=== PATIENT | female | born 1950 | race Caucasian/White ===

== ENCOUNTER 2018-01-14 00:29 | Inpatient (IN) | payer MEDICARE ==
[2018-01-14] MEDS ORDERED: ONDANSETRON 4 MG/2 ML VIAL IVP STA ×2 (01:00→04:27)
[2018-01-14] MEDS ORDERED: NITROGLYCERIN OINT 1 INCH/GM PACKET TOPICAL STA (01:00)
[2018-01-14] MEDS ORDERED: MORPHINE SULFATE 2 MG/ML SYRINGE IV STA (01:00)
[2018-01-14] MEDS ORDERED: SODIUM CHLORIDE 0.9% 1,000 ML IV STA (01:00)
[2018-01-14 01:42] LABS: Albumin 3.5 g/dL (3.5-5.0); Calcium 9.4 mg/dL (8.4-10.2); Magnesium 2.2 mg/dL (1.6-2.3); Potassium 5.1 mmol/L (3.5-5.1); Total Bilirubin 0.4 mg/dL (0.2-1.3); Total Protein 6.2 g/dL (6.3-8.2)
[2018-01-14 01:47] LABS: Partial Thromboplastin Time 22.9 sec (22.0-30.0); Prothrombin Time 9.5 sec (9.0-12.0)
[2018-01-14 01:55] LABS: Creatine Kinase 109 U/L (30-135)
[2018-01-14 02:01] LABS: D-Dimer 2.17 mg/L FEU (<0.60)
[2018-01-14 02:08] LABS: Creatine Kinase MB 2.1 ng/mL (0.0-2.4); Troponin I <0.012 ng/mL (0.000-0.034)
--- NOTE | 2018-01-14 02:08 | XR ---
EXAMINATION TYPE: XR chest 2V DATE OF EXAM: 01/14/2018 COMPARISON: NONE HISTORY: Chest pain TECHNIQUE: 2 views FINDINGS: Heart appears enlarged. There is small pleural effusions. There is mild pulmonary congestio n. There are chest leads. Bony thorax is intact. IMPRESSION: There is probably mild heart failure. No pulmonary consolidation.
[2018-01-14 02:12] LABS: Basophils % (A) 0 %; Eosinophils # (A) 0.1 k/uL (0-0.7); Eosinophils % (A) 1 %; HCT 42.3 % (34.0-46.0); HGB 13.9 gm/dL (11.4-16.0); Lymphocytes # (A) 0.6 k/uL (1.0-4.8); Lymphocytes % (A) 8 %; MCH 31.2 pg (25.0-35.0); MCHC 32.9 g/dL (31.0-37.0); MCV 94.7 fL (80.0-100.0); Monocytes # (A) 0.3 k/uL (0-1.0); Monocytes % (A) 4 %; Neutrophils % (A) 86 %; Platelet Count 149 k/uL (150-450); RBC 4.46 m/uL (3.80-5.40); RDW 12.7 % (11.5-15.5); WBC 8.1 k/uL (3.8-10.6)
--- NOTE | 2018-01-14 03:56 | CT ---
EXAMINATION TYPE: CT abdomen pelvis wo con DATE OF EXAM: 01/14/2018 COMPARISON: 02/11/2011 HISTORY: abd pain CT DLP: 1299 mGycm Automated exposure control for dose reduction was used. TECHNIQUE: Helical acquisition of images was performed from the lung bases through the pelvis. FINDINGS: There is patchy atelectasis at the lung bases. Heart appears enlarged. There is no pleural effusion. Liver shows no focal defect. Spleen is normal in size. There is fat stranding anterior and posterior to the pancreas. Gallbladder appears normal. Bile ducts are not dilated. Stomach has normal size. The re are some mildly distended loops of small bowel in the left upper quadrant that measure up to 3.5 c m. Abdominal aorta is atheromatous. There is no adrenal mass. Kidneys have normal size. There is no h ydronephrosis. There is no retroperitoneal adenopathy. Abdominal aorta is atheromatous. There is mode rate vascular calcification. The appendix appears normal. Bladder distends smoothly. There is no pelv ic mass. There are spondylotic changes in the lumbar spine. There is no sign of free air. There is no ascites. There is fluid in the anterior pararenal space on the left side. IMPRESSION: INFLAMMATORY CHANGES AROUND THE PANCREAS AND IN THE ANTERIOR PARARENAL SPACE AND LESSER SAC CONSISTEN T WITH PANCREATITIS. NO DILATED DUCTS. MODERATE ATHEROSCLEROTIC VASCULAR DISEASE. MILDLY DILATED LEFT UPPER QUADRANT SMALL BOWEL CONSISTENT WITH LOCALIZED ILEUS. I DO NOT SUSPECT A MECHANICAL BOWEL OBSTRUCTION. INFLAMMATORY CHANGES ARE NEW COMPARED TO OLD EXAM. THERE IS NEW ATELECTASIS AND INFILTRATE AT THE LUNG BASES COMP ARED TO OLD EXAM.
[2018-01-14] MEDS ORDERED: MORPHINE SULFATE 2 MG/ML SYRINGE IVP STA (04:27)
--- NOTE | 2018-01-14 05:46 | ED ---
General Adult HPI - General Chief complaint: Chest Pain Stated complaint: back and chest pain Time Seen by Provider: 01/14/18 00:57 Source: patient Mode of arrival: wheelchair Limitations: no limitations - History of Present Illness Initial comments: Extensive 7 years old lady comes in with the abdominal pain and the chest pain about the epigastric area and the right upper quadrant area pain which started 9 PM today she denies any alcohol use he smoked quite regularly and denies any history of heart disease. She is denies any diarrhea or constipation denies any vomiting pain is quite intense she said pain is 9/10 and is mostly in the epigastric area - Related Data Allergies Allergy/AdvReac Type Severity Reaction Status Date / Time cephalexin [From Keflex] Allergy Unknown Verified 01/14/18 00:35 pregabalin [From Lyrica] Allergy Unknown Verified 01/14/18 00:35 terbinafine [From Lamisil] Allergy Unknown Verified 01/14/18 00:35 Review of Systems ROS Statement: Those systems with pertinent positive or pertinent negative responses have been documented in the HPI. ROS Other: All systems not noted in ROS Statement are negative. Past Medical History Past Medical History: Cancer, Diabetes Mellitus History of Any Multi-Drug Resistant Organisms: None Reported Past Surgical History: Orthopedic Surgery Past Psychological History: No Psychological Hx Reported Smoking Status: Current every day smoker Past Alcohol Use History: Occasional Past Drug Use History: None Reported General Exam - General Exam Comments Initial Comments: General: The patient is awake and alert, in distress Skin: Skin is warm and dry and no rashes or lesions are noted. Eye: Pupils are equal, round and reactive to light, extra-ocular movements are intact; there is normal conjunctiva bilaterally. Ears, nose, mouth and throat: There are moist mucous membranes and no oral lesions. Neck: The neck is supple, there is no tenderness or JVD. Cardiovascular: There is a regular rate and rhythm. No murmur, rub or gallop is appreciated. Respiratory: To auscultation bilateral, no wheezing no rhonchi no distress respiratory garza noticed Gastrointestinal: Very tender in epigastric area and right upper quadrant area Back: There is no tenderness to palpation in the midline. There is no obvious deformity. Musculoskeletal: Normal ROM, no tenderness, There is no pedal edema. There is no calf tenderness or swelling. No cords were appreciated. Neurological: CN II-XII intact, Cranial nerves III through XII are intact. There are no obvious motor or sensory deficits. Coordination appears grossly intact. Speech is normal. Psychiatric: Cooperative, appropriate mood & affect, normal judgment. Limitations: no limitations Course Vital Signs 01/14/18 01/14/18 01/14/18 00:31 01:00 01:48 Temperature 98.1 F Pulse Rate 83 79 81 Respiratory 18 22 12 Rate Blood Pressure 181/82 190/80 180/79 O2 Sat by Pulse 92 L 96 85 L Oximetry 01/14/18 01/14/18 02:45 04:11 Temperature 98 F Pulse Rate 77 81 Respiratory 14 18 Rate Blood Pressure 188/81 O2 Sat by Pulse 92 L 95 Oximetry Review of this labs revealed amylase and lipase are both quite elevated lipase 8799 amylase is 76 troponin is negative EKG is unremarkable also noticed renal insufficiency d-dimer is elevated with elevated creatinine, unable to do CT chest angiogram VQ scan be done later and also noticed some mild congestive heart failure patient be admitted to Dr. Mata service cardiology be consulted and a GI be consulted EKG Findings - EKG Comments: EKG Findings:: EKG is normal sinus ventricular rate is 83 MD interval is 172 QRS duration is 86 QT/QTC 392/460 review of this EKG does not reveal any ST elevation or ST depression Medical Decision Making - Lab Data Result diagrams: 01/14/18 00:49 01/14/18 00:49 Lab Results 01/14/18 01/14/18 01/14/18 Range/Units 00:49 00:49 00:49 WBC 8.1 (3.8-10.6) k/uL RBC 4.46 (3.80-5.40) m/uL Hgb 13.9 (11.4-16.0) gm/dL Hct 42.3 (34.0-46.0) % MCV 94.7 (80.0-100.0) fL MCH 31.2 (25.0-35.0) pg MCHC 32.9 (31.0-37.0) g/dL RDW 12.7 (11.5-15.5) % Plt Count 149 L (150-450) k/uL Neutrophils % 86 % Lymphocytes % 8 % Monocytes % 4 % Eosinophils % 1 % Basophils % 0 % Neutrophils # 7.0 (1.3-7.7) k/uL Lymphocytes # 0.6 L (1.0-4.8) k/uL Monocytes # 0.3 (0-1.0) k/uL Eosinophils # 0.1 (0-0.7) k/uL Basophils # 0.0 (0-0.2) k/uL PT (9.0-12.0) sec INR (<1.2) APTT (22.0-30.0) sec D-Dimer (<0.60) mg/L FEU Sodium 133 L (137-145) mmol/L Potassium 5.1 (3.5-5.1) mmol/L Chloride 96 L (98-107) mmol/L Carbon Dioxide 29 (22-30) mmol/L Anion Gap 8 mmol/L BUN 47 H (7-17) mg/dL Creatinine 1.50 H (0.52-1.04) mg/dL Est GFR (CKD-EPI)AfAm 42 (>60 ml/min/1.73 sqM) Est GFR (CKD-EPI)NonAf 36 (>60 ml/min/1.73 sqM) Glucose 295 H (74-99) mg/dL Plasma Lactic Acid Alfredo (0.7-2.0) mmol/L Calcium 9.4 (8.4-10.2) mg/dL Magnesium 2.2 (1.6-2.3) mg/dL Total Bilirubin 0.4 (0.2-1.3) mg/dL AST 27 (14-36) U/L ALT 40 (9-52) U/L Alkaline Phosphatase 86 (38-126) U/L Total Creatine Kinase 109 (30-135) U/L CK-MB (CK-2) 2.1 (0.0-2.4) ng/mL CK-MB (CK-2) Rel Index 1.9 Troponin I <0.012 (0.000-0.034) ng/mL Total Protein 6.2 L (6.3-8.2) g/dL Albumin 3.5 (3.5-5.0) g/dL Amylase 736 H* (30-110) U/L Lipase 8799 H (23-300) U/L 01/14/18 01/14/18 Range/Units 00:49 03:11 WBC (3.8-10.6) k/uL RBC (3.80-5.40) m/uL Hgb (11.4-16.0) gm/dL Hct (34.0-46.0) % MCV (80.0-100.0) fL MCH (25.0-35.0) pg MCHC (31.0-37.0) g/dL RDW (11.5-15.5) % Plt Count (150-450) k/uL Neutrophils % % Lymphocytes % % Monocytes % % Eosinophils % % Basophils % % Neutrophils # (1.3-7.7) k/uL Lymphocytes # (1.0-4.8) k/uL Monocytes # (0-1.0) k/uL Eosinophils # (0-0.7) k/uL Basophils # (0-0.2) k/uL PT 9.5 (9.0-12.0) sec INR 1.0 (<1.2) APTT 22.9 (22.0-30.0) sec D-Dimer 2.17 H (<0.60) mg/L FEU Sodium (137-145) mmol/L Potassium (3.5-5.1) mmol/L Chloride (98-107) mmol/L Carbon Dioxide (22-30) mmol/L Anion Gap mmol/L BUN (7-17) mg/dL Creatinine (0.52-1.04) mg/dL Est GFR (CKD-EPI)AfAm (>60 ml/min/1.73 sqM) Est GFR (CKD-EPI)NonAf (>60 ml/min/1.73 sqM) Glucose (74-99) mg/dL Plasma Lactic Acid Alfredo 0.7 (0.7-2.0) mmol/L Calcium (8.4-10.2) mg/dL Magnesium (1.6-2.3) mg/dL Total Bilirubin (0.2-1.3) mg/dL AST (14-36) U/L ALT (9-52) U/L Alkaline Phosphatase (38-126) U/L Total Creatine Kinase (30-135) U/L CK-MB (CK-2) (0.0-2.4) ng/mL CK-MB (CK-2) Rel Index Troponin I (0.000-0.034) ng/mL Total Protein (6.3-8.2) g/dL Albumin (3.5-5.0) g/dL Amylase (30-110) U/L Lipase (23-300) U/L Disposition Clinical Impression: Pneumonia, Chest pain, Elevated d-dimer, Congestive heart failure, Pancreatitis Disposition: ADMITTED IP TO THIS [facility] Condition: Good Referrals: Jeny Vega DO [Primary Care Provider] - 1-2 days
[2018-01-14] MEDS ORDERED: LEVOFLOXACIN 500MG-D5W PMX 500 MG in DEXTROSE/WATER 1 100ML.BAG IVPB STA (05:50)
[2018-01-14] MEDS ORDERED: NALOXONE 0.4 MG/ML 1 ML VIAL IV PRN (05:52)
[2018-01-14 07:08] LABS: Appearance,Urine Clear (Clear); Bilirubin,Urine Negative (Negative); Blood,Urine Negative (Negative); Color,Urine Light Yellow; Glucose,Urine (UA) 4+ (Negative); Ketones,Urine Negative (Negative); Leukocyte Esterase,Urine Large (Negative); Mucus,Urine Rare /hpf; Nitrite,Urine Negative (Negative); PH, Urine 5.5 (5.0-8.0); Protein,Urine Trace (Negative); RBC,Urine 1 /hpf (0-5); Squamous Epithelial Cell,Urine 1 /hpf (0-4); Urobilinogen,Urine <2.0 mg/dL (<2.0); WBC,Urine 21 /hpf (0-5)
--- NOTE | 2018-01-14 08:20 | NM ---
EXAMINATION TYPE: NM pul vent and perfuse DATE OF EXAM: 01/14/2018 COMPARISON: Chest x-ray same date HISTORY: Chest pain TECHNIQUE: Utilizing inhalation of 28.9 mCi Tc 99m DTPA aerosol and intravenous injection of 5.21 mC i of Tc 99m MAA, ventilation and perfusion images are acquired post injection in multiple projections . FINDINGS: Normal radiotracer distribution is noted in the lungs on perfusion scanning. Ventilation scanning misael ws a somewhat more patchy uptake, central clumping of the radiopharmaceutical be due to underlying CO PD. There is no evidence of mismatched defects. IMPRESSION: Low probability for pulmonary embolism.
[2018-01-14] MEDS: SODIUM CHLORIDE 0.9% 1,000 ML IV SCH ×3 (09:27→22:25)
[2018-01-14] MEDS: MORPHINE SULFATE 2 MG/ML SYRINGE IV PRN ×3 (09:32→21:12)
[2018-01-14] MEDS: ONDANSETRON 4 MG/2 ML VIAL IVP PRN ×2 (09:33→21:21)
[2018-01-14 10:04] VITALS: BMI 38.4
[2018-01-14 11:09] LABS: Glucose,Whole Blood 457 mg/dL (75-99)
[2018-01-14 11:30] LABS: Glucose,Whole Blood 429 mg/dL (75-99)
--- NOTE | 2018-01-14 12:56 | P.CRDCN ---
History of Present Illness Consult date: 01/14/18 Chief complaint: Chest pain History of present illness: This is a pleasant 67-year-old female patient with a past medical history significant for diabetes, hypertension, and significant history of smoking, presented to the hospital complaining of abdominal and chest discomfort. She was in her usual state of health until yesterday when she started experiencing dizziness and lightheadedness and subsequently she developed chest and abdominal discomfort. The pain is more prominent in the abdomen. It doesn't radiate to her back. No shortness of breath. No syncope. The EKG showed sinus rhythm without any ischemic ST or T-wave abnormalities. She underwent one set of cardiac enzymes came in to be unremarkable. The chest x-ray did not show any acute abnormalities. She was found to have elevated lipase and amylase and a computed tomography scan of the abdomen and pelvis revealed an acute pancreatitis. The patient is not aware of any prior history of gallstone. The patient does drink alcohol about 1 beer a day. Off on physical examination she does have significant epigastric tenderness. Overall she is feeling better since she was admitted to the hospital. The blood pressure is severe lately. And currently she is on metoprolol succinate at 100 mg by mouth daily. She was taking Cardura at home but she is not on it in the hospital and I will resume it to get better blood pressure control. Also will obtain an echocardiogram was Doppler to assess for pericardial effusion which could be associated with acute pancreatitis. Past Medical History Past Medical History: Cancer, Diabetes Mellitus, Hypertension History of Any Multi-Drug Resistant Organisms: None Reported Past Surgical History: Breast Surgery, Orthopedic Surgery, Tubal Ligation Additional Past Surgical History / Comment(s): RIGHT C.A. Past Anesthesia/Blood Transfusion Reactions: No Reported Reaction Past Psychological History: No Psychological Hx Reported Smoking Status: Current every day smoker Past Alcohol Use History: Occasional Past Drug Use History: None Reported - Past Family History Mother Family Medical History: Cancer Father Family Medical History: Cancer Medications and Allergies Home Medications Medication Instructions Recorded Confirmed Type Amitriptyline HCl 50 mg PO HS 01/14/18 01/14/18 History Anastrozole [Arimidex] 1 mg PO DAILY 01/14/18 01/14/18 History Ascorbic Acid [Vitamin C] 500 mg PO DAILY 01/14/18 01/14/18 History Aspirin 81 mg PO DAILY 01/14/18 01/14/18 History Benazepril HCl [Lotensin] 20 mg PO DAILY 01/14/18 01/14/18 History Bumetanide 2 mg PO DAILY 01/14/18 01/14/18 History Calcium Carbonate/Vitamin D3 1 each PO DAILY 01/14/18 01/14/18 History [Caltrate 600 Plus D3 Tablet] Doxazosin Mesylate [Cardura Xl] 8 mg PO DAILY 01/14/18 01/14/18 History Insulin Aspart [NovoLOG] 0 units SQ ACHS 01/14/18 01/14/18 History Insulin Glargine [Lantus] 0 unit SQ HS 01/14/18 01/14/18 History Levothyroxine Sodium [Synthroid] 175 mcg PO DAILY 01/14/18 01/14/18 History Metoprolol Succinate (ER) [Toprol 100 mg PO DAILY 01/14/18 01/14/18 History Xl] Potassium Chloride [Klor-Con 10] 10 meq PO DAILY 01/14/18 01/14/18 History Psyllium Husk [Metamucil] 0.4 gm PO DAILY 01/14/18 01/14/18 History Allergies Allergy/AdvReac Type Severity Reaction Status Date / Time cephalexin [From Keflex] Allergy Unknown Verified 01/14/18 00:35 pregabalin [From Lyrica] Allergy Unknown Verified 01/14/18 00:35 terbinafine [From Lamisil] Allergy Unknown Verified 01/14/18 00:35 Physical Exam Vitals: Vital Signs Temp Pulse Resp BP Pulse Ox 01/14/18 06:46 98.4 F 85 16 158/70 95 01/14/18 04:11 98 F 81 18 188/81 95 01/14/18 02:45 77 14 92 L 01/14/18 01:48 81 12 180/79 85 L 01/14/18 01:00 79 22 190/80 96 01/14/18 00:31 98.1 F 83 18 181/82 92 L Intake and Output 01/13/18 01/14/18 01/14/18 22:59 06:59 14:59 Other: Weight 117.934 kg 117.934 kg - Constitutional General appearance: no acute distress - Respiratory Respiratory: bilateral: CTA - Cardiovascular Rhythm: regular Heart sounds: normal: S1, S2 Results 01/14/18 00:49 01/14/18 00:49 Cardiac Enzymes 01/14/18 01/14/18 Range/Units 00:49 00:49 AST 27 (14-36) U/L CK-MB (CK-2) 2.1 (0.0-2.4) ng/mL Troponin I <0.012 (0.000-0.034) ng/mL Coagulation 01/14/18 Range/Units 00:49 PT 9.5 (9.0-12.0) sec APTT 22.9 (22.0-30.0) sec CBC 01/14/18 Range/Units 00:49 WBC 8.1 (3.8-10.6) k/uL RBC 4.46 (3.80-5.40) m/uL Hgb 13.9 (11.4-16.0) gm/dL Hct 42.3 (34.0-46.0) % Plt Count 149 L (150-450) k/uL Comprehensive Metabolic Panel 01/14/18 Range/Units 00:49 Sodium 133 L (137-145) mmol/L Potassium 5.1 (3.5-5.1) mmol/L Chloride 96 L (98-107) mmol/L Carbon Dioxide 29 (22-30) mmol/L BUN 47 H (7-17) mg/dL Creatinine 1.50 H (0.52-1.04) mg/dL Glucose 295 H (74-99) mg/dL Calcium 9.4 (8.4-10.2) mg/dL AST 27 (14-36) U/L ALT 40 (9-52) U/L Alkaline Phosphatase 86 (38-126) U/L Total Protein 6.2 L (6.3-8.2) g/dL Albumin 3.5 (3.5-5.0) g/dL Current Medications Generic Name Dose Route Start Last Admin Trade Name Freq PRN Reason Stop Dose Admin Amitriptyline HCl 50 mg 01/14/18 21:00 Elavil PO HS NATALIIA Anastrozole 1 mg 01/15/18 09:00 Arimidex PO DAILY NATALIIA Sodium Chloride 1,000 mls @ 150 mls/hr 01/14/18 06:00 01/14/18 09:27 Saline 0.9% IV Not Given .[id number] NATALIIA Insulin Aspart 0 unit 01/14/18 17:30 Novolog SQ ACHS [facility] Protocol Levothyroxine Sodium 100 mcg 01/15/18 06:30 Synthroid PO DAILY@0630 [facility] Levothyroxine Sodium 75 mcg 01/15/18 06:30 Synthroid PO DAILY@0630 [facility] Metoprolol Succinate 100 mg 01/15/18 09:00 Toprol Xl PO DAILY [facility] Morphine Sulfate 4 mg 01/14/18 05:52 01/14/18 09:32 Morphine Sulfate (Inj) IV 4 mg Q4HR PRN Administration Severe Pain Naloxone HCl 0.2 mg 01/14/18 05:52 Narcan IV Q2M PRN Opioid Reversal Ondansetron HCl 4 mg 01/14/18 05:52 01/14/18 09:33 Zofran IVP 4 mg Q8HR PRN Administration Nausea And Vomiting Intake and Output 01/13/18 01/14/18 01/14/18 22:59 06:59 14:59 Other: Weight 117.934 kg 117.934 kg Patient Weight 01/15/18 06:59 Weight 117.934 kg 01/14/18 00:49 01/14/18 00:49 Assessment and Plan Assessment: Assessment #1 acute pancreatitis #2 chest discomfort secondary to the above #3 history of alcohol use #4 uncontrolled hypertension #5 significant history of smoking Plan #1 continue the current medical regimen #2 add Cardura to the current medical regimen #3 continue adjusting the blood pressure medication #4 obtain an echocardiogram was Doppler to rule out any pericardial effusion #5 follow-up with the patient. Thank you for allowing us participate in the patient's care
--- NOTE | 2018-01-14 13:39 | P.GSCN ---
History of Present Illness Consult date: 01/14/18 History of present illness: This is 67 show female began expensing abdominal pain yesterday. She states that this is a now for pain she has never experienced this before. She states that it's in her upper abdomen and chest. She admits to drinking 1-2 beers a day. Including yesterday. She denies any blood in her stool. She did have some vomiting yesterday and this morning she denies any blood in her vomit. She denies any fevers or chills. She has no other complaints Past Medical History Past Medical History: Cancer, Diabetes Mellitus, Hypertension History of Any Multi-Drug Resistant Organisms: None Reported Past Surgical History: Breast Surgery, Orthopedic Surgery, Tubal Ligation Additional Past Surgical History / Comment(s): RIGHT C.A. Past Anesthesia/Blood Transfusion Reactions: No Reported Reaction Past Psychological History: No Psychological Hx Reported Smoking Status: Current every day smoker Past Alcohol Use History: Occasional Past Drug Use History: None Reported - Past Family History Mother Family Medical History: Cancer Father Family Medical History: Cancer Medications and Allergies Home Medications Medication Instructions Recorded Confirmed Type Amitriptyline HCl 50 mg PO HS 01/14/18 01/14/18 History Anastrozole [Arimidex] 1 mg PO HS 01/14/18 01/14/18 History Ascorbic Acid [Vitamin C] 500 mg PO DAILY 01/14/18 01/14/18 History Aspirin 81 mg PO DAILY 01/14/18 01/14/18 History Benazepril HCl [Lotensin] 20 mg PO DAILY 01/14/18 01/14/18 History Bumetanide 2 mg PO BID@0800,1200 01/14/18 01/14/18 History Calcium Carbonate/Vitamin D3 1 tab PO BID 01/14/18 01/14/18 History [Caltrate 600 Plus D3 Tablet] Doxazosin Mesylate [Cardura Xl] 8 mg PO HS 01/14/18 01/14/18 History Insulin Aspart [NovoLOG] See Protocol SQ AC-TID 01/14/18 01/14/18 History Insulin Glargine [Lantus] 25 unit SQ HS 01/14/18 01/14/18 History Levothyroxine Sodium [Synthroid] 175 mcg PO DAILY 01/14/18 01/14/18 History Metoprolol Succinate (ER) [Toprol 100 mg PO BID 01/14/18 01/14/18 History Xl] Potassium Chloride [Klor-Con 10] 10 meq PO DAILY 01/14/18 01/14/18 History Psyllium Husk [Metamucil] 0.4 gm PO HS 01/14/18 01/14/18 History Allergies Allergy/AdvReac Type Severity Reaction Status Date / Time cephalexin [From Keflex] Allergy Unknown Verified 01/14/18 13:25 pregabalin [From Lyrica] Allergy Unknown Verified 01/14/18 13:25 terbinafine [From Lamisil] Allergy Unknown Verified 01/14/18 13:25 Surgical - Exam Osteopathic Statement: *. No significant issues noted on an osteopathic structural exam other than those noted in the History and Physical/Consult. Vital Signs Temp Pulse Resp BP Pulse Ox 98.1 F 83 18 181/82 92 L 01/14/18 00:31 01/14/18 00:31 01/14/18 00:31 01/14/18 00:31 01/14/18 00:31 - General well developed, well nourished, no distress - Eyes PERRL - Neck trachea midline - Respiratory normal expansion, normal respiratory effort - Cardiovascular Rhythm: regular - Abdomen Soft nondistended mild tenderness palpation in the midepigastric - Neurologic normal coordination, normal sensation - Psychiatric oriented to time, oriented to person, oriented to place Results - Labs 01/14/18 00:49 01/14/18 00:49 Abnormal Lab Results - Last 24 Hours (Table) 01/14/18 01/14/18 01/14/18 Range/Units 00:49 00:49 00:49 Plt Count 149 L (150-450) k/uL Lymphocytes # 0.6 L (1.0-4.8) k/uL D-Dimer 2.17 H (<0.60) mg/L FEU Sodium 133 L (137-145) mmol/L Chloride 96 L (98-107) mmol/L BUN 47 H (7-17) mg/dL Creatinine 1.50 H (0.52-1.04) mg/dL Glucose 295 H (74-99) mg/dL POC Glucose (mg/dL) (75-99) mg/dL Total Protein 6.2 L (6.3-8.2) g/dL Amylase 736 H* (30-110) U/L Lipase 8799 H (23-300) U/L Urine Protein (Negative) Urine Glucose (UA) (Negative) Ur Leukocyte Esterase (Negative) Urine WBC (0-5) /hpf Urine Mucus (None) /hpf 01/14/18 01/14/18 01/14/18 Range/Units 06:50 11:04 11:24 Plt Count (150-450) k/uL Lymphocytes # (1.0-4.8) k/uL D-Dimer (<0.60) mg/L FEU Sodium (137-145) mmol/L Chloride (98-107) mmol/L BUN (7-17) mg/dL Creatinine (0.52-1.04) mg/dL Glucose (74-99) mg/dL POC Glucose (mg/dL) 457 H 429 H (75-99) mg/dL Total Protein (6.3-8.2) g/dL Amylase (30-110) U/L Lipase (23-300) U/L Urine Protein Trace H (Negative) Urine Glucose (UA) 4+ H (Negative) Ur Leukocyte Esterase Large H (Negative) Urine WBC 21 H (0-5) /hpf Urine Mucus Rare H (None) /hpf Diabetes panel 01/14/18 Range/Units 00:49 Sodium 133 L (137-145) mmol/L Potassium 5.1 (3.5-5.1) mmol/L Chloride 96 L (98-107) mmol/L Carbon Dioxide 29 (22-30) mmol/L BUN 47 H (7-17) mg/dL Creatinine 1.50 H (0.52-1.04) mg/dL Glucose 295 H (74-99) mg/dL Calcium 9.4 (8.4-10.2) mg/dL AST 27 (14-36) U/L ALT 40 (9-52) U/L Alkaline Phosphatase 86 (38-126) U/L Total Protein 6.2 L (6.3-8.2) g/dL Albumin 3.5 (3.5-5.0) g/dL Calcium panel 01/14/18 Range/Units 00:49 Calcium 9.4 (8.4-10.2) mg/dL Albumin 3.5 (3.5-5.0) g/dL Pituitary panel 01/14/18 Range/Units 00:49 Sodium 133 L (137-145) mmol/L Potassium 5.1 (3.5-5.1) mmol/L Chloride 96 L (98-107) mmol/L Carbon Dioxide 29 (22-30) mmol/L BUN 47 H (7-17) mg/dL Creatinine 1.50 H (0.52-1.04) mg/dL Glucose 295 H (74-99) mg/dL Calcium 9.4 (8.4-10.2) mg/dL Adrenal panel 01/14/18 Range/Units 00:49 Sodium 133 L (137-145) mmol/L Potassium 5.1 (3.5-5.1) mmol/L Chloride 96 L (98-107) mmol/L Carbon Dioxide 29 (22-30) mmol/L BUN 47 H (7-17) mg/dL Creatinine 1.50 H (0.52-1.04) mg/dL Glucose 295 H (74-99) mg/dL Calcium 9.4 (8.4-10.2) mg/dL Total Bilirubin 0.4 (0.2-1.3) mg/dL AST 27 (14-36) U/L ALT 40 (9-52) U/L Alkaline Phosphatase 86 (38-126) U/L Total Protein 6.2 L (6.3-8.2) g/dL Albumin 3.5 (3.5-5.0) g/dL Assessment and Plan Assessment: Acute pancreatitis likely secondary to EtOH Plan: Nothing by mouth, IV fluids, there were no gallstones seen on CAT scan. Patient does drink alcohol daily this is likely secondary to alcohol. No plans for acute surgical intervention at this time
--- NOTE | 2018-01-14 13:44 | P.HPIM ---
History of Present Illness 67-year-old pleasant female came in with a severe epigastric abdominal pain 9/ 10 in severity radiating to the back found to have pancreatitis patient says she drinks 1 beer a day. Patient does have a highly elevated lipase E CAT scan of the chest is consistent with edematous pancreatitis. There is no evidence of the toes in the CAT scan. Patient is hyponatremic expected to improve with IV fluids. Surgery valid the patient I believe to rule out any gallbladder pathology although there is no evidence of gallbladder pathology in the surgeries not recommending any further intervention. Patient is nothing by mouth at this time. But will be given a dose of metoprolol to avoid reflex tachycardia. Patient had a d-dimer elevation secondary to inflammation although patient underwent pulmonary perfusion scanning I believe for elevated d -dimer which showed low probability for pulmonary embolism. Patient was evaluated by cardiology as well because of the epigastric abdominal pain or believe and no further intervention from that perspective. Patient has atelectasis on the CAT scan no pneumonic process. Will not require any antibiotics. Patient is on IV fluids and by mouth bowel rest. Patient did drop couple times but presently nauseous. Review of Systems REVIEW OF SYSTEMS: CONSTITUTIONAL: No fever, no malaise, no fatigue. HEENT: No recent visual problems or hearing problems. Denied any sore throat. CARDIOVASCULAR: No chest pain, orthopnea, PND, no palpitations, no syncope. PULMONARY: No shortness of breath, no cough, no hemoptysis. GASTROINTESTINAL: As mentioned in HPI NEUROLOGICAL: No headaches, no weakness, no numbness. HEMATOLOGICAL: Denies any bleeding or petechiae. GENITOURINARY: Denies any burning micturition, frequency, or urgency. MUSCULOSKELETAL/RHEUMATOLOGICAL: Denies any joint pain, swelling, or any muscle pain. ENDOCRINE: Denies any polyuria or polydipsia. The rest of the 14-point review of systems is negative. Past Medical History Past Medical History: Cancer, Diabetes Mellitus, Hypertension History of Any Multi-Drug Resistant Organisms: None Reported Past Surgical History: Breast Surgery, Orthopedic Surgery, Tubal Ligation Additional Past Surgical History / Comment(s): RIGHT C.A. Past Anesthesia/Blood Transfusion Reactions: No Reported Reaction Past Psychological History: No Psychological Hx Reported Smoking Status: Current every day smoker Past Alcohol Use History: Occasional Past Drug Use History: None Reported - Past Family History Mother Family Medical History: Cancer Father Family Medical History: Cancer Medications and Allergies Home Medications Medication Instructions Recorded Confirmed Type Amitriptyline HCl 50 mg PO HS 01/14/18 01/14/18 History Anastrozole [Arimidex] 1 mg PO HS 01/14/18 01/14/18 History Ascorbic Acid [Vitamin C] 500 mg PO DAILY 01/14/18 01/14/18 History Aspirin 81 mg PO DAILY 01/14/18 01/14/18 History Benazepril HCl [Lotensin] 20 mg PO DAILY 01/14/18 01/14/18 History Bumetanide 2 mg PO BID@0800,1200 01/14/18 01/14/18 History Calcium Carbonate/Vitamin D3 1 tab PO BID 01/14/18 01/14/18 History [Caltrate 600 Plus D3 Tablet] Doxazosin Mesylate [Cardura Xl] 8 mg PO HS 01/14/18 01/14/18 History Insulin Aspart [NovoLOG] See Protocol SQ AC-TID 01/14/18 01/14/18 History Insulin Glargine [Lantus] 25 unit SQ HS 01/14/18 01/14/18 History Levothyroxine Sodium [Synthroid] 175 mcg PO DAILY 01/14/18 01/14/18 History Metoprolol Succinate (ER) [Toprol 100 mg PO BID 01/14/18 01/14/18 History Xl] Potassium Chloride [Klor-Con 10] 10 meq PO DAILY 01/14/18 01/14/18 History Psyllium Husk [Metamucil] 0.4 gm PO HS 01/14/18 01/14/18 History Allergies Allergy/AdvReac Type Severity Reaction Status Date / Time cephalexin [From Keflex] Allergy Unknown Verified 01/14/18 13:25 pregabalin [From Lyrica] Allergy Unknown Verified 01/14/18 13:25 terbinafine [From Lamisil] Allergy Unknown Verified 01/14/18 13:25 Physical Exam Vitals: Vital Signs Temp Pulse Resp BP Pulse Ox 01/14/18 06:46 98.4 F 85 16 158/70 95 01/14/18 04:11 98 F 81 18 188/81 95 01/14/18 02:45 77 14 92 L 01/14/18 01:48 81 12 180/79 85 L 01/14/18 01:00 79 22 190/80 96 01/14/18 00:31 98.1 F 83 18 181/82 92 L Intake and Output 01/13/18 01/14/18 01/14/18 22:59 06:59 14:59 Other: Weight 117.934 kg 117.934 kg PHYSICAL EXAMINATION: GENERAL: The patient is alert and oriented x3, not in any acute distress. Well developed, well nourished. HEENT: Pupils are round and equally reacting to light. EOMI. No scleral icterus. No conjunctival pallor. Normocephalic, atraumatic. No pharyngeal erythema. No thyromegaly. CARDIOVASCULAR: S1 and S2 present. No murmurs, rubs, or gallops. PULMONARY: Chest is clear to auscultation, no wheezing or crackles. ABDOMEN: Minimal tenderness in the epigastric abdominal area no rebound or rigidity MUSCULOSKELETAL: No joint swelling or deformity. EXTREMITIES: No cyanosis, clubbing, or pedal edema. NEUROLOGICAL: Gross neurological examination did not reveal any focal deficits. SKIN: No rashes. Results CBC & Chem 7: 01/14/18 00:49 01/14/18 00:49 Labs: Abnormal Lab Results - Last 24 Hours (Table) 01/14/18 01/14/18 01/14/18 Range/Units 00:49 00:49 00:49 Plt Count 149 L (150-450) k/uL Lymphocytes # 0.6 L (1.0-4.8) k/uL D-Dimer 2.17 H (<0.60) mg/L FEU Sodium 133 L (137-145) mmol/L Chloride 96 L (98-107) mmol/L BUN 47 H (7-17) mg/dL Creatinine 1.50 H (0.52-1.04) mg/dL Glucose 295 H (74-99) mg/dL POC Glucose (mg/dL) (75-99) mg/dL Total Protein 6.2 L (6.3-8.2) g/dL Amylase 736 H* (30-110) U/L Lipase 8799 H (23-300) U/L Urine Protein (Negative) Urine Glucose (UA) (Negative) Ur Leukocyte Esterase (Negative) Urine WBC (0-5) /hpf Urine Mucus (None) /hpf 01/14/18 01/14/18 01/14/18 Range/Units 06:50 11:04 11:24 Plt Count (150-450) k/uL Lymphocytes # (1.0-4.8) k/uL D-Dimer (<0.60) mg/L FEU Sodium (137-145) mmol/L Chloride (98-107) mmol/L BUN (7-17) mg/dL Creatinine (0.52-1.04) mg/dL Glucose (74-99) mg/dL POC Glucose (mg/dL) 457 H 429 H (75-99) mg/dL Total Protein (6.3-8.2) g/dL Amylase (30-110) U/L Lipase (23-300) U/L Urine Protein Trace H (Negative) Urine Glucose (UA) 4+ H (Negative) Ur Leukocyte Esterase Large H (Negative) Urine WBC 21 H (0-5) /hpf Urine Mucus Rare H (None) /hpf Thrombosis Risk Factor Assmnt - Choose All That Apply Any of the Below Risk Factors Present?: Yes Each Factor Represents 1 point: Obesity (BMI >25) Other Risk Factors: Yes Each Risk Factor Represents 2 Points: Age 61-74 years Other congenital or acquired thrombophilia - If yes, enter type in comment: No Thrombosis Risk Factor Assessment Total Risk Factor Score: 3 Thrombosis Risk Factor Assessment Level: Moderate Risk Assessment and Plan Plan: -Acute pancreatitis: He develops pancreatitis patient will be continued on bowel rest IV fluids. -Acute renal failure: Secondary to diuretic therapy at home which will be held and patient is on IV fluids which is expected to improve her creatinine -Hyponatremia secondary to diuretic therapy. -Hypothyroidism -Breast cancer patient is anastrozole which will be continued -Rule out pulmonary embolism -Type 2 diabetes mellitus: Continue with sliding scale insulin. Rest of her home regimen will be held as patient is nothing by mouth
[2018-01-14] MEDS: INSULIN ASPART 100 UNIT/ML 1 ML 10 ML VIAL SQ SCH ×3 (14:49→21:12)
[2018-01-14 15:05] LABS: Glucose,Whole Blood 427 mg/dL (75-99)
[2018-01-14 16:59] LABS: Glucose,Whole Blood 437 mg/dL (75-99)
[2018-01-14] MEDS ORDERED: INSULIN ASPART 100 UNIT/ML 1 ML 10 ML VIAL SQ SCH (17:30)
[2018-01-14] MEDS: METOPROLOL SUCCINATE (ER) 100 MG TAB.ER.24H PO SCH (17:46)
[2018-01-14 19:56] LABS: Glucose,Whole Blood 285 mg/dL (75-99)
[2018-01-14 20:54] LABS: Glucose,Whole Blood 251 mg/dL (75-99)
[2018-01-14] MEDS: AMITRIPTYLINE HCL 50 MG TAB PO SCH (21:49)
[2018-01-14] MEDS: ANASTROZOLE 1 MG TAB PO SCH (21:50)
[2018-01-15] MEDS: SODIUM CHLORIDE 0.9% 1,000 ML IV SCH ×2 (04:12→13:01)
[2018-01-15] MEDS: LEVOTHYROXINE 75 MCG TAB PO SCH (06:25)
[2018-01-15] MEDS: LEVOTHYROXINE 100 MCG TAB PO SCH (06:25)
[2018-01-15] MEDS: ONDANSETRON 4 MG/2 ML VIAL IVP PRN (06:30)
[2018-01-15] MEDS: MORPHINE SULFATE 2 MG/ML SYRINGE IV PRN (06:35)
[2018-01-15 08:09] LABS: Albumin 2.8 g/dL (3.5-5.0); Calcium 8.6 mg/dL (8.4-10.2); Potassium 5.1 mmol/L (3.5-5.1); Total Bilirubin 0.9 mg/dL (0.2-1.3); Total Protein 5.2 g/dL (6.3-8.2)
[2018-01-15] MEDS: DOXAZOSIN 4 MG TAB PO SCH (08:18)
[2018-01-15] MEDS: METOPROLOL SUCCINATE (ER) 100 MG TAB.ER.24H PO SCH (08:18)
[2018-01-15 08:23] LABS: Glucose,Whole Blood 308 mg/dL (75-99)
[2018-01-15] MEDS: INSULIN ASPART 100 UNIT/ML 1 ML 10 ML VIAL SQ SCH ×4 (08:24→21:32)
[2018-01-15] MEDS ORDERED: METOPROLOL SUCCINATE (ER) 100 MG TAB.ER.24H PO SCH (09:00)
[2018-01-15] MEDS ORDERED: ANASTROZOLE 1 MG TAB PO SCH (09:00)
[2018-01-15] MEDS ORDERED: LEVOTHYROXINE 75 MCG TAB PO SCH (09:00)
--- NOTE | 2018-01-15 12:38 | P.PN ---
Subjective Progress Note Date: 01/15/18 patient doing well, feeling better today. No NV. No F/C Objective - Vital Signs Vital signs: Vital Signs Temp 99.4 F 01/15/18 07:00 Pulse 88 01/15/18 08:00 Resp 19 01/15/18 08:00 BP 143/65 01/15/18 07:00 Pulse Ox 92 L 01/15/18 07:00 Intake & Output 01/14/18 01/15/18 01/15/18 18:59 06:59 18:59 Output Total 1100 Balance -1100 Weight 117.934 kg Output: Urine 1100 Other: Voiding Method Toilet Toilet # Voids 1 - Respiratory Details: nonlabored - Cardiovascular Rhythm: regular - Gastrointestinal Gastrointestinal Comment(s): s/nd/nt - Psychiatric Psychiatric: Present: A&O x's 3 - Labs CBC & Chem 7: 01/14/18 00:49 01/15/18 07:11 Labs: Abnormal Lab Results - Last 24 Hours (Table) 01/14/18 01/14/18 01/14/18 Range/Units 14:44 16:51 19:54 BUN (7-17) mg/dL Creatinine (0.52-1.04) mg/dL Glucose (74-99) mg/dL POC Glucose (mg/dL) 427 H 437 H 285 H (75-99) mg/dL Total Protein (6.3-8.2) g/dL Albumin (3.5-5.0) g/dL Lipase (23-300) U/L 01/14/18 01/15/18 01/15/18 Range/Units 20:53 07:11 08:08 BUN 47 H (7-17) mg/dL Creatinine 1.61 H (0.52-1.04) mg/dL Glucose 282 H (74-99) mg/dL POC Glucose (mg/dL) 251 H 308 H (75-99) mg/dL Total Protein 5.2 L (6.3-8.2) g/dL Albumin 2.8 L (3.5-5.0) g/dL Lipase 1600 H (23-300) U/L Assessment and Plan Assessment: Acute pancreatitis likely secondary to EtOH Plan: patient may have clear liquid diet and advance as tolerated from surgical standpoint. No plans for acute surgical intervention. Please contact me with any further concerns
[2018-01-15 12:59] LABS: Glucose,Whole Blood 264 mg/dL (75-99)
--- NOTE | 2018-01-15 14:53 | P.PN ---
Subjective 67-year-old female admitted with alcoholic pancreatitis. Patient is feeling better patient will be started on clear liquid diet advance as tolerated. Patient's lipase is around 1600 compared to 6000. Abdominal pain improved Constitutional: Denied any fatigue denied any fever. Cardio vascular: denied any chest pain, palpitations Gastrointestinal denied any nausea vomiting Pulmonary: Denied any shortness of breath cough Neurologic denied any new focal deficits Objective - Vital Signs Vital signs: Vital Signs Temp 99.4 F 01/15/18 07:00 Pulse 88 01/15/18 08:00 Resp 19 01/15/18 08:00 BP 143/65 01/15/18 07:00 Pulse Ox 92 L 01/15/18 07:00 Intake & Output 01/14/18 01/15/18 01/15/18 18:59 06:59 18:59 Output Total 1100 Balance -1100 Weight 117.934 kg Output: Urine 1100 Other: Voiding Method Toilet Toilet # Voids 1 - Exam PHYSICAL EXAMINATION: GENERAL: The patient is alert and oriented x3, not in any acute distress. Obese HEENT: Pupils are round and equally reacting to light. EOMI. No scleral icterus. No conjunctival pallor. Normocephalic, atraumatic. No pharyngeal erythema. No thyromegaly. CARDIOVASCULAR: S1 and S2 present. No murmurs, rubs, or gallops. PULMONARY: Chest is clear to auscultation, no wheezing or crackles. ABDOMEN: Soft, nontender, nondistended, normoactive bowel sounds. No palpable organomegaly. MUSCULOSKELETAL: No joint swelling or deformity. EXTREMITIES: No cyanosis, clubbing, or pedal edema. NEUROLOGICAL: Gross neurological examination did not reveal any focal deficits. SKIN: No rashes. - Labs CBC & Chem 7: 01/14/18 00:49 01/15/18 07:11 Labs: Abnormal Lab Results - Last 24 Hours (Table) 01/14/18 01/14/18 01/14/18 Range/Units 14:44 16:51 19:54 BUN (7-17) mg/dL Creatinine (0.52-1.04) mg/dL Glucose (74-99) mg/dL POC Glucose (mg/dL) 427 H 437 H 285 H (75-99) mg/dL Total Protein (6.3-8.2) g/dL Albumin (3.5-5.0) g/dL Lipase (23-300) U/L 01/14/18 01/15/18 01/15/18 Range/Units 20:53 07:11 08:08 BUN 47 H (7-17) mg/dL Creatinine 1.61 H (0.52-1.04) mg/dL Glucose 282 H (74-99) mg/dL POC Glucose (mg/dL) 251 H 308 H (75-99) mg/dL Total Protein 5.2 L (6.3-8.2) g/dL Albumin 2.8 L (3.5-5.0) g/dL Lipase 1600 H (23-300) U/L 01/15/18 Range/Units 12:39 BUN (7-17) mg/dL Creatinine (0.52-1.04) mg/dL Glucose (74-99) mg/dL POC Glucose (mg/dL) 264 H (75-99) mg/dL Total Protein (6.3-8.2) g/dL Albumin (3.5-5.0) g/dL Lipase (23-300) U/L Assessment and Plan Plan: -Acute pancreatitis:alcoholic pancreatitis patient will continued on IV fluids at 100 mL/h patient will be started on clear liquid diet -Acute renal failure: The abdomen remains stable now did not improve with IV fluids will continue with IV fluids and the repeat electrolytes tomorrow Secondary to diuretic therapy -Hyponatremia secondary to diuretic therapy. -Hypothyroidism -Breast cancer patient is anastrozole which will be continued -Ruled out pulmonary embolism -Type 2 diabetes mellitus: Continue with sliding scale insulin.
[2018-01-15 15:22] LABS: Hemoglobin A1C 6.3 % (4.0-6.0)
[2018-01-15 17:27] LABS: Glucose,Whole Blood 244 mg/dL (75-99)
--- NOTE | 2018-01-15 18:42 | ECHOF ---
Referral Reason: MEASUREMENTS -------- HEIGHT: 177.8 cm WEIGHT: 117.9 kg BP: 144/70 RVIDd: 2.6 cm (< 3.3) IVSd: 1.0 cm (0.6 - 1.1) LVIDd: 4.2 cm (3.9 - 5.3) LVPWd: 1.2 cm (0.6 - 1.1) IVSs: 1.9 cm LVIDs: 2.4 cm LVPWs: 1.7 cm LAESV Index (A-L): 22.90 ml/m Ao Diam: 3.2 cm (2.0 - 3.7) AV Cusp: 1.8 cm (1.5 - 2.6) LA Diam: 3.6 cm (2.7 - 3.8) MV EXCURSION: 20.477 mm (> 18.000) MV EF SLOPE: 87 mm/s (70 - 150) EPSS: 0.5 cm MV E Wade: 1.30 m/s MV DecT: 145 ms MV A Wade: 1.54 m/s MV E/A Ratio: 0.84 RAP: 5.00 mmHg RVSP: 15.74 mmHg FINDINGS -------- Sinus rhythm. This was a technically good study. The left ventricular size is normal. There is borderline concentric left ventricular hypertrophy. Overall left ventricular systolic function is normal with, an EF between 55 - 60 %. The right ventricle is normal in size and function. The left atrium is normal in size. The right atrium is normal in size. The aortic valve is trileaflet, and appears structurally normal. No aortic stenosis or regurgitation. The mitral valve leaflets are mildly thickened. Mild mitral annular calcification present. There is trace mitral regurgitation. Trace tricuspid regurgitation present. The right ventricular systolic pressure, as measured by Dopp ler, is 15.74mmHg. Pulmonic valve appears structurally normal. The aortic root size is normal. There is a trivial pericardial effusion present. CONCLUSIONS -------- 1. Sinus rhythm. 2. This was a technically good study. 3. The left ventricular size is normal. 4. There is borderline concentric left ventricular hypertrophy. 5. Overall left ventricular systolic function is normal with, an EF between 55 - 60 %. 6. The right ventricle is normal in size and function. 7. The left atrium is normal in size. 8. The right atrium is normal in size. 9. The aortic valve is trileaflet, and appears structurally normal. No aortic stenosis or regurgitati on. 10. The mitral valve leaflets are mildly thickened. 11. Mild mitral annular calcification present. 12. There is trace mitral regurgitation. 13. Trace tricuspid regurgitation present. 14. The right ventricular systolic pressure, as measured by Doppler, is 15.74mmHg. 15. Pulmonic valve appears structurally normal. 16. The aortic root size is normal. 17. There is a trivial pericardial effusion present. S[employer]IOR MANAGER [employer]: Nathalie Culver RDCS
--- NOTE | 2018-01-15 19:08 | P.PN ---
Subjective Progress Note Date: 01/15/18 This 67-year-old female is admitted with abdominal and chest pain. Patient is diagnosed to have pancreatitis. Her lipase has come down to 1600. Patient's diet is advanced. Echo Cardigan showed normal LV function. No Cardec arrhythmias noted Objective - Vital Signs Vital signs: Vital Signs Temp 99.2 F 01/15/18 15:00 Pulse 91 01/15/18 15:00 Resp 19 01/15/18 15:32 BP 149/68 01/15/18 15:00 Pulse Ox 91 L 01/15/18 15:00 Intake & Output 01/15/18 01/15/18 01/16/18 06:59 18:59 06:59 Other: Voiding Method Toilet Toilet # Voids 1 2 - Exam GENERAL EXAM: Patient is alert and oriented and doesn't appear to be in any acute distress HEENT: Normocephalic. Normal reaction of pupils, equal size, normal range of extraocular motion. No erythema or exudates in the throat. NECK: No masses, no nuchal rigidity. CHEST: No chest wall deformity. LUNGS: Equal air entry with no crackles or wheeze. HEART: S1 and S2 normal with no audible mumurs or gallops. Regular rhythm, femorals equal on both sides.. ABDOMEN: Distended with tenderness. SKIN: No rashes CENTRAL NERVOUS SYSTEM: No focal deficits. EXTREMITIES: No cyanosis, clubbing or edema. - Labs CBC & Chem 7: 01/14/18 00:49 01/15/18 07:11 Labs: Abnormal Lab Results - Last 24 Hours (Table) 01/14/18 01/14/18 01/14/18 Range/Units 00:49 19:54 20:53 BUN (7-17) mg/dL Creatinine (0.52-1.04) mg/dL Glucose (74-99) mg/dL POC Glucose (mg/dL) 285 H 251 H (75-99) mg/dL Hemoglobin A1c 6.3 H (4.0-6.0) % Total Protein (6.3-8.2) g/dL Albumin (3.5-5.0) g/dL Lipase (23-300) U/L 01/15/18 01/15/18 01/15/18 Range/Units 07:11 08:08 12:39 BUN 47 H (7-17) mg/dL Creatinine 1.61 H (0.52-1.04) mg/dL Glucose 282 H (74-99) mg/dL POC Glucose (mg/dL) 308 H 264 H (75-99) mg/dL Hemoglobin A1c (4.0-6.0) % Total Protein 5.2 L (6.3-8.2) g/dL Albumin 2.8 L (3.5-5.0) g/dL Lipase 1600 H (23-300) U/L 01/15/18 Range/Units 17:24 BUN (7-17) mg/dL Creatinine (0.52-1.04) mg/dL Glucose (74-99) mg/dL POC Glucose (mg/dL) 244 H (75-99) mg/dL Hemoglobin A1c (4.0-6.0) % Total Protein (6.3-8.2) g/dL Albumin (3.5-5.0) g/dL Lipase (23-300) U/L Assessment and Plan (1) Chest pain Current Visit: Yes Status: Acute Code(s): R07.9 - CHEST PAIN, UNSPECIFIED SNOMED Code(s): 84231601 (2) Pancreatitis Current Visit: Yes Status: Acute Code(s): K85.90 - ACUTE PANCREATITIS WITHOUT NECROSIS OR INFECTION, UNSP SNOMED Code(s): 42487736 Plan: Patient's to be clinically improving. Continue current medical therapy. We'll follow as needed
[2018-01-15 20:33] LABS: Glucose,Whole Blood 360 mg/dL (75-99)
[2018-01-15] MEDS: AMITRIPTYLINE HCL 50 MG TAB PO SCH (21:32)
[2018-01-15] MEDS: ANASTROZOLE 1 MG TAB PO SCH (21:32)
[2018-01-15 22:48] VITALS: RESP 18
[2018-01-16] MEDS: SODIUM CHLORIDE 0.9% 1,000 ML IV SCH ×3 (00:21→12:34)
[2018-01-16 05:59] VITALS: BP 150/69; PULSE 90; TEMP 99.3
[2018-01-16] MEDS: LEVOTHYROXINE 75 MCG TAB PO SCH (06:19)
[2018-01-16] MEDS: LEVOTHYROXINE 100 MCG TAB PO SCH (06:19)
[2018-01-16 07:22] LABS: Glucose,Whole Blood 363 mg/dL (75-99)
[2018-01-16] MEDS: INSULIN ASPART 100 UNIT/ML 1 ML 10 ML VIAL SQ SCH ×2 (08:04→12:34)
[2018-01-16] MEDS: DOXAZOSIN 4 MG TAB PO SCH (08:05)
[2018-01-16] MEDS: METOPROLOL SUCCINATE (ER) 100 MG TAB.ER.24H PO SCH (08:05)
[2018-01-16 08:58] LABS: Calcium 8.4 mg/dL (8.4-10.2); Potassium 4.9 mmol/L (3.5-5.1)
--- NOTE | 2018-01-16 10:19 | P.PN ---
Subjective Progress Note Date: 01/16/18 patient doing well, feeling better today. No NV. No F/C tolerating clears Objective - Vital Signs Vital signs: Vital Signs Temp 99.3 F 01/16/18 05:58 Pulse 90 01/16/18 05:58 Resp 18 01/16/18 05:58 BP 150/69 01/16/18 05:58 Pulse Ox 92 L 01/16/18 05:58 Intake & Output 01/15/18 01/16/18 01/16/18 18:59 06:59 18:59 Other: Voiding Method Toilet Toilet Toilet # Voids 2 2 - Constitutional General appearance: Present: cooperative - Respiratory Details: Nonlabored - Cardiovascular Rhythm: regular - Gastrointestinal Gastrointestinal Comment(s): Soft nontender nondistended - Psychiatric Psychiatric: Present: A&O x's 3 - Labs CBC & Chem 7: 01/14/18 00:49 01/16/18 07:38 Labs: Abnormal Lab Results - Last 24 Hours (Table) 01/14/18 01/15/18 01/15/18 Range/Units 00:49 12:39 17:24 Sodium (137-145) mmol/L Carbon Dioxide (22-30) mmol/L BUN (7-17) mg/dL Creatinine (0.52-1.04) mg/dL Glucose (74-99) mg/dL POC Glucose (mg/dL) 264 H 244 H (75-99) mg/dL Hemoglobin A1c 6.3 H (4.0-6.0) % 01/15/18 01/16/18 01/16/18 Range/Units 20:32 07:15 07:38 Sodium 134 L (137-145) mmol/L Carbon Dioxide 20 L (22-30) mmol/L BUN 41 H (7-17) mg/dL Creatinine 1.40 H (0.52-1.04) mg/dL Glucose 375 H (74-99) mg/dL POC Glucose (mg/dL) 360 H 363 H (75-99) mg/dL Hemoglobin A1c (4.0-6.0) % Assessment and Plan Assessment: Acute pancreatitis likely secondary to EtOH Plan: Patient starting clear liquid diet and advance as tolerated no plans for surgical intervention. Please contact with any further questions or concerns
[2018-01-16 12:01] LABS: Glucose,Whole Blood 448 mg/dL (75-99)
--- NOTE | 2018-01-16 16:57 | P.DS ---
Providers Date of admission: 01/14/18 05:52 Attending physician: Yasmeen Mata Consults: 01/14/18 05:52 Consult Physician Stat Consulting Provider: Aquiles Vera Consult Reason/Comments: Pancreatitis Do you want consulting provider notified?: Yes Consult Physician Stat Consulting Provider: Dick Rivera Consult Reason/Comments: Chest pain Do you want consulting provider notified?: Yes Primary care physician: [facility] Hospital Course: 67-year-old presents we will admitted for alcoholic pancreatitis symptoms improved patient is able to tolerate diet patient will be discharged today. Also regarding alcohol was provided. Patient has mild renal dysfunction I believe it secondary to diuretic therapy which is being held and the cutting down the dose of lisinopril as well. Once her kidney function improves if she needs SANDRA inhibitor dose of which can be increased. PHYSICAL EXAMINATION: GENERAL: The patient is alert and oriented x3, not in any acute distress. Obese HEENT: Pupils are round and equally reacting to light. EOMI. No scleral icterus. No conjunctival pallor. Normocephalic, atraumatic. No pharyngeal erythema. No thyromegaly. CARDIOVASCULAR: S1 and S2 present. No murmurs, rubs, or gallops. PULMONARY: Chest is clear to auscultation, no wheezing or crackles. ABDOMEN: Soft, nontender, nondistended, normoactive bowel sounds. No palpable organomegaly. MUSCULOSKELETAL: No joint swelling or deformity. EXTREMITIES: No cyanosis, clubbing, or pedal edema. NEUROLOGICAL: Gross neurological examination did not reveal any focal deficits. SKIN: No rashes. Assessment and Plan Plan: -Acute pancreatitis:alcoholic pancreatitis -Acute renal failure: Prerenal azotemia most probably secondary to diuretic therapy -Hyponatremia secondary to diuretic therapy. Improved with IV fluids -Hypothyroidism -Breast cancer patient is anastrozole which will be continued -Ruled out pulmonary embolism -Type 2 diabetes mellitus: Patient Condition at Discharge: Good Plan - Discharge Summary Discharge Rx Participant: No New Discharge Prescriptions: Continue Amitriptyline HCl 50 mg PO HS Levothyroxine Sodium [Synthroid] 175 mcg PO DAILY Anastrozole [Arimidex] 1 mg PO HS Insulin Glargine [Lantus] 25 unit SQ HS Metoprolol Succinate (ER) [Toprol XL] 100 mg PO BID Insulin Aspart [NovoLOG] See Protocol SQ AC-TID Aspirin 81 mg PO DAILY Ascorbic Acid [Vitamin C] 500 mg PO DAILY Psyllium Husk [Metamucil] 0.4 gm PO HS Doxazosin Mesylate [Cardura Xl] 8 mg PO HS Calcium Carbonate/Vitamin D3 [Caltrate 600 Plus D3 Tablet] 1 tab PO BID Changed Benazepril HCl [Lotensin] 10 mg PO DAILY #0 Discontinued Potassium Chloride [Klor-Con 10] 10 meq PO DAILY Bumetanide 2 mg PO BID@0800,1200 Discharge Medication List Amitriptyline HCl 50 mg PO HS 01/14/18 [History] Anastrozole [Arimidex] 1 mg PO HS 01/14/18 [History] Ascorbic Acid [Vitamin C] 500 mg PO DAILY 01/14/18 [History] Aspirin 81 mg PO DAILY 01/14/18 [History] Calcium Carbonate/Vitamin D3 [Caltrate 600 Plus D3 Tablet] 1 tab PO BID [History] Doxazosin Mesylate [Cardura Xl] 8 mg PO HS 01/14/18 [History] Insulin Aspart [NovoLOG] See Protocol SQ AC-TID 01/14/18 [History] Insulin Glargine [Lantus] 25 unit SQ HS 01/14/18 [History] Levothyroxine Sodium [Synthroid] 175 mcg PO DAILY 01/14/18 [History] Metoprolol Succinate (ER) [Toprol XL] 100 mg PO BID 01/14/18 [History] Psyllium Husk [Metamucil] 0.4 gm PO HS 01/14/18 [History] Benazepril HCl [Lotensin] 10 mg PO DAILY #0 01/16/18 [Rx] Follow up Appointment(s)/Referral(s): Jeny Vega DO [Primary Care Provider] - 01/23/18 11:20 am Patient Instructions/Handouts: Heart Failure (DC), Pancreatitis (DC) Activity/Diet/Wound Care/Special Instructions: No alcohol, references provided. Activity as tolerated. No smoking, cessation information provided. Low fat, bland diet as tolerated. Discharge Disposition: HOME SELF-CARE
== END 2018-01-16 16:10 | disposition home or self-care (01) | DRG 439 ==
LOC: EC 00:29 → 6SEL 05:52 → 4MS4W 22:39
PROVIDERS: ADMIT Hospitalist; ATTEND Hospitalist
DX: K85.20 Alcohol induced acute pancreatitis without necrosis or infection (principal); N17.9 Acute kidney failure, unspecified; E87.1 Hypo-osmolality and hyponatremia; J98.11 Atelectasis; E03.9 Hypothyroidism, unspecified; E11.9 Type 2 diabetes mellitus without complications; C50.919 Malignant neoplasm of unspecified site of unspecified female breast; R79.1 Abnormal coagulation profile; I11.0 Hypertensive heart disease with heart failure; I50.9 Heart failure, unspecified; F17.200 Nicotine dependence, unspecified, uncomplicated; Z72.89 Other problems related to lifestyle; T50.2X5A Adverse effect of carbonic-anhydrase inhibitors, benzothiadiazides and other diuretics, initial encounter; Z79.4 Long term (current) use of insulin; Z79.811 Long term (current) use of aromatase inhibitors; Z79.82 Long term (current) use of aspirin; Z71.6 Tobacco abuse counseling
CPT/HCPCS: 36415; 71046; 74176; 78582; 80048; 80053; 81001; 82150; 82550; 82553; 83036; 83605; 83690; 83735; 84484; 85025; 85379; 85610; 85730; 93005; 93306; 96361; 96365; 96366; 96375; 96376; 99285

== ENCOUNTER 2019-09-25 07:11 | Day surgery (SDC) | payer MEDICARE ==
[2019-09-19 16:24] VITALS: BMI 37.6
[~2019-09-25 07:11] MED LIST: LACTATED RINGERS 1,000 ML IV SCH; LIDOCAINE 1% (10MG/ML) FOR IV START INTRADERMA PRN
[2019-09-25 07:42] VITALS: TEMP 98.7
[2019-09-25 07:43] LABS: Glucose,Whole Blood 224 mg/dL (75-99)
[2019-09-25] MEDS ORDERED: LIDOCAINE 1% INJ 10MG/ML (20 ML MDV) ONE (08:05)
[2019-09-25] MEDS ORDERED: PROPOFOL 10 MG/ML 20 ML VIAL IV ONE (08:05)
--- NOTE | 2019-09-25 08:27 | P.PCN ---
Date of Procedure: 09/25/19 Procedure(s) Performed: BRIEF HISTORY: Patient is a 69-year-old pleasant female scheduled for an elective colonoscopy as a part of evaluation of persistent history of colon polyps and family history of colon cancer diagnosed in her mother in her 60s. PROCEDURE PERFORMED: Colonoscopy. PREOPERATIVE DIAGNOSIS: History of colon polyps/family history of colon cancer. IV sedation per Anesthesia. PROCEDURE: After informed consent was obtained, the patient, was brought into the endoscopy unit. IV sedation was administered by Anesthesia under continuous monitoring. Digital rectal examination was normal. Initially the Olympus CF-160 flexible video colonoscope was then inserted in the rectum, gradually advanced into the cecum without any difficulty. Careful examination was performed as the scope was gradually being withdrawn. Ileocecal valve and the appendiceal orifice were visualized and appeared normal. Prep was excellent. Mucosa of the cecum, ascending colon, transverse colon, descending colon, sigmoid colon, and rectum appeared normal. Scattered left sided diverticulosis seen. Retroflexion was performed in the rectum and no lesions were seen. The patient tolerated the procedure well. IMPRESSION: Normal-appearing colon from rectum to cecum with no evidence of colorectal neoplasia. Scattered sigmoid diverticulosis. RECOMMENDATIONS: Findings of this examination were discussed with the patient as well as a family. She was advised to have a repeat screening colonoscopy every 5 years because of the family history of colon cancer.
[2019-09-25 08:30] VITALS: RESP 16
[2019-09-25 08:43] VITALS: BP 126/67; PULSE 75
[2019-09-25 08:49] LABS: Glucose,Whole Blood 215 mg/dL (75-99)
== END 2019-09-25 09:00 | disposition home or self-care (01) ==
LOC: ORWHC2ENDO 07:11
PROVIDERS: ATTEND Internal Medicine Gastroenterology
DX: Z12.11 Encounter for screening for malignant neoplasm of colon (principal); K57.30 Diverticulosis of large intestine without perforation or abscess without bleeding; Z86.010 Personal history of colon polyps; Z80.0 Family history of malignant neoplasm of digestive organs; K08.89 Other specified disorders of teeth and supporting structures; I10 Essential (primary) hypertension; F17.200 Nicotine dependence, unspecified, uncomplicated; E11.9 Type 2 diabetes mellitus without complications; Z79.82 Long term (current) use of aspirin; Z79.899 Other long term (current) drug therapy; Z79.4 Long term (current) use of insulin; Z88.1 Allergy status to other antibiotic agents; Z88.8 Allergy status to other drugs, medicaments and biological substances; Z97.2 Presence of dental prosthetic device (complete) (partial); Z85.3 Personal history of malignant neoplasm of breast; Z79.890 Hormone replacement therapy; Z98.890 Other specified postprocedural states; Z91.89 Other specified personal risk factors, not elsewhere classified
CPT/HCPCS: J2001; J2704; G0105

== ENCOUNTER → 2019-09-26 | Outpatient (CLI) | payer MEDICARE ==
--- NOTE | 2019-09-26 14:20 | US ---
EXAMINATION TYPE: US kidneys/renal and bladder DATE OF EXAM: 09/26/2019 COMPARISON: CT 01/14/2018 CLINICAL HISTORY: N18.9 CHRONIC KIDNEY DISEASE. Difficult exam due to patient body habitus EXAM MEASUREMENTS: Right Kidney: 12.5 x 6.0 x 6.0 cm Left Kidney: 12.1 x 5.2 x 4.4 cm Right Kidney: No hydronephrosis or masses seen Left Kidney: No hydronephrosis or masses seen Bladder: wnl Bilateral Jets seen: Yes There is no evidence for hydronephrosis at this point in time. No nephrolithiasis is seen. No woodrow s are identified. The urinary bladder is anechoic. Bilateral ureteral jets are seen. IMPRESSION: No sonographic evidence of hydronephrosis or nephrolithiasis. Exam is slightly limited se condary to patient body habitus.
== END | disposition home or self-care (01) ==
LOC: RADUSWWP 13:31
PROVIDERS: ATTEND Family Medicine
DX: N18.9 Chronic kidney disease, unspecified (principal)
CPT/HCPCS: 76770

== ENCOUNTER → 2021-03-25 | Outpatient (CLI) | payer MEDICARE ==
--- NOTE | 2021-03-25 19:27 | BD ---
EXAMINATION TYPE: Axial Bone Density DATE OF EXAM: 03/25/2021 COMPARISON: Outside prior not available CLINICAL HISTORY: Postmenopausal screening Height: 5 FT 7 IN Weight: 233 FRAX RISK QUESTIONS: Alcohol (3 or more units per day): NO Family History (Parent hip fracture): NO Glucocorticoids (More than 3mos): NO (Ex: prednisone, prednisolone, methylprednisolone, dexamethasone, and hydrocortisone). History of Fracture in Adulthood: YES Secondary Osteoporosis: 1. Type 1 Diabetes: YES 2. Hyperthyroidism: NO 3. Menopause before 45: NO 4. Malnutrition: NO 5. Chronic liver disease: NO Rheumatoid Arthritis: NO Current Tobacco Use: YES RISK FACTORS HISTORY OF: Surgery to Spine/Hip(right/left)/Wrist (right/left): NO Family History of Osteoporosis: NO Active: NO Diet low in dairy products/other sources of calcium: NO Postmenopausal woman: AGE 56 Take estrogen and/or progesterone medications: TOOK HRT FOR ONE WEEK Lost more than 2 inches in height since high school: YES Poor Health: FAIR MEDICATIONS: Thyroid Medications: YES Which medication: LEVOTHYROXINE How Long: MANY YEARS Additional Medications: LEVOTHYROXINE, NOVA LOG,LANTIS, METOPROLOL,BENAZEPRIL, BUMETANIDE, DOXAZOSIN, ARIMA DEX, AMITRIPTYLINE, SPIRONOLACTONE, OMEPRAZOLE, HYDROCODONE, Additional History: EXAM MEASUREMENTS: Bone mineral densitometry was performed using the [employer]. Bone mineral density as measured about the Lumbar spine is: ----- L1-L4(G/cm2): 1.663 T Score Values are as follows: ----- L2: 2.8 ----- L3: 3.5 ----- L4: 7.4 ----- L1-L4: 4.0 PREV DONE [facility] Bone mineral density about the R hip (g/cm2): 1.095 Bone mineral density about the L hip (g/cm2): 1.148 T Score values are as follows: -----R Neck: 0.4 -----L Neck: 0.8 -----R Total: 0.5 -----L Total: 1.2 PREV BONE DENSITY DONE AT [facility] IMPRESSION: Normal (Values between +1 and -1 indicate normal bone mass). Consider repeating this study in 5 year s or sooner if there is some new clinical indication. NOTE: T-SCORE=SD OF THE YOUNG ADULT MEAN.
== END | disposition home or self-care (01) ==
LOC: RADBDWWP 08:21
PROVIDERS: ATTEND Internal Medicine Hematology & Oncology
DX: Z13.820 Encounter for screening for osteoporosis (principal); Z78.0 Asymptomatic menopausal state
CPT/HCPCS: 77080

== ENCOUNTER 2021-10-22 07:31 | Day surgery (SDC) | payer MEDICARE ==
[2021-10-21 08:27] VITALS: BMI 34.0
[~2021-10-22 07:31] MED LIST changes: +DEXAMETHASONE SOD PHOSPHATE 4 MG/ML 1 ML VIAL IV ONE; +HEPARIN SODIUM,PORCINE/PF 5,000 UNIT/0.5 ML SYRINGE SQ PRN; +HYDROmorphone 0.5 MG/0.5 ML SYRINGE IVP PRN; +MIDAZOLAM 2 MG/2 ML VIAL IV PRN; +ONDANSETRON 4 MG/2 ML VIAL IVP ONE; +Pre Op ABX Message 1 EACH MISC MISCELLANE ONE
[2021-10-22 08:15] LABS: Glucose,Whole Blood 270 mg/dL (75-99)
[2021-10-22] MEDS ORDERED: ALPRAZolam 0.25 MG TAB ONE (08:21)
[2021-10-22] MEDS ORDERED: ALPRAZolam 0.25 MG TAB PO ONE (08:24)
[2021-10-22] MEDS ORDERED: INSULIN ASPART (NovoLOG) 100 UNIT/ML VIAL SQ ONE (08:24)
[2021-10-22 08:27] LABS: Basophils % (A) 0 %; Eosinophils # (A) 0.3 k/uL (0-0.7); Eosinophils % (A) 4 %; HCT 39.6 % (34.0-46.0); HGB 12.8 gm/dL (11.4-16.0); Lymphocytes % (A) 17 %; MCH 31.6 pg (25.0-35.0); MCHC 32.4 g/dL (31.0-37.0); MCV 97.7 fL (80.0-100.0); Mean Platelet Volume 8.1; Monocytes # (A) 0.4 k/uL (0-1.0); Monocytes % (A) 6 %; Neutrophils # (A) 4.4 k/uL (1.3-7.7); Neutrophils % (A) 71 %; Platelet Count 148 k/uL (150-450); RBC 4.05 m/uL (3.80-5.40); RDW 12.2 % (11.5-15.5); WBC 6.2 k/uL (3.8-10.6)
[2021-10-22] MEDS ORDERED: LIDOCAINE 1% INJ 10MG/ML (20 ML MDV) SQ ONE ×4 (09:28→10:50)
[2021-10-22] MEDS ORDERED: CLINDAMYCIN 600 MG/50 ML-D5W 600 MG in DEXTROSE/WATER 1 50ML.BAG IVPB STA (10:04)
--- NOTE | 2021-10-22 10:12 | NM ---
EXAMINATION TYPE: NM sentinel node injection DATE OF EXAM: 10/22/2021 COMPARISON: NONE HISTORY: Left-sided breast cancer TECHNIQUE AND FINDINGS: The procedure of sentinel lymph node injection was explained to the patient. The benefits, alternatives, and risks were discussed. An informed consent was then obtained. Overlying skin is cleaned with sterile alcohol. Following this, 471 uCi [id number] Tilmanocept was inject ed in the upper outer aspect of the left nipple intradermally. The patient tolerated the procedure well without any immediate complication. The patient was kept in the radiology department for short stay after the procedure and then taken to surgery for surgical p rocedure what is presumed intraoperative gamma probe will be used for sentinel lymph node detection. IMPRESSION: Left breast radiotracer injection for sentinel node localization as above.
[2021-10-22 10:16] LABS: Glucose,Whole Blood 250 mg/dL (75-99)
[2021-10-22] MEDS ORDERED: PROPOFOL 10 MG/ML 20 ML VIAL IV ONE (10:22)
[2021-10-22] MEDS ORDERED: MIDAZOLAM 2 MG/2 ML VIAL ONE (10:22)
[2021-10-22] MEDS ORDERED: fentaNYL (PF) 50 MCG/ML 2 ML AMP ONE (10:22)
[2021-10-22] MEDS ORDERED: ePHEDrine 50 MG/ML 1 ML VIAL ONE (10:22)
[2021-10-22] MEDS ORDERED: LIDOCAINE 1% INJ 10MG/ML (20 ML MDV) ONE (10:22)
[2021-10-22] MEDS ORDERED: METHYLENE BLUE 10 MG/ML (10 ML VIAL) INJ ONE (11:38)
[2021-10-22 11:51] VITALS: TEMP 98.5
--- NOTE | 2021-10-22 11:51 | P.OP ---
Date of Procedure: 10/22/21 Preoperative Diagnosis: Left breast invasive ductal carcinoma Postoperative Diagnosis: Left breast invasive ductal carcinoma Procedure(s) Performed: Left breast needle localization with lumpectomy and sentinel node biopsy Anesthesia: FERNANDO Surgeon: Elena Marin Pathology: other (Left breast lumpectomy, left axillary sentinel node) Condition: stable Disposition: same day Indications for Procedure: 71-year-old female with suspicious finding on recent mammogram. 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 Patient does have a history of right-sided breast cancer in 2013 that was treated with lumpectomy and sentinel biopsy with radiation. Based on discussion with the patient and tumor board, this appears to be a new primary lesion. After discussing options with the patient, she has opted for lumpectomy with sentinel node biopsy and radiation as she is not currently interested in mastectomy or chemotherapy. Operative Findings: 1 hot sentinel lymph node Clip and guidewire within specimen Description of Procedure: The patient was brought into the operating suite and placed in supine position on the operating table. Sedation was provided by anesthesia and the patient underwent LMA placement. The patient was then prepped and draped in regular sterile fashion. Prior to the procedure, patient had radionucleotide injection along with methylene blue injection around the areola for sentinel node guidance. Probe was placed in the axilla and signal was found. Local anesthetic was administered and an incision was made. Dissection was carried towards the strength of the signal and the lymph node was encountered. The lymph node did not appear blue. This was dissected from surrounding tissue and handed off for specimen. Further dissection of the area revealed no additional signal from the probe and no blue coloring of any lymph node. At this point the wound was packed and attention was turned towards the left breast. Guidewire site was noted and local anesthetic was administered. Incision was made and the guidewire was followed towards the clip site based on mammogram findings. This was circumferentially dissected from surrounding tissue and specimen was completely removed using cautery. The specimen was tagged with a long lateral and short superior stitch. X-ray findings revealed guidewire and clip were within the specimen. Additional lateral margin was also taken and short superior and lateral long stitch were applied. Irrigation was placed in both wounds. Both wounds were closed in layers with 30 and 4-0 Vicryl subcuticular suture. Sterile dressing was applied. The patient was awakened in the operating suite and taken to postanesthesia care unit in stable condition.
--- NOTE | 2021-10-22 11:54 | USB ---
EXAM: Needle localization with wire placement. CLINICAL HISTORY: Biopsy proven cancer in left breast TECHNIQUE: Needle localization with wire placement and surgical excision of area of concern in the le ft breast. COMPARISON: Outside Ultrasound-guided biopsy and post procedure mammogram September 23, 2021 FINDINGS: The procedure of needle localization with wire placement and than surgical excision was exp lained to the patient. Benefits, alternatives, and risks were discussed. An informed consent was th en obtained. Ultrasound guided needle localization was chosen as lesion was biopsied under ultrasound. Preprocedur e ultrasound redemonstrates vague hypoechoic subcentimeter lesion 9:00 position left breast. The over lying skin was prepped and draped in usual sterile fashion. Lidocaine is used as anesthetic into the skin and subcutaneous tissue up to the level of area of concern. A 5 cm needle was used. It was rogelio indigo via ultrasound guidance. At this point, wire was placed and the needle was withdrawn. The wire was fixed to patient's skin. Post procedure mammogram performed per surgeon request showing wire th rough the lesion with central portion of thicker wire at site of biopsy clip. Images were marked for surgeon. The patient tolerated the procedure well without any immediate complication. The patient was kept in the radiology department for short stay after the procedure and then taken to surgery for surgical e xcision. Targeted biopsy clip and wire are identified in specimen mammogram. The patient was kept in hospital for short stay after the procedure and then discharged home in stable condition. IMPRESSION: Successful, uncomplicated needle localization with wire placement and surgical excision o f targeted biopsy clip in the left breast, full pathology results to follow.
[2021-10-22] MEDS ORDERED: LACTATED RINGERS 1,000 ML IV ONE (12:53)
[2021-10-22 13:05] VITALS: RESP 18
[2021-10-22 13:54] VITALS: BP 161/79; PULSE 79
== END 2021-10-22 13:56 | disposition home or self-care (01) ==
LOC: OR 07:31
PROVIDERS: ATTEND Surgery
DX: C50.919 Malignant neoplasm of unspecified site of unspecified female breast (principal); E03.9 Hypothyroidism, unspecified; E05.90 Thyrotoxicosis, unspecified without thyrotoxic crisis or storm; Z98.51 Tubal ligation status; Z98.890 Other specified postprocedural states; Z80.0 Family history of malignant neoplasm of digestive organs; Z80.3 Family history of malignant neoplasm of breast; Z80.49 Family history of malignant neoplasm of other genital organs; Z82.49 Family history of ischemic heart disease and other diseases of the circulatory system; F17.210 Nicotine dependence, cigarettes, uncomplicated; I12.9 Hypertensive chronic kidney disease with stage 1 through stage 4 chronic kidney disease, or unspecified chronic kidney disease; N18.9 Chronic kidney disease, unspecified; N17.9 Acute kidney failure, unspecified; Z79.890 Hormone replacement therapy; Z79.4 Long term (current) use of insulin; Z79.891 Long term (current) use of opiate analgesic; Z79.899 Other long term (current) drug therapy; Z88.1 Allergy status to other antibiotic agents; Z88.0 Allergy status to penicillin; Z88.8 Allergy status to other drugs, medicaments and biological substances; Z97.2 Presence of dental prosthetic device (complete) (partial)
CPT/HCPCS: 85025; 77065; 76098; 19285; 38792; 19301; 38525; A9520; J2250; J1100; J2405; J2001; Q9968; J3010; J2704; J1644

== ENCOUNTER 2022-01-25 15:09 | Emergency (ER) | payer MEDICARE ==
[2022-01-25 17:21] VITALS: PULSE 83
--- NOTE | 2022-01-25 20:10 | XR ---
EXAMINATION TYPE: XR KUB DATE OF EXAM: 01/25/2022 7:49 PM INDICATION: Patient age:Female; 71 years old; Reason for study: constipation; COMPARISON: None. TECHNIQUE: One radiographic view of the abdomen was obtained. FINDINGS: The bowel gas pattern is nonspecific without dilated loops of small or large bowel. There i s no evidence for organomegaly or pneumoperitoneum. The osseous structures are intact . Pelvic phleb oliths are present. Fecal material and gas are demonstrated throughout the colon and rectum. Mild sc oliosis changes seen throughout the spine with multilevel disc degeneration changes. IMPRESSION: Nonspecific bowel gas pattern without radiographic evidence for acute process.
[2022-01-25] MEDS ORDERED: MAGNESIUM CITRATE 296 ML BOTTLE PO ONE (20:38)
--- NOTE | 2022-01-25 20:58 | ED ---
General Adult HPI - General Chief complaint: Recheck/Abnormal Lab/Rx Stated complaint: Fever Time Seen by Provider: 01/25/22 19:12 Source: patient Mode of arrival: ambulatory Limitations: no limitations - History of Present Illness Initial comments: Patient is a 71-year-old female with a past medical history significant for CKD and active breast cancer presenting for evaluation of fever and constipation. Patient relapsed this past September, currently receiving chemotherapy infusions twice a week. Patient states she went to [facility] due to her constipation today however had a fever of 100.7F so she was sent to the emergency room. Patient denies chills. Denies use of Tylenol, Motrin or other antipyretics today. States other than the constipation she has been feeling well. Last bowel movement was on 01/21. Patient does take [place] for pain. States she has been taking Colace and tried Metamucil which did not relieve symptoms. Patient does denies abdominal pain, nausea, and vomiting. She denies upper respiratory symptoms shortness of breath, chest pain, and burning with urination. - Related Data Home Medications Medication Instructions Recorded Confirmed Amitriptyline HCl 50 mg PO HS 01/14/18 01/25/22 Ascorbic Acid [Vitamin C] 500 mg PO DAILY 01/14/18 01/25/22 Doxazosin Mesylate [Cardura Xl] 8 mg PO HS 01/14/18 01/25/22 Insulin Aspart [NovoLOG] See Protocol SQ TID-W/MEALS 01/14/18 01/25/22 Insulin Glargine [Lantus Vial] 40 unit SQ HS 01/14/18 01/25/22 Metoprolol Succinate (ER) [Toprol 100 mg PO BID 01/14/18 01/25/22 XL] Psyllium Husk [Metamucil] 0.4 gm PO HS 01/14/18 01/25/22 Benazepril HCl [Lotensin] 5 mg PO HS 09/19/19 01/25/22 Bumetanide [BUMEX] 2 mg PO DAILY 09/19/19 01/25/22 Omeprazole 20 mg PO QA 09/19/19 01/25/22 Spironolactone 12.5 mg PO BID 09/19/19 01/25/22 polyethylene glycoL 3350 [Clearlax] 17 gm PO 09/19/19 01/25/22 Cholecalciferol [Vitamin D3 (25 25 mcg PO DAILY 10/21/21 01/25/22 Mcg = 1000 Iu)] Rosuvastatin [Crestor] 10 mg PO HS 10/21/21 01/25/22 Glucagon Emergency Kit 1 mg SQ ONCE PRN 01/25/22 01/25/22 Levothyroxine Sodium [Synthroid] 100 mcg PO DAILY 01/25/22 01/25/22 Levothyroxine Sodium [Tirosint] 88 mcg PO DAILY 01/25/22 01/25/22 Ondansetron [Zofran] 4 mg PO QID PRN 01/25/22 01/25/22 Allergies Allergy/AdvReac Type Severity Reaction Status Date / Time pregabalin [From Lyrica] Allergy Swelling Verified 01/25/22 21:27 terbinafine [From Lamisil] Allergy Itching Verified 01/25/22 21:27 amoxicillin AdvReac yeast Verified 01/25/22 21:27 infection cephalexin [From Keflex] AdvReac yeast Verified 01/25/22 21:27 infection Review of Systems ROS Statement: Those systems with pertinent positive or pertinent negative responses have been documented in the HPI. ROS Other: All systems not noted in ROS Statement are negative. Past Medical History Past Medical History: Cancer, Diabetes Mellitus, Hypertension, Renal Disease Additional Past Medical History / Comment(s): left breast CA dx September 2021,neuropathy,hx rt breast CA-dx 2013-radiation no chemo,Stg 3 Kidney Disease,sepsis 40 yrs ago History of Any Multi-Drug Resistant Organisms: None Reported Past Surgical History: Breast Surgery, Orthopedic Surgery, Tubal Ligation Additional Past Surgical History / Comment(s): rt breast lumpectomy,ORIF rt lower leg Past Anesthesia/Blood Transfusion Reactions: Previous Problems w/ Anesthesia Additional Past Anesthesia/Blood Transfusion Reaction / Comment(s): hyperventilated coming out of anesthesia years ago-no problems with surgeries after that Past Psychological History: No Psychological Hx Reported Smoking Status: Current every day smoker Past Alcohol Use History: Daily Past Drug Use History: None Reported - Past Family History Mother Family Medical History: Cancer Father Family Medical History: Cancer General Exam Limitations: no limitations General appearance: alert, in no apparent distress Head exam: Present: atraumatic, normocephalic, normal inspection Respiratory exam: Present: normal lung sounds bilaterally. Absent: respiratory distress, wheezes, rales, rhonchi, stridor Cardiovascular Exam: Present: regular rate, normal rhythm, normal heart sounds. Absent: systolic murmur, diastolic murmur, rubs, gallop, clicks GI/Abdominal exam: Present: soft, normal bowel sounds. Absent: distended, tenderness, guarding, rebound, rigid Neurological exam: Present: alert, oriented X3, CN II-XII intact Psychiatric exam: Present: normal affect, normal mood Skin exam: Present: warm, dry, intact, normal color. Absent: rash Course Vital Signs 01/25/22 01/25/22 17:15 21:00 Temperature 98.3 F 98.5 F Pulse Rate 83 83 Respiratory 16 20 Rate Blood Pressure 138/57 171/73 O2 Sat by Pulse 97 96 Oximetry Medical Decision Making - Medical Decision Making This is a 71-year-old patient with breast cancer currently undergoing chemotherapy who presents for evaluation of fever and constipation. Thorough history and examination were performed. Patient is well-appearing. She is afebrile. Denies use of antipyretics today. Laboratory studies obtained. Creatinine is elevated at 1.41, consistent with patient's chronic kidney disease. Hemoglobin is low at 10.8. There is no leukocytosis. KUB xray obtained which shows nonspecific bowel gas pattern without radiographic evidence for acute process. Results discussed with patient. At this time there are no diagnostic studies to explain patient's transient fever. With patient feeling well now, normal vital signs, and lack of white count, she will be discharged with magnesium citrate for constipation. She is instructed to follow-up with [place] in 1-2 days. Return parameters discussed. She to return if she experiences fever or other new or concerning symptoms. Patient verbalizes understanding and is agreeable to this plan. Dr. Snell is my attending. - Lab Data Result diagrams: 01/25/22 21:20 01/25/22 20:39 Lab Results 01/25/22 01/25/22 01/25/22 Range/Units 20:39 20:39 20:39 WBC 3.3 L (3.8-10.6) k/uL RBC 3.27 L (3.80-5.40) m/uL Hgb 10.8 L (11.4-16.0) gm/dL Hct 31.7 L (34.0-46.0) % MCV 96.8 (80.0-100.0) fL MCH 32.9 (25.0-35.0) pg MCHC 33.9 (31.0-37.0) g/dL RDW 13.9 (11.5-15.5) % Plt Count (150-450) k/uL MPV 9.9 Neutrophils % 77 % Neutrophils % (Manual) % Band Neuts % (Manual) % Lymphocytes % 9 % Lymphocytes % (Manual) % Monocytes % 4 % Monocytes % (Manual) % Eosinophils % 9 % Eosinophils % (Manual) % Basophils % 1 % Neutrophils # 2.6 (1.3-7.7) k/uL Neutrophils # (Manual) (1.3-7.7) k/uL Lymphocytes # 0.3 L (1.0-4.8) k/uL Lymphocytes # (Manual) (1.0-4.8) k/uL Monocytes # 0.1 (0-1.0) k/uL Monocytes # (Manual) (0-1.0) k/uL Eosinophils # 0.3 (0-0.7) k/uL Eosinophils # (Manual) (0-0.7) k/uL Basophils # 0.0 (0-0.2) k/uL Nucleated RBCs (0-0) /100 WBC Manual Slide Review Sodium 128 L (137-145) mmol/L Potassium 4.3 (3.5-5.1) mmol/L Chloride 96 L (98-107) mmol/L Carbon Dioxide 27 (22-30) mmol/L Anion Gap 5 mmol/L BUN 55 H (7-17) mg/dL Creatinine 1.41 H (0.52-1.04) mg/dL Est GFR (CKD-EPI)AfAm 44 (>60 ml/min/1.73 sqM) Est GFR (CKD-EPI)NonAf 38 (>60 ml/min/1.73 sqM) Glucose 121 H (74-99) mg/dL Calcium 8.1 L (8.4-10.2) mg/dL Total Bilirubin 0.9 (0.2-1.3) mg/dL AST 23 (14-36) U/L ALT 18 (4-34) U/L Alkaline Phosphatase 112 (38-126) U/L Total Protein 5.4 L (6.3-8.2) g/dL Albumin 3.2 L (3.5-5.0) g/dL Lipase 26 (23-300) U/L Urine Color Yellow Urine Appearance Turbid H (Clear) Urine pH 6.5 (5.0-8.0) Ur Specific Davey 1.016 (1.001-1.035) Urine Protein 1+ H (Negative) Urine Glucose (UA) Negative (Negative) Urine Ketones Negative (Negative) Urine Blood Large H (Negative) Urine Nitrite Negative (Negative) Urine Bilirubin Negative (Negative) Urine Urobilinogen <2.0 (<2.0) mg/dL Ur Leukocyte Esterase Large H (Negative) Urine RBC >182 H (0-5) /hpf Urine WBC >182 H (0-5) /hpf Urine WBC Clumps Many H (None) /hpf Ur Squamous Epith Cells 9 H (0-4) /hpf Urine Bacteria Many H (None) /hpf Coronavirus (PCR) (Not Detectd) 01/25/22 01/25/22 Range/Units 20:39 21:20 WBC 3.4 L (3.8-10.6) k/uL RBC 3.15 L (3.80-5.40) m/uL Hgb 9.9 L (11.4-16.0) gm/dL Hct 30.2 L (34.0-46.0) % MCV 95.6 (80.0-100.0) fL MCH 31.3 (25.0-35.0) pg MCHC 32.7 (31.0-37.0) g/dL RDW 13.4 (11.5-15.5) % Plt Count 75 L (150-450) k/uL MPV 9.4 Neutrophils % % Neutrophils % (Manual) 81 % Band Neuts % (Manual) 1 % Lymphocytes % % Lymphocytes % (Manual) 6 % Monocytes % % Monocytes % (Manual) 1 % Eosinophils % % Eosinophils % (Manual) 11 % Basophils % % Neutrophils # (1.3-7.7) k/uL Neutrophils # (Manual) 2.70 (1.3-7.7) k/uL Lymphocytes # (1.0-4.8) k/uL Lymphocytes # (Manual) 0.20 L (1.0-4.8) k/uL Monocytes # (0-1.0) k/uL Monocytes # (Manual) 0.03 (0-1.0) k/uL Eosinophils # (0-0.7) k/uL Eosinophils # (Manual) 0.37 (0-0.7) k/uL Basophils # (0-0.2) k/uL Nucleated RBCs 0 (0-0) /100 WBC Manual Slide Review Performed Sodium (137-145) mmol/L Potassium (3.5-5.1) mmol/L Chloride (98-107) mmol/L Carbon Dioxide (22-30) mmol/L Anion Gap mmol/L BUN (7-17) mg/dL Creatinine (0.52-1.04) mg/dL Est GFR (CKD-EPI)AfAm (>60 ml/min/1.73 sqM) Est GFR (CKD-EPI)NonAf (>60 ml/min/1.73 sqM) Glucose (74-99) mg/dL Calcium (8.4-10.2) mg/dL Total Bilirubin (0.2-1.3) mg/dL AST (14-36) U/L ALT (4-34) U/L Alkaline Phosphatase (38-126) U/L Total Protein (6.3-8.2) g/dL Albumin (3.5-5.0) g/dL Lipase (23-300) U/L Urine Color Urine Appearance (Clear) Urine pH (5.0-8.0) Ur Specific Davey (1.001-1.035) Urine Protein (Negative) Urine Glucose (UA) (Negative) Urine Ketones (Negative) Urine Blood (Negative) Urine Nitrite (Negative) Urine Bilirubin (Negative) Urine Urobilinogen (<2.0) mg/dL Ur Leukocyte Esterase (Negative) Urine RBC (0-5) /hpf Urine WBC (0-5) /hpf Urine WBC Clumps (None) /hpf Ur Squamous Epith Cells (0-4) /hpf Urine Bacteria (None) /hpf Coronavirus (PCR) Not Detected (Not Detectd) Disposition Clinical Impression: Fever, Constipation Disposition: HOME SELF-CARE Condition: Good Instructions (If sedation given, give patient instructions): Constipation (ED) Additional Instructions: Drink half the bottle of magnesium citrate. If you do not have a bowel movement 4 hours drink the other half. Increase water and fiber intake as much as possible. Follow-up with [place] in 1-2 days. Return to the emergency department if you develop a fever or if you experience new, concerning, or worsening symptoms. Is patient prescribed a controlled substance at d/c from ED?: No Referrals: Jeny Veag DO [Primary Care Provider] - 1-2 days Time of Disposition: 21:25
[2022-01-25 21:05] LABS: Basophils % (A) 1 %; Eosinophils # (A) 0.3 k/uL (0-0.7); Eosinophils % (A) 9 %; HCT 31.7 % (34.0-46.0); HGB 10.8 gm/dL (11.4-16.0); Lymphocytes # (A) 0.3 k/uL (1.0-4.8); Lymphocytes % (A) 9 %; MCH 32.9 pg (25.0-35.0); MCHC 33.9 g/dL (31.0-37.0); MCV 96.8 fL (80.0-100.0); Mean Platelet Volume 9.9; Monocytes # (A) 0.1 k/uL (0-1.0); Monocytes % (A) 4 %; Neutrophils # (A) 2.6 k/uL (1.3-7.7); Neutrophils % (A) 77 %; RBC 3.27 m/uL (3.80-5.40); RDW 13.9 % (11.5-15.5); WBC 3.3 k/uL (3.8-10.6)
[2022-01-25 21:13] LABS: Albumin 3.2 g/dL (3.5-5.0); Calcium 8.1 mg/dL (8.4-10.2); Potassium 4.3 mmol/L (3.5-5.1); Total Bilirubin 0.9 mg/dL (0.2-1.3); Total Protein 5.4 g/dL (6.3-8.2)
[2022-01-25 21:19] VITALS: BP 171/73; RESP 20; TEMP 98.5
[2022-01-25 21:50] LABS: HCT 30.2 % (34.0-46.0); HGB 9.9 gm/dL (11.4-16.0); MCH 31.3 pg (25.0-35.0); MCHC 32.7 g/dL (31.0-37.0); MCV 95.6 fL (80.0-100.0); Mean Platelet Volume 9.4; RBC 3.15 m/uL (3.80-5.40); RDW 13.4 % (11.5-15.5); WBC 3.4 k/uL (3.8-10.6)
[2022-01-25 22:00] LABS: Appearance,Urine Turbid (Clear); Bacteria,Urine Many /hpf; Bilirubin,Urine Negative (Negative); Blood,Urine Large (Negative); Color,Urine Yellow; Glucose,Urine (UA) Negative (Negative); Ketones,Urine Negative (Negative); Leukocyte Esterase,Urine Large (Negative); Nitrite,Urine Negative (Negative); PH, Urine 6.5 (5.0-8.0); Protein,Urine 1+ (Negative); RBC,Urine >182 /hpf (0-5); Specific Gravity,Urine 1.016 (1.001-1.035); Squamous Epithelial Cell,Urine 9 /hpf (0-4); Urobilinogen,Urine <2.0 mg/dL (<2.0); WBC,Urine >182 /hpf (0-5)
[2022-01-25 22:56] LABS: Platelet Count 75 k/uL (150-450)
[2022-01-25 23:01] LABS: Band Neutrophils % 1 %; Eosinophils # (M) 0.37 k/uL (0-0.7); Monocytes # (M) 0.03 k/uL (0-1.0); Neutrophils % (M) 81 %; Nucleated Red Blood Cells 0 /100 WBC (0-0); Total Cells Counted 100
== END 2022-01-25 21:36 | disposition home or self-care (01) ==
LOC: EC 15:09
DX: R50.9 Fever, unspecified (principal); K59.00 Constipation, unspecified; Z20.822 Contact with and (suspected) exposure to COVID-19; E11.22 Type 2 diabetes mellitus with diabetic chronic kidney disease; I12.9 Hypertensive chronic kidney disease with stage 1 through stage 4 chronic kidney disease, or unspecified chronic kidney disease; N18.30 Chronic kidney disease, stage 3 unspecified; E11.40 Type 2 diabetes mellitus with diabetic neuropathy, unspecified; F17.200 Nicotine dependence, unspecified, uncomplicated; Z79.4 Long term (current) use of insulin; Z79.890 Hormone replacement therapy; Z79.899 Other long term (current) drug therapy
CPT/HCPCS: 36415; 74018; 80053; 81001; 83690; 85025; 87086; 87635; 99283

== ENCOUNTER 2022-03-21 19:10 | Emergency (ER) | payer MEDICARE ==
[2022-03-21 20:26] VITALS: BP 118/32; PULSE 76; RESP 18; TEMP 98.7
[2022-03-21] MEDS ORDERED: HYDROcodone/APAP 5-325MG 1 EACH TAB PO STA ×2 (23:04→23:44)
[2022-03-21] MEDS ORDERED: predniSONE 20 MG TAB PO STA (23:45)
--- NOTE | 2022-03-21 23:49 | ED ---
General Adult HPI - General Chief complaint: Skin/Abscess/Foreign Body Stated complaint: Rash Time Seen by Provider: 03/21/22 22:38 Source: family Mode of arrival: wheelchair Limitations: no limitations - History of Present Illness Initial comments: This 72-year-old female presents with a complaint of a rash to her bilateral lower extremities and upper extremities. She states that this is a painful rash. It is been present over the last several days. She denies any pruritus. She denies any previous similar incidents. She does have a history of breast cancer and has been going through chemotherapy with her last chemotherapy approximately 10 days ago. She did talk to her oncologist and they recommended that she take Benadryl. She has tried this. He was going to call her in some steroids but her pharmacy apparently was closed. She denies any fevers or chills. She states that she just had blood work done at her doctor's office on Monday and they did not note any abnormalities. She denies any other complaints or modifying factors. - Related Data Home Medications Medication Instructions Recorded Confirmed Amitriptyline HCl 50 mg PO HS 01/14/18 01/25/22 Ascorbic Acid [Vitamin C] 500 mg PO DAILY 01/14/18 01/25/22 Doxazosin Mesylate [Cardura Xl] 8 mg PO HS 01/14/18 01/25/22 Insulin Aspart [NovoLOG] See Protocol SQ TID-W/MEALS 01/14/18 01/25/22 Insulin Glargine [Lantus Vial] 40 unit SQ HS 01/14/18 01/25/22 Metoprolol Succinate (ER) [Toprol 100 mg PO BID 01/14/18 01/25/22 XL] Psyllium Husk [Metamucil] 0.4 gm PO HS 01/14/18 01/25/22 Benazepril HCl [Lotensin] 5 mg PO HS 09/19/19 01/25/22 Bumetanide [BUMEX] 2 mg PO DAILY 09/19/19 01/25/22 Omeprazole 20 mg PO QA 09/19/19 01/25/22 Spironolactone 12.5 mg PO BID 09/19/19 01/25/22 polyethylene glycoL 3350 [Clearlax] 17 gm PO HS 09/19/19 01/25/22 Cholecalciferol [Vitamin D3 (25 25 mcg PO DAILY 10/21/21 01/25/22 Mcg = 1000 Iu)] Rosuvastatin [Crestor] 10 mg PO HS 10/21/21 01/25/22 Glucagon Emergency Kit 1 mg SQ ONCE PRN 01/25/22 01/25/22 Levothyroxine Sodium [Synthroid] 100 mcg PO DAILY 01/25/22 01/25/22 Levothyroxine Sodium [Tirosint] 88 mcg PO DAILY 01/25/22 01/25/22 Ondansetron [Zofran] 4 mg PO QID PRN 01/25/22 01/25/22 Previous Rx's Medication Instructions Recorded HYDROcodone/APAP 7.5-325MG [[place] 1 tab PO Q6HR PRN 3 Days #12 tab 03/21/22 7.5-325] predniSONE [Deltasone] 20 mg PO BID #14 tab 03/21/22 Allergies Allergy/AdvReac Type Severity Reaction Status Date / Time pregabalin [From Lyrica] Allergy Swelling Verified 03/21/22 20:26 terbinafine [From Lamisil] Allergy Itching Verified 03/21/22 20:26 amoxicillin AdvReac yeast Verified 03/21/22 20:26 infection cephalexin [From Keflex] AdvReac yeast Verified 03/21/22 20:26 infection Review of Systems ROS Statement: Those systems with pertinent positive or pertinent negative responses have been documented in the HPI. ROS Other: All systems not noted in ROS Statement are negative. Past Medical History Past Medical History: Cancer, Diabetes Mellitus, Hypertension, Renal Disease Additional Past Medical History / Comment(s): left breast CA dx September 2021,neuropathy,hx rt breast CA-dx 2013-radiation no chemo,Stg 3 Kidney Disease,sepsis 40 yrs ago History of Any Multi-Drug Resistant Organisms: None Reported Past Surgical History: Breast Surgery, Orthopedic Surgery, Tubal Ligation Additional Past Surgical History / Comment(s): rt breast lumpectomy,ORIF rt lower leg Past Anesthesia/Blood Transfusion Reactions: Previous Problems w/ Anesthesia Additional Past Anesthesia/Blood Transfusion Reaction / Comment(s): hyperventilated coming out of anesthesia years ago-no problems with surgeries after that Past Psychological History: No Psychological Hx Reported Smoking Status: Current every day smoker Past Alcohol Use History: Daily Past Drug Use History: None Reported - Past Family History Mother Family Medical History: Cancer Father Family Medical History: Cancer General Exam - General Exam Comments Initial Comments: GENERAL: The patient is well nourished and well hydrated. VITAL SIGNS: Heart rate, blood pressure, respiratory rate reviewed as recorded in nurse's notes. EYES: Pupils are round and reactive. Extraocular movements are intact. No conjunctival / lid redness or swelling. ENT: No external evidence of injury, swelling, or ecchymosis. Airway is patent. Throat is clear. NECK: Nontender. No swelling or evidence of injury. No subcutaneous emphysema. Trachea is midline. No thyroid mass. HEART: Regular rate and rhythm. Good peripheral pulses. LUNGS/CHEST: Breath sounds clear and equal bilaterally. No rales, rhonchi, or wheezes. No ecchymosis, subcutaneous emphysema, or tenderness. ABDOMEN: Abdomen soft without tenderness. No palpable masses or organomegaly. No peritoneal signs. No abdominal wall swelling or ecchymosis. EXTREMITIES: No extremity tenderness. Normal muscle tone and function. No t horacolumbar tenderness. NEUROLOGIC: Sensation is grossly intact. Cranial nerve exam reveals face is symmetrical, tongue is midline, speech is clear. SKIN: No abrasions or ecchymosis is noted. No induration or masses noted. There is a purpuric type rash noted to bilateral lower extremities and to a lesser extent to the upper extremities. No hives identified. PSYCHIATRIC: Alert and oriented. Appropriate behavior and judgment. Limitations: no limitations Course Vital Signs 03/21/22 20:24 Temperature 98.7 F Pulse Rate 76 Respiratory 18 Rate Blood Pressure 118/32 O2 Sat by Pulse 95 Oximetry Medical Decision Making - Medical Decision Making The patient was seen and examined. It is felt as though this purpuric rash potentially could be related to a vasculitis. Other etiologies are possible. Initially, laboratory was going to be drawn but due to under staffing and overcrowding patient was seen in the waiting room tonight. She would have to wait many hours to have the labs completed. She elects to be discharged home and outpatient prescription for is given. She is instructed to return to outpatient lab tomorrow and will have the results sent to her oncologist and primary care. She is agreeable with this plan. She is given 60 mg of prednisone orally and also to [place]. She states that she does take [place] 5/325 at home but this did not seem to help. She will be prescribed [place] 7.5/325. Return parameters are discussed in detail and close follow-up is recommended. Disposition Clinical Impression: Vasculitis, Rash Disposition: HOME SELF-CARE Condition: Good Instructions (If sedation given, give patient instructions): Acute Rash (ED) Additional Instructions: Please have your labs drawn tomorrow and follow up with results with Dr. Chi and Dr. Vega. Please stop your [place] 5/325 and take the [place] 7.5/325 instead. Prescriptions: predniSONE [Deltasone] 20 mg PO BID #14 tab HYDROcodone/APAP 7.5-325MG [[place] 7.5-325] 1 tab PO Q6HR PRN 3 Days #12 tab PRN Reason: Pain Is patient prescribed a controlled substance at d/c from ED?: Yes If prescribed controlled substance>3 days was MAPS reviewed?: Prescribed <3 Days Referrals: Jeny Vega DO [Primary Care Provider] - 1-2 days Rocky Chi MD [STAFF PHYSICIAN] - 1-2 days Time of Disposition: 23:48
== END 2022-03-22 00:14 | disposition home or self-care (01) ==
LOC: EC 19:10
DX: I77.6 Arteritis, unspecified (principal); F17.200 Nicotine dependence, unspecified, uncomplicated; Z88.8 Allergy status to other drugs, medicaments and biological substances; Z88.6 Allergy status to analgesic agent; Z88.3 Allergy status to other anti-infective agents
CPT/HCPCS: 99282

== ENCOUNTER → 2022-03-22 | Outpatient (CLI) | payer MEDICARE ==
[2022-03-22 10:46] LABS: Partial Thromboplastin Time 26.6 sec (22.0-30.0); Prothrombin Time 10.7 sec (9.0-12.0)
[2022-03-22 14:44] LABS: HCT 25.7 % (37.2-46.3); HGB 8.5 g/dL (12.0-15.0); MCH 32.4 pg (27.0-32.0); MCHC 33.1 g/dL (32.0-37.0); MCV 98.1 fL (80.0-97.0); Mean Platelet Volume 11.9 fL (9.5-12.2); NRBC Per 100 WBC 0 /100 WBCS (0.0-0.0); Platelet Count 149 X 10*3/uL (140-440); RBC 2.62 X 10*6/uL (4.10-5.20); WBC 6.43 X 10*3/uL (4.50-10.00)
[2022-03-22 15:33] LABS: C Reactive Protein 6.5 mg/dL (0.00-0.80)
[2022-03-22 15:53] LABS: Erythrocyte Sedimentation Rate 28 mm/Hr (0-30)
[2022-03-22 16:41] LABS: African American GFR (CKD) 19.3 (60.0-200.0); Albumin 3.3 g/dL (3.8-4.9); Albumin/Globulin Ratio 1.7 (1.60-3.17); Anion Gap 10.5 mmol/L (10.00-18.00); BUN/Creat Ratio 21.53 Ratio (12.00-20.00); Blood Urea Nitrogen 59.2 mg/dL (9.0-27.0); Calcium 8.9 mg/dL (8.7-10.3); Carbon Dioxide 25.3 mmol/L (20.0-27.5); Non-African American GFR(CKD) 16.7 (60.0-200.0); Potassium 6.3 mmol/L (3.5-5.5); Total Bilirubin 0.5 mg/dL (0.30-1.20); Total Protein 5.3 g/dL (6.2-8.2)
== END | disposition home or self-care (01) ==
LOC: LABWHC1 09:37
PROVIDERS: ATTEND Emergency Medicine
DX: L95.9 Vasculitis limited to the skin, unspecified (principal)
CPT/HCPCS: 36415; 80053; 85027; 85610; 85652; 85730; 86140

== ENCOUNTER 2022-03-23 15:40 | Inpatient (IN) | payer MEDICARE ==
--- NOTE | 2022-03-23 16:38 | ED ---
General Adult HPI - General Chief complaint: Recheck/Abnormal Lab/Rx Stated complaint: abnormal labs Time Seen by Provider: 03/23/22 16:15 Source: patient, RN notes reviewed, old records reviewed Mode of arrival: ambulatory Limitations: no limitations - History of Present Illness Initial comments: This is a 72-year-old female presents emergency Department stating that she has had a history of breast cancer and diabetes. Patient states she last had chemo on March 04. Patient states she came in sedated because she started getting a rash all over her legs and it looks like small areas of blood. So she came to the emergency department she was diagnosed with vasculitis and had some follow- up lab work. When the laboratory came back she had a call from her doctor and they told her to go to the emergency department because there was some abnormal ities with the lab work. Patient states the rash is now occurring a little bit on her belly and starting a little bit on both arms. Patient denies any itching or pain with the rash. Patient denies any increased swelling to the leg so they're very edematous she states that her baseline. Patient states on Monday she had a low-grade 100.3 fever but none since. Patient denies any headache patient denies numbness weakness per patient denies chest pain difficulty breathing first breath per patient denies any cough. Patient denies any abdominal pain patient has nausea or vomiting patient states she had one episode of diarrhea last . - Related Data Home Medications Medication Instructions Recorded Confirmed Amitriptyline HCl 50 mg PO HS 01/14/18 01/25/22 Ascorbic Acid [Vitamin C] 500 mg PO DAILY 01/14/18 01/25/22 Doxazosin Mesylate [Cardura Xl] 8 mg PO HS 01/14/18 01/25/22 Insulin Aspart [NovoLOG] See Protocol SQ TID-W/MEALS 01/14/18 01/25/22 Insulin Glargine [Lantus Vial] 40 unit SQ HS 01/14/18 01/25/22 Metoprolol Succinate (ER) [Toprol 100 mg PO BID 01/14/18 01/25/22 XL] Psyllium Husk [Metamucil] 0.4 gm PO HS 01/14/18 01/25/22 Benazepril HCl [Lotensin] 5 mg PO HS 09/19/19 01/25/22 Bumetanide [BUMEX] 2 mg PO DAILY 09/19/19 01/25/22 Omeprazole 20 mg PO QAM 09/19/19 01/25/22 Spironolactone 12.5 mg PO BID 09/19/19 01/25/22 polyethylene glycoL 3350 [Clearlax] 17 gm PO HS 09/19/19 01/25/22 Cholecalciferol [Vitamin D3 (25 25 mcg PO DAILY 10/21/21 01/25/22 Mcg = 1000 Iu)] Rosuvastatin [Crestor] 10 mg PO HS 10/21/21 01/25/22 Glucagon Emergency Kit 1 mg SQ ONCE PRN 01/25/22 01/25/22 Levothyroxine Sodium [Synthroid] 100 mcg PO DAILY 01/25/22 01/25/22 Levothyroxine Sodium [Tirosint] 88 mcg PO DAILY 01/25/22 01/25/22 Ondansetron [Zofran] 4 mg PO QID PRN 01/25/22 01/25/22 Previous Rx's Medication Instructions Recorded HYDROcodone/APAP 7.5-325MG [[place] 1 tab PO Q6HR PRN 3 Days #12 tab 03/21/22 7.5-325] predniSONE [Deltasone] 20 mg PO BID #14 tab 03/21/22 Allergies Allergy/AdvReac Type Severity Reaction Status Date / Time pregabalin [From Lyrica] Allergy Swelling Verified 03/23/22 15:55 terbinafine [From Lamisil] Allergy Itching Verified 03/23/22 15:55 amoxicillin AdvReac yeast Verified 03/23/22 15:55 infection cephalexin [From Keflex] AdvReac yeast Verified 03/23/22 15:55 infection Review of Systems ROS Statement: Those systems with pertinent positive or pertinent negative responses have been documented in the HPI. ROS Other: All systems not noted in ROS Statement are negative. Past Medical History Past Medical History: Cancer, Diabetes Mellitus, Hypertension, Renal Disease Additional Past Medical History / Comment(s): left breast CA dx September 2021 ,neuropathy,hx rt breast CA-dx 2013-radiation no chemo,Stg 3 Kidney Disease,sepsis 40 yrs ago History of Any Multi-Drug Resistant Organisms: None Reported Past Surgical History: Breast Surgery, Orthopedic Surgery, Tubal Ligation Additional Past Surgical History / Comment(s): rt breast lumpectomy,ORIF rt lower leg Past Anesthesia/Blood Transfusion Reactions: Previous Problems w/ Anesthesia Additional Past Anesthesia/Blood Transfusion Reaction / Comment(s): hyperventilated coming out of anesthesia years ago-no problems with surgeries after that Past Psychological History: No Psychological Hx Reported Smoking Status: Current every day smoker Past Alcohol Use History: Daily Past Drug Use History: None Reported - Past Family History Mother Family Medical History: Cancer Father Family Medical History: Cancer General Exam - General Exam Comments Initial Comments: GENERAL: Patient is well-developed and well-nourished. Patient is nontoxic and well- hydrated and is in no acute distress. ENT: Neck is soft and supple. No significant lymphadenopathy is noted. Oropharynx is clear. Moist mucous membranes. Neck has full range of motion without eliciting any pain. EYES: The sclera were anicteric and conjunctiva were pink and moist. Extraocular movements were intact and pupils were equal round and reactive to light. Eyelids were unremarkable. PULMONARY: Unlabored respirations. Good breath sounds bilaterally. No audible rales rhonchi or wheezing was noted. CARDIOVASCULAR: There is a regular rate and rhythm without any murmurs gallops or rubs. ABDOMEN: Soft and nontender with normal bowel sounds. SKIN: Patient has small areas of ecchymosis all over her legs and slightly on her inner forearms and slightly on her upper belly. NEUROLOGIC: Patient is alert and oriented x3. Cranial nerves II through XII are grossly intact. Motor and sensory are also intact. Normal speech, volume and content. Symmetrical smile. MUSCULOSKELETAL: Normal extremities with adequate strength and full range of motion. Patient has 2+ edema bilaterally LYMPHATICS: No significant lymphadenopathy is noted PSYCHIATRIC: Normal psychiatric evaluation. Limitations: no limitations Course Vital Signs 03/23/22 03/23/22 15:51 18:44 Temperature 98.5 F Pulse Rate 76 77 Respiratory 20 16 Rate Blood Pressure 132/50 126/57 O2 Sat by Pulse 93 L 94 L Oximetry Medical Decision Making - Medical Decision Making EKG shows sinus rhythm at 74 bpm LA interval 246 QRS is 83 QT interval 36 QTC is 396. Patient's EKG shows no ST segment elevation or depression.. [place] with oncology and he wanted the patient admitted to medicine and they will consult on the patient. I wrote admitting orders I consult oncology. - Lab Data Result diagrams: 03/23/22 17:45 03/23/22 17:45 Lab Results 03/23/22 03/23/22 03/23/22 Range/Units 17:30 17:45 17:45 WBC 9.8 (3.8-10.6) k/uL RBC 3.38 L (3.80-5.40) m/uL Hgb 10.8 L (11.4-16.0) gm/dL Hct 34.1 (34.0-46.0) % MCV 100.9 H D (80.0-100.0) fL MCH 32.0 (25.0-35.0) pg MCHC 31.7 (31.0-37.0) g/dL RDW 16.1 H (11.5-15.5) % Plt Count 184 D (150-450) k/uL MPV 8.9 Neutrophils % 88 % Lymphocytes % 7 % Monocytes % 4 % Eosinophils % 0 % Basophils % 0 % Neutrophils # 8.6 H (1.3-7.7) k/uL Lymphocytes # 0.7 L (1.0-4.8) k/uL Monocytes # 0.4 (0-1.0) k/uL Eosinophils # 0.0 (0-0.7) k/uL Basophils # 0.0 (0-0.2) k/uL Anisocytosis Slight Macrocytosis Slight PT 10.4 (9.0-12.0) sec INR 1.0 (<1.2) APTT 23.5 (22.0-30.0) sec Sodium (137-145) mmol/L Potassium (3.5-5.1) mmol/L Chloride (98-107) mmol/L Carbon Dioxide (22-30) mmol/L Anion Gap mmol/L BUN (7-17) mg/dL Creatinine (0.52-1.04) mg/dL Est GFR (CKD-EPI)AfAm (>60 ml/min/1.73 sqM) Est GFR (CKD-EPI)NonAf (>60 ml/min/1.73 sqM) Glucose (74-99) mg/dL Plasma Lactic Acid Alfredo (0.7-2.0) mmol/L Calcium (8.4-10.2) mg/dL Total Bilirubin (0.2-1.3) mg/dL AST (14-36) U/L ALT (4-34) U/L Alkaline Phosphatase (38-126) U/L Total Protein (6.3-8.2) g/dL Albumin (3.5-5.0) g/dL Urine Color Urine Appearance (Clear) Urine pH (5.0-8.0) Ur Specific [place] (1.001-1.035) Urine Protein (Negative) Urine Glucose (UA) (Negative) Urine Ketones (Negative) Urine Blood (Negative) Urine Nitrite (Negative) Urine Bilirubin (Negative) Urine Urobilinogen (<2.0) mg/dL Ur Leukocyte Esterase (Negative) Urine RBC (0-5) /hpf Urine WBC (0-5) /hpf Urine WBC Clumps (None) /hpf Urine Bacteria (None) /hpf Urine Mucus (None) /hpf Coronavirus (PCR) Not Detected (Not Detectd) 03/23/22 03/23/22 03/23/22 Range/Units 17:45 17:45 17:45 WBC (3.8-10.6) k/uL RBC (3.80-5.40) m/uL Hgb (11.4-16.0) gm/dL Hct (34.0-46.0) % MCV (80.0-100.0) fL MCH (25.0-35.0) pg MCHC (31.0-37.0) g/dL RDW (11.5-15.5) % Plt Count (150-450) k/uL MPV Neutrophils % % Lymphocytes % % Monocytes % % Eosinophils % % Basophils % % Neutrophils # (1.3-7.7) k/uL Lymphocytes # (1.0-4.8) k/uL Monocytes # (0-1.0) k/uL Eosinophils # (0-0.7) k/uL Basophils # (0-0.2) k/uL Anisocytosis Macrocytosis PT (9.0-12.0) sec INR (<1.2) APTT (22.0-30.0) sec Sodium 128 L (137-145) mmol/L Potassium 5.4 H (3.5-5.1) mmol/L Chloride 91 L (98-107) mmol/L Carbon Dioxide 28 (22-30) mmol/L Anion Gap 9 mmol/L BUN 70 H (7-17) mg/dL Creatinine 1.99 H (0.52-1.04) mg/dL Est GFR (CKD-EPI)AfAm 29 (>60 ml/min/1.73 sqM) Est GFR (CKD-EPI)NonAf 25 (>60 ml/min/1.73 sqM) Glucose 86 (74-99) mg/dL Plasma Lactic Acid Alfredo 1.2 (0.7-2.0) mmol/L Calcium 8.7 (8.4-10.2) mg/dL Total Bilirubin 0.4 (0.2-1.3) mg/dL AST 51 H (14-36) U/L ALT 22 (4-34) U/L Alkaline Phosphatase 75 (38-126) U/L Total Protein 5.6 L (6.3-8.2) g/dL Albumin 3.1 L (3.5-5.0) g/dL Urine Color Light Yellow Urine Appearance Cloudy H (Clear) Urine pH 6.5 (5.0-8.0) Ur Specific [place] 1.008 (1.001-1.035) Urine Protein Negative (Negative) Urine Glucose (UA) Negative (Negative) Urine Ketones Negative (Negative) Urine Blood Trace H (Negative) Urine Nitrite Negative (Negative) Urine Bilirubin Negative (Negative) Urine Urobilinogen <2.0 (<2.0) mg/dL Ur Leukocyte Esterase Large H (Negative) Urine RBC 3 (0-5) /hpf Urine WBC >182 H (0-5) /hpf Urine WBC Clumps Occasional H (None) /hpf Urine Bacteria Rare H (None) /hpf Urine Mucus Rare H (None) /hpf Coronavirus (PCR) (Not Detectd) Disposition Clinical Impression: Vasculitis, Acute renal failure, Urinary tract infection, History of breast cancer Disposition: ADMITTED IP TO THIS HOSP Referrals: Jeny Vega DO [Primary Care Provider] - 1-2 days Time of Disposition: 19:07
[2022-03-23 18:00] LABS: Anisocytosis Slight; Basophils % (A) 0 %; Eosinophils % (A) 0 %; HCT 34.1 % (34.0-46.0); HGB 10.8 gm/dL (11.4-16.0); Lymphocytes # (A) 0.7 k/uL (1.0-4.8); Lymphocytes % (A) 7 %; MCHC 31.7 g/dL (31.0-37.0); Macrocytosis Slight; Mean Platelet Volume 8.9; Monocytes # (A) 0.4 k/uL (0-1.0); Monocytes % (A) 4 %; Neutrophils # (A) 8.6 k/uL (1.3-7.7); Neutrophils % (A) 88 %; RBC 3.38 m/uL (3.80-5.40); RDW 16.1 % (11.5-15.5); WBC 9.8 k/uL (3.8-10.6)
[2022-03-23 18:09] LABS: Albumin 3.1 g/dL (3.5-5.0); Calcium 8.7 mg/dL (8.4-10.2); Potassium 5.4 mmol/L (3.5-5.1); Total Bilirubin 0.4 mg/dL (0.2-1.3); Total Protein 5.6 g/dL (6.3-8.2)
[2022-03-23 18:16] LABS: MCV 100.9 fL (80.0-100.0)
[2022-03-23 18:17] LABS: Platelet Count 184 k/uL (150-450)
[2022-03-23 18:22] LABS: Partial Thromboplastin Time 23.5 sec (22.0-30.0); Prothrombin Time 10.4 sec (9.0-12.0)
[2022-03-23 18:37] LABS: Appearance,Urine Cloudy (Clear); Bacteria,Urine Rare /hpf; Bilirubin,Urine Negative (Negative); Blood,Urine Trace (Negative); Color,Urine Light Yellow; Glucose,Urine (UA) Negative (Negative); Ketones,Urine Negative (Negative); Leukocyte Esterase,Urine Large (Negative); Mucus,Urine Rare /hpf; Nitrite,Urine Negative (Negative); PH, Urine 6.5 (5.0-8.0); Protein,Urine Negative (Negative); RBC,Urine 3 /hpf (0-5); Specific Gravity,Urine 1.008 (1.001-1.035); Urobilinogen,Urine <2.0 mg/dL (<2.0); WBC,Urine >182 /hpf (0-5)
[2022-03-23] MEDS ORDERED: cefTRIAXone IN SWFI 1,000 MG/10 ML SYRINGE IVP STA (18:40)
[2022-03-23] MEDS ORDERED: SODIUM CHLORIDE 0.9% 1,000 ML IV ONE (19:08)
--- NOTE | 2022-03-23 20:05 | XR ---
EXAM: XR Chest, 2 Views CLINICAL HISTORY: ITS.REASON XR Reason: Fever TECHNIQUE: Frontal and lateral views of the chest. COMPARISON: No relevant prior studies available. FINDINGS: Lungs: Bibasilar opacities. Mild pulmonary vascular congestion. Pleural space: Small bilateral pleural effusions. No pneumothorax. Heart: Borderline cardiomediastinal silhouette. Mediastinum: As above. Bones/joints: No acute abnormality. IMPRESSION: 1. Small bilateral pleural effusions with adjacent atelectasis or consolidation. 2. Mild pulmonary vascular congestion.
[2022-03-23 21:47] LABS: Glucose,Whole Blood 143 mg/dL (70-110)
[2022-03-23] MEDS: HYDROcodone/APAP 7.5-325MG 1 EACH TAB PO PRN (22:26)
[2022-03-23] MEDS: AMITRIPTYLINE HCL 50 MG TAB PO SCH (22:27)
[2022-03-23] MEDS: METOPROLOL SUCCINATE (ER) 25 MG TAB.ER.24H PO SCH (22:27)
[2022-03-24 07:04] LABS: Glucose,Whole Blood 252 mg/dL (70-110)
[2022-03-24] MEDS ORDERED: DEXTROSE 50% SYRINGE 50 ML IVP PRN ×4 (07:09→11:56)
[2022-03-24] MEDS ORDERED: IPRATROPIUM-ALBUTEROL 3 ML NEB INHALATION PRN (07:14)
[2022-03-24] MEDS ORDERED: INSULIN ASPART (NovoLOG) 100 UNIT/ML VIAL SQ SCH ×2 (07:30)
[2022-03-24] MEDS: HEPARIN SODIUM,PORCINE/PF 5,000 UNIT/0.5 ML SYRINGE SQ SCH ×2 (08:34→21:02)
[2022-03-24] MEDS: LEVOTHYROXINE 88 MCG TAB PO SCH (08:34)
[2022-03-24] MEDS: LEVOTHYROXINE 100 MCG TAB PO SCH (08:34)
[2022-03-24] MEDS: FAMOTIDINE 20 MG/2 ML VIAL IV SCH (08:34)
[2022-03-24] MEDS: METOPROLOL SUCCINATE (ER) 25 MG TAB.ER.24H PO SCH ×2 (08:35→21:00)
[2022-03-24] MEDS: predniSONE 20 MG TAB PO SCH ×2 (08:35→21:00)
[2022-03-24] MEDS: HYDROcodone/APAP 7.5-325MG 1 EACH TAB PO PRN (08:35)
[2022-03-24 10:39] LABS: Basophils # (A) 0.02 X 10*3/uL (0.00-0.10); Basophils % (A) 0.3 %; Eosinophils # (A) 0.05 X 10*3/uL (0.04-0.35); Eosinophils % (A) 0.8 %; HCT 28.9 % (37.2-46.3); HGB 9.5 g/dL (12.0-15.0); Immature Grans, Automated 0.5 %; Lymphocytes # (A) 0.79 X 10*3/uL (0.90-5.00); Lymphocytes % (A) 13.1 %; MCH 32.5 pg (27.0-32.0); MCHC 32.9 g/dL (32.0-37.0); Mean Platelet Volume 11.7 fL (9.5-12.2); Monocytes # (A) 0.61 X 10*3/uL (0.20-1.00); Monocytes % (A) 10.1 %; NRBC Per 100 WBC 0 /100 WBCS (0.0-0.0); Neutrophils # (A) 4.54 X 10*3/uL (1.80-7.70); Neutrophils % (A) 75.2 %; Platelet Count 180 X 10*3/uL (140-440); RBC 2.92 X 10*6/uL (4.10-5.20); RDW 17.2 % (11.5-14.5); WBC 6.04 X 10*3/uL (4.50-10.00)
[2022-03-24 10:48] LABS: African American GFR (CKD) 22.8 (60.0-200.0); Anion Gap 10.3 mmol/L (10.00-18.00); BUN/Creat Ratio 28.96 Ratio (12.00-20.00); Blood Urea Nitrogen 69.5 mg/dL (9.0-27.0); Calcium 8.1 mg/dL (8.7-10.3); Carbon Dioxide 25.7 mmol/L (20.0-27.5); Non-African American GFR(CKD) 19.7 (60.0-200.0); Potassium 5.9 mmol/L (3.5-5.5)
[2022-03-24] MEDS ORDERED: SODIUM ZIRCONIUM CYCLOSILICATE 10 GM PACKET PO ONE (11:15)
[2022-03-24] MEDS ORDERED: FUROSEMIDE 10 MG/ML 4 ML VIAL IV STA (11:16)
--- NOTE | 2022-03-24 11:17 | P.NPCON ---
History of Present Illness - Reason for Consult acute renal failure - History of Present Illness Patient is a 72-year-old female with history of left breast cancer diagnosed in September 2021 currently maintained on chemotherapy. Patient also has a history of chronic kidney disease NKF stage III with baseline creatinine around 1.4-1.5 mg/dL. Patient was admitted to the hospital with complaints of rash that she had noticed on her lower extremities and torso about 2 days ago. No significant itching No fever No new medications were patient No significant change in urine output No history of use of NSAIDs Serum creatinine was 1.9 mg/dL yesterday and it is up to 2.4 today. It was 2.8 on 03/22/2022 Blood pressure has been on the lower side. Patient was on angiotensin receptor blockers and diuretics prior to admission. She has chronic lower extremity edema. Review of Systems As per HPI, the systems negative Past Medical History Past Medical History: Cancer, Diabetes Mellitus, Hypertension, Renal Disease Additional Past Medical History / Comment(s): left breast CA dx September 2021,neuropathy,hx rt breast CA-dx 2013-radiation no chemo,Stg 3 Kidney Disease,sepsis 40 yrs ago, type 1 diabetic History of Any Multi-Drug Resistant Organisms: None Reported Past Surgical History: Breast Surgery, Orthopedic Surgery, Tubal Ligation Additional Past Surgical History / Comment(s): rt breast lumpectomy,ORIF rt lower leg Past Anesthesia/Blood Transfusion Reactions: Previous Problems w/ Anesthesia Additional Past Anesthesia/Blood Transfusion Reaction / Comment(s): hyperventilated coming out of anesthesia years ago-no problems with surgeries after that Past Psychological History: No Psychological Hx Reported Smoking Status: Current every day smoker Past Alcohol Use History: Daily Additional Past Alcohol Use History / Comment(s): started smoking at age 17,>1 1/2ppd Past Drug Use History: None Reported - Past Family History Mother Family Medical History: Cancer Father Family Medical History: Cancer Medications and Allergies Home Medications Medication Instructions Recorded Confirmed Type Amitriptyline HCl 50 mg PO HS 01/14/18 03/23/22 History Ascorbic Acid [Vitamin C] 500 mg PO DAILY 01/14/18 03/23/22 History Doxazosin Mesylate [Cardura Xl] 8 mg PO HS 01/14/18 03/23/22 History Metoprolol Succinate (ER) [Toprol 100 mg PO BID 01/14/18 03/23/22 History XL] Bumetanide [BUMEX] 2 mg PO DAILY 09/19/19 03/23/22 History Omeprazole 20 mg PO DAILY 09/19/19 03/23/22 History Spironolactone 12.5 mg PO BID 09/19/19 03/23/22 History polyethylene glycoL 3350 [Clearlax] 17 gm PO HS 09/19/19 03/23/22 History Cholecalciferol [Vitamin D3 (25 25 mcg PO DAILY 10/21/21 03/23/22 History Mcg = 1000 Iu)] Glucagon Emergency Kit 1 mg SQ ONCE PRN 01/25/22 03/23/22 History Levothyroxine Sodium [Synthroid] 100 mcg PO DAILY 01/25/22 03/23/22 History HYDROcodone/APAP 7.5-325MG [[place] 1 tab PO Q6HR PRN 3 Days #12 tab 03/21/22 03/23/22 Rx 7.5-325] predniSONE [Deltasone] 20 mg PO BID #14 tab 03/21/22 03/23/22 Rx Benazepril [Lotensin] 5 mg PO HS 03/23/22 03/23/22 History Insulin Aspart [NovoLOG Flexpen] See Protocol SQ AC-TID 03/23/22 03/23/22 History Insulin Glargine,Hum.rec.anlog See Protocol SQ 03/23/22 03/23/22 History [Lantus Solostar Pen] Levothyroxine Sodium [Synthroid] 88 mcg PO DAILY 03/23/22 03/23/22 History Psyllium Husk [Metamucil] 0.4 gm PO HS 03/23/22 03/23/22 History Allergies Allergy/AdvReac Type Severity Reaction Status Date / Time pregabalin [From Lyrica] Allergy Swelling Verified 03/23/22 19:44 terbinafine [From Lamisil] Allergy Itching Verified 03/23/22 19:44 amoxicillin AdvReac yeast Verified 03/23/22 19:44 infection cephalexin [From Keflex] AdvReac yeast Verified 03/23/22 19:44 infection Physical Exam Vitals: Vital Signs Temp Pulse Pulse Resp BP BP Pulse Ox 03/24/22 05:00 98.5 F 81 16 106/57 93 L 03/23/22 21:56 98.6 F 79 16 122/67 94 L 03/23/22 19:54 98.4 F 80 17 100/47 96 03/23/22 18:44 77 16 126/57 94 L 03/23/22 15:51 98.5 F 76 20 132/50 93 L Intake and Output 03/23/22 03/24/22 03/24/22 22:59 06:59 14:59 Intake Total 590 Balance 590 Intake: Oral 590 Other: Voiding Method Toilet Weight 107 kg Awake, comfortable, not in any acute distress Examination of the heart S1 and S2 Examination of the lungs bilateral breath sounds are heard Abdomen is soft obese nontender Examination of lower extremity shows edema 2+ bilaterally with edema noted as well as rash noted on the lower legs and thighs CHILD PSYCHIATRIST exam grossly intact Results - Lab Results Most recent lab results Calcium 8.1 mg/dL (8.7-10.3) L 03/24/22 07:31 03/24/22 07:31 03/24/22 07:31 Assessment and Plan Assessment: 1. Acute kidney injury most likely prerenal associated with low blood pressure in the setting of use of angiotensin receptor blockers. UA shows significant WBCs with WBC clumps. Rule out acute interstitial nephritis 2. Chronic kidney disease NKF stage III with baseline creatinine around 1.4-1.5 mg/dL secondary to nephrosclerosis 3. Breast cancer diagnosed in September 2021 currently maintained on chemotherapy 4. Generalized rash, possible ALLERGIC reaction versus vasculitic in nature 5. Pyuria rule out UTI 6. Hyperkalemia associated with acute kidney injury and use of angiotensin receptor blockers 7. Hypervolemia with significant lower extremity edema 8. Hypervolemic hyponatremia Plan: IV Lasix 1 Lokelma by mouth 1 Continue to hold off on angiotensin receptor blockers Check ultrasound of the kidneys Check bladder scan and rule out urine retention Repeat labs in a.m. Continue steroids Check serologies Check urine for eosinophils Check urine culture next Thank you for the consultation. We'll continue to follow the patient with you during her hospitalization
--- NOTE | 2022-03-24 11:42 | P.HPIM ---
History of Present Illness This is a pleasant 72 years old female with past medical history of depression, hypertension, diabetes mellitus, history of vasculitis, history of left breast cancer on 09/2021, chronic kidney disease stage III, nicotine dependence. Patient has recently diagnosed with breast cancer on 09/2021, she was given her chemotherapy with Dr. Chi, this is the first chemo therapy finished on 03/04 with few weeks apart between 1 second one another. Monday night about 6 days ago she started having some leg rash, and by Monday she developed some pain in her legs so she decided to come to emergency room on 03/21, she is seen by Dr. Arreguin and neck cancer with vasculitic rash and she was prescribed prednisone with recommendation to follow up with PCP Dr. Gastelum whom she saw Monday and he ordered some tests before he calls her yesterday and asked her to come to emergency room because of worsening kidney function, hyponatremia and hyperkalemia. Currently patient is still complaining from right leg pain, swelling and confluent macular rash in the lower extremity especially posteriorly and to some extent in the back of her upper extremities as well. No much in the extremities. No most or genital ulcers reported. Also she denies chest pain or dyspnea. Urgency change in frequency. Her bowel movements is fine, she is well and denies any abdominal pain. No headache or dizziness or weakness or numbness. She smokes about 1-1.5 pack per day and she was counseled to quit and she declines nicotine patch. She drinks 1 beer a day with no recurrence. No illicit drugs Usually she takes insulin Levemir/Lantus at bedtime this on a sliding scale also she has on insulin sliding scale and she was almost taking totally 40 units in a day for scale as per patient. However after starting taking the prednisone 3 days ago her sugar was even higher. She is afebrile and hemodynamically stable area is oxygen saturating 93-94% on room air. Labs: Hemoglobin 10.8, elevated neutrophil count at 8.6. INR is normal. Sodium is 128, potassium 5.4 which is elevated. Creatinine is high at 1.9, compared to baseline of 1.4-1.6 urinalysis is suspicious for infection coronavirus not detected Chest x-ray: Small bilateral pleural effusion with adjacent atelectasis or consolidation. Mild pulmonary vascular congestion EKG shows normal sinus rhythm at [address]-T change emergency room she received normal saline and ceftriaxone With oncology team been consulted Review of Systems Review of systems CONSTITUTIONAL: No fever, no malaise, no fatigue. HEENT: No recent visual problems or hearing problems. Denied any sore throat. CARDIOVASCULAR: No orthopnea, PND, no palpitations, no syncope. PULMONARY: No shortness of breath, no cough, no hemoptysis. GASTROINTESTINAL: No diarrhea, no nausea, no vomiting, no abdominal pain. Normoactive bowel sounds. NEUROLOGICAL: No headaches, no weakness, no numbness. HEMATOLOGICAL: Denies any bleeding or petechiae. GENITOURINARY: Denies any burning micturition, frequency, or urgency. MUSCULOSKELETAL/RHEUMATOLOGICAL: Denies any joint pain, swelling, or any muscle pain. ENDOCRINE: Denies any polyuria or polydipsia. Past Medical History Past Medical History: Cancer, Diabetes Mellitus, Hypertension, Renal Disease Additional Past Medical History / Comment(s): left breast CA dx September 2021,neuropathy,hx rt breast CA-dx 2013-radiation no chemo,Stg 3 Kidney Disease,sepsis 40 yrs ago, type 1 diabetic History of Any Multi-Drug Resistant Organisms: None Reported Past Surgical History: Breast Surgery, Orthopedic Surgery, Tubal Ligation Additional Past Surgical History / Comment(s): rt breast lumpectomy,ORIF rt lower leg Past Anesthesia/Blood Transfusion Reactions: Previous Problems w/ Anesthesia Additional Past Anesthesia/Blood Transfusion Reaction / Comment(s): hyperventilated coming out of anesthesia years ago-no problems with surgeries after that Past Psychological History: No Psychological Hx Reported Smoking Status: Current every day smoker Past Alcohol Use History: Daily Additional Past Alcohol Use History / Comment(s): started smoking at age 17,>1 1/2ppd Past Drug Use History: None Reported - Past Family History Mother Family Medical History: Cancer Father Family Medical History: Cancer Medications and Allergies Home Medications Medication Instructions Recorded Confirmed Type Amitriptyline HCl 50 mg PO HS 01/14/18 03/23/22 History Ascorbic Acid [Vitamin C] 500 mg PO DAILY 01/14/18 03/23/22 History Doxazosin Mesylate [Cardura Xl] 8 mg PO HS 01/14/18 03/23/22 History Metoprolol Succinate (ER) [Toprol 100 mg PO BID 01/14/18 03/23/22 History XL] Bumetanide [BUMEX] 2 mg PO DAILY 09/19/19 03/23/22 History Omeprazole 20 mg PO DAILY 09/19/19 03/23/22 History Spironolactone 12.5 mg PO BID 09/19/19 03/23/22 History polyethylene glycoL 3350 [Clearlax] 17 gm PO HS 09/19/19 03/23/22 History Cholecalciferol [Vitamin D3 (25 25 mcg PO DAILY 10/21/21 03/23/22 History Mcg = 1000 Iu)] Glucagon Emergency Kit 1 mg SQ ONCE PRN 01/25/22 03/23/22 History Levothyroxine Sodium [Synthroid] 100 mcg PO DAILY 01/25/22 03/23/22 History HYDROcodone/APAP 7.5-325MG [[place] 1 tab PO Q6HR PRN 3 Days #12 tab 03/21/22 03/23/22 Rx 7.5-325] predniSONE [Deltasone] 20 mg PO BID #14 tab 03/21/22 03/23/22 Rx Benazepril [Lotensin] 5 mg PO HS 03/23/22 03/23/22 History Insulin Aspart [NovoLOG Flexpen] See Protocol SQ AC-TID 03/23/22 03/23/22 History Insulin Glargine,Hum.rec.anlog See Protocol SQ 03/23/22 03/23/22 History [Lantus Solostar Pen] Levothyroxine Sodium [Synthroid] 88 mcg PO DAILY 03/23/22 03/23/22 History Psyllium Husk [Metamucil] 0.4 gm PO HS 03/23/22 03/23/22 History Allergies Allergy/AdvReac Type Severity Reaction Status Date / Time pregabalin [From Lyrica] Allergy Swelling Verified 03/23/22 19:44 terbinafine [From Lamisil] Allergy Itching Verified 03/23/22 19:44 amoxicillin AdvReac yeast Verified 03/23/22 19:44 infection cephalexin [From Keflex] AdvReac yeast Verified 03/23/22 19:44 infection Physical Exam Vitals: Vital Signs Temp Pulse Pulse Resp BP BP Pulse Ox 03/24/22 05:00 98.5 F 81 16 106/57 93 L 03/23/22 21:56 98.6 F 79 16 122/67 94 L 03/23/22 19:54 98.4 F 80 17 100/47 96 03/23/22 18:44 77 16 126/57 94 L 03/23/22 15:51 98.5 F 76 20 132/50 93 L Intake and Output 03/23/22 03/23/22 03/24/22 14:59 22:59 06:59 Intake Total 590 Balance 590 Intake: Oral 590 Other: Voiding Method Toilet Weight 107 kg GENERAL: The patient is alert and oriented x3, not in any acute distress. Well developed, well nourished. HEENT: Pupils are round and equally reacting to light. EOMI. No scleral icterus. No conjunctival pallor. Normocephalic, atraumatic. No pharyngeal erythema. No thyromegaly. CARDIOVASCULAR: S1 and S2 present. No murmurs, rubs, or gallops. PULMONARY: Chest is clear to auscultation, no wheezing or crackles. ABDOMEN: Soft, nontender, nondistended, normoactive bowel sounds. No palpable organomegaly. MUSCULOSKELETAL: No joint swelling or deformity. EXTREMITIES: No cyanosis, clubbing, or pedal edema. NEUROLOGICAL: Gross neurological examination did not reveal any focal deficits. SKIN: Purpuric like rashes involving LE posteriorly more than UE were serially. no petechiae. Results CBC & Chem 7: 03/24/22 07:31 03/24/22 07:31 Labs: Abnormal Lab Results - Last 24 Hours (Table) 03/23/22 03/23/22 03/23/22 Range/Units 17:45 17:45 17:45 RBC 3.38 L (3.80-5.40) m/uL Hgb 10.8 L (11.4-16.0) gm/dL MCV 100.9 H D (80.0-100.0) fL RDW 16.1 H (11.5-15.5) % Neutrophils # 8.6 H (1.3-7.7) k/uL Lymphocytes # 0.7 L (1.0-4.8) k/uL Sodium 128 L (137-145) mmol/L Potassium 5.4 H (3.5-5.1) mmol/L Chloride 91 L (98-107) mmol/L BUN 70 H (7-17) mg/dL Creatinine 1.99 H (0.52-1.04) mg/dL POC Glucose (mg/dL) (70-110) mg/dL AST 51 H (14-36) U/L Total Protein 5.6 L (6.3-8.2) g/dL Albumin 3.1 L (3.5-5.0) g/dL Urine Appearance Cloudy H (Clear) Urine Blood Trace H (Negative) Ur Leukocyte Esterase Large H (Negative) Urine WBC >182 H (0-5) /hpf Urine WBC Clumps Occasional H (None) /hpf Urine Bacteria Rare H (None) /hpf Urine Mucus Rare H (None) /hpf 03/23/22 Range/Units 21:45 RBC (3.80-5.40) m/uL Hgb (11.4-16.0) gm/dL MCV (80.0-100.0) fL RDW (11.5-15.5) % Neutrophils # (1.3-7.7) k/uL Lymphocytes # (1.0-4.8) k/uL Sodium (137-145) mmol/L Potassium (3.5-5.1) mmol/L Chloride (98-107) mmol/L BUN (7-17) mg/dL Creatinine (0.52-1.04) mg/dL POC Glucose (mg/dL) 143 H (70-110) mg/dL AST (14-36) U/L Total Protein (6.3-8.2) g/dL Albumin (3.5-5.0) g/dL Urine Appearance (Clear) Urine Blood (Negative) Ur Leukocyte Esterase (Negative) Urine WBC (0-5) /hpf Urine WBC Clumps (None) /hpf Urine Bacteria (None) /hpf Urine Mucus (None) /hpf Microbiology - Last 24 Hours (Table) 03/23/22 17:45 Urine Culture - Preliminary Urine,Voided Thrombosis Risk Factor Assmnt - Choose All That Apply Any of the Below Risk Factors Present?: Yes Each Factor Represents 1 point: Obesity (BMI >25), Swollen legs (current) Other Risk Factors: Yes Each Risk Factor Represents 2 Points: Age 61-74 years, Malignancy Other congenital or acquired thrombophilia - If yes, enter type in comment: No Thrombosis Risk Factor Assessment Total Risk Factor Score: 6 Thrombosis Risk Factor Assessment Level: High Risk Assessment and Plan Assessment: Both purpura like rash of the lower extremities and to a lesser extent of the upper extremities Acute kidney injury on chronic kidney disease Acute urinary tract infection Chronic kidney disease stage III b hypervolemic hyponatremia Hypertension, type I Diabetes mellitus History of depression History of vasculitis History of left breast cancer and history of right breast lumpectomy Nicotine dependence Obesity with BMI of 34.8 Plan: This is a pleasant 72 old female who presents with UTI and acute kidney in(IV fluidstinue with antibiotic ceftriaxone follow-up urine culture. Check hemoglobin A1c and proBNP atcalcitonin Nephrology consult hold SANDRA inhibitor and diuretics Hold Doxazocin and Aldactone. Patient continued on metoprolol 100 mg twice a day follow-up hematology/oncology consult Consult support dba rheumatology team consultI Labs and medication were reviewed.. Continue same treatment. Continue with symptomatic treatment. Resume home medication. Monitor lytes and vitals. DVT and GI prophylaxis. Further recommendations as per clinical course of the patient DVT prophylaxis: Subcutaneous heparin GI Prophylaxis: Pepcid PT/OT: Pending Prognosis is guarded Per staff patient wants to be DNR/DN
[2022-03-24 11:50] LABS: Glucose,Whole Blood 260 mg/dL (70-110)
[2022-03-24] MEDS ORDERED: PSYLLIUM HUSK 100% 6 GM PACKET PO PRN (12:07)
[2022-03-24] MEDS ORDERED: FUROSEMIDE 10 MG/ML 4 ML VIAL ONE (12:44)
[2022-03-24] MEDS: INSULIN ASPART (NovoLOG) 100 UNIT/ML VIAL SQ SCH ×4 (13:00→21:02)
--- NOTE | 2022-03-24 13:18 | P.CONS ---
History of Present Illness - Reason for Consult Consult date: 03/24/22 - History of Present Illness This is a hospital consult on a 72-year-old female admitted for rash. We were consulted for possible vasculitis. Patient is known to Dr. Chi and is treated for breast cancer with completion of chemotherapy in the month of February with last infusion on 03/04. Patient was examined at bedside by both Dr. Root, Dr. Chi, and I. patient explained that on 03/17 she experienced profuse diarrhea with approximately 6 episodes of watery diarrhea which then spontaneously resolved. She said the next night 03/18 she started experiencing significant bilateral leg pain with redness. She contacted Dr. Chi on the morning of 03/20 at which time he planned on calling a steroid pack in but the pharmacies were all closed. Patient then contacted primary care on the morning of 03/21 and was told to go to the emergency room where they suspected vasculitis. Patient examined at bedside and complains today of [id number] pain in bilateral legs. She said that pain has improved with use of [place] and pre dnisone. She is concerned about high blood sugars while taking steroids and request that the admitting physician monitor her blood sugars and continue her home doses of insulin plus a sliding scale. She has a chronic cough but admits to being a smoker. She has completed all 4 of her Covid vaccines. Exam: Rash with areas of blisters and ulcerations but mostly in a macular fashion on bilateral legs extensor and flexor surfaces and extensor surface of right upper arm, low back, and buttock. No gland swelling, no synovitis, bilateral lower extremity nonpitting edema 3+ with redness, diffuse arm and hand edema, crackles bilateral lung bases I spoke with Dr. Root who stated differential diagnosis to include Henoch- Schonlein purpura (based on recent diarrhea) versus ANCA vasculitis. We do have multisystem involvement including decreased kidney function, crackles in bilateral lung bases with abnormal chest x-ray, and rash. We do recommend patient continues prednisone 20 mg twice daily.Dr. Chi spoke to attending physician about sliding scale insulin and resuming home dose of Lantus. We will order connective tissue disease workup with further recommendations to follow. Past Medical History Past Medical History: Cancer, Diabetes Mellitus, Hypertension, Renal Disease Additional Past Medical History / Comment(s): left breast CA dx September 2021,neuropathy,hx rt breast CA-dx 2013-radiation no chemo,Stg 3 Kidney Disea se,sepsis 40 yrs ago, type 1 diabetic History of Any Multi-Drug Resistant Organisms: None Reported Past Surgical History: Breast Surgery, Orthopedic Surgery, Tubal Ligation Additional Past Surgical History / Comment(s): rt breast lumpectomy,ORIF rt lower leg Past Anesthesia/Blood Transfusion Reactions: Previous Problems w/ Anesthesia Additional Past Anesthesia/Blood Transfusion Reaction / Comm: hyperventilated coming out of anesthesia years ago-no problems with surgeries after that Past Psychological History: No Psychological Hx Reported Smoking Status: Current every day smoker Past Alcohol Use History: Daily Additional Past Alcohol Use History / Comment(s): started smoking at age 17,>1 1/2ppd Past Drug Use History: None Reported - Past Family History Mother Family Medical History: Cancer Father Family Medical History: Cancer Medications and Allergies Home Medications Medication Instructions Recorded Confirmed Type Amitriptyline HCl 50 mg PO HS 01/14/18 03/23/22 History Ascorbic Acid [Vitamin C] 500 mg PO DAILY 01/14/18 03/23/22 History Doxazosin Mesylate [Cardura Xl] 8 mg PO HS 01/14/18 03/23/22 History Metoprolol Succinate (ER) [Toprol 100 mg PO BID 01/14/18 03/23/22 History XL] Bumetanide [BUMEX] 2 mg PO DAILY 09/19/19 03/23/22 History Omeprazole 20 mg PO DAILY 09/19/19 03/23/22 History Spironolactone 12.5 mg PO BID 09/19/19 03/23/22 History polyethylene glycoL 3350 [Clearlax] 17 gm PO HS 09/19/19 03/23/22 History Cholecalciferol [Vitamin D3 (25 25 mcg PO DAILY 10/21/21 03/23/22 History Mcg = 1000 Iu)] Glucagon Emergency Kit 1 mg SQ ONCE PRN 01/25/22 03/23/22 History Levothyroxine Sodium [Synthroid] 100 mcg PO DAILY 01/25/22 03/23/22 History HYDROcodone/APAP 7.5-325MG [[place] 1 tab PO Q6HR PRN 3 Days #12 tab 03/21/22 03/23/22 Rx 7.5-325] predniSONE [Deltasone] 20 mg PO BID #14 tab 03/21/22 03/23/22 Rx Benazepril [Lotensin] 5 mg PO 03/23/22 03/23/22 History Insulin Aspart [NovoLOG Flexpen] See Protocol SQ AC-TID 03/23/22 03/23/22 H istory Insulin Glargine,Hum.rec.anlog See Protocol SQ 03/23/22 03/23/22 History [Lantus Solostar Pen] Levothyroxine Sodium [Synthroid] 88 mcg PO DAILY 03/23/22 03/23/22 History Psyllium Husk [Metamucil] 0.4 gm PO HS 03/23/22 03/23/22 History Allergies Allergy/AdvReac Type Severity Reaction Status Date / Time pregabalin [From Lyrica] Allergy Swelling Verified 03/23/22 19:44 terbinafine [From Lamisil] Allergy Itching Verified 03/23/22 19:44 amoxicillin AdvReac yeast Verified 03/23/22 19:44 infection cephalexin [From Keflex] AdvReac yeast Verified 03/23/22 19:44 infection Physical Exam Vitals: Vital Signs Temp Pulse Pulse Resp BP BP Pulse Ox 03/24/22 12:38 98.1 F 83 16 129/63 96 03/24/22 05:00 98.5 F 81 16 106/57 93 L 03/23/22 21:56 98.6 F 79 16 122/67 94 L 03/23/22 19:54 98.4 F 80 17 100/47 96 03/23/22 18:44 77 16 126/57 94 L 03/23/22 15:51 98.5 F 76 20 132/50 93 L Intake and Output 03/23/22 03/24/22 03/24/22 22:59 06:59 14:59 Intake Total 590 Balance 590 Intake: Oral 590 Other: Voiding Method Toilet Toilet Weight 107 kg Results CBC & Chem 7: 03/24/22 07:31 03/24/22 07:31 Labs: Abnormal Lab Results - Last 24 Hours (Table) 03/23/22 03/23/22 03/23/22 Range/Units 17:45 17:45 17:45 RBC 3.38 L (3.80-5.40) m/uL Hgb 10.8 L (11.4-16.0) gm/dL Hct (37.2-46.3) % MCV 100.9 H D (80.0-100.0) fL MCH (27.0-32.0) pg RDW 16.1 H (11.5-15.5) % Neutrophils # 8.6 H (1.3-7.7) k/uL Lymphocytes # 0.7 L (1.0-4.8) k/uL Sodium 128 L (137-145) mmol/L Potassium 5.4 H (3.5-5.1) mmol/L Chloride 91 L (98-107) mmol/L BUN 70 H (7-17) mg/dL Creatinine 1.99 H (0.52-1.04) mg/dL Est GFR (CKD-EPI)AfAm (60.0-200.0) Est GFR (CKD-EPI)NonAf (60.0-200.0) BUN/Creatinine Ratio (12.00-20.00) Ratio Glucose (70-110) mg/dL POC Glucose (mg/dL) (70-110) mg/dL Calcium (8.7-10.3) mg/dL AST 51 H (14-36) U/L Total Protein 5.6 L (6.3-8.2) g/dL Albumin 3.1 L (3.5-5.0) g/dL Urine Appearance Cloudy H (Clear) Urine Blood Trace H (Negative) Ur Leukocyte Esterase Large H (Negative) Urine WBC >182 H (0-5) /hpf Urine WBC Clumps Occasional H (None) /hpf Urine Bacteria Rare H (None) /hpf Urine Mucus Rare H (None) /hpf 03/23/22 03/24/22 03/24/22 Range/Units 21:45 07:03 07:31 RBC 2.92 L (3.80-5.40) m/uL Hgb 9.5 L (11.4-16.0) gm/dL Hct 28.9 L (37.2-46.3) % MCV 99.0 H (80.0-100.0) fL MCH 32.5 H (27.0-32.0) pg RDW 17.2 H (11.5-15.5) % Neutrophils # (1.3-7.7) k/uL Lymphocytes # 0.79 L (1.0-4.8) k/uL Sodium (137-145) mmol/L Potassium (3.5-5.1) mmol/L Chloride (98-107) mmol/L BUN (7-17) mg/dL Creatinine (0.52-1.04) mg/dL Est GFR (CKD-EPI)AfAm (60.0-200.0) Est GFR (CKD-EPI)NonAf (60.0-200.0) BUN/Creatinine Ratio (12.00-20.00) Ratio Glucose (70-110) mg/dL POC Glucose (mg/dL) 143 H 252 H (70-110) mg/dL Calcium (8.7-10.3) mg/dL AST (14-36) U/L Total Protein (6.3-8.2) g/dL Albumin (3.5-5.0) g/dL Urine Appearance (Clear) Urine Blood (Negative) Ur Leukocyte Esterase (Negative) Urine WBC (0-5) /hpf Urine WBC Clumps (None) /hpf Urine Bacteria (None) /hpf Urine Mucus (None) /hpf 03/24/22 03/24/22 Range/Units 07:31 11:49 RBC (3.80-5.40) m/uL Hgb (11.4-16.0) gm/dL Hct (37.2-46.3) % MCV (80.0-100.0) fL MCH (27.0-32.0) pg RDW (11.5-15.5) % Neutrophils # (1.3-7.7) k/uL Lymphocytes # (1.0-4.8) k/uL Sodium 128 L (137-145) mmol/L Potassium 5.9 H (3.5-5.1) mmol/L Chloride 92 L (98-107) mmol/L BUN 69.5 H (7-17) mg/dL Creatinine 2.4 H (0.52-1.04) mg/dL Est GFR (CKD-EPI)AfAm 22.8 L (60.0-200.0) Est GFR (CKD-EPI)NonAf 19.7 L (60.0-200.0) BUN/Creatinine Ratio 28.96 H (12.00-20.00) Ratio Glucose 239 H (70-110) mg/dL POC Glucose (mg/dL) 260 H (70-110) mg/dL Calcium 8.1 L (8.7-10.3) mg/dL AST (14-36) U/L Total Protein (6.3-8.2) g/dL Albumin (3.5-5.0) g/dL Urine Appearance (Clear) Urine Blood (Negative) Ur Leukocyte Esterase (Negative) Urine WBC (0-5) /hpf Urine WBC Clumps (None) /hpf Urine Bacteria (None) /hpf Urine Mucus (None) /hpf Microbiology - Last 24 Hours (Table) 03/23/22 17:45 Urine Culture - Preliminary Urine,Voided
--- NOTE | 2022-03-24 16:02 | US ---
EXAMINATION TYPE: US kidneys/renal and bladder DATE OF EXAM: 03/24/2022 COMPARISON: NONE CLINICAL HISTORY: josh. JOSH EXAM MEASUREMENTS: Right Kidney: 13.0 x 5.6 x 4.6 cm Left Kidney: 12.3 x 5.0 x 5.1 cm Right Kidney: no evidence of hydronephrosis Left Kidney: no evidence of hydronephrosis Bladder: wnl Bilateral Jets seen: no *incidental finding: cholelithiasis There is no evidence for hydronephrosis at this point in time. No nephrolithiasis is seen. Vertical medullary differentiation is maintained. No masses are identified. The urinary bladder is anechoic. Bilateral ureteral jets are not seen. IMPRESSION: No evident hydronephrosis. Incidental cholelithiasis.
[2022-03-24 16:35] LABS: Reticulocyte % 2.7 % (0.5-2.0)
[2022-03-24 17:00] LABS: Glucose,Whole Blood 355 mg/dL (70-110)
[2022-03-24 20:35] LABS: % Iron Saturation 10.95 (12.00-45.00)
[2022-03-24 20:41] LABS: Glucose,Whole Blood 328 mg/dL (70-110)
[2022-03-24 20:49] LABS: Hepatitis B Surface AB- Quant 3.5 mIU/mL; Hepatitis B Surface Antibody Nonreactive (Nonreactive)
[2022-03-24] MEDS ORDERED: INSULIN DETEMIR (LEVEMIR) 100 UNIT/ML SYR SQ SCH (21:00)
[2022-03-24] MEDS: AMITRIPTYLINE HCL 50 MG TAB PO SCH (21:52)
[2022-03-24 22:27] LABS: Anti-DNA, DS unit <1.0 IU/mL; DNA Double-Stranded NEGATIVE (NEGATIVE)
--- NOTE | 2022-03-24 22:38 | P.CONS ---
History of Present Illness - Reason for Consult Consult date: 03/24/22 Rash, JOSH, dyselectrolytemia, history of breast cancer - History of Present Illness The patient is a 80-year-old white female well known to myself, with a history of localized breast cancer status post limited surgery, and adjuvant chemotherapy. The patient had called on 03/21/22 complaining of new onset of skin rash on her lower extremities. She described the rash as reddish, and totally asymptomatic at that time. I attempted to call in a [facility] order pharmacy was close. The patient was advised to take Benadryl, but to go to the ER if her symptoms progress. The patient noted that the rash spreading over the lower extremities and also involving the lower abdomen. She also experienced associated pain. She therefore came into the emergency room and was felt to have possible vasculitis. She was started on oral steroids and discharge. However labs that were drawn showed a increase in creatinine from baseline 1.99, high potassium and low sodium. She was therefore asked to come back to the emergency room by her PCP, and was admitted. the patient had not had any hypersensitivity reactions to her chemotherapy. She denied any fevers or other than a temperature of 100.3-100.4 on admission. She stated that she had 1-2 days of diarrhea, up to 5-6 episodes about 2-3 days prior to the onset of the rash. Since starting steroids in the ER, her pain had markedly improved. baseline creatinine is in the 1.3-1.5 range. Chest x-ray on admission showed bilateral small pleural effusions with supplementation atelectasis/consolidation. Patient's urine showed large leukocyte esterase, WBC clumps, and rare bacteria Oncology history is as follows: She was found to have a suspicious mass in the right breast at 9 o'clock, on routine mammography done on 09/06/13. A diagnostic mammogram on 09/10/13 confirmed the finding. She had a core biopsy on 09/16/13, confirming invasive ductal carcinoma grade 2, ER/OR positive, Her 2 Vasile 2 + by IHC, but negative by FISH. She had a needle localization lumpoectomy on 09/30/13. This revealed residual invasive carcinoma, 1.4 x 1.0 cm, with 1/2 sentinel nodes positive. However none of additional 9 axillary nodes were positive. She had no major post op issues, and was referred here for evaluation for adjuvant therapy. An oncotype Dx test was ordered. This placed in the low intermediate risk category. She was randomized to the AI arm per the S1007 tri al. She completed RT on 01/03/14, with mild skin toxicity. She then started Anastrozole. A left axillary node was noted in 04/29. This was biopsied by Dr Marin and found to be benign. Her hot flashes and dizziness resolved, by taking anastrozole later in the day. She denies any significant bone pains, or vaginal dryness or discharge. She continues on Ca+D. She had cataract surgery in 01/30. Her mammogram in 09/03 was negative per the pt. She had and admission from 01/13/18 - 01/16/18 for pancreatitis. She was seen in 08/04 due to increase in her chronic lower back pain, since about 04/03. This was slowly progressive, and exacerbated by weight bearing, and relieved with sitting or lying down, and was starting to interfere with her ADLs. MRI of the T and L spine/ labs in 08/04 and PET scan in 10/02, showed no evidence of recurrence at your visit in 04/04, it was decided to continue the anastrozole beyond 5 years that she was tolerating it well. she was referred back by her PCP on 11/06/20, as labs at [facility] in 10/04 that showed a low platelet count of 49. Previous labs done in the same system were reviewed going back to 2018 also showing low platelet counts in the 30-40,000 range. However at least one count had shown evidence of in vitro agglutination. CBC in the office showed normal plt count of 159. Therefore the low counts are felt to be artifactual due to in vitro agglutination. The patient was found to have an abnormality in the left breast on routine mammogram, in 10/05. This was confirmed with ultrasound on 09/15/21 showing a 0.6 x 0.4 x 0.5 cm irregular solid lesion at 9:00. She underwent ultrasound-guided biopsy on 09/23/21. This showed a grade 3 invasive ductal carcinoma, ER/OR positive. HER-2/vasile was 2+. Initial patient was not definitive. Repeat testing ultimately indicated HER-2 negativity. She had a localization lumpectomy with sentinel node biopsy in 10/22/21. This showed a 9 mm grade 3 tumor with margins negative. [place] node was negative. The patient had Oncotype testing done, which gave her a score of 27, with greater than 15% anticipated benefit from chemotherapy. she was therefore started on adjuvant Taxotere and Cytoxan on 12/27/21. She is status post 4 cycles, completing those on 03/04/22. The patient's bone pain and muscle pains were better with cycle 2 with regular use of Claritin. However she again developed significant mucositis which lasted for about a week. Fatigue and taste alteration as well as drop in appetite again lasted for about a week followed by subsequent improvement. she had dose reduction by 15% of both chemotherapies after cycle 2. however she again complained of similar symptoms after cycle 3. After discussion she decided to proceed with C 4. She had additional dose reduction by 15% for C 4 after completion of chemotherapy, her symptoms essentially resolved within 7-10 days. Review of Systems Constitutional: Reports fever Eyes: denies blurred vision, denies pain Ears: deny: decreased hearing, ear discharge, earache, tinnitus Ears, nose, mouth and throat: Denies headache, Denies sore throat Breasts: Reports as per HPI Cardiovascular: Denies chest pain, Denies shortness of breath Respiratory: Reports cough (chronic, stable, smoking-related) Gastrointestinal: Reports as per HPI, Reports diarrhea Genitourinary: Denies dysuria, Denies hematuria Menstruation: Reports postmenopausal Musculoskeletal: Reports as per HPI, Reports shooting leg pain Integumentary: Reports rash Neurological: Denies numbness, Denies weakness Psychiatric: Reports anxiety Endocrine: Reports fatigue, Reports high blood sugars Hematologic/Lymphatic: Reports as per HPI Past Medical History Past Medical History: Cancer, Diabetes Mellitus, Hypertension, Renal Disease Additional Past Medical History / Comment(s): left breast CA dx September 2021,neuropathy,hx rt breast CA-dx 2013-radiation no chemo,Stg 3 Kidney Diseas e,sepsis 40 yrs ago, type 1 diabetic History of Any Multi-Drug Resistant Organisms: None Reported Past Surgical History: Breast Surgery, Orthopedic Surgery, Tubal Ligation Additional Past Surgical History / Comment(s): rt breast lumpectomy,ORIF rt lower leg Past Anesthesia/Blood Transfusion Reactions: Previous Problems w/ Anesthesia Additional Past Anesthesia/Blood Transfusion Reaction / Comm: hyperventilated coming out of anesthesia years ago-no problems with surgeries after that Past Psychological History: No Psychological Hx Reported Smoking Status: Current every day smoker Past Alcohol Use History: Daily Additional Past Alcohol Use History / Comment(s): started smoking at age 17,>1 1/2ppd Past Drug Use History: None Reported - Past Family History Mother Family Medical History: Cancer Father Family Medical History: Cancer Medications and Allergies Home Medications Medication Instructions Recorded Confirmed Type Amitriptyline HCl 50 mg PO HS 01/14/18 03/23/22 History Ascorbic Acid [Vitamin C] 500 mg PO DAILY 01/14/18 03/23/22 History Doxazosin Mesylate [Cardura Xl] 8 mg PO HS 01/14/18 03/23/22 History Metoprolol Succinate (ER) [Toprol 100 mg PO BID 01/14/18 03/23/22 History XL] Bumetanide [BUMEX] 2 mg PO DAILY 09/19/19 03/23/22 History Omeprazole 20 mg PO DAILY 09/19/19 03/23/22 History Spironolactone 12.5 mg PO BID 09/19/19 03/23/22 History polyethylene glycoL 3350 [Clearlax] 17 gm PO HS 09/19/19 03/23/22 History Cholecalciferol [Vitamin D3 (25 25 mcg PO DAILY 10/21/21 03/23/22 History Mcg = 1000 Iu)] Glucagon Emergency Kit 1 mg SQ ONCE PRN 01/25/22 03/23/22 History Levothyroxine Sodium [Synthroid] 100 mcg PO DAILY 01/25/22 03/23/22 History HYDROcodone/APAP 7.5-325MG [[place] 1 tab PO Q6HR PRN 3 Days #12 tab 03/21/22 03/23/22 Rx 7.5-325] predniSONE [Deltasone] 20 mg PO BID #14 tab 03/21/22 03/23/22 Rx Benazepril [Lotensin] 5 mg PO HS 03/23/22 03/23/22 History Insulin Aspart [NovoLOG Flexpen] See Protocol SQ AC-TID 03/23/22 03/23/22 Hi story Insulin Glargine,Hum.rec.anlog See Protocol SQ HS 03/23/22 03/23/22 History [Lantus Solostar Pen] Levothyroxine Sodium [Synthroid] 88 mcg PO DAILY 03/23/22 03/23/22 History Psyllium Husk [Metamucil] 0.4 gm PO HS 03/23/22 03/23/22 History Allergies Allergy/AdvReac Type Severity Reaction Status Date / Time pregabalin [From Lyrica] Allergy Swelling Verified 03/23/22 19:44 terbinafine [From Lamisil] Allergy Itching Verified 03/23/22 19:44 amoxicillin AdvReac yeast Verified 03/23/22 19:44 infection cephalexin [From Keflex] AdvReac yeast Verified 03/23/22 19:44 infection Physical Exam Vitals: Vital Signs Temp Pulse Resp BP Pulse Ox 03/24/22 19:39 98.0 F 97 16 127/56 94 L 03/24/22 12:38 98.1 F 83 16 129/63 96 03/24/22 05:00 98.5 F 81 16 106/57 93 L Intake and Output 03/24/22 03/24/22 03/24/22 06:59 14:59 22:59 Intake Total 590 Balance 590 Intake: Oral 590 Other: Voiding Method Toilet - Constitutional General appearance: no acute distress - EENT Eyes: EOMI, PERRLA ENT: hearing grossly normal, normal oropharynx - Neck Neck: no lymphadenopathy Thyroid: bilateral: normal size - Respiratory Respiratory: bilateral: diminished (s/o COPD) - Cardiovascular Rhythm: regular Heart sounds: normal: S1, S2 - Gastrointestinal General gastrointestinal: normal bowel sounds, soft - Integumentary Integumentary: rash (extensive radiation/dark reddish rash mostly macular, involving lower extremities, partially confluent, as well as lower abdomen and right upper extremity mildly. Scattered areas of blistering, and ulceration. There is no typical palpable purpura on exam.) - Neurologic Neurologic: CNII-XII intact - Musculoskeletal Musculoskeletal: generalized weakness, strength equal bilaterally - Psychiatric Psychiatric: A&O x's 3, appropriate affect Results CBC & Chem 7: 03/24/22 07:31 03/24/22 16:05 Labs: Abnormal Lab Results - Last 24 Hours (Table) 03/24/22 03/24/22 03/24/22 Range/Units 07:03 07:31 07:31 RBC 2.92 L (4.10-5.20) X 10*6/uL Hgb 9.5 L (12.0-15.0) g/dL Hct 28.9 L (37.2-46.3) % MCV 99.0 H (80.0-97.0) fL MCH 32.5 H (27.0-32.0) pg RDW 17.2 H (11.5-14.5) % Lymphocytes # 0.79 L (0.90-5.00) X 10*3/uL Retic Count (0.5-2.0) % Sodium 128 L (135-145) mmol/L Potassium 5.9 H (3.5-5.5) mmol/L Chloride 92 L (96-109) mmol/L BUN 69.5 H (9.0-27.0) mg/dL Creatinine 2.4 H (0.6-1.5) mg/dL Est GFR (CKD-EPI)AfAm 22.8 L (60.0-200.0) Est GFR (CKD-EPI)NonAf 19.7 L (60.0-200.0) BUN/Creatinine Ratio 28.96 H (12.00-20.00) Ratio Glucose 239 H (70-110) mg/dL POC Glucose (mg/dL) 252 H (70-110) mg/dL Calcium 8.1 L (8.7-10.3) mg/dL Iron (50-170) ug/dL % Saturation (12.00-45.00) Transferrin (204.0-354.0) mg/dL Vitamin B12 (200.0-944.0) pg/mL 03/24/22 03/24/22 03/24/22 Range/Units 11:49 12:18 16:05 RBC (4.10-5.20) X 10*6/uL Hgb (12.0-15.0) g/dL Hct (37.2-46.3) % MCV (80.0-97.0) fL MCH (27.0-32.0) pg RDW (11.5-14.5) % Lymphocytes # (0.90-5.00) X 10*3/uL Retic Count (0.5-2.0) % Sodium (135-145) mmol/L Potassium 5.5 H (3.5-5.5) mmol/L Chloride (96-109) mmol/L BUN (9.0-27.0) mg/dL Creatinine (0.6-1.5) mg/dL Est GFR (CKD-EPI)AfAm (60.0-200.0) Est GFR (CKD-EPI)NonAf (60.0-200.0) BUN/Creatinine Ratio (12.00-20.00) Ratio Glucose (70-110) mg/dL POC Glucose (mg/dL) 260 H (70-110) mg/dL Calcium (8.7-10.3) mg/dL Iron 26 L (50-170) ug/dL % Saturation 10.95 L (12.00-45.00) Transferrin 169.0 L (204.0-354.0) mg/dL Vitamin B12 1892.0 H (200.0-944.0) pg/mL 03/24/22 03/24/22 03/24/22 Range/Units 16:05 16:59 20:39 RBC (4.10-5.20) X 10*6/uL Hgb (12.0-15.0) g/dL Hct (37.2-46.3) % MCV (80.0-97.0) fL MCH (27.0-32.0) pg RDW (11.5-14.5) % Lymphocytes # (0.90-5.00) X 10*3/uL Retic Count 2.7 H (0.5-2.0) % Sodium (135-145) mmol/L Potassium (3.5-5.5) mmol/L Chloride (96-109) mmol/L BUN (9.0-27.0) mg/dL Creatinine (0.6-1.5) mg/dL Est GFR (CKD-EPI)AfAm (60.0-200.0) Est GFR (CKD-EPI)NonAf (60.0-200.0) BUN/Creatinine Ratio (12.00-20.00) Ratio Glucose (70-110) mg/dL POC Glucose (mg/dL) 355 H 328 H (70-110) mg/dL Calcium (8.7-10.3) mg/dL Iron (50-170) ug/dL % Saturation (12.00-45.00) Transferrin (204.0-354.0) mg/dL Vitamin B12 (200.0-944.0) pg/mL Microbiology - Last 24 Hours (Table) 03/23/22 17:45 Blood Culture - Preliminary Blood No Growth after 24 hours 03/23/22 17:45 Blood Culture - Preliminary Blood No Growth after 24 hours 03/23/22 17:45 Urine Culture - Preliminary Urine,Voided Chest x-ray: report reviewed US - abdomen: report reviewed Assessment and Plan (1) Rash Narrative/Plan: patient presented with a symptomatic rash which was progressive, to the ER. Th ere was improvement in the symptoms of pain since starting oral steroids but she came back to the ER because of other endocrine abnormalities. Additional anomalies were noted on urinalysis that x-ray leading to this admission. - Patient/was felt to be vasculitic clinically. However on examination he does not represents typical palpable purpura. Rheumatology was consulted and the case discussed in details with them. Patient was also examined with them. given the history of diarrheal illness last week, Henoch Schoenlein purpura is felt to be a major differential. New onset of autoimmune disease is also in the differential,given skin rash, as well as abnormalities noted in the urine and casey ngs. Given the time elapsed since her last chemotherapy, chemotherapy related reaction is felt to be unlikely we'll not totally ruled out. - continue steroids - autoimmune workup will be ordered - nephrology on consult - Monitor labs - is also discussed in detail with the admitting service Current Visit: No Status: Acute Code(s): R21 - RASH AND OTHER NONSPECIFIC SKIN ERUPTION SNOMED Code(s): 337952682 (2) History of breast cancer Narrative/Plan: the patient had localized breast cancer that has been completely resected with no evidence of disease. She has completed adjuvant chemotherapy 3 weeks ago. At this time, her current presentation is not felt to be related to her cancer, or treatment. Patient is awaiting the start of radiation Current Visit: Yes Status: Acute Code(s): Z85.3 - PERSONAL HISTORY OF MALIGNANT NEOPLASM OF BREAST SNOMED Code(s): 458789365
--- NOTE | 2022-03-24 23:16 | P.CONS ---
History of Present Illness - Reason for Consult Consult date: 03/24/22 - History of Present Illness Patient is a 72-year-old female with a past medical he significant for localized breast cancer status post surgery and nature to chemotherapy patient did develop rash to the lower extremity associated with some burning pain involving both lower extremity apparently the patient has been advised Medrol Dosepak however not very clear if the patient took that medication or not patient now presenting to the hospital for evaluation of worsening rash to bilateral lower extremity with associated burning pain intensity could be 5-6 out of 10 patient denies having any foul-smelling drainage patient denies having any oral lesion denies having any chest pain shortness of breath or cough no nausea vomiting abdominal pain or any diarrhea on presentation to the hospital the patient was afebrile patient did have a normal white count with a left shift did have elevated BUN and creatinine AST was mildly elevated patient did have a positive urine COVID testing was negative patient was started on Rocephin infectious he was consulted with concern for possible shingles Past Medical History Past Medical History: Cancer, Diabetes Mellitus, Hypertension, Renal Disease Additional Past Medical History / Comment(s): left breast CA dx September 2021,neuropathy,hx rt breast CA-dx 2013-radiation no chemo,Stg 3 Kidney Disease,sepsis 40 yrs ago, type 1 diabetic History of Any Multi-Drug Resistant Organisms: None Reported Past Surgical History: Breast Surgery, Orthopedic Surgery, Tubal Ligation Additional Past Surgical History / Comment(s): rt breast lumpectomy,ORIF rt lower leg Past Anesthesia/Blood Transfusion Reactions: Previous Problems w/ Anesthesia Additional Past Anesthesia/Blood Transfusion Reaction / Comm: hyperventilated coming out of anesthesia years ago-no problems with surgeries after that Past Psychological History: No Psychological Hx Reported Smoking Status: Current every day smoker Past Alcohol Use History: Daily Additional Past Alcohol Use History / Comment(s): started smoking at age 17,>1 1/2ppd Past Drug Use History: None Reported - Past Family History Mother Family Medical History: Cancer Father Family Medical History: Cancer Medications and Allergies Home Medications Medication Instructions Recorded Confirmed Type Amitriptyline HCl 50 mg PO HS 01/14/18 03/23/22 History Ascorbic Acid [Vitamin C] 500 mg PO DAILY 01/14/18 03/23/22 History Doxazosin Mesylate [Cardura Xl] 8 mg PO HS 01/14/18 03/23/22 History Metoprolol Succinate (ER) [Toprol 100 mg PO BID 01/14/18 03/23/22 History XL] Bumetanide [BUMEX] 2 mg PO DAILY 09/19/19 03/23/22 History Omeprazole 20 mg PO DAILY 09/19/19 03/23/22 History Spironolactone 12.5 mg PO BID 09/19/19 03/23/22 History polyethylene glycoL 3350 [Clearlax] 17 gm PO HS 09/19/19 03/23/22 History Cholecalciferol [Vitamin D3 (25 25 mcg PO DAILY 10/21/21 03/23/22 History Mcg = 1000 Iu)] Glucagon Emergency Kit 1 mg SQ ONCE PRN 01/25/22 03/23/22 History Levothyroxine Sodium [Synthroid] 100 mcg PO DAILY 01/25/22 03/23/22 History HYDROcodone/APAP 7.5-325MG [[place] 1 tab PO Q6HR PRN 3 Days #12 tab 03/21/22 03/23/22 Rx 7.5-325] predniSONE [Deltasone] 20 mg PO BID #14 tab 03/21/22 03/23/22 Rx Benazepril [Lotensin] 5 mg PO HS 03/23/22 03/23/22 History Insulin Aspart [NovoLOG Flexpen] See Protocol SQ AC-TID 03/23/22 03/23/22 History Insulin Glargine,Hum.rec.anlog See Protocol SQ HS 03/23/22 03/23/22 History [Lantus Solostar Pen] Levothyroxine Sodium [Synthroid] 88 mcg PO DAILY 03/23/22 03/23/22 History Psyllium Husk [Metamucil] 0.4 gm PO HS 03/23/22 03/23/22 History Allergies Allergy/AdvReac Type Severity Reaction Status Date / Time pregabalin [From Lyrica] Allergy Swelling Verified 03/23/22 19:44 terbinafine [From Lamisil] Allergy Itching Verified 03/23/22 19:44 amoxicillin AdvReac yeast Verified 03/23/22 19:44 infection cephalexin [From Keflex] AdvReac yeast Verified 03/23/22 19:44 infection Physical Exam Vitals: Vital Signs Temp Pulse Pulse Resp BP BP Pulse Ox 03/24/22 05:00 98.5 F 81 16 106/57 93 L 03/23/22 21:56 98.6 F 79 16 122/67 94 L 03/23/22 19:54 98.4 F 80 17 100/47 96 03/23/22 18:44 77 16 126/57 94 L 03/23/22 15:51 98.5 F 76 20 132/50 93 L Intake and Output 03/23/22 03/24/22 03/24/22 22:59 06:59 14:59 Intake Total 590 Balance 590 Intake: Oral 590 Other: Voiding Method Toilet Weight 107 kg Results CBC & Chem 7: 03/24/22 07:31 03/24/22 16:05 Labs: Abnormal Lab Results - Last 24 Hours (Table) 03/23/22 03/23/22 03/23/22 Range/Units 17:45 17:45 17:45 RBC 3.38 L (3.80-5.40) m/uL Hgb 10.8 L (11.4-16.0) gm/dL MCV 100.9 H D (80.0-100.0) fL RDW 16.1 H (11.5-15.5) % Neutrophils # 8.6 H (1.3-7.7) k/uL Lymphocytes # 0.7 L (1.0-4.8) k/uL Sodium 128 L (137-145) mmol/L Potassium 5.4 H (3.5-5.1) mmol/L Chloride 91 L (98-107) mmol/L BUN 70 H (7-17) mg/dL Creatinine 1.99 H (0.52-1.04) mg/dL POC Glucose (mg/dL) (70-110) mg/dL AST 51 H (14-36) U/L Total Protein 5.6 L (6.3-8.2) g/dL Albumin 3.1 L (3.5-5.0) g/dL Urine Appearance Cloudy H (Clear) Urine Blood Trace H (Negative) Ur Leukocyte Esterase Large H (Negative) Urine WBC >182 H (0-5) /hpf Urine WBC Clumps Occasional H (None) /hpf Urine Bacteria Rare H (None) /hpf Urine Mucus Rare H (None) /hpf 03/23/22 03/24/22 Range/Units 21:45 07:03 RBC (3.80-5.40) m/uL Hgb (11.4-16.0) gm/dL MCV (80.0-100.0) fL RDW (11.5-15.5) % Neutrophils # (1.3-7.7) k/uL Lymphocytes # (1.0-4.8) k/uL Sodium (137-145) mmol/L Potassium (3.5-5.1) mmol/L Chloride (98-107) mmol/L BUN (7-17) mg/dL Creatinine (0.52-1.04) mg/dL POC Glucose (mg/dL) 143 H 252 H (70-110) mg/dL AST (14-36) U/L Total Protein (6.3-8.2) g/dL Albumin (3.5-5.0) g/dL Urine Appearance (Clear) Urine Blood (Negative) Ur Leukocyte Esterase (Negative) Urine WBC (0-5) /hpf Urine WBC Clumps (None) /hpf Urine Bacteria (None) /hpf Urine Mucus (None) /hpf Microbiology - Last 24 Hours (Table) 03/23/22 17:45 Urine Culture - Preliminary Urine,Voided Assessment and Plan Plan: 1patient with a rash involving mostly lower extremity concerning for possible vasculitis/drug reaction clinically not behaving as shingles in this patient who do have a history of shingles involving the left lower abdominal area and the patient has received shingles vaccine since then. 2positive UA mild symptoms concerning for possible UTI likely from enteric gram-negative pathogen. 3possible rheumatological work-up and steroids for underlying rash no need for antiviral. 4Rocephin 1 g daily to continue while waiting for urine culture to finalize. We will follow on clinical condition and cultures to further adjust medication if needed Thank you for this consultation will follow this patient along with you Time with Patient: Greater than 30
[2022-03-25 02:51] LABS: Complement C3 89.4 mg/dL (80.0-207.0); Rheumatoid Factor, Qnt <10 IU/mL (0-15)
[2022-03-25 03:31] LABS: Hepatitis B Surface Antigen Nonreactive (Nonreactive); Hepatitis C IgG Antibody Nonreactive (Nonreactive); Thyroid Peroxidase Antibodies 16.7 U/mL (0.0-33.0)
[2022-03-25] MEDS: LEVOTHYROXINE 100 MCG TAB PO SCH (05:44)
[2022-03-25] MEDS: LEVOTHYROXINE 88 MCG TAB PO SCH (05:44)
[2022-03-25 07:04] LABS: Glucose,Whole Blood 89 mg/dL (70-110)
[2022-03-25] MEDS: CHOLECALCIFEROL 25 MCG (1000 IU) TABLET PO SCH (08:30)
[2022-03-25] MEDS: HEPARIN SODIUM,PORCINE/PF 5,000 UNIT/0.5 ML SYRINGE SQ SCH ×2 (08:30→20:34)
[2022-03-25] MEDS: METOPROLOL SUCCINATE (ER) 25 MG TAB.ER.24H PO SCH ×2 (08:30→20:34)
[2022-03-25] MEDS: INSULIN ASPART (NovoLOG) 100 UNIT/ML VIAL SQ SCH ×7 (08:30→20:34)
[2022-03-25] MEDS: PANTOPRAZOLE 40 MG TABLET PO SCH (08:30)
[2022-03-25] MEDS: ASCORBIC ACID 500 MG TAB PO SCH (08:30)
[2022-03-25] MEDS: FAMOTIDINE 20 MG/2 ML VIAL IV SCH (08:30)
[2022-03-25] MEDS: predniSONE 20 MG TAB PO SCH ×2 (08:30→20:35)
[2022-03-25 10:28] LABS: African American GFR (CKD) 29 (>60 ml/min/1.73 sqM); Anion Gap 10 mmol/L; Blood Urea Nitrogen 73 mg/dL (7-17); Calcium 7.8 mg/dL (8.4-10.2); Carbon Dioxide 24 mmol/L (22-30); Chloride 96 mmol/L (98-107); Glucose 178 mg/dL (74-99); Non-African American GFR(CKD) 25 (>60 ml/min/1.73 sqM); Potassium 4.4 mmol/L (3.5-5.1); Sodium 130 mmol/L (137-145)
[2022-03-25 11:02] LABS: Glucose,Whole Blood 190 mg/dL (70-110)
--- NOTE | 2022-03-25 11:17 | P.PN ---
Subjective Patient is a 72-year-old female with history of left breast cancer diagnosed in September 2021 currently maintained on chemotherapy. Patient has underlying history of chronic kidney disease NKF stage III with baseline creatinine about 1.4-1.5 mg/dL. Patient was admitted to the hospital with complaints of asymptomatic rash that appeared on her extremities and torso about 2-3 days ago. Patient was started on steroids as outpatient. Her rash may have improved. She was noted to have worsening renal function and was therefore advised admission. Serum creatinine was 2.4 mg/dL yesterday and it is down to 1.9. Patient was also hypotensive. She had been maintained on angiotensin receptor blockers and diuretics at home prior to admission. Patient does have chronic lower extremity edema. There is concern for underlying vasculitis. Serologies have been ordered. Angiotensin receptor blockers currently on hold. Objective - Vital Signs Vital signs: Vital Signs Temp 97.9 F 03/25/22 04:03 Pulse 83 03/25/22 04:03 Resp 18 03/25/22 04:03 BP 147/68 03/25/22 04:03 Pulse Ox 94 L 03/25/22 04:03 FiO2 Intake & Output 03/24/22 03/25/22 03/25/22 18:59 06:59 18:59 Intake Total 800 Balance 800 Intake: Intake, IV Titration 400 Amount Sodium Chloride 0.9% 1, 400 000 ml @ 75 mls/hr IV . [id number] ONE Rx#:[id number] Oral 400 Other: Voiding Method Toilet Toilet # Voids 3 - Exam Patient is awake, comfortable, not in any acute distress HEENT alert oriented 3 Examination of the heart S1 and S2 Examination of the lungs bilateral breath sounds are heard Abdomen is soft nontender Examination of lower extremities shows reddish brownish rash bilateral lower extremities some ulceration noted. 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 - Labs CBC & Chem 7: 03/24/22 07:31 03/25/22 09:42 Labs: Abnormal Lab Results - Last 24 Hours (Table) 03/24/22 03/24/22 03/24/22 Range/Units 11:49 12:18 16:05 Retic Count (0.5-2.0) % Sodium (137-145) mmol/L Potassium 5.5 H (3.5-5.1) mmol/L Chloride (98-107) mmol/L BUN (7-17) mg/dL Creatinine (0.52-1.04) mg/dL Glucose (74-99) mg/dL POC Glucose (mg/dL) 260 H (70-110) mg/dL Hemoglobin A1c (0.0-6.0) % Calcium (8.4-10.2) mg/dL Iron 26 L (50-170) ug/dL % Saturation 10.95 L (12.00-45.00) Transferrin 169.0 L (204.0-354.0) mg/dL C-Reactive Protein (0.00-0.80) mg/dL Vitamin B12 1892.0 H (200.0-944.0) pg/mL 03/24/22 03/24/22 03/24/22 Range/Units 16:05 16:05 16:05 Retic Count 2.7 H (0.5-2.0) % Sodium (137-145) mmol/L Potassium (3.5-5.1) mmol/L Chloride (98-107) mmol/L BUN (7-17) mg/dL Creatinine (0.52-1.04) mg/dL Glucose (74-99) mg/dL POC Glucose (mg/dL) (70-110) mg/dL Hemoglobin A1c 6.1 H (0.0-6.0) % Calcium (8.4-10.2) mg/dL Iron (50-170) ug/dL % Saturation (12.00-45.00) Transferrin (204.0-354.0) mg/dL C-Reactive Protein 5.30 H (0.00-0.80) mg/dL Vitamin B12 (200.0-944.0) pg/mL 03/24/22 03/24/22 03/25/22 Range/Units 16:59 20:39 09:42 Retic Count (0.5-2.0) % Sodium 130 L (137-145) mmol/L Potassium (3.5-5.1) mmol/L Chloride 96 L (98-107) mmol/L BUN 73 H (7-17) mg/dL Creatinine 1.98 H (0.52-1.04) mg/dL Glucose 178 H (74-99) mg/dL POC Glucose (mg/dL) 355 H 328 H (70-110) mg/dL Hemoglobin A1c (0.0-6.0) % Calcium 7.8 L (8.4-10.2) mg/dL Iron (50-170) ug/dL % Saturation (12.00-45.00) Transferrin (204.0-354.0) mg/dL C-Reactive Protein (0.00-0.80) mg/dL Vitamin B12 (200.0-944.0) pg/mL 03/25/22 Range/Units 11:01 Retic Count (0.5-2.0) % Sodium (137-145) mmol/L Potassium (3.5-5.1) mmol/L Chloride (98-107) mmol/L BUN (7-17) mg/dL Creatinine (0.52-1.04) mg/dL Glucose (74-99) mg/dL POC Glucose (mg/dL) 190 H (70-110) mg/dL Hemoglobin A1c (0.0-6.0) % Calcium (8.4-10.2) mg/dL Iron (50-170) ug/dL % Saturation (12.00-45.00) Transferrin (204.0-354.0) mg/dL C-Reactive Protein (0.00-0.80) mg/dL Vitamin B12 (200.0-944.0) pg/mL Microbiology - Last 24 Hours (Table) 03/23/22 17:45 Urine Culture - Final Urine,Voided 03/23/22 17:45 Blood Culture - Preliminary Blood No Growth after 24 hours 03/23/22 17:45 Blood Culture - Preliminary Blood No Growth after 24 hours Assessment and Plan Assessment: 1. Acute kidney injury most likely prerenal associated with low blood pressure in the setting of use of angiotensin receptor blockers. UA shows significant WBCs with WBC clumps. No protein. Rule out acute interstitial nephritis versus underlying vasculitis. Most of the serologies are thus far negative and urine eosinophils was 0 2. Chronic kidney disease NKF stage III with baseline creatinine around 1.4-1.5 mg/dL secondary to nephrosclerosis 3. Breast cancer diagnosed in September 2021 currently maintained on chemotherapy 4. Generalized rash, possible ALLERGIC reaction versus vasculitic in nature 5. Pyuria rule out UTI 6. Hyperkalemia associated with acute kidney injury and use of angiotensin receptor blockers 7. Hypervolemia with significant lower extremity edema 8. Hypervolemic hyponatremia Plan: Maintain off of IV fluids Consider kidney biopsy if renal function does not continue to improve Continue with prednisone Continue off of angiotensin receptor blockers Repeat labs in a.m. Avoid nephrotoxic agents
[2022-03-25 12:00] LABS: APTT 48 Sec(s) (<43); APTT 1:1 Mix 46 Sec(s) (<43); DRVVT 1:1 Mix 40 Sec(s) (<44); DRVVT Confirmation Negative (Negative); Dilute Russell Viper Venom 47 Sec(s) (<44); Hexagonal Phase Neutralization Positive (Negative)
[2022-03-25 12:30] LABS: Angiotensin-1 Converting Enz. <3 U/L (8-52)
[2022-03-25 14:04] LABS: Anti-Smith Ab Interp NEGATIVE (NEGATIVE); Cyclic Citrull Pep IgG Unit <0.5 U/mL; Cyclic Citrullinated Pep IgG NEGATIVE (NEGATIVE); JO-1 IgG Antibody <0.2 AI
[2022-03-25 14:09] LABS: C-ANCA <1:20 Titer (<1:20)
[2022-03-25 17:22] LABS: Glucose,Whole Blood 239 mg/dL (70-110)
[2022-03-25 17:23] LABS: Albumin 2.9 g/dL (3.8-4.9); Albumin/Globulin Ratio 1.71 (1.60-3.17); Globulin 1.7 g/dL (1.6-3.3); Total Bilirubin 0.5 mg/dL (0.30-1.20); Total Protein 4.6 g/dL (6.2-8.2)
--- NOTE | 2022-03-25 18:46 | P.PN ---
Subjective This is a pleasant 72 years old female with past medical history of depression, hypertension, diabetes mellitus, history of vasculitis, history of left breast cancer on 09/2021, chronic kidney disease stage III, nicotine dependence. Patient has recently diagnosed with breast cancer on 09/2021, she was given her chemotherapy with Dr. Chi, this is the first chemo therapy finished on 03/04 with few weeks apart between 1 second one another. Monday night about 6 days ago she started having some leg rash, and by Monday she developed some pain in her legs so she decided to come to emergency room on 03/21, she is seen by Dr. Arreguin and neck cancer with vasculitic rash and she was prescribed prednisone with recommendation to follow up with PCP Dr. Gastelum whom she saw Monday and he ordered some tests before he calls her yesterday and asked her to come to emergency room because of worsening kidney function, hyponatremia and hyperkalemia. Currently patient is still complaining from right leg pain, swelling and confluent macular rash in the lower extremity especially posteriorly and to some extent in the back of her upper extremities as well. No much in the extremities. No most or genital ulcers reported. Also she denies chest pain or dyspnea. Urgency change in frequency. Her bowel movements is fine, she is well and denies any abdominal pain. No headache or dizziness or weakness or numbness. She smokes about 1-1.5 pack per day and she was counseled to quit and she declines nicotine patch. She drinks 1 beer a day with no recurrence. No illicit drugs Usually she takes insulin Levemir/Lantus at bedtime this on a sliding scale also she has on insulin sliding scale and she was almost taking totally 40 units in a day for scale as per patient. However after starting taking the prednisone 3 days ago her sugar was even higher. She is afebrile and hemodynamically stable area is oxygen saturating 93-94% on room air. Labs: Hemoglobin 10.8, elevated neutrophil count at 8.6. INR is normal. Sodium is 128, potassium 5.4 which is elevated. Creatinine is high at 1.9, compared to baseline of 1.4-1.6 urinalysis is suspicious for infection coronavirus not detected Chest x-ray: Small bilateral pleural effusion with adjacent atelectasis or consolidation. Mild pulmonary vascular congestion EKG shows normal sinus rhythm at [address]-T change emergency room she received normal saline and ceftriaxone With oncology team been consulted 03/25/2022 Patient feels better today, her rash looks less extensive in the lower extremities. She still complains from edema. He related to observe improvement. Her diarrhea stopped and she does not have bowel movement since admission. We checked also had a bladder scan was low 11-30 mL. Workup showing improvement in her creatinine, potassium sodium. He continued on ceftriaxone, prednisone and normal saline 75 mL per hour Objective - Vital Signs Vital signs: Vital Signs Temp 98.2 F 03/25/22 11:33 Pulse 81 03/25/22 11:33 Resp 18 03/25/22 11:33 BP 167/74 03/25/22 11:33 Pulse Ox 95 03/25/22 11:33 FiO2 Intake & Output 03/24/22 03/25/22 03/25/22 18:59 06:59 18:59 Intake Total 800 Balance 800 Intake: Intake, IV Titration 400 Amount Sodium Chloride 0.9% 1, 400 000 ml @ 75 mls/hr IV . [id number] ONE Rx#:[id number] Oral 400 Other: Voiding Method Toilet Toilet Toilet # Voids 3 - Exam GENERAL: The patient is alert and oriented x3, not in any acute distress. Well developed, well nourished. HEENT: Pupils are round and equally reacting to light. EOMI. No scleral icterus. No conjunctival pallor. Normocephalic, atraumatic. No pharyngeal erythema. No thyromegaly. CARDIOVASCULAR: S1 and S2 present. No murmurs, rubs, or gallops. PULMONARY: Chest is clear to auscultation, no wheezing or crackles. ABDOMEN: Soft, nontender, nondistended, normoactive bowel sounds. No palpable organomegaly. MUSCULOSKELETAL: No joint swelling or deformity. EXTREMITIES: No cyanosis, clubbing, or pedal edema. NEUROLOGICAL: Gross neurological examination did not reveal any focal deficits. -SKIN: Purpuric like rashes involving LE posteriorly more than UE were serially. no petechiae. - Labs CBC & Chem 7: 03/24/22 07:31 03/25/22 09:42 Labs: Abnormal Lab Results - Last 24 Hours (Table) 03/24/22 03/24/22 03/24/22 Range/Units 12:18 12:18 16:05 Retic Count (0.5-2.0) % Lupus Anticoag aPTT 48 H (<43) Sec(s) Lupus Anticoag PTT Mix 46 H (<43) Sec(s) Dil Moses Viper Venom 47 H (<44) Sec(s) Lupus Hexagonal Phase Positive A (Negative) Sodium (137-145) mmol/L Potassium 5.5 H (3.5-5.1) mmol/L Chloride (98-107) mmol/L BUN (7-17) mg/dL Creatinine (0.52-1.04) mg/dL Glucose (74-99) mg/dL POC Glucose (mg/dL) (70-110) mg/dL Hemoglobin A1c (0.0-6.0) % Calcium (8.4-10.2) mg/dL Iron 26 L (50-170) ug/dL % Saturation 10.95 L (12.00-45.00) Transferrin 169.0 L (204.0-354.0) mg/dL C-Reactive Protein (0.00-0.80) mg/dL Vitamin B12 1892.0 H (200.0-944.0) pg/mL 03/24/22 03/24/22 03/24/22 Range/Units 16:05 16:05 16:05 Retic Count 2.7 H (0.5-2.0) % Lupus Anticoag aPTT (<43) Sec(s) Lupus Anticoag PTT Mix (<43) Sec(s) Dil Moses Viper Venom (<44) Sec(s) Lupus Hexagonal Phase (Negative) Sodium (137-145) mmol/L Potassium (3.5-5.1) mmol/L Chloride (98-107) mmol/L BUN (7-17) mg/dL Creatinine (0.52-1.04) mg/dL Glucose (74-99) mg/dL POC Glucose (mg/dL) (70-110) mg/dL Hemoglobin A1c 6.1 H (0.0-6.0) % Calcium (8.4-10.2) mg/dL Iron (50-170) ug/dL % Saturation (12.00-45.00) Transferrin (204.0-354.0) mg/dL C-Reactive Protein 5.30 H (0.00-0.80) mg/dL Vitamin B12 (200.0-944.0) pg/mL 03/24/22 03/24/22 03/25/22 Range/Units 16:59 20:39 09:42 Retic Count (0.5-2.0) % Lupus Anticoag aPTT (<43) Sec(s) Lupus Anticoag PTT Mix (<43) Sec(s) Dil Moses Viper Venom (<44) Sec(s) Lupus Hexagonal Phase (Negative) Sodium 130 L (137-145) mmol/L Potassium (3.5-5.1) mmol/L Chloride 96 L (98-107) mmol/L BUN 73 H (7-17) mg/dL Creatinine 1.98 H (0.52-1.04) mg/dL Glucose 178 H (74-99) mg/dL POC Glucose (mg/dL) 355 H 328 H (70-110) mg/dL Hemoglobin A1c (0.0-6.0) % Calcium 7.8 L (8.4-10.2) mg/dL Iron (50-170) ug/dL % Saturation (12.00-45.00) Transferrin (204.0-354.0) mg/dL C-Reactive Protein (0.00-0.80) mg/dL Vitamin B12 (200.0-944.0) pg/mL 03/25/22 Range/Units 11:01 Retic Count (0.5-2.0) % Lupus Anticoag aPTT (<43) Sec(s) Lupus Anticoag PTT Mix (<43) Sec(s) Dil Moses Viper Venom (<44) Sec(s) Lupus Hexagonal Phase (Negative) Sodium (137-145) mmol/L Potassium (3.5-5.1) mmol/L Chloride (98-107) mmol/L BUN (7-17) mg/dL Creatinine (0.52-1.04) mg/dL Glucose (74-99) mg/dL POC Glucose (mg/dL) 190 H (70-110) mg/dL Hemoglobin A1c (0.0-6.0) % Calcium (8.4-10.2) mg/dL Iron (50-170) ug/dL % Saturation (12.00-45.00) Transferrin (204.0-354.0) mg/dL C-Reactive Protein (0.00-0.80) mg/dL Vitamin B12 (200.0-944.0) pg/mL Microbiology - Last 24 Hours (Table) 03/23/22 17:45 Urine Culture - Final Urine,Voided 03/23/22 17:45 Blood Culture - Preliminary Blood No Growth after 24 hours 03/23/22 17:45 Blood Culture - Preliminary Blood No Growth after 24 hours Assessment and Plan Assessment: Both purpura like rash of the lower extremities and to a lesser extent of the upper extremities Acute kidney injury on chronic kidney disease Acute urinary tract infection Chronic kidney disease stage III b hypervolemic hyponatremia Hypertension, type I Diabetes mellitus History of depression History of vasculitis History of left breast cancer and history of right breast lumpectomy Nicotine dependence Obesity with BMI of 34.8 Plan: This is a pleasant 72 old female who presents with UTI and acute kidney in(IV fluidstinue with antibiotic ceftriaxone follow-up urine culture. Check hemoglobin A1c and proBNP atcalcitonin Nephrology consult hold SANDRA inhibitor and diuretics Hold Doxazocin and Aldactone. 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 Continue same treatment. Continue with symptomatic treatment. Resume home medication. Monitor lytes and vitals. DVT and GI prophylaxis. Further recommendations as per clinical course of the patient DVT prophylaxis: Subcutaneous heparin GI Prophylaxis: Pepcid PT/OT: Pending Prognosis is guarded Per staff patient wants to be DNR/DN
[2022-03-25 20:14] LABS: Glucose,Whole Blood 190 mg/dL (70-110)
[2022-03-25] MEDS: INSULIN DETEMIR (LEVEMIR) 100 UNIT/ML SYR SQ SCH (20:34)
[2022-03-25] MEDS: AMITRIPTYLINE HCL 50 MG TAB PO SCH (20:35)
--- NOTE | 2022-03-25 20:40 | P.PN ---
Subjective Progress Note Date: 03/25/22 Rash improved today, no pain in legs, Dr. Chi has discussed with primary team Objective - Vital Signs Vital signs: Vital Signs Temp 98.1 F 03/25/22 17:46 Pulse 91 03/25/22 17:46 Resp 18 03/25/22 17:46 BP 156/67 03/25/22 17:46 Pulse Ox 95 03/25/22 17:46 FiO2 Intake & Output 03/25/22 03/25/22 03/26/22 06:59 18:59 06:59 Intake Total 800 Balance 800 Intake: Intake, IV Titration 400 Amount Sodium Chloride 0.9% 1, 400 000 ml @ 75 mls/hr IV . [id number] ONE Rx#:[id number] Oral 400 Other: Voiding Method Toilet Toilet # Voids 3 - Exam - Constitutional General appearance: no acute distress - EENT Eyes: EOMI, PERRLA ENT: hearing grossly normal, normal oropharynx - Neck Neck: no lymphadenopathy Thyroid: bilateral: normal size - Respiratory Respiratory: bilateral: diminished (s/o COPD) - Cardiovascular Rhythm: regular Heart sounds: normal: S1, S2 - Gastrointestinal General gastrointestinal: normal bowel sounds, soft - Integumentary Integumentary: rash (extensive radiation/dark reddish rash mostly macular, involving lower extremities, partially confluent, as well as lower abdomen and right upper extremity mildly. Scattered areas of blistering, and ulceration. There is no typical palpable purpura on exam.) - Neurologic Neurologic: CNII-XII intact - Musculoskeletal Musculoskeletal: generalized weakness, strength equal bilaterally - Psychiatric Psychiatric: A&O x's 3, appropriate affect - Labs CBC & Chem 7: 03/24/22 07:31 03/25/22 09:42 Labs: Abnormal Lab Results - Last 24 Hours (Table) 03/24/22 03/24/22 03/24/22 Range/Units 07:31 07:31 12:18 Lupus Anticoag aPTT 48 H (<43) Sec(s) Lupus Anticoag PTT Mix 46 H (<43) Sec(s) Dil Moses Viper Venom 47 H (<44) Sec(s) Lupus Hexagonal Phase Positive A (Negative) Sodium (137-145) mmol/L Chloride (98-107) mmol/L BUN (7-17) mg/dL Creatinine (0.52-1.04) mg/dL Glucose (74-99) mg/dL POC Glucose (mg/dL) (70-110) mg/dL Hemoglobin A1c (0.0-6.0) % Calcium (8.4-10.2) mg/dL Iron (50-170) ug/dL % Saturation (12.00-45.00) Transferrin (204.0-354.0) mg/dL Erythropoietin (2.00-30.00) mIU/mL AST 49 H (13-35) U/L C-Reactive Protein (0.00-0.80) mg/dL Total Protein 4.6 L (6.2-8.2) g/dL Albumin 2.9 L (3.8-4.9) g/dL Vitamin B12 (200.0-944.0) pg/mL Procalcitonin 0.19 H (0.02-0.09) ng/mL 03/24/22 03/24/22 03/24/22 Range/Units 12:18 12:18 16:05 Lupus Anticoag aPTT (<43) Sec(s) Lupus Anticoag PTT Mix (<43) Sec(s) Dil Moses Viper Venom (<44) Sec(s) Lupus Hexagonal Phase (Negative) Sodium (137-145) mmol/L Chloride (98-107) mmol/L BUN (7-17) mg/dL Creatinine (0.52-1.04) mg/dL Glucose (74-99) mg/dL POC Glucose (mg/dL) (70-110) mg/dL Hemoglobin A1c 6.1 H (0.0-6.0) % Calcium (8.4-10.2) mg/dL Iron 26 L (50-170) ug/dL % Saturation 10.95 L (12.00-45.00) Transferrin 169.0 L (204.0-354.0) mg/dL Erythropoietin 34.18 H (2.00-30.00) mIU/mL AST (13-35) U/L C-Reactive Protein (0.00-0.80) mg/dL Total Protein (6.2-8.2) g/dL Albumin (3.8-4.9) g/dL Vitamin B12 1892.0 H (200.0-944.0) pg/mL Procalcitonin (0.02-0.09) ng/mL 03/24/22 03/24/22 03/25/22 Range/Units 16:05 20:39 09:42 Lupus Anticoag aPTT (<43) Sec(s) Lupus Anticoag PTT Mix (<43) Sec(s) Dil Moses Viper Venom (<44) Sec(s) Lupus Hexagonal Phase (Negative) Sodium 130 L (137-145) mmol/L Chloride 96 L (98-107) mmol/L BUN 73 H (7-17) mg/dL Creatinine 1.98 H (0.52-1.04) mg/dL Glucose 178 H (74-99) mg/dL POC Glucose (mg/dL) 328 H (70-110) mg/dL Hemoglobin A1c (0.0-6.0) % Calcium 7.8 L (8.4-10.2) mg/dL Iron (50-170) ug/dL % Saturation (12.00-45.00) Transferrin (204.0-354.0) mg/dL Erythropoietin (2.00-30.00) mIU/mL AST (13-35) U/L C-Reactive Protein 5.30 H (0.00-0.80) mg/dL Total Protein (6.2-8.2) g/dL Albumin (3.8-4.9) g/dL Vitamin B12 (200.0-944.0) pg/mL Procalcitonin (0.02-0.09) ng/mL 03/25/22 03/25/22 03/25/22 Range/Units 11:01 17:20 20:13 Lupus Anticoag aPTT (<43) Sec(s) Lupus Anticoag PTT Mix (<43) Sec(s) Dil Moses Viper Venom (<44) Sec(s) Lupus Hexagonal Phase (Negative) Sodium (137-145) mmol/L Chloride (98-107) mmol/L BUN (7-17) mg/dL Creatinine (0.52-1.04) mg/dL Glucose (74-99) mg/dL POC Glucose (mg/dL) 190 H 239 H 190 H (70-110) mg/dL Hemoglobin A1c (0.0-6.0) % Calcium (8.4-10.2) mg/dL Iron (50-170) ug/dL % Saturation (12.00-45.00) Transferrin (204.0-354.0) mg/dL Erythropoietin (2.00-30.00) mIU/mL AST (13-35) U/L C-Reactive Protein (0.00-0.80) mg/dL Total Protein (6.2-8.2) g/dL Albumin (3.8-4.9) g/dL Vitamin B12 (200.0-944.0) pg/mL Procalcitonin (0.02-0.09) ng/mL Microbiology - Last 24 Hours (Table) 03/23/22 17:45 Blood Culture - Preliminary Blood No Growth after 48 hours 03/23/22 17:45 Blood Culture - Preliminary Blood No Growth after 48 hours 03/23/22 17:45 Urine Culture - Final Urine,Voided Assessment and Plan Plan: Chest x-ray: report reviewed US - abdomen: report reviewed Assessment and Plan (1) Rash Narrative/Plan: Improved today - Patient/was felt to be vasculitic clinically. However on examination he does not represents typical palpable purpura. Rheumatology evaluated with Dr. chi. given the history of diarrheal illness last week, Henoch Schoenlein purpura is felt to be a major differential. New onset of autoimmune disease is also in the differential,given skin rash, as well as abnormalities noted in the urine and lungs. Given the time elapsed since her last chemotherapy, chemotherapy related reaction is felt to be unlikely we'll not totally ruled out. - continue steroids and PPI - autoimmune workup is pending then likely the picture of Henoch Schoenlein purpura - nephrology on consult Current Visit: No Status: Acute Code(s): R21 - RASH AND OTHER NONSPECIFIC SKIN ERUPTION SNOMED Code(s): 292490744 (2) History of breast cancer Narrative/Plan: the patient had localized breast cancer that has been completely resected with no evidence of disease. She has completed adjuvant chemotherapy 3 weeks ago. At this time, her current presentation is not felt to be related to her cancer, or treatment. Patient is awaiting the start of radiation Current Visit: Yes Status: Acute Code(s): Z85.3 - PERSONAL HISTORY OF MALIGNANT NEOPLASM OF BREAST SNOMED Code(s): 601325437 Dr. Ramesh: I have completed the full history and physical and developed above impression and plabn, agree with dictation, dictated as a ascribe
[2022-03-26] MEDS: LEVOTHYROXINE 100 MCG TAB PO SCH (05:49)
[2022-03-26] MEDS: LEVOTHYROXINE 88 MCG TAB PO SCH (05:49)
[2022-03-26 07:08] LABS: Glucose,Whole Blood 142 mg/dL (70-110)
[2022-03-26] MEDS: INSULIN ASPART (NovoLOG) 100 UNIT/ML VIAL SQ SCH ×7 (08:23→20:28)
[2022-03-26] MEDS: FAMOTIDINE 20 MG TAB PO SCH (09:06)
[2022-03-26] MEDS: ASCORBIC ACID 500 MG TAB PO SCH (09:06)
[2022-03-26] MEDS: CHOLECALCIFEROL 25 MCG (1000 IU) TABLET PO SCH (09:06)
[2022-03-26] MEDS: predniSONE 20 MG TAB PO SCH ×2 (09:07→20:28)
[2022-03-26] MEDS: PANTOPRAZOLE 40 MG TABLET PO SCH (09:07)
[2022-03-26] MEDS: HEPARIN SODIUM,PORCINE/PF 5,000 UNIT/0.5 ML SYRINGE SQ SCH ×2 (09:07→20:29)
[2022-03-26] MEDS: METOPROLOL SUCCINATE (ER) 25 MG TAB.ER.24H PO SCH ×2 (09:07→20:28)
[2022-03-26 11:14] LABS: Glucose,Whole Blood 166 mg/dL (70-110)
[2022-03-26 11:32] LABS: Basophils # (A) 0 X 10*3/uL (0.00-0.10); Basophils % (A) 0 %; Eosinophils # (A) 0 X 10*3/uL (0.04-0.35); Eosinophils % (A) 0 %; HCT 25.7 % (37.2-46.3); HGB 8.3 g/dL (12.0-15.0); Immature Grans, Automated 0.5 %; Lymphocytes # (A) 0.39 X 10*3/uL (0.90-5.00); Lymphocytes % (A) 5.3 %; MCH 32.4 pg (27.0-32.0); MCHC 32.3 g/dL (32.0-37.0); MCV 100.4 fL (80.0-97.0); Mean Platelet Volume 12.1 fL (9.5-12.2); Monocytes % (A) 6.7 %; NRBC Per 100 WBC 0 /100 WBCS (0.0-0.0); Neutrophils # (A) 6.49 X 10*3/uL (1.80-7.70); Neutrophils % (A) 87.5 %; Platelet Count 146 X 10*3/uL (140-440); RBC 2.56 X 10*6/uL (4.10-5.20); RDW 17.6 % (11.5-14.5); WBC 7.42 X 10*3/uL (4.50-10.00)
[2022-03-26 11:40] LABS: Magnesium 2.1 mg/dL (1.5-2.4)
--- NOTE | 2022-03-26 11:43 | P.PN ---
Subjective Progress Note Date: 03/26/22 Principal diagnosis: This is a 72-year-old female is seen in consultation because of acute kidney injury. She is also known with chronic kidney disease stage III creatinine 1.4-1.5. She has been diagnosed recently with left breast cancer in September 2021 on chemotherapy. She presented with significant rash on both legs which are discrete petechial with some pain which is resolved as far as the patient is concerned the rash is healing no new rash. No fever chills cough nausea vomiting no abdominal pain. No dysuria frequency. Vital signs stable blood pressure slightly high 166/68 and 156/67. Afebrile not well documented. Objective - Vital Signs Vital signs: Vital Signs Temp 98.0 F 03/26/22 04:08 Pulse 91 03/26/22 04:08 Resp 16 03/26/22 04:08 BP 166/68 03/26/22 04:08 Pulse Ox 95 03/26/22 04:08 FiO2 Intake & Output 03/25/22 03/26/22 03/26/22 18:59 06:59 18:59 Intake Total 600 Balance 600 Intake: Oral 600 Other: Voiding Method Toilet Toilet # Voids 2 On examination awake alert oriented comfortable HEENT exam no JVP neck is supple no facial asymmetry Alopecia noted Lungs are clear to auscultation good air entry bilaterally Heart sounds unremarkable Abdomen soft nontender Extreme exam was rash which is discrete and petechial with small areas of skin necrosis 2-3 mm in size. Nontender currently. Minimal edema noted Neuro logically awake alert oriented comfortable - Labs CBC & Chem 7: 03/26/22 06:26 03/25/22 09:42 Labs: Abnormal Lab Results - Last 24 Hours (Table) 03/24/22 03/24/22 03/24/22 Range/Units 07:31 07:31 12:18 RBC (4.10-5.20) X 10*6/uL Hgb (12.0-15.0) g/dL Hct (37.2-46.3) % MCV (80.0-97.0) fL MCH (27.0-32.0) pg RDW (11.5-14.5) % Lymphocytes # (0.90-5.00) X 10*3/uL Eosinophils # (0.04-0.35) X 10*3/uL Lupus Anticoag aPTT 48 H (<43) Sec(s) Lupus Anticoag PTT Mix 46 H (<43) Sec(s) Dil Moses Viper Venom 47 H (<44) Sec(s) Lupus Hexagonal Phase Positive A (Negative) POC Glucose (mg/dL) (70-110) mg/dL Erythropoietin (2.00-30.00) mIU/mL AST 49 H (13-35) U/L Total Protein 4.6 L (6.2-8.2) g/dL Albumin 2.9 L (3.8-4.9) g/dL Procalcitonin 0.19 H (0.02-0.09) ng/mL 03/24/22 03/25/22 03/25/22 Range/Units 12:18 17:20 20:13 RBC (4.10-5.20) X 10*6/uL Hgb (12.0-15.0) g/dL Hct (37.2-46.3) % MCV (80.0-97.0) fL MCH (27.0-32.0) pg RDW (11.5-14.5) % Lymphocytes # (0.90-5.00) X 10*3/uL Eosinophils # (0.04-0.35) X 10*3/uL Lupus Anticoag aPTT (<43) Sec(s) Lupus Anticoag PTT Mix (<43) Sec(s) Dil Moses Viper Venom (<44) Sec(s) Lupus Hexagonal Phase (Negative) POC Glucose (mg/dL) 239 H 190 H (70-110) mg/dL Erythropoietin 34.18 H (2.00-30.00) mIU/mL AST (13-35) U/L Total Protein (6.2-8.2) g/dL Albumin (3.8-4.9) g/dL Procalcitonin (0.02-0.09) ng/mL 03/26/22 03/26/22 03/26/22 Range/Units 06:26 07:07 11:12 RBC 2.56 L (4.10-5.20) X 10*6/uL Hgb 8.3 L (12.0-15.0) g/dL Hct 25.7 L (37.2-46.3) % MCV 100.4 H (80.0-97.0) fL MCH 32.4 H (27.0-32.0) pg RDW 17.6 H (11.5-14.5) % Lymphocytes # 0.39 L (0.90-5.00) X 10*3/uL Eosinophils # 0 L (0.04-0.35) X 10*3/uL Lupus Anticoag aPTT (<43) Sec(s) Lupus Anticoag PTT Mix (<43) Sec(s) Dil Moses Viper Venom (<44) Sec(s) Lupus Hexagonal Phase (Negative) POC Glucose (mg/dL) 142 H 166 H (70-110) mg/dL Erythropoietin (2.00-30.00) mIU/mL AST (13-35) U/L Total Protein (6.2-8.2) g/dL Albumin (3.8-4.9) g/dL Procalcitonin (0.02-0.09) ng/mL Microbiology - Last 24 Hours (Table) 03/23/22 17:45 Blood Culture - Preliminary Blood No Growth after 48 hours 03/23/22 17:45 Blood Culture - Preliminary Blood No Growth after 48 hours Assessment and Plan Assessment: Impression 1. Acute kidney injury with low blood pressure and secondary to angiotensin receptor yanet. Creatinine improved this morning, from a peak of 2.8-2.4-1.98. urinalysis has large amount of leukocyte Estrace greater than 182 WBCs but the culture is negative. Cause of pyuria not clear. Possibility of acute interstitial nephritis considered offending agent unclear. Currently on prednisone 2. Chronic kidney disease, stage III creatinine baseline is 1.4 on 04/06/2021 likely from nephrosclerosis, 3. History of breasts cancer on chemotherapy. 4. Diabetes mellitus insulin-dependent Recommendation Patient can be discharged home as his creatinine is improving. Maintain prednisone for a approximately 3-4 weeks. Creatinine is to be followed up
[2022-03-26 11:46] LABS: ALT 33 U/L (8-44); AST 51 U/L (13-35); African American GFR (CKD) 41.2 (60.0-200.0); Albumin 3.2 g/dL (3.8-4.9); Albumin/Globulin Ratio 1.64 (1.60-3.17); Alkaline Phosphatase 69 U/L (41-126); Bilirubin, Conjugated <0.20 mg/dL (0.20-0.40); Blood Urea Nitrogen 53.8 mg/dL (9.0-27.0); Calcium 8.5 mg/dL (8.7-10.3); Carbon Dioxide 26.1 mmol/L (20.0-27.5); Chloride 101 mmol/L (96-109); Glucose 127 mg/dL (70-110); Non-African American GFR(CKD) 35.6 (60.0-200.0); Potassium 4.8 mmol/L (3.5-5.5); Sodium 137 mmol/L (135-145); Total Protein 5.1 g/dL (6.2-8.2)
--- NOTE | 2022-03-26 12:32 | P.PN ---
Subjective This is a pleasant 72 years old female with past medical history of depression, hypertension, diabetes mellitus, history of vasculitis, history of left breast cancer on 09/2021, chronic kidney disease stage III, nicotine dependence. Patient has recently diagnosed with breast cancer on 09/2021, she was given her chemotherapy with Dr. Chi, this is the first chemo therapy finished on 03/04 with few weeks apart between 1 second one another. Monday night about 6 days ago she started having some leg rash, and by Monday she developed some pain in her legs so she decided to come to emergency room on 03/21, she is seen by Dr. Arreguin and neck cancer with vasculitic rash and she was prescribed prednisone with recommendation to follow up with PCP Dr. Gastelum whom she saw Monday and he ordered some tests before he calls her yesterday and asked her to come to emergency room because of worsening kidney function, hyponatremia and hyperkalemia. Currently patient is still complaining from right leg pain, swelling and confluent macular rash in the lower extremity especially posteriorly and to some extent in the back of her upper extremities as well. No much in the extremities. No most or genital ulcers reported. Also she denies chest pain or dyspnea. Urgency change in frequency. Her bowel movements is fine, she is well and denies any abdominal pain. No headache or dizziness or weakness or numbness. She smokes about 1-1.5 pack per day and she was counseled to quit and she declines nicotine patch. She drinks 1 beer a day with no recurrence. No illicit drugs Usually she takes insulin Levemir/Lantus at bedtime this on a sliding scale also she has on insulin sliding scale and she was almost taking totally 40 units in a day for scale as per patient. However after starting taking the prednisone 3 days ago her sugar was even higher. She is afebrile and hemodynamically stable area is oxygen saturating 93-94% on room air. Labs: Hemoglobin 10.8, elevated neutrophil count at 8.6. INR is normal. Sodium is 128, potassium 5.4 which is elevated. Creatinine is high at 1.9, compared to baseline of 1.4-1.6 urinalysis is suspicious for infection coronavirus not detected Chest x-ray: Small bilateral pleural effusion with adjacent atelectasis or consolidation. Mild pulmonary vascular congestion EKG shows normal sinus rhythm at [address]-T change emergency room she received normal saline and ceftriaxone With oncology team been consulted 03/25/2022 Patient feels better today, her rash looks less extensive in the lower extremities. She still complains from edema. He related to observe improvement. Her diarrhea stopped and she does not have bowel movement since admission. We checked also had a bladder scan was low 11-30 mL. Workup showing improvement in her creatinine, potassium sodium. He continued on ceftriaxone, prednisone and normal saline 75 mL per hour 03/26/2022 pt is feeling much better today that she wanted to go home , he rash and elects significantly improved. Her arms does not have a rash anymore. She feels well. She denies chest pain or dyspnea. No abdominal pain or vomiting or diarrhea. No urinary complaints. She tolerates diet well. Glucose is controlled. Sodium 137, potassium normal. Creatinine improved to 1.5. IV fluid was discontinued and [facility] found her stable to follow up as an outpatient. However on reviewing she has troponin her hemoglobin 10.8 on admission, down to 9.5, down to 8.3. Her lupus exam is positive rheumatology team on the case Urine culture is negative and there is no evidence of infection and therefore ceftriaxone was discontinued Objective - Vital Signs Vital signs: Vital Signs Temp 98.0 F 03/26/22 04:08 Pulse 91 03/26/22 04:08 Resp 16 03/26/22 04:08 BP 166/68 03/26/22 04:08 Pulse Ox 95 03/26/22 04:08 FiO2 Intake & Output 03/25/22 03/26/22 03/26/22 18:59 06:59 18:59 Intake Total 600 Balance 600 Intake: Oral 600 Other: Voiding Method Toilet Toilet # Voids 2 - Exam GENERAL: The patient is alert and oriented x3, not in any acute distress. Well developed, well nourished. HEENT: Pupils are round and equally reacting to light. EOMI. No scleral icterus. No conjunctival pallor. Normocephalic, atraumatic. No pharyngeal erythema. No thyromegaly. CARDIOVASCULAR: S1 and S2 present. No murmurs, rubs, or gallops. PULMONARY: Chest is clear to auscultation, no wheezing or crackles. ABDOMEN: Soft, nontender, nondistended, normoactive bowel sounds. No palpable organomegaly. MUSCULOSKELETAL: No joint swelling or deformity. EXTREMITIES: No cyanosis, clubbing, or pedal edema. NEUROLOGICAL: Gross neurological examination did not reveal any focal deficits. -SKIN: Purpuric like rashes involving LE posteriorly more than UE were serially. no petechiae. - Labs CBC & Chem 7: 03/26/22 06:26 03/26/22 06:26 Labs: Abnormal Lab Results - Last 24 Hours (Table) 03/24/22 03/24/22 03/24/22 Range/Units 07:31 07:31 12:18 Lupus Anticoag aPTT 48 H (<43) Sec(s) Lupus Anticoag PTT Mix 46 H (<43) Sec(s) Dil Moses Viper Venom 47 H (<44) Sec(s) Lupus Hexagonal Phase Positive A (Negative) Sodium (137-145) mmol/L Chloride (98-107) mmol/L BUN (7-17) mg/dL Creatinine (0.52-1.04) mg/dL Glucose (74-99) mg/dL POC Glucose (mg/dL) (70-110) mg/dL Calcium (8.4-10.2) mg/dL Erythropoietin (2.00-30.00) mIU/mL AST 49 H (13-35) U/L Total Protein 4.6 L (6.2-8.2) g/dL Albumin 2.9 L (3.8-4.9) g/dL Procalcitonin 0.19 H (0.02-0.09) ng/mL 03/24/22 03/25/22 03/25/22 Range/Units 12:18 09:42 11:01 Lupus Anticoag aPTT (<43) Sec(s) Lupus Anticoag PTT Mix (<43) Sec(s) Dil Moses Viper Venom (<44) Sec(s) Lupus Hexagonal Phase (Negative) Sodium 130 L (137-145) mmol/L Chloride 96 L (98-107) mmol/L BUN 73 H (7-17) mg/dL Creatinine 1.98 H (0.52-1.04) mg/dL Glucose 178 H (74-99) mg/dL POC Glucose (mg/dL) 190 H (70-110) mg/dL Calcium 7.8 L (8.4-10.2) mg/dL Erythropoietin 34.18 H (2.00-30.00) mIU/mL AST (13-35) U/L Total Protein (6.2-8.2) g/dL Albumin (3.8-4.9) g/dL Procalcitonin (0.02-0.09) ng/mL 03/25/22 03/25/22 03/26/22 Range/Units 17:20 20:13 07:07 Lupus Anticoag aPTT (<43) Sec(s) Lupus Anticoag PTT Mix (<43) Sec(s) Dil Moses Viper Venom (<44) Sec(s) Lupus Hexagonal Phase (Negative) Sodium (137-145) mmol/L Chloride (98-107) mmol/L BUN (7-17) mg/dL Creatinine (0.52-1.04) mg/dL Glucose (74-99) mg/dL POC Glucose (mg/dL) 239 H 190 H 142 H (70-110) mg/dL Calcium (8.4-10.2) mg/dL Erythropoietin (2.00-30.00) mIU/mL AST (13-35) U/L Total Protein (6.2-8.2) g/dL Albumin (3.8-4.9) g/dL Procalcitonin (0.02-0.09) ng/mL Microbiology - Last 24 Hours (Table) 03/23/22 17:45 Blood Culture - Preliminary Blood No Growth after 48 hours 03/23/22 17:45 Blood Culture - Preliminary Blood No Growth after 48 hours Assessment and Plan Assessment: Both purpura like rash of the lower extremities and to a lesser extent of the upper extremities Acute kidney injury on chronic kidney disease Acute urinary tract infection Chronic kidney disease stage III b hypervolemic hyponatremia Hypertension, type I Diabetes mellitus History of depression History of vasculitis History of left breast cancer and history of right breast lumpectomy Nicotine dependence Obesity with BMI of 34.8 Plan: This is a pleasant 72 old female who presents with UTI and acute kidney in(IV fluidstinue with antibiotic ceftriaxone follow-up urine culture. Check occult blood in stool and monitor hemoglobin Discontinue antibiotics Follow up with rheumatology hold SANDRA inhibitor and diuretics Hold Doxazocin and Aldactone. Patient continued on metoprolol 100 mg twice a day follow-up hematology/oncology consult Consult [facility] rheumatology team consultI Labs and medication were reviewed.. Continue same treatment. Continue with symptomatic treatment. Resume home medication. Monitor lytes and vitals. DVT and GI prophylaxis. Further recommendations as per clinical course of the patient DVT prophylaxis: Subcutaneous heparin GI Prophylaxis: Pepcid PT/OT: Pending Prognosis is guarded Per staff patient wants to be DNR/DN
[2022-03-26 17:10] LABS: Glucose,Whole Blood 69 mg/dL (70-110)
[2022-03-26 17:29] LABS: Glucose,Whole Blood 76 mg/dL (70-110)
[2022-03-26 20:17] LABS: Glucose,Whole Blood 272 mg/dL (70-110)
[2022-03-26] MEDS: AMITRIPTYLINE HCL 50 MG TAB PO SCH (20:28)
[2022-03-26] MEDS: INSULIN DETEMIR (LEVEMIR) 100 UNIT/ML SYR SQ SCH (20:29)
--- NOTE | 2022-03-27 00:35 | P.PN ---
Subjective Progress Note Date: 03/25/22 Principal diagnosis: Rash and possible UTI Patient is a 72 year old female with a past medical history significant for breast cancer on chemotherapy presented to hospital with a rash to the lower extremity with concern for possible vasculitis versus drug rash, she also have a positive UA concern for possible UTI. On today's evaluation that is 03/25/2022, the patient denies having any fever or any chills the patient rash to the lower extremity has slightly decreased intensity and no new rash has been noticed denies any chest pain shortness of breath or cough no abdominal pain no diarrhea Objective - Vital Signs Vital signs: Vital Signs Temp 98.2 F 03/25/22 11:33 Pulse 81 03/25/22 11:33 Resp 18 03/25/22 11:33 BP 167/74 03/25/22 11:33 Pulse Ox 95 03/25/22 11:33 FiO2 Intake & Output 03/24/22 03/25/22 03/25/22 18:59 06:59 18:59 Intake Total 800 Balance 800 Intake: Intake, IV Titration 400 Amount Sodium Chloride 0.9% 1, 400 000 ml @ 75 mls/hr IV . [id number] ONE Rx#:[id number] Oral 400 Other: Voiding Method Toilet Toilet Toilet # Voids 3 - Exam GENERAL DESCRIPTION: An elderly female lying in bed in no distress RESPIRATORY SYSTEM: Unlabored breathing , decreased breath sounds at bases HEART: S1 S2 regular rate and rhythm , ABDOMEN: Soft , no tenderness EXTREMITIES: Lower extremities rash has decreased intensity no significant redness or drainage - Labs CBC & Chem 7: 03/26/22 06:26 03/26/22 06:26 Labs: Abnormal Lab Results - Last 24 Hours (Table) 03/24/22 03/24/22 03/24/22 Range/Units 12:18 12:18 12:18 Retic Count (0.5-2.0) % Lupus Anticoag aPTT 48 H (<43) Sec(s) Lupus Anticoag PTT Mix 46 H (<43) Sec(s) Dil Moses Viper Venom 47 H (<44) Sec(s) Lupus Hexagonal Phase Positive A (Negative) Sodium (137-145) mmol/L Potassium (3.5-5.1) mmol/L Chloride (98-107) mmol/L BUN (7-17) mg/dL Creatinine (0.52-1.04) mg/dL Glucose (74-99) mg/dL POC Glucose (mg/dL) (70-110) mg/dL Hemoglobin A1c (0.0-6.0) % Calcium (8.4-10.2) mg/dL Iron 26 L (50-170) ug/dL % Saturation 10.95 L (12.00-45.00) Transferrin 169.0 L (204.0-354.0) mg/dL Erythropoietin 34.18 H (2.00-30.00) mIU/mL C-Reactive Protein (0.00-0.80) mg/dL Vitamin B12 1892.0 H (200.0-944.0) pg/mL 03/24/22 03/24/22 03/24/22 Range/Units 16:05 16:05 16:05 Retic Count (0.5-2.0) % Lupus Anticoag aPTT (<43) Sec(s) Lupus Anticoag PTT Mix (<43) Sec(s) Dil Moses Viper Venom (<44) Sec(s) Lupus Hexagonal Phase (Negative) Sodium (137-145) mmol/L Potassium 5.5 H (3.5-5.1) mmol/L Chloride (98-107) mmol/L BUN (7-17) mg/dL Creatinine (0.52-1.04) mg/dL Glucose (74-99) mg/dL POC Glucose (mg/dL) (70-110) mg/dL Hemoglobin A1c 6.1 H (0.0-6.0) % Calcium (8.4-10.2) mg/dL Iron (50-170) ug/dL % Saturation (12.00-45.00) Transferrin (204.0-354.0) mg/dL Erythropoietin (2.00-30.00) mIU/mL C-Reactive Protein 5.30 H (0.00-0.80) mg/dL Vitamin B12 (200.0-944.0) pg/mL 03/24/22 03/24/22 03/24/22 Range/Units 16:05 16:59 20:39 Retic Count 2.7 H (0.5-2.0) % Lupus Anticoag aPTT (<43) Sec(s) Lupus Anticoag PTT Mix (<43) Sec(s) Dil Moses Viper Venom (<44) Sec(s) Lupus Hexagonal Phase (Negative) Sodium (137-145) mmol/L Potassium (3.5-5.1) mmol/L Chloride (98-107) mmol/L BUN (7-17) mg/dL Creatinine (0.52-1.04) mg/dL Glucose (74-99) mg/dL POC Glucose (mg/dL) 355 H 328 H (70-110) mg/dL Hemoglobin A1c (0.0-6.0) % Calcium (8.4-10.2) mg/dL Iron (50-170) ug/dL % Saturation (12.00-45.00) Transferrin (204.0-354.0) mg/dL Erythropoietin (2.00-30.00) mIU/mL C-Reactive Protein (0.00-0.80) mg/dL Vitamin B12 (200.0-944.0) pg/mL 03/25/22 03/25/22 Range/Units 09:42 11:01 Retic Count (0.5-2.0) % Lupus Anticoag aPTT (<43) Sec(s) Lupus Anticoag PTT Mix (<43) Sec(s) Dil Moses Viper Venom (<44) Sec(s) Lupus Hexagonal Phase (Negative) Sodium 130 L (137-145) mmol/L Potassium (3.5-5.1) mmol/L Chloride 96 L (98-107) mmol/L BUN 73 H (7-17) mg/dL Creatinine 1.98 H (0.52-1.04) mg/dL Glucose 178 H (74-99) mg/dL POC Glucose (mg/dL) 190 H (70-110) mg/dL Hemoglobin A1c (0.0-6.0) % Calcium 7.8 L (8.4-10.2) mg/dL Iron (50-170) ug/dL % Saturation (12.00-45.00) Transferrin (204.0-354.0) mg/dL Erythropoietin (2.00-30.00) mIU/mL C-Reactive Protein (0.00-0.80) mg/dL Vitamin B12 (200.0-944.0) pg/mL Microbiology - Last 24 Hours (Table) 03/23/22 17:45 Urine Culture - Final Urine,Voided 03/23/22 17:45 Blood Culture - Preliminary Blood No Growth after 24 hours 03/23/22 17:45 Blood Culture - Preliminary Blood No Growth after 24 hours Assessment and Plan (1) Urinary tract infection Current Visit: Yes Status: Acute Code(s): N39.0 - URINARY TRACT INFECTION, SITE NOT SPECIFIED SNOMED Code(s): 79844735 (2) Rash Current Visit: No Status: Acute Code(s): R21 - RASH AND OTHER NONSPECIFIC S KIN ERUPTION SNOMED Code(s): 977482626 Plan: 1patient with a rash involving mostly lower extremity concerning for possible vasculitis/drug reaction clinically not behaving as shingles in this patient who do have a history of shingles involving the left lower abdominal area and the patient has received shingles vaccine since then. 2positive UA mild symptoms concerning for possible UTI likely from enteric gram-negative pathogen. 3patient seemed to have some clinical improvement continue with the steroids 4patient to continue with Rocephin 1 g daily to continue while waiting for urine culture to finalize. Time with Patient: Less than 30
--- NOTE | 2022-03-27 00:36 | P.PN ---
Subjective Progress Note Date: 03/26/22 Principal diagnosis: Rash and possible UTI Patient is a 72 year old female with a past medical history significant for breast cancer on chemotherapy presented to hospital with a rash to the lower extremity with concern for possible vasculitis versus drug rash, she also have a positive UA concern for possible UTI. On today's evaluation that is 03/26/2022, the patient remains to be afebrile, the patient rash to the lower extremity has decreased in intensity and no new rash has been noticed, the patient denies any chest pain shortness of breath or cough no abdominal pain no diarrhea Objective - Vital Signs Vital signs: Vital Signs Temp 98.1 F 03/26/22 11:38 Pulse 86 03/26/22 11:38 Resp 17 03/26/22 11:38 BP 162/71 03/26/22 11:38 Pulse Ox 94 L 03/26/22 11:38 FiO2 Intake & Output 03/25/22 03/26/22 03/26/22 18:59 06:59 18:59 Intake Total 600 Balance 600 Intake: Oral 600 Other: Voiding Method Toilet Toilet Toilet # Voids 2 - Exam GENERAL DESCRIPTION: An elderly female lying in bed in no distress RESPIRATORY SYSTEM: Unlabored breathing , decreased breath sounds at bases HEART: S1 S2 regular rate and rhythm , ABDOMEN: Soft , no tenderness EXTREMITIES: Lower extremities rash has decreased intensity no significant redness or drainage - Labs CBC & Chem 7: 03/26/22 06:26 03/26/22 06:26 Labs: Abnormal Lab Results - Last 24 Hours (Table) 03/24/22 03/24/22 03/25/22 Range/Units 07:31 07:31 17:20 RBC (4.10-5.20) X 10*6/uL Hgb (12.0-15.0) g/dL Hct (37.2-46.3) % MCV (80.0-97.0) fL MCH (27.0-32.0) pg RDW (11.5-14.5) % Lymphocytes # (0.90-5.00) X 10*3/uL Eosinophils # (0.04-0.35) X 10*3/uL Anion Gap (10.00-18.00) mmol/L BUN (9.0-27.0) mg/dL Est GFR (CKD-EPI)AfAm (60.0-200.0) Est GFR (CKD-EPI)NonAf (60.0-200.0) BUN/Creatinine Ratio (12.00-20.00) Ratio Glucose (70-110) mg/dL POC Glucose (mg/dL) 239 H (70-110) mg/dL Calcium (8.7-10.3) mg/dL Conjugated Bilirubin (0.20-0.40) mg/dL AST 49 H (13-35) U/L Total Protein 4.6 L (6.2-8.2) g/dL Albumin 2.9 L (3.8-4.9) g/dL Procalcitonin 0.19 H (0.02-0.09) ng/mL 03/25/22 03/26/22 03/26/22 Range/Units 20:13 06:26 06:26 RBC 2.56 L (4.10-5.20) X 10*6/uL Hgb 8.3 L (12.0-15.0) g/dL Hct 25.7 L (37.2-46.3) % MCV 100.4 H (80.0-97.0) fL MCH 32.4 H (27.0-32.0) pg RDW 17.6 H (11.5-14.5) % Lymphocytes # 0.39 L (0.90-5.00) X 10*3/uL Eosinophils # 0 L (0.04-0.35) X 10*3/uL Anion Gap 9.50 L (10.00-18.00) mmol/L BUN 53.8 H (9.0-27.0) mg/dL Est GFR (CKD-EPI)AfAm 41.2 L (60.0-200.0) Est GFR (CKD-EPI)NonAf 35.6 L (60.0-200.0) BUN/Creatinine Ratio 36.60 H (12.00-20.00) Ratio Glucose 127 H (70-110) mg/dL POC Glucose (mg/dL) 190 H (70-110) mg/dL Calcium 8.5 L (8.7-10.3) mg/dL Conjugated Bilirubin <0.20 L (0.20-0.40) mg/dL AST 51 H (13-35) U/L Total Protein 5.1 L (6.2-8.2) g/dL Albumin 3.2 L (3.8-4.9) g/dL Procalcitonin (0.02-0.09) ng/mL 03/26/22 03/26/22 Range/Units 07:07 11:12 RBC (4.10-5.20) X 10*6/uL Hgb (12.0-15.0) g/dL Hct (37.2-46.3) % MCV (80.0-97.0) fL MCH (27.0-32.0) pg RDW (11.5-14.5) % Lymphocytes # (0.90-5.00) X 10*3/uL Eosinophils # (0.04-0.35) X 10*3/uL Anion Gap (10.00-18.00) mmol/L BUN (9.0-27.0) mg/dL Est GFR (CKD-EPI)AfAm (60.0-200.0) Est GFR (CKD-EPI)NonAf (60.0-200.0) BUN/Creatinine Ratio (12.00-20.00) Ratio Glucose (70-110) mg/dL POC Glucose (mg/dL) 142 H 166 H (70-110) mg/dL Calcium (8.7-10.3) mg/dL Conjugated Bilirubin (0.20-0.40) mg/dL AST (13-35) U/L Total Protein (6.2-8.2) g/dL Albumin (3.8-4.9) g/dL Procalcitonin (0.02-0.09) ng/mL Microbiology - Last 24 Hours (Table) 03/23/22 17:45 Blood Culture - Preliminary Blood No Growth after 48 hours 03/23/22 17:45 Blood Culture - Preliminary Blood No Growth after 48 hours Assessment and Plan (1) Urinary tract infection Current Visit: Yes Status: Acute Code(s): N39.0 - URINARY TRACT INFECTION, SITE NOT SPECIFIED SNOMED Code(s): 22454129 (2) Rash Current Visit: No Status: Acute Code(s): R21 - RASH AND OTHER NONSPECIFIC SKIN ERUPTION SNOMED Code(s): 252981466 Plan: 1patient with a rash involving mostly lower extremity concerning for possible vasculitis/drug reaction clinically not behaving as shingles in this patient who do have a history of shingles involving the left lower abdominal area and the patient has received shingles vaccine since then. 2positive UA mild symptoms concerning for possible UTI however the urine cultures came back negative and Rocephin has been discontinued 3patient seemed to have some clinical improvement continue with the prednisone and monitor clinical course closely Time with Patient: Less than 30
[2022-03-27] MEDS: LEVOTHYROXINE 88 MCG TAB PO SCH (05:45)
[2022-03-27] MEDS: LEVOTHYROXINE 100 MCG TAB PO SCH (05:45)
[2022-03-27 07:06] LABS: Glucose,Whole Blood 105 mg/dL (70-110)
[2022-03-27] MEDS: INSULIN ASPART (NovoLOG) 100 UNIT/ML VIAL SQ SCH ×7 (07:11→20:10)
[2022-03-27] MEDS: CHOLECALCIFEROL 25 MCG (1000 IU) TABLET PO SCH (08:57)
[2022-03-27] MEDS: ASCORBIC ACID 500 MG TAB PO SCH (08:57)
[2022-03-27] MEDS: FAMOTIDINE 20 MG TAB PO SCH (08:58)
[2022-03-27] MEDS: HEPARIN SODIUM,PORCINE/PF 5,000 UNIT/0.5 ML SYRINGE SQ SCH ×2 (08:58→20:11)
[2022-03-27] MEDS: predniSONE 20 MG TAB PO SCH ×2 (08:58→20:10)
[2022-03-27] MEDS: PANTOPRAZOLE 40 MG TABLET PO SCH (08:58)
[2022-03-27] MEDS: METOPROLOL SUCCINATE (ER) 25 MG TAB.ER.24H PO SCH ×2 (08:58→20:09)
[2022-03-27 09:07] LABS: Basophils # (A) 0.01 X 10*3/uL (0.00-0.10); Basophils % (A) 0.1 %; Eosinophils # (A) 0.02 X 10*3/uL (0.04-0.35); Eosinophils % (A) 0.2 %; HCT 27.8 % (37.2-46.3); HGB 8.9 g/dL (12.0-15.0); Immature Grans, Automated 0.4 %; Lymphocytes # (A) 0.38 X 10*3/uL (0.90-5.00); Lymphocytes % (A) 3.6 %; MCH 32.6 pg (27.0-32.0); MCV 101.8 fL (80.0-97.0); Mean Platelet Volume 12.1 fL (9.5-12.2); Monocytes # (A) 0.51 X 10*3/uL (0.20-1.00); Monocytes % (A) 4.9 %; NRBC Per 100 WBC 0 /100 WBCS (0.0-0.0); Neutrophils # (A) 9.48 X 10*3/uL (1.80-7.70); Neutrophils % (A) 90.8 %; Platelet Count 173 X 10*3/uL (140-440); RBC 2.73 X 10*6/uL (4.10-5.20); WBC 10.44 X 10*3/uL (4.50-10.00)
[2022-03-27 09:14] LABS: African American GFR (CKD) 46.5 (60.0-200.0); Anion Gap 6.3 mmol/L (10.00-18.00); BUN/Creat Ratio 34.36 Ratio (12.00-20.00); Blood Urea Nitrogen 45.7 mg/dL (9.0-27.0); Calcium 8.6 mg/dL (8.7-10.3); Carbon Dioxide 27.3 mmol/L (20.0-27.5); Non-African American GFR(CKD) 40.1 (60.0-200.0); Potassium 4.8 mmol/L (3.5-5.5)
[2022-03-27] MEDS: ALPRAZolam 0.5 MG TAB PO PRN ×2 (10:11→20:09)
[2022-03-27 11:10] LABS: Glucose,Whole Blood 161 mg/dL (70-110)
[2022-03-27 17:15] LABS: Glucose,Whole Blood 173 mg/dL (70-110)
[2022-03-27 19:45] LABS: Glucose,Whole Blood 266 mg/dL (70-110)
[2022-03-27] MEDS: AMITRIPTYLINE HCL 50 MG TAB PO SCH (20:10)
[2022-03-27] MEDS: INSULIN DETEMIR (LEVEMIR) 100 UNIT/ML SYR SQ SCH (20:10)
[2022-03-27] MEDS: amLODIPine 5 MG TAB PO SCH (20:10)
--- NOTE | 2022-03-27 22:20 | P.PN ---
Subjective This is a pleasant 72 years old female with past medical history of depression, hypertension, diabetes mellitus, history of vasculitis, history of left breast cancer on 09/2021, chronic kidney disease stage III, nicotine dependence. Patient has recently diagnosed with breast cancer on 09/2021, she was given her chemotherapy with Dr. Chi, this is the first chemo therapy finished on 03/04 with few weeks apart between 1 second one another. Monday night about 6 days ago she started having some leg rash, and by Monday she developed some pain in her legs so she decided to come to emergency room on 03/21, she is seen by Dr. rAreguin and neck cancer with vasculitic rash and she was prescribed prednisone with recommendation to follow up with PCP Dr. Gastelum whom she saw Monday and he ordered some tests before he calls her yesterday and asked her to come to emergency room because of worsening kidney function, hyponatremia and hyperkalemia. Currently patient is still complaining from right leg pain, swelling and confluent macular rash in the lower extremity especially posteriorly and to some extent in the back of her upper extremities as well. No much in the extremities. No most or genital ulcers reported. Also she denies chest pain or dyspnea. Urgency change in frequency. Her bowel movements is fine, she is well and denies any abdominal pain. No headache or dizziness or weakness or numbness. She smokes about 1-1.5 pack per day and she was counseled to quit and she declines nicotine patch. She drinks 1 beer a day with no recurrence. No illicit drugs Usually she takes insulin Levemir/Lantus at bedtime this on a sliding scale also she has on insulin sliding scale and she was almost taking totally 40 units in a day for scale as per patient. However after starting taking the prednisone 3 days ago her sugar was even higher. She is afebrile and hemodynamically stable area is oxygen saturating 93-94% on room air. Labs: Hemoglobin 10.8, elevated neutrophil count at 8.6. INR is normal. Sodium is 128, potassium 5.4 which is elevated. Creatinine is high at 1.9, compared to baseline of 1.4-1.6 urinalysis is suspicious for infection coronavirus not detected Chest x-ray: Small bilateral pleural effusion with adjacent atelectasis or consolidation. Mild pulmonary vascular congestion EKG shows normal sinus rhythm at [address]-T change emergency room she received normal saline and ceftriaxone With oncology team been consulted 03/25/2022 Patient feels better today, her rash looks less extensive in the lower extremities. She still complains from edema. He related to observe improvement. Her diarrhea stopped and she does not have bowel movement since admission. We checked also had a bladder scan was low 11-30 mL. Workup showing improvement in her creatinine, potassium sodium. He continued on ceftriaxone, prednisone and normal saline 75 mL per hour 03/26/2022 pt is feeling much better today that she wanted to go home , he rash and elects significantly improved. Her arms does not have a rash anymore. She feels well. She denies chest pain or dyspnea. No abdominal pain or vomiting or diarrhea. No urinary complaints. She tolerates diet well. Glucose is controlled. Sodium 137, potassium normal. Creatinine improved to 1.5. IV fluid was discontinued and scrap baler found her stable to follow up as an outpatient. However on reviewing she has troponin her hemoglobin 10.8 on admission, down to 9.5, down to 8.3. Her lupus exam is positive rheumatology team on the case Urine culture is negative and there is no evidence of infection and therefore ceftriaxone was discontinued 03/27/2022 Patient improving slowly and gradually. She feels better today. Her rash is improving as well. She remains on prednisone 20 mg twice daily. Her kidney function is also improving down to 1.3, SANDRA inhibitor remains on hold. Also normal saline has been stopped. Urine culture is negative and ceftriaxone was discontinued. No more urinary symptoms. Further serology work up is pending Glucose relatively controlled. And Norvasc for better blood pressure control Objective - Vital Signs Vital signs: Vital Signs Temp 98.1 F 03/27/22 04:04 Pulse 89 03/27/22 04:04 Resp 17 03/27/22 04:04 BP 167/73 03/27/22 05:51 Pulse Ox 94 L 03/27/22 04:04 FiO2 Intake & Output 03/26/22 03/27/22 03/27/22 18:59 06:59 18:59 Intake Total 600 Balance 600 Intake: Oral 600 Other: Voiding Method Toilet Toilet # Voids 2 # Bowel Movements 1 - Exam GENERAL: The patient is alert and oriented x3, not in any acute distress. Well developed, well nourished. HEENT: Pupils are round and equally reacting to light. EOMI. No scleral icterus. No conjunctival pallor. Normocephalic, atraumatic. No pharyngeal erythema. No thyromegaly. CARDIOVASCULAR: S1 and S2 present. No murmurs, rubs, or gallops. PULMONARY: Chest is clear to auscultation, no wheezing or crackles. ABDOMEN: Soft, nontender, nondistended, normoactive bowel sounds. No palpable organomegaly. MUSCULOSKELETAL: No joint swelling or deformity. EXTREMITIES: No cyanosis, clubbing, or pedal edema. NEUROLOGICAL: Gross neurological examination did not reveal any focal deficits. -SKIN: Purpuric like rashes involving LE posteriorly more than UE were serially. no petechiae. - Labs CBC & Chem 7: 03/27/22 06:09 03/27/22 06:09 Labs: Abnormal Lab Results - Last 24 Hours (Table) 03/24/22 03/26/22 03/26/22 Range/Units 12:18 06:26 06:26 WBC (4.50-10.00) X 10*3/uL RBC 2.56 L (4.10-5.20) X 10*6/uL Hgb 8.3 L (12.0-15.0) g/dL Hct 25.7 L (37.2-46.3) % MCV 100.4 H (80.0-97.0) fL MCH 32.4 H (27.0-32.0) pg RDW 17.6 H (11.5-14.5) % Neutrophils # (1.80-7.70) X 10*3/uL Lymphocytes # 0.39 L (0.90-5.00) X 10*3/uL Eosinophils # 0 L (0.04-0.35) X 10*3/uL Anion Gap 9.50 L (10.00-18.00) mmol/L BUN 53.8 H (9.0-27.0) mg/dL Est GFR (CKD-EPI)AfAm 41.2 L (60.0-200.0) Est GFR (CKD-EPI)NonAf 35.6 L (60.0-200.0) BUN/Creatinine Ratio 36.60 H (12.00-20.00) Ratio Glucose 127 H (70-110) mg/dL POC Glucose (mg/dL) (70-110) mg/dL Calcium 8.5 L (8.7-10.3) mg/dL Conjugated Bilirubin <0.20 L (0.20-0.40) mg/dL AST 51 H (13-35) U/L Total Protein 5.1 L (6.2-8.2) g/dL Albumin 3.2 L (3.8-4.9) g/dL Methylmalonic Acid 0.42 H (<0.40) umol/L 03/26/22 03/26/22 03/26/22 Range/Units 11:12 17:09 20:13 WBC (4.50-10.00) X 10*3/uL RBC (4.10-5.20) X 10*6/uL Hgb (12.0-15.0) g/dL Hct (37.2-46.3) % MCV (80.0-97.0) fL MCH (27.0-32.0) pg RDW (11.5-14.5) % Neutrophils # (1.80-7.70) X 10*3/uL Lymphocytes # (0.90-5.00) X 10*3/uL Eosinophils # (0.04-0.35) X 10*3/uL Anion Gap (10.00-18.00) mmol/L BUN (9.0-27.0) mg/dL Est GFR (CKD-EPI)AfAm (60.0-200.0) Est GFR (CKD-EPI)NonAf (60.0-200.0) BUN/Creatinine Ratio (12.00-20.00) Ratio Glucose (70-110) mg/dL POC Glucose (mg/dL) 166 H 69 L 272 H (70-110) mg/dL Calcium (8.7-10.3) mg/dL Conjugated Bilirubin (0.20-0.40) mg/dL AST (13-35) U/L Total Protein (6.2-8.2) g/dL Albumin (3.8-4.9) g/dL Methylmalonic Acid (<0.40) umol/L 03/27/22 03/27/22 Range/Units 06:09 06:09 WBC 10.44 H (4.50-10.00) X 10*3/uL RBC 2.73 L (4.10-5.20) X 10*6/uL Hgb 8.9 L (12.0-15.0) g/dL Hct 27.8 L (37.2-46.3) % MCV 101.8 H (80.0-97.0) fL MCH 32.6 H (27.0-32.0) pg RDW 18.0 H (11.5-14.5) % Neutrophils # 9.48 H (1.80-7.70) X 10*3/uL Lymphocytes # 0.38 L (0.90-5.00) X 10*3/uL Eosinophils # 0.02 L (0.04-0.35) X 10*3/uL Anion Gap 6.30 L (10.00-18.00) mmol/L BUN 45.7 H (9.0-27.0) mg/dL Est GFR (CKD-EPI)AfAm 46.5 L (60.0-200.0) Est GFR (CKD-EPI)NonAf 40.1 L (60.0-200.0) BUN/Creatinine Ratio 34.36 H (12.00-20.00) Ratio Glucose (70-110) mg/dL POC Glucose (mg/dL) (70-110) mg/dL Calcium 8.6 L (8.7-10.3) mg/dL Conjugated Bilirubin (0.20-0.40) mg/dL AST (13-35) U/L Total Protein (6.2-8.2) g/dL Albumin (3.8-4.9) g/dL Methylmalonic Acid (<0.40) umol/L Microbiology - Last 24 Hours (Table) 03/23/22 17:45 Blood Culture - Preliminary Blood No Growth after 72 hours 03/23/22 17:45 Blood Culture - Preliminary Blood No Growth after 72 hours Assessment and Plan Assessment: Both purpura like rash of the lower extremities and to a lesser extent of the upper extremities Acute kidney injury on chronic kidney disease Acute urinary tract infection Chronic kidney disease stage III b hypervolemic hyponatremia Hypertension, type I Diabetes mellitus History of depression History of vasculitis History of left breast cancer and history of right breast lumpectomy Nicotine dependence Obesity with BMI of 34.8 Plan: This is a pleasant 72 old female who presents with UTI and acute kidney in(IV fl uidstinue with antibiotic ceftriaxone follow-up urine culture. Check occult blood in stool and monitor hemoglobin Discontinue antibiotics Follow up with rheumatology hold SANDRA inhibitor and diuretics Hold Doxazocin and Aldactone. Patient continued on metoprolol 100 mg twice a day follow-up hematology/oncology consult Consult scrap baler rheumatology team consultI Labs and medication were reviewed.. Continue same treatment. Continue with symptomatic treatment. Resume home medication. Monitor lytes and vitals. DVT and GI prophylaxis. Further recommendations as per clinical course of the p atient DVT prophylaxis: Subcutaneous heparin GI Prophylaxis: Pepcid PT/OT: Pending Prognosis is guarded Per staff patient wants to be DNR/DN
[2022-03-28 03:55] VITALS: BP 151/66; RESP 18; TEMP 98
[2022-03-28 04:24] VITALS: PULSE 88
[2022-03-28] MEDS: LEVOTHYROXINE 88 MCG TAB PO SCH (05:49)
[2022-03-28] MEDS: LEVOTHYROXINE 100 MCG TAB PO SCH (05:49)
[2022-03-28 07:05] LABS: Glucose,Whole Blood 117 mg/dL (70-110)
[2022-03-28] MEDS: INSULIN ASPART (NovoLOG) 100 UNIT/ML VIAL SQ SCH ×4 (07:24→12:50)
[2022-03-28] MEDS: HEPARIN SODIUM,PORCINE/PF 5,000 UNIT/0.5 ML SYRINGE SQ SCH (08:00)
[2022-03-28] MEDS: METOPROLOL SUCCINATE (ER) 25 MG TAB.ER.24H PO SCH (08:00)
[2022-03-28] MEDS: predniSONE 20 MG TAB PO SCH (08:00)
[2022-03-28] MEDS: ASCORBIC ACID 500 MG TAB PO SCH (08:00)
[2022-03-28] MEDS: PANTOPRAZOLE 40 MG TABLET PO SCH (08:00)
[2022-03-28] MEDS: FAMOTIDINE 20 MG TAB PO SCH (08:00)
[2022-03-28] MEDS: amLODIPine 5 MG TAB PO SCH (08:00)
[2022-03-28] MEDS: CHOLECALCIFEROL 25 MCG (1000 IU) TABLET PO SCH (08:00)
[2022-03-28] MEDS ORDERED: SODIUM FERRIC GLUCONAT-SUCROSE 125 MG in SODIUM CHLORIDE 0.9% 100 ML IVPB ONE (09:06)
--- NOTE | 2022-03-28 09:09 | P.PN ---
Subjective Patient is seen in follow-up for acute kidney injury on chronic kidney disease. Renal function improved. Rash also getting better. Good urine output. Oral intake is good. Wants to go home. Vital signs are stable. General: Awake. No acute distress. HEENT: Head exam is unremarkable. LUNGS: Breath sounds decreased. HEART: Rate and Rhythm are regular. ABDOMEN: Soft, no distention. EXTREMITITES: Lower extremity rash noted. No drainage. Objective - Vital Signs Vital signs: Vital Signs Temp 98.0 F 03/28/22 03:50 Pulse 88 03/28/22 04:23 Resp 18 03/28/22 03:50 BP 151/66 03/28/22 03:50 Pulse Ox 95 03/28/22 05:52 FiO2 21 03/28/22 04:13 Intake & Output 03/27/22 03/28/22 03/28/22 18:59 06:59 18:59 Intake Total 600 Balance 600 Intake: Oral 600 Other: Voiding Method Toilet Toilet # Voids 3 1 - Labs CBC & Chem 7: 03/27/22 06:09 03/27/22 06:09 Labs: Abnormal Lab Results - Last 24 Hours (Table) 03/27/22 03/27/22 03/27/22 Range/Units 06:09 06:09 11:08 WBC 10.44 H (4.50-10.00) X 10*3/uL RBC 2.73 L (4.10-5.20) X 10*6/uL Hgb 8.9 L (12.0-15.0) g/dL Hct 27.8 L (37.2-46.3) % MCV 101.8 H (80.0-97.0) fL MCH 32.6 H (27.0-32.0) pg RDW 18.0 H (11.5-14.5) % Neutrophils # 9.48 H (1.80-7.70) X 10*3/uL Lymphocytes # 0.38 L (0.90-5.00) X 10*3/uL Eosinophils # 0.02 L (0.04-0.35) X 10*3/uL Anion Gap 6.30 L (10.00-18.00) mmol/L BUN 45.7 H (9.0-27.0) mg/dL Est GFR (CKD-EPI)AfAm 46.5 L (60.0-200.0) Est GFR (CKD-EPI)NonAf 40.1 L (60.0-200.0) BUN/Creatinine Ratio 34.36 H (12.00-20.00) Ratio POC Glucose (mg/dL) 161 H (70-110) mg/dL Calcium 8.6 L (8.7-10.3) mg/dL 03/27/22 03/27/22 03/28/22 Range/Units 17:14 19:43 07:04 WBC (4.50-10.00) X 10*3/uL RBC (4.10-5.20) X 10*6/uL Hgb (12.0-15.0) g/dL Hct (37.2-46.3) % MCV (80.0-97.0) fL MCH (27.0-32.0) pg RDW (11.5-14.5) % Neutrophils # (1.80-7.70) X 10*3/uL Lymphocytes # (0.90-5.00) X 10*3/uL Eosinophils # (0.04-0.35) X 10*3/uL Anion Gap (10.00-18.00) mmol/L BUN (9.0-27.0) mg/dL Est GFR (CKD-EPI)AfAm (60.0-200.0) Est GFR (CKD-EPI)NonAf (60.0-200.0) BUN/Creatinine Ratio (12.00-20.00) Ratio POC Glucose (mg/dL) 173 H 266 H 117 H (70-110) mg/dL Calcium (8.7-10.3) mg/dL Microbiology - Last 24 Hours (Table) 03/23/22 17:45 Blood Culture - Preliminary Blood No Growth after 96 hours 03/23/22 17:45 Blood Culture - Preliminary Blood No Growth after 96 hours Assessment and Plan Plan: Assessment: 1. Acute kidney injury mostly prerenal secondary to hypotension. Renal function improved. Creatinine peaked at 2.4 this admission and was 1.3 yesterday. 2. Chronic kidney disease stage IIIB with baseline creatinine in the range of 1.3-1.5 secondary to nephrosclerosis. No proteinuria on UA. 3. Lower extremity rash. Serologies negative. Urine eosinophils negative. Improving. On prednisone. Seen by rheumatology. 4. History of breast cancer. Patient states she recently completed chemotherapy in February 2022. 5. Diabetes mellitus. 6. Hypertension with chronic kidney disease. Exacerbated by steroids. 7. Anemia. Iron deficiency noted. Plan: Encourage oral intake. Amlodipine started for blood pressure today. IV iron today. Patient to follow up outpatient 7-10 days postdischarge.
[2022-03-28] MEDS: ALPRAZolam 0.5 MG TAB PO PRN (10:03)
[2022-03-28 11:25] LABS: Glucose,Whole Blood 340 mg/dL (70-110)
--- NOTE | 2022-03-28 11:34 | P.PN ---
Subjective Progress Note Date: 03/27/22 Principal diagnosis: Rash and possible UTI Patient is a 72 year old female with a past medical history significant for breast cancer on chemotherapy presented to hospital with a rash to the lower extremity with concern for possible vasculitis versus drug rash, she also have a positive UA concern for possible UTI. On today's evaluation that is 03/27/2022, the patient continues to be afebrile, the patient rash to the lower extremity has decreased in intensity, the patient denies any chest pain shortness of breath or cough no abdominal pain no diarrhea Objective - Vital Signs Vital signs: Vital Signs Temp 98.6 F 03/27/22 11:23 Pulse 85 03/27/22 11:23 Resp 18 03/27/22 11:23 BP 172/74 03/27/22 11:23 Pulse Ox 93 L 03/27/22 11:23 FiO2 Intake & Output 03/26/22 03/27/22 03/27/22 18:59 06:59 18:59 Intake Total 600 Balance 600 Intake: Oral 600 Other: Voiding Method Toilet Toilet Toilet # Voids 2 # Bowel Movements 1 - Exam GENERAL DESCRIPTION: An elderly female lying in bed in no distress RESPIRATORY SYSTEM: Unlabored breathing , decreased breath sounds at bases HEART: S1 S2 regular rate and rhythm , ABDOMEN: Soft , no tenderness EXTREMITIES: Lower extremities rash has decreased intensity no significant redness or drainage - Labs CBC & Chem 7: 03/27/22 06:09 03/27/22 06:09 Labs: Abnormal Lab Results - Last 24 Hours (Table) 03/24/22 03/26/22 03/26/22 Range/Units 12:18 17:09 20:13 WBC (4.50-10.00) X 10*3/uL RBC (4.10-5.20) X 10*6/uL Hgb (12.0-15.0) g/dL Hct (37.2-46.3) % MCV (80.0-97.0) fL MCH (27.0-32.0) pg RDW (11.5-14.5) % Neutrophils # (1.80-7.70) X 10*3/uL Lymphocytes # (0.90-5.00) X 10*3/uL Eosinophils # (0.04-0.35) X 10*3/uL Anion Gap (10.00-18.00) mmol/L BUN (9.0-27.0) mg/dL Est GFR (CKD-EPI)AfAm (60.0-200.0) Est GFR (CKD-EPI)NonAf (60.0-200.0) BUN/Creatinine Ratio (12.00-20.00) Ratio POC Glucose (mg/dL) 69 L 272 H (70-110) mg/dL Calcium (8.7-10.3) mg/dL Methylmalonic Acid 0.42 H (<0.40) umol/L 03/27/22 03/27/22 03/27/22 Range/Units 06:09 06:09 11:08 WBC 10.44 H (4.50-10.00) X 10*3/uL RBC 2.73 L (4.10-5.20) X 10*6/uL Hgb 8.9 L (12.0-15.0) g/dL Hct 27.8 L (37.2-46.3) % MCV 101.8 H (80.0-97.0) fL MCH 32.6 H (27.0-32.0) pg RDW 18.0 H (11.5-14.5) % Neutrophils # 9.48 H (1.80-7.70) X 10*3/uL Lymphocytes # 0.38 L (0.90-5.00) X 10*3/uL Eosinophils # 0.02 L (0.04-0.35) X 10*3/uL Anion Gap 6.30 L (10.00-18.00) mmol/L BUN 45.7 H (9.0-27.0) mg/dL Est GFR (CKD-EPI)AfAm 46.5 L (60.0-200.0) Est GFR (CKD-EPI)NonAf 40.1 L (60.0-200.0) BUN/Creatinine Ratio 34.36 H (12.00-20.00) Ratio POC Glucose (mg/dL) 161 H (70-110) mg/dL Calcium 8.6 L (8.7-10.3) mg/dL Methylmalonic Acid (<0.40) umol/L Microbiology - Last 24 Hours (Table) 03/23/22 17:45 Blood Culture - Preliminary Blood No Growth after 72 hours 03/23/22 17:45 Blood Culture - Preliminary Blood No Growth after 72 hours Assessment and Plan (1) Urinary tract infection Current Visit: Yes Status: Acute Code(s): N39.0 - URINARY TRACT INFECTION, SITE NOT SPECIFIED SNOMED Code(s): 64044921 (2) Rash Current Visit: No Status: Acute Code(s): R21 - RASH AND OTHER NONSPECIFIC SKIN ERUPTION SNOMED Code(s): 389127902 Plan: 1patient with a rash involving mostly lower extremity concerning for possible vasculitis/drug reaction clinically not behaving as shingles in this patient who do have a history of shingles involving the left lower abdominal area and the patient has received shingles vaccine since then. 2positive UA mild symptoms concerning for possible UTI however the urine cultures came back negative and Rocephin has been discontinued 3patient has shown clinical improvement continue with the prednisone and monitor clinical course closely Time with Patient: Less than 30
--- NOTE | 2022-03-28 11:35 | P.PN ---
Subjective Progress Note Date: 03/28/22 Principal diagnosis: Rash and possible UTI Patient is a 72 year old female with a past medical history significant for breast cancer on chemotherapy presented to hospital with a rash to the lower extremity with concern for possible vasculitis versus drug rash, she also have a positive UA concern for possible UTI. On today's evaluation that is 03/28/2022, the patient denies any fever or any chills, the patient rash to the lower extremity has decreased in intensity and no new rash has been noticed, the patient denies any chest pain shortness of breath or cough no abdominal pain no diarrhea, the patient denies urinary symptoms feeling better wants to go home Objective - Vital Signs Vital signs: Vital Signs Temp 98.0 F 03/28/22 03:50 Pulse 88 03/28/22 04:23 Resp 18 03/28/22 03:50 BP 151/66 03/28/22 03:50 Pulse Ox 95 03/28/22 05:52 FiO2 21 03/28/22 04:13 Intake & Output 03/27/22 03/28/22 03/28/22 18:59 06:59 18:59 Intake Total 600 Balance 600 Intake: Oral 600 Other: Voiding Method Toilet Toilet # Voids 3 1 - Exam GENERAL DESCRIPTION: An elderly female lying in bed in no distress RESPIRATORY SYSTEM: Unlabored breathing , decreased breath sounds at bases HEART: S1 S2 regular rate and rhythm , ABDOMEN: Soft , no tenderness EXTREMITIES: Lower extremities rash has decreased intensity no significant redness or drainage - Labs CBC & Chem 7: 03/27/22 06:09 03/27/22 06:09 Labs: Abnormal Lab Results - Last 24 Hours (Table) 03/27/22 03/27/22 03/28/22 Range/Units 17:14 19:43 07:04 POC Glucose (mg/dL) 173 H 266 H 117 H (70-110) mg/dL 03/28/22 Range/Units 11:23 POC Glucose (mg/dL) 340 H (70-110) mg/dL Microbiology - Last 24 Hours (Table) 03/23/22 17:45 Blood Culture - Preliminary Blood No Growth after 96 hours 03/23/22 17:45 Blood Culture - Preliminary Blood No Growth after 96 hours Assessment and Plan (1) Urinary tract infection Current Visit: Yes Status: Acute Code(s): N39.0 - URINARY TRACT INFECTION, SITE NOT SPECIFIED SNOMED Code(s): 22813597 (2) Rash Current Visit: No Status: Acute Code(s): R21 - RASH AND OTHER NONSPECIFIC SKIN ERUPTION SNOMED Code(s): 380060175 Plan: 1patient with a rash involving mostly lower extremity concerning for possible vasculitis/drug reaction clinically not behaving as shingles in this patient who do have a history of shingles involving the left lower abdominal area and the patient has received shingles vaccine since then. 2positive UA mild symptoms concerning for possible UTI however the urine cu ltures came back negative and Rocephin has been discontinued, there is no need for any antibiotic so discharge discussed with the [facility] for admitting team 3patient has shown clinical improvement as for as the rash is concerned and will continue with the prednisone and close outpatient follow-up Time with Patient: Less than 30
--- NOTE | 2022-03-28 12:33 | P.DS ---
Providers Date of admission: 03/23/22 19:08 Expected date of discharge: 03/28/22 Attending physician: Yasmeen Mata Consults: 03/23/22 19:08 Consult Physician Urgent Consulting Provider: Rocky Chi Consult Reason/Comments: History of breast cancer, vasculitis Do you want consulting provider notified?: Yes 03/24/22 07:05 Consult Physician Urgent Consulting Provider: Maggie Flor Consult Reason/Comments: Acute on CKD, hyponatremia Do you want consulting provider notified?: Yes 03/24/22 09:54 Consult Physician Routine Consulting Provider: Christa Root Consult Reason/Comments: skin rash, possible vasculitis Do you want consulting provider notified?: Yes 03/24/22 09:55 Consult Physician Routine Consulting Provider: Ed Mcguire Consult Reason/Comments: poss UTI, skin rash ? dissem zoster Do you want consulting provider notified?: Yes Primary care physician: Jeny Gastelum - Discharge Diagnosis(es) (1) Acute renal failure Current Visit: Yes Status: Acute Hospital Course: Discharge diagnoses purpura like rash of the lower extremities and to a lesser extent of the upper extremities Acute kidney injury on chronic kidney disease Acute urinary tract infection Chronic kidney disease stage III b hypervolemic hyponatremia Hypertension, type I Diabetes mellitus History of depression History of vasculitis History of left breast cancer and history of right breast lumpectomy Nicotine dependence Obesity with BMI of 34.8 Plan: hold SANDRA inhibitor and diuretics Hold Doxazocin and Aldactone. Started on Norvasc Discussed with rheumatology, they recommended discharging patient on prednisone 30 mg daily. Outpatient follow-up Hospital course This is a pleasant 72 years old female with past medical history of depression, hypertension, diabetes mellitus, history of vasculitis, history of left breast cancer on 09/2021, chronic kidney disease stage III, nicotine dependence. Patient has recently diagnosed with breast cancer on 09/2021, she was given her chemotherapy with Dr. Chi, this is the first chemo therapy finished on 03/04 with few weeks apart between 1 second one another. Monday night about 6 days ago she started having some leg rash, and by Monday she developed some pain in her legs so she decided to come to emergency room on 03/21, she is seen by Dr. Arreguin and neck cancer with vasculitic rash and she was prescribed prednisone with recommendation to follow up with PCP Dr. Gastelum whom she saw Monday and he ordered some tests before he calls her yesterday and asked her to come to emergency room because of worsening kidney function, hyponatremia and hyperkalemia. Currently patient is still complaining from right leg pain, swelling and confluent macular rash in the lower extremity especially posteriorly and to some extent in the back of her upper extremities as well. No much in the extremities. No most or genital ulcers reported. She is afebrile and hemodynamically stable area is oxygen saturating 93-94% on room air. Labs: Hemoglobin 10.8, elevated neutrophil count at 8.6. INR is normal. Sodium is 128, potassium 5.4 which is elevated. Creatinine is high at 1.9, compared to baseline of 1.4-1.6 urinalysis is suspicious for infection coronavirus not detected Chest x-ray: Small bilateral pleural effusion with adjacent atelectasis or consolidation. Mild pulmonary vascular congestion EKG shows normal sinus rhythm at [address]-T change emergency room she received normal saline and ceftriaxone With oncology team been consulted 03/25/2022 Patient feels better today, her rash looks less extensive in the lower extremities. She still complains from edema. He related to observe improvement. Her diarrhea stopped and she does not have bowel movement since admission. We checked also had a bladder scan was low 11-30 mL. Workup showing improvement in her creatinine, potassium sodium. He continued on ceftriaxone, prednisone and normal saline 75 mL per hour 03/26/2022 pt is feeling much better today that she wanted to go home , he rash and elects significantly improved. Her arms does not have a rash anymore. She feels well. She denies chest pain or dyspnea. No abdominal pain or vomiting or diarrhea. No urinary complaints. She tolerates diet well. Glucose is controlled. Sodium 137, potassium normal. Creatinine improved to 1.5. IV fluid was discontinued and hydro plant operator found her stable to follow up as an outpatient. However on reviewing she has troponin her hemoglobin 10.8 on admission, down to 9.5, down to 8.3. Her lupus exam is positive rheumatology team on the case Urine culture is negative and there is no evidence of infection and therefore ceftriaxone was discontinued 03/27/2022 Patient improving slowly and gradually. She feels better today. Her rash is improving as well. She remains on prednisone 20 mg twice daily. Her kidney function is also improving down to 1.3, SANDRA inhibitor remains on hold. Also normal saline has been stopped. Urine culture is negative and ceftriaxone was discontinued. No more urinary symptoms. Further serology work up is pending Glucose relatively controlled. And Norvasc for better blood pressure control 03/28 took over care. Discuss with rheumatology, they recommended discharging patient on prednisone 30 mg daily for 7 days, they will follow up outpatient and adjust prednisone as needed. ID recommended no antibiotics at this time. Norva started for blood pressure control by nephrology. Patient being discharged in stable condition Patient Condition at Discharge: Good Plan - Discharge Summary Discharge Rx Participant: No New Discharge Prescriptions: New amLODIPine [Norvasc] 5 mg PO DAILY #30 tab predniSONE 30 mg PO DAILY #21 tab Metoprolol Succinate (ER) [Toprol XL] 25 mg PO BID #60 tab Continue Amitriptyline HCl 50 mg PO HS Ascorbic Acid [Vitamin C] 500 mg PO DAILY polyethylene glycoL 3350 [Clearlax] 17 gm PO HS Omeprazole 20 mg PO DAILY HYDROcodone/APAP 7.5-325MG [[place] 7.5-325] 1 tab PO Q6HR PRN 3 Days #12 tab PRN Reason: Pain Psyllium Husk [Metamucil] 0.4 gm PO HS Cholecalciferol [Vitamin D3 (25 Mcg = 1000 Iu)] 25 mcg PO DAILY Glucagon Emergency Kit 1 mg SQ ONCE PRN PRN Reason: LOW BLOOD SUGAR Levothyroxine Sodium [Synthroid] 100 mcg PO DAILY Levothyroxine Sodium [Synthroid] 88 mcg PO DAILY Insulin Glargine,Hum.rec.anlog [Lantus Solostar Pen] See Protocol SQ HS Insulin Aspart [NovoLOG Flexpen] See Protocol SQ AC-TID Discontinued Metoprolol Succinate (ER) [Toprol XL] 100 mg PO BID Doxazosin Mesylate [Cardura Xl] 8 mg PO HS Spironolactone 12.5 mg PO BID Bumetanide [BUMEX] 2 mg PO DAILY predniSONE [Deltasone] 20 mg PO BID #14 tab Benazepril [Lotensin] 5 mg PO HS Discharge Medication List Amitriptyline HCl 50 mg PO HS 01/14/18 [History] Ascorbic Acid [Vitamin C] 500 mg PO DAILY 01/14/18 [History] Omeprazole 20 mg PO DAILY 09/19/19 [History] polyethylene glycoL 3350 [Clearlax] 17 gm PO HS 09/19/19 [History] Cholecalciferol [Vitamin D3 (25 Mcg = 1000 Iu)] 25 mcg PO DAILY 10/21/21 [History] Glucagon Emergency Kit 1 mg SQ ONCE PRN 01/25/22 [History] Levothyroxine Sodium [Synthroid] 100 mcg PO DAILY 01/25/22 [History] HYDROcodone/APAP 7.5-325MG [[place] 7.5-325] 1 tab PO Q6HR PRN 3 Days #12 tab 03/21/22 [Rx] Insulin Aspart [NovoLOG Flexpen] See Protocol SQ AC-TID 03/23/22 [History] Insulin Glargine,Hum.rec.anlog [Lantus Solostar Pen] See Protocol SQ HS 03/23/22 [History] Levothyroxine Sodium [Synthroid] 88 mcg PO DAILY 03/23/22 [History] Psyllium Husk [Metamucil] 0.4 gm PO HS 03/23/22 [History] Metoprolol Succinate (ER) [Toprol XL] 25 mg PO BID #60 tab 03/28/22 [Rx] amLODIPine [Norvasc] 5 mg PO DAILY #30 tab 03/28/22 [Rx] predniSONE 30 mg PO DAILY #21 tab 03/28/22 [Rx] Follow up Appointment(s)/Referral(s): Rocky Chi MD [STAFF PHYSICIAN] - 05/20/22 9:15 am Jeny Gastelum DO [Primary Care Provider] - 1-2 days Christa Root MD [STAFF PHYSICIAN] - 3 Days Discharge Disposition: HOME SELF-CARE
[2022-03-28] MEDS ORDERED: INSULIN DETEMIR (LEVEMIR) 100 UNIT/ML SYR SQ SCH (21:00)
== END 2022-03-28 14:31 | disposition home or self-care (01) | DRG 546 ==
LOC: EC 15:40 → 5NMEDONC 19:08
PROVIDERS: ADMIT Hospitalist; ATTEND Hospitalist
DX: I77.6 Arteritis, unspecified (principal); E87.1 Hypo-osmolality and hyponatremia; N17.9 Acute kidney failure, unspecified; L97.911 Non-pressure chronic ulcer of unspecified part of right lower leg limited to breakdown of skin; L97.921 Non-pressure chronic ulcer of unspecified part of left lower leg limited to breakdown of skin; N39.0 Urinary tract infection, site not specified; E10.40 Type 1 diabetes mellitus with diabetic neuropathy, unspecified; E10.22 Type 1 diabetes mellitus with diabetic chronic kidney disease; N18.32 Chronic kidney disease, stage 3b; E66.9 Obesity, unspecified; F32.A Depression, unspecified; I12.9 Hypertensive chronic kidney disease with stage 1 through stage 4 chronic kidney disease, or unspecified chronic kidney disease; D69.2 Other nonthrombocytopenic purpura; E87.70 Fluid overload, unspecified; M79.604 Pain in right leg; F17.210 Nicotine dependence, cigarettes, uncomplicated; Z66 Do not resuscitate; T45.1X5A Adverse effect of antineoplastic and immunosuppressive drugs, initial encounter; D50.9 Iron deficiency anemia, unspecified; T38.0X5A Adverse effect of glucocorticoids and synthetic analogues, initial encounter; I95.9 Hypotension, unspecified; E87.5 Hyperkalemia; G89.29 Other chronic pain; M54.50 Low back pain, unspecified; R53.1 Weakness; R05.3 Chronic cough; R60.0 Localized edema; Z20.822 Contact with and (suspected) exposure to COVID-19; Z85.3 Personal history of malignant neoplasm of breast; Z68.34 Body mass index [BMI] 34.0-34.9, adult; Z92.21 Personal history of antineoplastic chemotherapy; Z79.4 Long term (current) use of insulin; Z79.899 Other long term (current) drug therapy; Z79.890 Hormone replacement therapy; Z88.0 Allergy status to penicillin; Z88.8 Allergy status to other drugs, medicaments and biological substances; Z88.1 Allergy status to other antibiotic agents; Z92.3 Personal history of irradiation; Z86.19 Personal history of other infectious and parasitic diseases; Z87.81 Personal history of (healed) traumatic fracture; Z98.51 Tubal ligation status; Z80.9 Family history of malignant neoplasm, unspecified; Z98.890 Other specified postprocedural states; Z17.0 Estrogen receptor positive status [ER+]; Z98.49 Cataract extraction status, unspecified eye; Z87.19 Personal history of other diseases of the digestive system
CPT/HCPCS: 36415; 71046; 76770; 80048; 80053; 80076; 81001; 82164; 82272; 82607; 82668; 82728; 82746; 83036; 83516; 83540; 83550; 83605; 83615; 83735; 83880; 83921; 84132; 84145; 85025; 85045; 85598; 85610; 85613; 85652; 85730; 85732; 86038; 86140; 86160; 86162; 86200; 86225; 86235; 86255; 86376; 86431; 86706; 86803; 87040; 87086; 87205; 87340; 87635; 93005; 94640; 94760; 96361; 96374; 99285

== ENCOUNTER 2022-03-31 08:32 | Inpatient (IN) | payer MEDICARE ==
[2022-03-31] MEDS ORDERED: FUROSEMIDE 10 MG/ML 4 ML VIAL IV STA ×2 (08:33→09:51)
--- NOTE | 2022-03-31 08:50 | ED ---
General Adult HPI - General Stated complaint: sob Time Seen by Provider: 03/31/22 08:33 Source: RN notes reviewed, old records reviewed - History of Present Illness Initial comments: Patient is a 72-year-old female with past medical history remarkable for vasculitis/breast cancer, last chemo treatment in the middle of February rebecca roximately 1 month ago, diabetes, hypertension, renal disease percents emergency Department complaining of shortness of breath for the last 4 days. Was discharged from the hospital after stay concerning for vasculitis, renal failure, urinary tract infection, as well as a rash. She states that since she has been home, she has stopped her Lasix as per advised by her health care providers.. Has become more short of breath at home. Has worsening lower extremity edema. Called EMS this morning with worsening shortness of breath. Denies any chest pain. Denies nausea vomiting, abdominal pain. Patient was found by EMS to be saturating in the 60 percents which had minimal improvement on CPAP. They brought her to the emergency department for further evaluation. Patient currently is complaining of shortness of breath. She is alert and oriented 4. She wishes to remain full code at this time. She does have decision-making capacity. Has no other acute complaints at this time. Does end orse a nonproductive cough. Is not on blood thinners. - Related Data Home Medications Medication Instructions Recorded Confirmed Amitriptyline HCl 50 mg PO HS 01/14/18 03/31/22 Ascorbic Acid [Vitamin C] 500 mg PO DAILY 01/14/18 03/31/22 Omeprazole 20 mg PO DAILY 09/19/19 03/31/22 polyethylene glycoL 3350 [Clearlax] 17 gm PO HS 09/19/19 03/31/22 Cholecalciferol [Vitamin D3 (25 25 mcg PO DAILY 10/21/21 03/31/22 Mcg = 1000 Iu)] Glucagon Emergency Kit 1 mg SQ ONCE PRN 01/25/22 03/31/22 Levothyroxine Sodium [Synthroid] 100 mcg PO DAILY 01/25/22 03/31/22 Insulin Aspart [NovoLOG Flexpen] See Protocol SQ AC-TID 03/23/22 03/31/22 Insulin Glargine,Hum.rec.anlog 1 dose SQ HS 03/23/22 03/31/22 [Lantus Solostar Pen] Levothyroxine Sodium [Synthroid] 88 mcg PO DAILY 03/23/22 03/31/22 Psyllium Husk [Metamucil] 0.4 gm PO HS 03/23/22 03/31/22 Albuterol Sulfate [Albuterol 2 puff INHALATION RT-QID PRN 03/31/22 03/31/22 Sulfate Hfa] Fluticasone/Umeclidin/Vilanter 1 puff INHALATION RT-DAILY 03/31/22 03/31/22 [Trelegy Ellipta 100-62.5-25] Previous Rx's Medication Instructions Recorded HYDROcodone/APAP 7.5-325MG [[place] 1 tab PO Q6HR PRN 3 Days #12 tab 03/21/22 7.5-325] Metoprolol Succinate (ER) [Toprol 25 mg PO BID #60 tab 03/28/22 XL] amLODIPine [Norvasc] 5 mg PO DAILY #30 tab 03/28/22 predniSONE 30 mg PO DAILY #21 tab 03/28/22 Allergies Allergy/AdvReac Type Severity Reaction Status Date / Time pregabalin [From Lyrica] Allergy Swelling Verified 03/31/22 09:54 terbinafine [From Lamisil] Allergy Itching Verified 03/31/22 09:54 amoxicillin AdvReac yeast Verified 03/31/22 09:54 infection cephalexin [From Keflex] AdvReac yeast Verified 03/31/22 09:54 infection Review of Systems ROS Statement: Those systems with pertinent positive or pertinent negative responses have been documented in the HPI. Review of Systems: CONST: Denies fever EYES: Denies blurry vision ENT: Denies nasal congestion C/V: Denies Chest pain RESP: Endorses shortness of breath GI: Denies abdominal pain : Denies dysuria SKIN: Denies rash. MSK: Denies joint pain. NEURO: Denies headache ROS Other: All systems not noted in ROS Statement are negative. Past Medical History Past Medical History: Cancer, Diabetes Mellitus, Hypertension, Renal Disease Additional Past Medical History / Comment(s): left breast CA dx September 2021,neuropathy,hx rt breast CA-dx 2013-radiation no chemo,Stg 3 Kidney Disease,sepsis 40 yrs ago, type 1 diabetic History of Any Multi-Drug Resistant Organisms: None Reported Past Surgical History: Breast Surgery, Orthopedic Surgery, Tubal Ligation Additional Past Surgical History / Comment(s): rt breast lumpectomy,ORIF rt lower leg Past Anesthesia/Blood Transfusion Reactions: Previous Problems w/ Anesthesia Additional Past Anesthesia/Blood Transfusion Reaction / Comment(s): hyperventilated coming out of anesthesia years ago-no problems with surgeries after that Past Psychological History: No Psychological Hx Reported Smoking Status: Current every day smoker Past Alcohol Use History: Daily Additional Past Alcohol Use History / Comment(s): started smoking at age 17,>1 1/2ppd Past Drug Use History: None Reported - Past Family History Mother Family Medical History: Cancer Father Family Medical History: Cancer General Exam - General Exam Comments Initial Comments: General: Appears in no acute distress. HEAD: Normal with no signs of head trauma. EYES: PERRLA, EOMI, conjunctiva normal, no discharge. ENT: Hearing grossly intact, normal oropharynx. RESPIRATORY: Bilateral crackles in both lung garber. Tachypnea. Hypoxia on room air. C/V: Regular rate and rhythm. S1 and S2 auscultated. 3+ to 4+ pitting edema bilateral lower extremities up to the level of the knee. Peripheral pulses 2+ and intact throughout. ABD: Abd is soft, nontender, nondistended EXT: Normal range of motion, no obvious deformity SKIN: No rashes or lesions observed on exposed skin. NEURO: Alert and oriented 4. No focal deficits. Course Vital Signs 03/31/22 03/31/22 03/31/22 08:33 08:38 08:45 Temperature 98.8 F Pulse Rate 113 H 102 H Respiratory 22 24 Rate Blood Pressure 146/82 160/82 O2 Sat by Pulse 80 L 95 Oximetry Fraction of 100 Inspired Oxygen (FIO2) 03/31/22 03/31/22 03/31/22 09:15 09:30 09:45 Temperature Pulse Rate 99 96 93 Respiratory 30 H 28 H 28 H Rate Blood Pressure 153/75 147/74 138/71 O2 Sat by Pulse 96 95 96 Oximetry Fraction of 100 Inspired Oxygen (FIO2) 03/31/22 03/31/22 03/31/22 10:00 10:15 10:30 Temperature Pulse Rate 90 90 88 Respiratory 26 H 28 H 24 Rate Blood Pressure 129/66 122/62 129/66 O2 Sat by Pulse 96 96 95 Oximetry Fraction of Inspired Oxygen (FIO2) 03/31/22 03/31/22 10:45 11:00 Temperature Pulse Rate 87 88 Respiratory 24 26 H Rate Blood Pressure 122/65 121/63 O2 Sat by Pulse 97 96 Oximetry Fraction of Inspired Oxygen (FIO2) Medical Decision Making - Medical Decision Making Based on the patient's presentation and physical exam, I'm concerned for acute respiratory failure, likely secondary to pulmonary vascular congestion and possible heart failure. She has been off her Lasix since discharge and has had worsening shortness breath over that time. His crackles, signs of volume overload on exam including lower extremity edema, hypoxia on room air. She is placed in trauma bay 2. She was immediately transferred to the [facility] with respiratory at bedside. Oxygen saturations improved to the mid 90% on BiPAP. Remainder the vital signs are within normal limits. We'll continue to monitor respiratory status and obtain a cardiopulmonary laboratory studies including chest x-ray, EKG, troponin, BNP, d-dimer. She was in agreement with this plan. With the patient's history of cancer and age, did discuss CODE STATUS with the patient. She is alert and oriented 4 and has decision-making capability's. At this time, on presentation, she wishes to remain full code. On reevaluation following approximatley 15-20min on BIPAP, patient's saturations are in the mid 90s. Tachypnea is improving. Vital signs are normalizing as well. She appears more comfortable. I updated her that based on her chest x- ray it does appear she likely is experiencing volume overload. We'll continue to monitor her status. EKG shows no signs of acute ischemia.Chest x-ray shows diffuse pulmonary edema versus ARDS versus infectious process. Laboratory studies are remarkable for mild leukocytosis 14.2. Patient is a chronic macrocytic anemia with hemoglobin of 9.4 which is chronic for the patient. Patient's d-dimer is elevated 6.39. ABG was obtained and shows a mild respiratory acidosis with pCO2 of 48, pH is 7.28. PO2 is 82. Bicarb is within normal limits at 23. Patient's mildly hyperkalemic at 5.3. Patient has CK D with the amount of 68 and creatinine of 2.07 which appears slightly worse than baseline. Patient is an elevated tro ponin of 0.704 and BNP of 13,800. Elevated troponin is likely secondary to hypoxia at home as well as the CHF. She never had chest pain. EKG within normal limits. We'll continue to trend. We'll start on subcutaneous heparin at this time. Covid influenza negative. After the patient results of her laboratory studies and imaging. She'll be started empirically on antibiotics. She'll continue BiPAP at this time. She was given a total of 80 of Lasix and started on 40 mg twice a day. I expect her that her symptoms are likely secondary to volume overload state based on chest x-ray in symptoms. She has exertional dyspnea, pulmonary edema, lower extremity edema, hypoxia. She is doing much improved on BiPAP. Tachypnea has resolved. Saturations are within normal limits. Vital signs otherwise remain within normal limits. We will order a nuclear med perfusion scan, however I do not be lieve that a heparin drip as needed at this time. We'll trend the troponin which should downtrend as she maintains proper oxygen saturations. I do not have concern for ACS at this time. Lower concern for PE at this time as well as she does have a history of cancer and is chronically elevated d-dimer. Symptoms are likely secondary to volume overload state but nuclear med scan will be obtained. Patient was in agreement this plan. Pulmonology and cardiology will be consulted. Echo will be obtained. I spoke with the admitting physician, Dr. Mayfield who was in agreement with this plan. - Lab Data Result diagrams: 03/31/22 08:39 03/31/22 08:39 Lab Results 03/31/22 03/31/22 03/31/22 Range/Units 08:39 08:39 08:39 WBC 14.2 H (3.8-10.6) k/uL RBC 2.86 L (3.80-5.40) m/uL Hgb 9.4 L (11.4-16.0) gm/dL Hct 30.3 L (34.0-46.0) % MCV 105.7 H (80.0-100.0) fL MCH 32.9 (25.0-35.0) pg MCHC 31.1 (31.0-37.0) g/dL RDW 16.7 H (11.5-15.5) % Plt Count 241 (150-450) k/uL MPV 7.8 Neutrophils % 84 % Lymphocytes % 8 % Monocytes % 7 % Eosinophils % 1 % Basophils % 0 % Neutrophils # 11.9 H (1.3-7.7) k/uL Lymphocytes # 1.1 (1.0-4.8) k/uL Monocytes # 1.0 (0-1.0) k/uL Eosinophils # 0.1 (0-0.7) k/uL Basophils # 0.0 (0-0.2) k/uL Manual Slide Review Performed Polychromasia Present Hypochromasia Moderate Poikilocytosis (manual Present Anisocytosis Slight Macrocytosis Marked A PT 10.3 (9.0-12.0) sec INR 0.9 (<1.2) APTT 20.2 L (22.0-30.0) sec D-Dimer 6.39 H (<0.60) mg/L FEU Sample Site ABG pH (7.35-7.45) ABG pCO2 (35-45) mmHg ABG pO2 (83-108) mmHg ABG HCO3 (21-25) mmol/L ABG Total CO2 (19-24) mmol/L ABG O2 Saturation (94-97) % ABG Base Excess mmol/L ABG Hematocrit (34.0-46.0) % Inderjit Test Hemoglobin (11.4-16.0) gm/dL FiO2 % Sodium 132 L (137-145) mmol/L Potassium 5.3 H (3.5-5.1) mmol/L Chloride 102 (98-107) mmol/L Carbon Dioxide 23 (22-30) mmol/L Anion Gap 7 mmol/L BUN 68 H (7-17) mg/dL Creatinine 2.07 H (0.52-1.04) mg/dL Est GFR (CKD-EPI)AfAm 27 (>60 ml/min/1.73 sqM) Est GFR (CKD-EPI)NonAf 24 (>60 ml/min/1.73 sqM) Glucose 154 H (74-99) mg/dL Plasma Lactic Acid Alfredo (0.7-2.0) mmol/L Calcium 8.1 L (8.4-10.2) mg/dL Magnesium 2.0 (1.6-2.3) mg/dL Total Bilirubin 1.0 (0.2-1.3) mg/dL AST 30 (14-36) U/L ALT 29 (4-34) U/L Alkaline Phosphatase 74 (38-126) U/L Troponin I (0.000-0.034) ng/mL NT-Pro-B Natriuret Pep pg/mL Total Protein 5.4 L (6.3-8.2) g/dL Albumin 3.1 L (3.5-5.0) g/dL Coronavirus (PCR) (Not Detectd) Influenza Type A RNA (Not Detectd) Influenza Type B (PCR) (Not Detectd) 03/31/22 03/31/22 03/31/22 Range/Units 08:39 08:39 08:39 WBC (3.8-10.6) k/uL RBC (3.80-5.40) m/uL Hgb (11.4-16.0) gm/dL Hct (34.0-46.0) % MCV (80.0-100.0) fL MCH (25.0-35.0) pg MCHC (31.0-37.0) g/dL RDW (11.5-15.5) % Plt Count (150-450) k/uL MPV Neutrophils % % Lymphocytes % % Monocytes % % Eosinophils % % Basophils % % Neutrophils # (1.3-7.7) k/uL Lymphocytes # (1.0-4.8) k/uL Monocytes # (0-1.0) k/uL Eosinophils # (0-0.7) k/uL Basophils # (0-0.2) k/uL Manual Slide Review Polychromasia Hypochromasia Poikilocytosis (manual Anisocytosis Macrocytosis PT (9.0-12.0) sec INR (<1.2) APTT (22.0-30.0) sec D-Dimer (<0.60) mg/L FEU Sample Site ABG pH (7.35-7.45) ABG pCO2 (35-45) mmHg ABG pO2 (83-108) mmHg ABG HCO3 (21-25) mmol/L ABG Total CO2 (19-24) mmol/L ABG O2 Saturation (94-97) % ABG Base Excess mmol/L ABG Hematocrit (34.0-46.0) % Inderjit Test Hemoglobin (11.4-16.0) gm/dL FiO2 % Sodium (137-145) mmol/L Potassium (3.5-5.1) mmol/L Chloride (98-107) mmol/L Carbon Dioxide (22-30) mmol/L Anion Gap mmol/L BUN (7-17) mg/dL Creatinine (0.52-1.04) mg/dL Est GFR (CKD-EPI)AfAm (>60 ml/min/1.73 sqM) Est GFR (CKD-EPI)NonAf (>60 ml/min/1.73 sqM) Glucose (74-99) mg/dL Plasma Lactic Acid Alfredo 1.3 (0.7-2.0) mmol/L Calcium (8.4-10.2) mg/dL Magnesium (1.6-2.3) mg/dL Total Bilirubin (0.2-1.3) mg/dL AST (14-36) U/L ALT (4-34) U/L Alkaline Phosphatase (38-126) U/L Troponin I 0.704 H* (0.000-0.034) ng/mL NT-Pro-B Natriuret Pep 80593 pg/mL Total Protein (6.3-8.2) g/dL Albumin (3.5-5.0) g/dL Coronavirus (PCR) (Not Detectd) Influenza Type A RNA (Not Detectd) Influenza Type B (PCR) (Not Detectd) 03/31/22 03/31/22 03/31/22 Range/Units 08:39 08:39 08:55 WBC (3.8-10.6) k/uL RBC (3.80-5.40) m/uL Hgb (11.4-16.0) gm/dL Hct (34.0-46.0) % MCV (80.0-100.0) fL MCH (25.0-35.0) pg MCHC (31.0-37.0) g/dL RDW (11.5-15.5) % Plt Count (150-450) k/uL MPV Neutrophils % % Lymphocytes % % Monocytes % % Eosinophils % % Basophils % % Neutrophils # (1.3-7.7) k/uL Lymphocytes # (1.0-4.8) k/uL Monocytes # (0-1.0) k/uL Eosinophils # (0-0.7) k/uL Basophils # (0-0.2) k/uL Manual Slide Review Polychromasia Hypochromasia Poikilocytosis (manual Anisocytosis Macrocytosis PT (9.0-12.0) sec INR (<1.2) APTT (22.0-30.0) sec D-Dimer (<0.60) mg/L FEU Sample Site Left Radial ABG pH 7.28 L (7.35-7.45) ABG pCO2 48 H (35-45) mmHg ABG pO2 82 L (83-108) mmHg ABG HCO3 23 (21-25) mmol/L ABG Total CO2 24 (19-24) mmol/L ABG O2 Saturation 95.5 (94-97) % ABG Base Excess -4.0 mmol/L ABG Hematocrit 28 L (34.0-46.0) % Inderjit Test Yes Hemoglobin 9.1 L (11.4-16.0) gm/dL FiO2 100 % Sodium (137-145) mmol/L Potassium (3.5-5.1) mmol/L Chloride (98-107) mmol/L Carbon Dioxide (22-30) mmol/L Anion Gap mmol/L BUN (7-17) mg/dL Creatinine (0.52-1.04) mg/dL Est GFR (CKD-EPI)AfAm (>60 ml/min/1.73 sqM) Est GFR (CKD-EPI)NonAf (>60 ml/min/1.73 sqM) Glucose (74-99) mg/dL Plasma Lactic Acid Alfredo (0.7-2.0) mmol/L Calcium (8.4-10.2) mg/dL Magnesium (1.6-2.3) mg/dL Total Bilirubin (0.2-1.3) mg/dL AST (14-36) U/L ALT (4-34) U/L Alkaline Phosphatase (38-126) U/L Troponin I (0.000-0.034) ng/mL NT-Pro-B Natriuret Pep pg/mL Total Protein (6.3-8.2) g/dL Albumin (3.5-5.0) g/dL Coronavirus (PCR) Not Detected (Not Detectd) Influenza Type A RNA Not Detected (Not Detectd) Influenza Type B (PCR) Not Detected (Not Detectd) - EKG Data -: EKG Interpreted by Me EKG Comments: 12-lead Electrocardiogram Interpretation Note EKG was reviewed and interpreted by myself. 12-lead ECG performed at 0841 is interpreted by me as revealing sinus tachycardia at a rate of 106 beats per minute. [place] is normal. ID interval is 170 ms, QRS duration is 80 ms, QTc is [address] segment depression isolated in V5. There were no acute ST or T wave abnormalities to suggest myocardial ischemia or injury. R wave progression across the precordium was satisfactory. By my interpretation this EKG is non-diagnostic for acute ischemia. Critical Care Time Critical Care Time: Yes Total Critical Care Time: 35 Critical Care Time: Upon my evaluation, this patient had a high probability of imminent or life-threatening deterioration due to acute hypoxic respiratory failure requiring noninvasive positive pressure ventilation, volume overload state concern for CHF, pulmonary edema, possible pneumonia, which required my direct attention, intervention, and personal management. I have personally provided 35 minutes of critical care time exclusive of time spent on separately billable procedures. Time includes review of laboratory data, radiology results, discussion with consultants, and monitoring for potential decompensation. Interventions were performed as documented in my note. Disposition Clinical Impression: Acute respiratory failure with hypoxia, Volume overload state of heart, Elevated troponin, Acute kidney injury superimposed on CKD, BiPAP (biphasic positive airway pressure) dependence, Elevated d-dimer, History of breast cancer Disposition: ADMITTED IP TO THIS HOSP Condition: Serious Time of Disposition: 10:00
[2022-03-31 08:58] LABS: ABG HCO3 23 mmol/L (21-25); ABG Hematocrit 28 % (34.0-46.0); ABG Oxygen Saturation 95.5 % (94-97); ABG PCO2 48 mmHg (35-45); ABG PH 7.28 (7.35-7.45); ABG PO2 82 mmHg (83-108); ABG TCO2 24 mmol/L (19-24); Allen Test Performed? Yes
[2022-03-31 09:01] LABS: Anisocytosis Slight; Basophils % (A) 0 %; Eosinophils # (A) 0.1 k/uL (0-0.7); Eosinophils % (A) 1 %; HCT 30.3 % (34.0-46.0); HGB 9.4 gm/dL (11.4-16.0); Hypochromasia Moderate; Lymphocytes # (A) 1.1 k/uL (1.0-4.8); Lymphocytes % (A) 8 %; MCH 32.9 pg (25.0-35.0); MCHC 31.1 g/dL (31.0-37.0); MCV 105.7 fL (80.0-100.0); Macrocytosis Marked; Mean Platelet Volume 7.8; Monocytes % (A) 7 %; Neutrophils # (A) 11.9 k/uL (1.3-7.7); Neutrophils % (A) 84 %; Platelet Count 241 k/uL (150-450); RBC 2.86 m/uL (3.80-5.40); RDW 16.7 % (11.5-15.5); WBC 14.2 k/uL (3.8-10.6)
--- NOTE | 2022-03-31 09:09 | XR ---
EXAMINATION TYPE: XR chest 1V portable DATE OF EXAM: 03/31/2022 COMPARISON: Chest x-ray 8 days earlier HISTORY: Difficulty in breathing. TECHNIQUE: Single AP portable frontal upright view of the chest is obtained. FINDINGS: Increased opacities bilaterally are now present. Cardiomegaly redemonstrated. Small bilate ral pleural effusions remain present. The osseous structures are intact. IMPRESSION: Diffuse and/or multifocal bilateral edema and/or infiltrates now present. Cardiomegaly w ith small bilateral pleural effusions again seen and stable. Correlate clinically. Covid-19 infection and ARDS is in differential versus progressive CHF exacerbation.
[2022-03-31 09:19] LABS: Albumin 3.1 g/dL (3.5-5.0); Calcium 8.1 mg/dL (8.4-10.2); Potassium 5.3 mmol/L (3.5-5.1); Total Protein 5.4 g/dL (6.3-8.2)
[2022-03-31 09:20] LABS: INR 0.9 (<1.2); Prothrombin Time 10.3 sec (9.0-12.0)
[2022-03-31 09:25] LABS: Partial Thromboplastin Time 20.2 sec (22.0-30.0)
[2022-03-31 09:27] LABS: Poikilocytosis (M) Present; Polychromasia Present
[2022-03-31] MEDS ORDERED: AZTREONAM 2 GM in SODIUM CHLORIDE 0.9% 100 ML IVPB STA (09:46)
[2022-03-31] MEDS ORDERED: AZITHROMYCIN 500 MG in SODIUM CHLORIDE 0.9% 250 ML IVPB STA (09:46)
[2022-03-31] MEDS ORDERED: PNEUMONIA PROTOCOL UTILIZED 1 EACH MISC PO PRN (09:46)
[2022-03-31] MEDS ORDERED: ASPIRIN 81 MG PO STA (09:51)
[2022-03-31] MEDS ORDERED: NALOXONE 0.4 MG/ML 1 ML VIAL IV PRN (10:22)
[2022-03-31] MEDS ORDERED: HYDROcodone/APAP 7.5-325MG 1 EACH TAB PO PRN (11:03)
[2022-03-31] MEDS ORDERED: ALBUTEROL NEBULIZED 2.5 MG/3 ML INHALATION PRN (11:03)
--- NOTE | 2022-03-31 11:16 | P.HPIM ---
History of Present Illness 72-year-old pleasant female came in with complaints of shortness of breath found to be in heart failure patient has a extensive pulmonary edema with highly elevated BNP. Patient appears to have chronic diastolic dysfunction had a n ormal ejection fraction the past. Patient is presently on BiPAP patient has mild hypercapnia probably secondary to obesity patient is mostly hypoxic respiratory failure acute hypoxic respiratory failure doesn't use any oxygen at home. During her last hospitalization patient was treated for acute renal failure and at that time diuretics were discontinued and had acute renal failure was considered secondary to vasculitis because of which patient was discharged on steroids. Patient was comparing of some cough without any significant sputum production denied any dysuria doesn't have any fever does have mild leukocytosis. Patient does have history of breast cancer completed her chemotherapy recently never received any radiation therapy. Patient is mildly hyperkalemic with potassium of 5.3 and hyponatremic. REVIEW OF SYSTEMS: CONSTITUTIONAL: No fever, no malaise, no fatigue. HEENT: No recent visual problems or hearing problems. Denied any sore throat. CARDIOVASCULAR: No chest pain, orthopnea, PND, no palpitations, no syncope. PULMONARY: No shortness of breath, no cough, no hemoptysis. GASTROINTESTINAL: No diarrhea, no nausea, no vomiting, no abdominal pain. NEUROLOGICAL: No headaches, no weakness, no numbness. HEMATOLOGICAL: Denies any bleeding or petechiae. GENITOURINARY: Denies any burning micturition, frequency, or urgency. MUSCULOSKELETAL/RHEUMATOLOGICAL: Denies any joint pain, swelling, or any muscle pain. ENDOCRINE: Denies any polyuria or polydipsia. The rest of the 14-point review of systems is negative. PHYSICAL EXAMINATION: GENERAL: Patient is able to provide a good history is on BiPAP tachypneic without BiPAP. Obese HEENT: Pupils are round and equally reacting to light. EOMI. No scleral icterus. No conjunctival pallor. Normocephalic, atraumatic. No pharyngeal erythema. No thyromegaly. CARDIOVASCULAR: S1 and S2 present. No murmurs, rubs, or gallops. PULMONARY: Bilateral crackles on exam ABDOMEN: Soft, nontender, nondistended, normoactive bowel sounds. No palpable organomegaly. MUSCULOSKELETAL: No joint swelling or deformity. EXTREMITIES: No cyanosis, clubbing, or pedal edema. NEUROLOGICAL: Gross neurological examination did not reveal any focal deficits. SKIN: No rashes. Assessment and plan -Acute the hypoxic respiratory failure: Secondary to cut his heart failure chronic diastolic dysfunction with acute exacerbation patient is excessive or edema patient was started on IV Lasix will continue to monitor renal BiPAP. 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 have any chest pain neck sign-leukocytosis reactive -Breast cancer recently completed chemotherapy -Patient had a recent diagnosis of vasculitis although all the serologies are negative patient remains on prednisone which we'll continue and wean off as tolerated -Type 2 diabetes mellitus her long-acting insulin dose is not known will verify with the patient and patient will be started on that medication for now will patient will be continued on sliding scale insulin -Highly elevated d-dimer cannot get a computed tomography scan of the chest because of her renal function VQ scan is not going to be accurate because of her extensive pulmonary edema. Had hypoxia secondary to congestive heart failure will hold off on VQ scan. -Obesity with the possible sleep apnea contributing to her chronic hypercapnia DVT prophylaxis: Subcutaneous heparin Past Medical History Past Medical History: Cancer, Diabetes Mellitus, Hypertension, Renal Disease Additional Past Medical History / Comment(s): left breast CA dx September 2021,neuropathy,hx rt breast CA-dx 2013-radiation no chemo,Stg 3 Kidney Disease,sepsis 40 yrs ago, type 1 diabetic History of Any Multi-Drug Resistant Organisms: None Reported Past Surgical History: Breast Surgery, Orthopedic Surgery, Tubal Ligation Additional Past Surgical History / Comment(s): rt breast lumpectomy,ORIF rt lower leg Past Anesthesia/Blood Transfusion Reactions: Previous Problems w/ Anesthesia Additional Past Anesthesia/Blood Transfusion Reaction / Comment(s): hyperventilated coming out of anesthesia years ago-no problems with surgeries after that Past Psychological History: No Psychological Hx Reported Smoking Status: Current every day smoker Past Alcohol Use History: Daily Additional Past Alcohol Use History / Comment(s): started smoking at age 17,>1 1/2ppd Past Drug Use History: None Reported - Past Family History Mother Family Medical History: Cancer Father Family Medical History: Cancer Medications and Allergies Home Medications Medication Instructions Recorded Confirmed Type Amitriptyline HCl 50 mg PO HS 01/14/18 03/31/22 History Ascorbic Acid [Vitamin C] 500 mg PO DAILY 01/14/18 03/31/22 History Omeprazole 20 mg PO DAILY 09/19/19 03/31/22 History polyethylene glycoL 3350 [Clearlax] 17 gm PO HS 09/19/19 03/31/22 History Cholecalciferol [Vitamin D3 (25 25 mcg PO DAILY 10/21/21 03/31/22 History Mcg = 1000 Iu)] Glucagon Emergency Kit 1 mg SQ ONCE PRN 01/25/22 03/31/22 History Levothyroxine Sodium [Synthroid] 100 mcg PO DAILY 01/25/22 03/31/22 History HYDROcodone/APAP 7.5-325MG [[place] 1 tab PO Q6HR PRN 3 Days #12 tab 03/21/22 03/31/22 Rx 7.5-325] Insulin Aspart [NovoLOG Flexpen] See Protocol SQ AC-TID 03/23/22 03/31/22 History Insulin Glargine,Hum.rec.anlog 1 dose SQ HS 03/23/22 03/31/22 History [Lantus Solostar Pen] Levothyroxine Sodium [Synthroid] 88 mcg PO DAILY 03/23/22 03/31/22 History Psyllium Husk [Metamucil] 0.4 gm PO HS 03/23/22 03/31/22 History Metoprolol Succinate (ER) [Toprol 25 mg PO BID #60 tab 03/28/22 03/31/22 Rx XL] amLODIPine [Norvasc] 5 mg PO DAILY #30 tab 03/28/22 03/31/22 Rx predniSONE 30 mg PO DAILY #21 tab 03/28/22 03/31/22 Rx Albuterol Sulfate [Albuterol 2 puff INHALATION RT-QID PRN 03/31/22 03/31/22 History Sulfate Hfa] Fluticasone/Umeclidin/Vilanter 1 puff INHALATION RT-DAILY 03/31/22 03/31/22 History [[place] Ellipta 100-62.5-25] Allergies Allergy/AdvReac Type Severity Reaction Status Date / Time pregabalin [From Lyrica] Allergy Swelling Verified 03/31/22 09:54 terbinafine [From Lamisil] Allergy Itching Verified 03/31/22 09:54 amoxicillin AdvReac yeast Verified 03/31/22 09:54 infection cephalexin [From Keflex] AdvReac yeast Verified 03/31/22 09:54 infection Physical Exam Vitals: Vital Signs Temp Pulse Resp BP Pulse Ox FiO2 03/31/22 11:00 88 26 H 121/63 96 03/31/22 10:45 87 24 122/65 97 03/31/22 10:30 88 24 129/66 95 03/31/22 10:15 90 28 H 122/62 96 03/31/22 10:00 90 26 H 129/66 96 03/31/22 09:45 93 28 H 138/71 96 03/31/22 09:30 96 28 H 147/74 95 03/31/22 09:15 99 30 H 153/75 96 100 03/31/22 08:45 98.8 F 102 H 24 160/82 95 03/31/22 08:38 100 03/31/22 08:33 113 H 22 146/82 80 L Intake and Output 03/30/22 03/31/22 03/31/22 22:59 06:59 14:59 Other: Weight 116.483 kg Results CBC & Chem 7: 03/31/22 08:39 03/31/22 08:39 Labs: Abnormal Lab Results - Last 24 Hours (Table) 03/31/22 03/31/22 03/31/22 Range/Units 08:39 08:39 08:39 WBC 14.2 H (3.8-10.6) k/uL RBC 2.86 L (3.80-5.40) m/uL Hgb 9.4 L (11.4-16.0) gm/dL Hct 30.3 L (34.0-46.0) % MCV 105.7 H (80.0-100.0) fL RDW 16.7 H (11.5-15.5) % Neutrophils # 11.9 H (1.3-7.7) k/uL Macrocytosis Marked A APTT 20.2 L (22.0-30.0) sec D-Dimer 6.39 H (<0.60) mg/L FEU ABG pH (7.35-7.45) ABG pCO2 (35-45) mmHg ABG pO2 (83-108) mmHg ABG Hematocrit (34.0-46.0) % Hemoglobin (11.4-16.0) gm/dL Sodium 132 L (137-145) mmol/L Potassium 5.3 H (3.5-5.1) mmol/L BUN 68 H (7-17) mg/dL Creatinine 2.07 H (0.52-1.04) mg/dL Glucose 154 H (74-99) mg/dL Calcium 8.1 L (8.4-10.2) mg/dL Troponin I (0.000-0.034) ng/mL Total Protein 5.4 L (6.3-8.2) g/dL Albumin 3.1 L (3.5-5.0) g/dL 03/31/22 03/31/22 Range/Units 08:39 08:55 WBC (3.8-10.6) k/uL RBC (3.80-5.40) m/uL Hgb (11.4-16.0) gm/dL Hct (34.0-46.0) % MCV (80.0-100.0) fL RDW (11.5-15.5) % Neutrophils # (1.3-7.7) k/uL Macrocytosis APTT (22.0-30.0) sec D-Dimer (<0.60) mg/L FEU ABG pH 7.28 L (7.35-7.45) ABG pCO2 48 H (35-45) mmHg ABG pO2 82 L (83-108) mmHg ABG Hematocrit 28 L (34.0-46.0) % Hemoglobin 9.1 L (11.4-16.0) gm/dL Sodium (137-145) mmol/L Potassium (3.5-5.1) mmol/L BUN (7-17) mg/dL Creatinine (0.52-1.04) mg/dL Glucose (74-99) mg/dL Calcium (8.4-10.2) mg/dL Troponin I 0.704 H* (0.000-0.034) ng/mL Total Protein (6.3-8.2) g/dL Albumin (3.5-5.0) g/dL
[2022-03-31] MEDS ORDERED: IPRATROPIUM-ALBUTEROL 3 ML NEB INHALATION PRN (12:54)
--- NOTE | 2022-03-31 12:54 | P.CNPUL ---
History of Present Illness Consult date: 03/31/22 Requesting physician: Kaye Mayfield Reason for consult: dyspnea, hypoxemia, abnormal CXR/CT Chief complaint: Shortness of breath. History of present illness: Pulmonary consult dated 03/31/2022. 72-year-old female with history of breast cancer, diabetes, hypertension, chronic kidney disease, and neuropathy, who presents to the emergency department on March 31, complaining of shortness of breath. She apparently denied having shortness of breath for 3 or 4 days prior to admission. She denies any fever or chills. She does cough, but does not produce any phlegm. No chest pain or chest discomfort. She does have some lower extremity edema. Recently, her diuretic was placed on hold. She was seen in the emergency room, and admitted with a diagnosis of fluid overload. The patient was placed on BiPAP. Her BiPAP settings are 12/5 and 90%. Currently, she's not receiving any IV fluids. Blood gases show pO2 of 82, pCO2 48, and a pH is 7.28. Troponin was 0.704. BNP, was 13,800. Chest x-ray was consistent with CHF. White count 14.2, hemoglobin 9.4, hematocrit 30.3, platelet count 241,000. D-dimer was 6.39. Sodium 132, potassium 5.3, chlorides 102, CO2 23, BUN 68, and creatinine 2.07. Nasal swab for coronavirus was negative. Testing for influenza was also negative. Chest x-ray my opinion was consistent with cardiomegaly, diffuse bilateral infiltrates, with small bilateral effusions, i.e., CHF. Review of Systems REVIEW OF SYSTEMS: CONSTITUTIONAL: [Negative.] NEUROLOGIC: [ Negative.] HEENT: [ Negative.] CARDIAC: Shortness of breath. PULMONARY: Shortness of breath. GI: [Negative.] : [Negative.] RHEUMATOLOGIC: [ Negative.] IMMUNOLOGIC: [ Negative.] ENDOCRINE: [Negative. ] DERMATOLOGIC: Rash. Past Medical History Past Medical History: Cancer, Diabetes Mellitus, Hypertension, Renal Disease Additional Past Medical History / Comment(s): left breast CA dx September 2021,neuropathy,hx rt breast CA-dx 2013-radiation no chemo,Stg 3 Kidney Disease,sepsis 40 yrs ago, type 1 diabetic History of Any Multi-Drug Resistant Organisms: None Reported Past Surgical History: Breast Surgery, Orthopedic Surgery, Tubal Ligation Additional Past Surgical History / Comment(s): rt breast lumpectomy,ORIF rt lower leg Past Anesthesia/Blood Transfusion Reactions: Previous Problems w/ Anesthesia Additional Past Anesthesia/Blood Transfusion Reaction / Comment(s): hyperventilated coming out of anesthesia years ago-no problems with surgeries after that Past Psychological History: No Psychological Hx Reported Smoking Status: Current every day smoker Past Alcohol Use History: Daily Additional Past Alcohol Use History / Comment(s): started smoking at age 17,>1 1/2ppd Past Drug Use History: None Reported - Past Family History Mother Family Medical History: Cancer Father Family Medical History: Cancer Medications and Allergies Home Medications Medication Instructions Recorded Confirmed Type Amitriptyline HCl 50 mg PO HS 01/14/18 03/31/22 History Ascorbic Acid [Vitamin C] 500 mg PO DAILY 01/14/18 03/31/22 History Omeprazole 20 mg PO DAILY 09/19/19 03/31/22 History polyethylene glycoL 3350 [Clearlax] 17 gm PO HS 09/19/19 03/31/22 History Cholecalciferol [Vitamin D3 (25 25 mcg PO DAILY 10/21/21 03/31/22 History Mcg = 1000 Iu)] Glucagon Emergency Kit 1 mg SQ ONCE PRN 01/25/22 03/31/22 History Levothyroxine Sodium [Synthroid] 100 mcg PO DAILY 01/25/22 03/31/22 History HYDROcodone/APAP 7.5-325MG [[place] 1 tab PO Q6HR PRN 3 Days #12 tab 03/21/22 03/31/22 Rx 7.5-325] Insulin Aspart [NovoLOG Flexpen] See Protocol SQ AC-TID 03/23/22 03/31/22 History Insulin Glargine,Hum.rec.anlog 1 dose SQ HS 03/23/22 03/31/22 History [Lantus Solostar Pen] Levothyroxine Sodium [Synthroid] 88 mcg PO DAILY 03/23/22 03/31/22 History Psyllium Husk [Metamucil] 0.4 gm PO HS 03/23/22 03/31/22 History Metoprolol Succinate (ER) [Toprol 25 mg PO BID #60 tab 03/28/22 03/31/22 Rx XL] amLODIPine [Norvasc] 5 mg PO DAILY #30 tab 03/28/22 03/31/22 Rx predniSONE 30 mg PO DAILY #21 tab 03/28/22 03/31/22 Rx Albuterol Sulfate [Albuterol 2 puff INHALATION RT-QID PRN 03/31/22 03/31/22 History Sulfate Hfa] Fluticasone/Umeclidin/Vilanter 1 puff INHALATION RT-DAILY 03/31/22 03/31/22 History [Trelegy Ellipta 100-62.5-25] Allergies Allergy/AdvReac Type Severity Reaction Status Date / Time pregabalin [From Lyrica] Allergy Swelling Verified 03/31/22 09:54 terbinafine [From Lamisil] Allergy Itching Verified 03/31/22 09:54 amoxicillin AdvReac yeast Verified 03/31/22 09:54 infection cephalexin [From Keflex] AdvReac yeast Verified 03/31/22 09:54 infection Physical Exam Osteopathic Statement: *. No significant issues noted on an osteopathic structural exam other than those noted in the History and Physical/Consult. Vitals: Vital Signs Temp Pulse Pulse Resp BP BP Pulse Ox 03/31/22 12:35 98.5 F 88 33 H 125/69 91 L 03/31/22 11:12 03/31/22 11:00 88 26 H 121/63 96 03/31/22 10:45 87 24 122/65 97 03/31/22 10:30 88 24 129/66 95 03/31/22 10:15 90 28 H 122/62 96 03/31/22 10:00 90 26 H 129/66 96 03/31/22 09:45 93 28 H 138/71 96 03/31/22 09:30 96 28 H 147/74 95 03/31/22 09:15 99 30 H 153/75 96 03/31/22 08:45 98.8 F 102 H 24 160/82 95 03/31/22 08:38 03/31/22 08:33 113 H 22 146/82 80 L FiO2 03/31/22 12:35 90 03/31/22 11:12 90 03/31/22 11:00 03/31/22 10:45 03/31/22 10:30 03/31/22 10:15 03/31/22 10:00 03/31/22 09:45 03/31/22 09:30 03/31/22 09:15 100 03/31/22 08:45 03/31/22 08:38 100 03/31/22 08:33 Intake and Output 03/30/22 03/31/22 03/31/22 22:59 06:59 14:59 Other: Weight 116.483 kg Mild to moderate respiratory distress, currently on BiPAP, oriented 3. HEENT examination is grossly unremarkable. Neck supple. Full range of motion. No adenopathy thyromegaly or neck vein distention. Cardiovascular examination reveals regular rhythm rate. S1-S2 normal. No S3 or S4. No discernible murmur noted. Heart sounds are distant. Heart rate 88 bpm. Lungs reveal diffuse bilateral rhonchi, and basilar crackles. No wheezes. Breath sounds equal bilaterally. Saturations are 91% on BiPAP. Abdomen soft bowel sounds are heard. No masses or tenderness. Extremities are intact. Lower extremity edema is noted. No cyanosis or clubbing. Skin reveals a lower extremity rash. Neurologic examination is brief but nonfocal. Results - Laboratory Findings CBC and BMP: 03/31/22 08:39 03/31/22 08:39 ABG ABG pH 7.28 (7.35-7.45) L 03/31/22 08:55 ABG pCO2 48 mmHg (35-45) H 03/31/22 08:55 ABG pO2 82 mmHg (83-108) L 03/31/22 08:55 ABG O2 Saturation 95.5 % (94-97) 03/31/22 08:55 PT/INR, D-dimer PT 10.3 sec (9.0-12.0) 03/31/22 08:39 INR 0.9 (<1.2) 03/31/22 08:39 D-Dimer 6.39 mg/L FEU (<0.60) H 03/31/22 08:39 Abnormal lab findings: Abnormal Labs 03/31/22 03/31/22 03/31/22 08:39 08:39 08:39 WBC 14.2 H RBC 2.86 L Hgb 9.4 L Hct 30.3 L MCV 105.7 H RDW 16.7 H Neutrophils # 11.9 H Macrocytosis Marked A APTT 20.2 L D-Dimer 6.39 H ABG pH ABG pCO2 ABG pO2 ABG Hematocrit Hemoglobin Sodium 132 L Potassium 5.3 H BUN 68 H Creatinine 2.07 H Glucose 154 H Calcium 8.1 L Troponin I Total Protein 5.4 L Albumin 3.1 L 03/31/22 03/31/22 08:39 08:55 WBC RBC Hgb Hct MCV RDW Neutrophils # Macrocytosis APTT D-Dimer ABG pH 7.28 L ABG pCO2 48 H ABG pO2 82 L ABG Hematocrit 28 L Hemoglobin 9.1 L Sodium Potassium BUN Creatinine Glucose Calcium Troponin I 0.704 H* Total Protein Albumin - Diagnostic Findings Chest x-ray: image reviewed Assessment and Plan Assessment: Shortness of breath, secondary to fluid overload/CHF. Acute on chronic kidney disease. History of left breast cancer, diagnosed September 2021, completed chemotherapy. History of breast cancer on the right, status post lumpectomy and radiation, 2013. History of hypertension. History of diabetes mellitus and diabetic neuropathy. History of ongoing tobacco use. History of hypothyroidism. Questionable history of COPD. Plan: Plan dated 03/31/2022. The patient is currently doing better on BiPAP. She is seen in room 373. She denies any significant cough or phlegm production. No fever or chills. Nonetheless, a pro-calcitonin level will be checked. In addition, the patient was given antibiotics in the emergency department, and Lasix was added back. She was placed on prednisone 30 mg a day by the hospital service. Additional recommendations and suggestions are forthcoming. Time with Patient: Greater than 30
[2022-03-31] MEDS ORDERED: HEPARIN SODIUM 1,000 UN/ML (10ML VL) IV ONE (13:57)
[2022-03-31] MEDS ORDERED: HEPARIN SODIUM 1,000 UN/ML (10ML VL) IV PRN (13:57)
[2022-03-31] MEDS: HEPARIN SOD,PORK IN 0.45% NACL 25,000 UNIT in 0.45% NACL 1 250ML.BAG IV SCH (14:16)
[2022-03-31] MEDS ORDERED: FUROSEMIDE 10 MG/ML 2 ML VIAL IV ONE (14:27)
[2022-03-31] MEDS ORDERED: ALPRAZolam 0.25 MG TAB PO STA (14:50)
[2022-03-31 14:52] LABS: Appearance,Urine Clear (Clear); Bilirubin,Urine Negative (Negative); Blood,Urine Small (Negative); Color,Urine Yellow; Glucose,Urine (UA) Negative (Negative); Hyaline Casts,Urine 5 /lpf (0-2); Ketones,Urine Negative (Negative); Leukocyte Esterase,Urine Negative (Negative); Nitrite,Urine Negative (Negative); Protein,Urine 1+ (Negative); RBC,Urine 7 /hpf (0-5); Specific Gravity,Urine 1.012 (1.001-1.035); Urobilinogen,Urine <2.0 mg/dL (<2.0); WBC,Urine 2 /hpf (0-5)
[2022-03-31] MEDS ORDERED: LORazepam 2 MG/ML INJ IV STA (14:54)
[2022-03-31] MEDS ORDERED: HYDROmorphone 1 MG/ML 1 ML SYRINGE IVP STA (14:58)
[2022-03-31 14:59] LABS: Glucose,Whole Blood 191 mg/dL (70-110)
[2022-03-31] MEDS: IPRATROPIUM-ALBUTEROL 3 ML NEB INHALATION SCH ×2 (15:10→20:31)
[2022-03-31] MEDS ORDERED: NITROGLYCERIN SL TABS 0.4 MG TAB SUBLINGUAL ONE (15:14)
[2022-03-31] MEDS ORDERED: FUROSEMIDE 10 MG/ML 4 ML VIAL ONE (15:15)
[2022-03-31] MEDS: NITROGLYCERIN SL TABS 0.4 MG TAB SUBLINGUAL PRN ×2 (15:24→15:28)
[2022-03-31] MEDS: FUROSEMIDE 10 MG/ML 10 ML VIAL IV SCH (15:27)
[2022-03-31] MEDS: INSULIN ASPART (NovoLOG) 100 UNIT/ML VIAL SQ SCH ×3 (15:28→20:18)
[2022-03-31] MEDS: NITROGLYCERIN OINT 1 INCH/GM PACKET TOPICAL SCH ×2 (15:28→23:54)
[2022-03-31] MEDS ORDERED: LORazepam 1 MG/0.5 ML VIAL IV STA (15:34)
[2022-03-31 15:41] LABS: Partial Thromboplastin Time 88.9 sec (22.0-30.0); Prothrombin Time 11.1 sec (9.0-12.0)
[2022-03-31 15:42] LABS: ABG Base Excess -3.9 mmol/L; ABG HCO3 23 mmol/L (21-25); ABG Hematocrit 27 % (34.0-46.0); ABG PCO2 47 mmHg (35-45); ABG PH 7.29 (7.35-7.45); ABG PO2 67 mmHg (83-108); ABG TCO2 24 mmol/L (19-24); Allen Test Performed? Yes
--- NOTE | 2022-03-31 15:42 | XR ---
EXAMINATION TYPE: XR chest 1V portable DATE OF EXAM: 03/31/2022 COMPARISON: 03/31/2022 HISTORY: Shortness of breath FINDINGS: There are bilateral pleural effusions with cardiomegaly and bibasilar infiltrate. There is a diffuse interstitial pattern. IMPRESSION: 1. Diffuse bilateral airspace disease with pleural effusion. Findings stable correlate for diffuse pn e[place], ARDS or pulmonary edema.
[2022-03-31] MEDS ORDERED: HEPARIN SODIUM,PORCINE/PF 5,000 UNIT/0.5 ML SYRINGE SQ SCH (16:00)
[2022-03-31] MEDS ORDERED: AZTREONAM 2 GM in SODIUM CHLORIDE 0.9% 100 ML IVPB SCH (16:00)
[2022-03-31] MEDS: AZTREONAM 1 GM in SODIUM CHLORIDE 0.9% 50 ML IVPB SCH ×2 (16:47→23:53)
--- NOTE | 2022-03-31 17:29 | CA ---
Transthoracic Echo Report Name: Loulou Hercules Age: 72 Gender: F : 1950 Exam Date: 03/31/2022 10:18 Exam Location: [facility] Ht (in): 69 Wt (lb): 256 Ordering Physician: Sawyer Small MD Attending/Referring Phys: Medical Insurance Collector Yadira De Leon RDCS Procedure CPT: Indications: eval for heart failure Cardiac Hx: Technical Quality: Good Contrast 1: Total Dose (mL): Contrast 2: Total Dose (mL): MEASUREMENTS (Male / Female) Normal Values 2D ECHO LV Diastolic Diameter PLAX 4.9 cm 4.2 - 5.9 / 3.9 - 5.3 cm LV Systolic Diameter PLAX 3.5 cm IVS Diastolic Thickness 1.3 cm 0.6 - 1.0 / 0.6 - 0.9 cm LVPW Diastolic Thickness 1.2 cm 0.6 - 1.0 / 0.6 - 0.9 cm LV Relative Wall Thickness 0.5 RV Internal Dim ED PLAX 3.4 cm LA Systolic Diameter LX 3.8 cm 3.0 - 4.0 / 2.7 - 3.8 cm LA Volume 63.4 cm??? 18 - 58 / 22 - 52 cm??? M-MODE Aortic Root Diameter MM 3.1 cm MV E Point Septal Separation 0.6 cm AV Cusp Separation MM 2.0 cm DOPPLER AV Peak Velocity 138.7 cm/s AV Peak Gradient 7.7 mmHg MV Area PHT 4.3 cm??? Mitral E Point Velocity 140.8 cm/s Mitral A Point Velocity 98.2 cm/s Mitral E to A Ratio 1.4 MV Deceleration Time 175.4 ms MV E' Velocity 4.6 cm/s Mitral E to MV E' Ratio 30.5 FINDINGS Left Ventricle Left ventricular ejection fraction is estimated at 50-55 %. Left ventricular cavity size normal. Mild concentric left ventricular hypertrophy. Right Ventricle Mild right ventricular dilatation. Unable to estimate the right ventricular systolic pressure no TR jet Right Atrium Normal right atrial size. Left Atrium Moderately increased left atrial volume. Mildly increased left atrial area. Mitral Valve Mitral valve thickened. Mitral annular calcification. Moderate mitral regurgitation. Aortic Valve Trileaflet aortic valve. No aortic stenosis. Tricuspid Valve Structurally normal tricuspid valve. Pulmonic Valve Trace pulmonic regurgitation. Pericardium Normal pericardium. No pericardial effusion. Aorta Normal size aortic root and proximal ascending aorta. CONCLUSIONS LVH with ejection fraction of 50% Very subtle anteroseptal hypokinesis Previewed by: Dr. Bart Parks MD (Electronically Signed) Final Date: 31 March 2022 17:28
--- NOTE | 2022-03-31 17:31 | P.EN ---
A- team at 15:13 Indication: Respiratory distress Arrived on Scene to find: Patient in respiraotry distress on BiPap Patient seen and examined at bedside. Patient appears to be in respiratory distress. Her respirations are approximately 40/m. She complains of left-sided chest pain. She is unable to speak due to being BiPAP dependent. Vital signs reviewed General: ill appearing, maximal distress, appears at stated age Derm: warm, dry Head: atraumatic, normocephalic, symmetric Eyes: EOMI, no lid lag, anicteric sclera Mouth: no lip lesion, mucus membranes moist Cardiovascular: S1S2 reg, no murmur, positive posterior tibial pulse bilateral, Lungs: diffuse ronchi bilateral, 3 word conversation dyspnea, and , no accessory muscle use Abdominal: soft, nontender to palpation, no guarding, no appreciable organomegaly Ext: no gross muscle atrophy, no edema, no contractures Neuro: CN II-XI grossly intact, no focal neuro deficits Psych: Alert, oriented, appears anxious Assessment: Acute respiratory failure secondary to CHF exacerbation Acute exacerbation of congestive heart failure Chest pain Non-ST segment elevated myocardial infarction Elevated d-dimer- on heparin gtt, unstable for VQ, JOSH so CTA chest Plan: -Patient has been given a dose of aspirin already and is on a heparin drip. -Stat EKG checked and does show some ST segment depression but no ST segment elevation. Cardiology was made aware of troponin of 3.95 by nursing. -Nitro 1 oral was given during this rapid response and patient did have some improvement. Nitro paste was ordered for the patient. -ABG ordered -Stat chest x-ray ordered and reviewed by myself which shows minimal improvement in her pulmonary edema -BiPAP settings reviewed and are 16/5 at 90%. -Patient given Lasix 160 mg 1, patient had been given 80 mg of Lasix IV push earlier in the day with approximately 200 mL of urine output. That had been several hours prior to the 18. -Nurse practitioner from primary team arrived on scene. She was given a report of what was happening. She took over care of the patient. Disposition: Patient to remain on . Notified: -Nurse practitioner from primary team arrived on scene. She was given a report of what was happening. She took over care of the patient. A Total of 32 minutes of critical care time was spent on the complex care of this patient.
[2022-03-31 17:37] LABS: Anisocytosis Slight; Basophils % (A) 0 %; Eosinophils % (A) 0 %; HCT 30.7 % (34.0-46.0); HGB 9.2 gm/dL (11.4-16.0); Hypochromasia Marked; Lymphocytes # (A) 0.3 k/uL (1.0-4.8); Lymphocytes % (A) 2 %; MCH 32.7 pg (25.0-35.0); MCHC 29.9 g/dL (31.0-37.0); MCV 109.3 fL (80.0-100.0); Mean Platelet Volume 8.3; Monocytes # (A) 0.7 k/uL (0-1.0); Monocytes % (A) 5 %; Neutrophils # (A) 11.4 k/uL (1.3-7.7); Neutrophils % (A) 91 %; Platelet Count 205 k/uL (150-450); RBC 2.81 m/uL (3.80-5.40); RDW 16.8 % (11.5-15.5); WBC 12.5 k/uL (3.8-10.6)
[2022-03-31 17:45] LABS: Macrocytosis Marked
[2022-03-31 18:13] LABS: Calcium 8.1 mg/dL (8.4-10.2)
[2022-03-31 20:05] LABS: Glucose,Whole Blood 211 mg/dL (70-110)
[2022-03-31] MEDS: METOPROLOL SUCCINATE (ER) 25 MG TAB.ER.24H PO SCH (20:10)
[2022-03-31] MEDS: AMITRIPTYLINE HCL 50 MG TAB PO SCH (20:10)
[2022-03-31] MEDS: PSYLLIUM HUSK 100% 6 GM PACKET PO SCH (20:17)
[2022-03-31] MEDS: FUROSEMIDE 10 MG/ML 4 ML VIAL IV SCH (20:17)
[2022-03-31] MEDS ORDERED: SODIUM POLYSTYRENE SULFONATE 15 GM/60 ML BOTTLE PO STA (22:26)
[2022-03-31] MEDS ORDERED: MORPHINE SULFATE 4 MG/ML SYRINGE IVP STA (23:46)
[2022-04-01] MEDS: LEVOTHYROXINE 88 MCG TAB PO SCH (05:44)
[2022-04-01] MEDS: NITROGLYCERIN OINT 1 INCH/GM PACKET TOPICAL SCH ×4 (05:44→23:57)
[2022-04-01] MEDS: LEVOTHYROXINE 100 MCG TAB PO SCH (05:44)
[2022-04-01 05:55] LABS: Glucose,Whole Blood 254 mg/dL (70-110)
[2022-04-01] MEDS: INSULIN ASPART (NovoLOG) 100 UNIT/ML VIAL SQ SCH ×4 (06:12→20:39)
[2022-04-01] MEDS: IPRATROPIUM-ALBUTEROL 3 ML NEB INHALATION SCH ×4 (07:19→19:55)
[2022-04-01 07:52] LABS: Prothrombin Time 10.4 sec (9.0-12.0)
--- NOTE | 2022-04-01 08:07 | XR ---
EXAMINATION TYPE: XR chest 1V portable DATE OF EXAM: 04/01/2022 COMPARISON: 03/31/2010 HISTORY: Shortness of breath TECHNIQUE: Single frontal view of the chest is obtained. FINDINGS: There are bilateral pleural effusions with cardiomegaly and bibasilar infiltrate. There is a diffuse interstitial pattern. No pneumothorax. Osseous structures stable. IMPRESSION: Stable diffuse bilateral airspace disease and pleural effusion correlate for pneumonia o therwise consider CHF.
[2022-04-01 08:08] LABS: Calcium 7.5 mg/dL (8.4-10.2)
[2022-04-01 08:12] LABS: Potassium 6.2 mmol/L (3.5-5.1)
[2022-04-01 08:23] LABS: Anisocytosis Slight; Basophils % (A) 0 %; Eosinophils % (A) 0 %; HCT 28.1 % (34.0-46.0); HGB 8.8 gm/dL (11.4-16.0); Hypochromasia Marked; Lymphocytes # (A) 0.3 k/uL (1.0-4.8); Lymphocytes % (A) 3 %; MCH 34.7 pg (25.0-35.0); MCHC 31.2 g/dL (31.0-37.0); MCV 111.1 fL (80.0-100.0); Macrocytosis Marked; Monocytes # (A) 0.4 k/uL (0-1.0); Monocytes % (A) 4 %; Neutrophils # (A) 9.3 k/uL (1.3-7.7); Neutrophils % (A) 92 %; Platelet Count 173 k/uL (150-450); RBC 2.53 m/uL (3.80-5.40); RDW 16.8 % (11.5-15.5); WBC 10.2 k/uL (3.8-10.6)
[2022-04-01] MEDS: AZTREONAM 1 GM in SODIUM CHLORIDE 0.9% 50 ML IVPB SCH ×3 (08:42→23:57)
[2022-04-01] MEDS: FUROSEMIDE 10 MG/ML 4 ML VIAL IV SCH ×2 (08:43→20:38)
[2022-04-01] MEDS: predniSONE 10 MG TAB PO SCH (08:44)
[2022-04-01] MEDS: METOPROLOL SUCCINATE (ER) 25 MG TAB.ER.24H PO SCH ×2 (08:44→20:39)
[2022-04-01] MEDS ORDERED: INSULIN REGULAR 100 UNIT/ML VIAL (IV) IV ONE (08:45)
[2022-04-01] MEDS ORDERED: SODIUM ZIRCONIUM CYCLOSILICATE 10 GM PACKET PO ONE (08:45)
[2022-04-01] MEDS ORDERED: DEXTROSE 50% SYRINGE 50 ML IVP ONE (08:45)
[2022-04-01] MEDS ORDERED: SODIUM BICARB 8.4% 50 ML SYR (1 MEQ/ML) IV ONE (08:45)
[2022-04-01 08:49] LABS: Glucose,Whole Blood 240 mg/dL (70-110)
[2022-04-01] MEDS ORDERED: AZITHROMYCIN 500 MG in SODIUM CHLORIDE 0.9% 250 ML IVPB SCH (09:00)
--- NOTE | 2022-04-01 10:43 | P.PN ---
Subjective Progress Note Date: 04/01/22 Principal diagnosis: Respiratory failure. Pulmonary consult dated 03/31/2022. 72-year-old female with history of breast cancer, diabetes, hypertension, chronic kidney disease, and neuropathy, who presents to the emergency department on March 31, complaining of shortness of breath. She apparently denied having shortness of breath for 3 or 4 days prior to admission. She denies any fever or chills. She does cough, but does not produce any phlegm. No chest pain or chest discomfort. She does have some lower extremity edema. Recently, her diuretic was placed on hold. She was seen in the emergency room, and admitted with a diagnosis of fluid overload. The patient was placed on BiPAP. Her BiPAP settings are 12/5 and 90%. Currently, she's not receiving any IV flu ids. Blood gases show pO2 of 82, pCO2 48, and a pH is 7.28. Troponin was 0.704. BNP, was 13,800. Chest x-ray was consistent with CHF. White count 14.2, hemoglobin 9.4, hematocrit 30.3, platelet count 241,000. D-dimer was 6.39. Sodium 132, potassium 5.3, chlorides 102, CO2 23, BUN 68, and creatinine 2.07. Nasal swab for coronavirus was negative. Testing for influenza was also negative. Chest x-ray my opinion was consistent with cardiomegaly, diffuse bilateral infiltrates, with small bilateral effusions, i.e., CHF. Progress note dated 04/01/2022. 72-year-old female with a history of breast cancer, diabetes, hypertension, chronic kidney disease, and neuropathy. She came into the emergency room, March 31, complaining of shortness of breath. Chest x-ray was consistent with fluid overload/CHF. The patient is a DO NOT RESUSCITATE patient. I did give the nurse ordered yesterday for sedation and anti-anxiety medications as well as pain medications. Currently, she is on BiPAP with settings of 15/6 and 100%. She is on IV heparin. The nurse tells me there planning to put a hemodialysis catheter in her today. That seems a bit aggressive in my opinion. Lab data today includes a white count 10.2, hemoglobin 8.8, hematocrit 28.1, and a platelet count of 273,000. Sodium 132, potassium 6.2, chlorides 103, CO2 20, BUN 91, creatinine 2.72. Calcium is 7.5. A chest x-ray today in my opinion is consistent with fluid overload/CHF. Repeat troponin was 9.860. N-terminal proBNP was 13,800. Pro-calcitonin level is low at 0.14. Objective - Vital Signs Vital signs: Vital Signs Temp 98.6 F 04/01/22 07:15 Pulse 83 04/01/22 07:34 Resp 37 H 04/01/22 07:15 BP 148/77 04/01/22 07:15 Pulse Ox 98 04/01/22 07:20 FiO2 100 04/01/22 07:20 Intake & Output 03/31/22 04/01/22 04/01/22 18:59 06:59 18:59 Intake Total 417.5 Output Total 400 350 Balance -400 67.5 Weight 116.483 kg Intake: Intake, IV Titration 417.5 Amount Aztreonam 1 gm In Sodium 100 Chloride 0.9% 50 ml @ 16. 667 mls/hr IVPB Q8HR [facility] Rx#:[id number] Aztreonam 2 gm In Sodium 250 Chloride 0.9% 100 ml @ 33 .3 mls/hr IVPB Q8HR [facility] Rx#:[id number] Heparin Sod,Pork in 0.45% 67.5 NaCl 25,000 unit In 0.45 % NaCl 1 250ml.bag @ 8. 585 UNITS/KG/HR 10 mls/hr IV .Q24H [facility] Rx#: [id number] Oral 0 Output: Urine 400 350 Other: Voiding Method Indwelling Catheter Indwelling Catheter - Exam Moderate respiratory distress, currently on BiPAP, oriented 3. HEENT examination is grossly unremarkable. Neck supple. Full range of motion. No adenopathy thyromegaly or neck vein distention. Cardiovascular examination reveals regular rhythm rate. S1-S2 normal. No S3 or S4. No discernible murmur noted. Heart sounds are distant. Heart rate 92 bpm. Lungs reveal diffuse bilateral rhonchi, and basilar crackles. No wheezes. Breath sounds equal bilaterally. Saturations are 98 % on BiPAP. Abdomen soft bowel sounds are heard. No masses or tenderness. Extremities are intact. Lower extremity edema is noted. No cyanosis or clubbing. Skin reveals a lower extremity rash. Neurologic examination is brief but nonfocal. - Labs CBC & Chem 7: 04/01/22 07:10 04/01/22 07:10 Labs: Abnormal Lab Results - Last 24 Hours (Table) 03/31/22 03/31/22 03/31/22 Range/Units 08:39 12:42 14:22 WBC (3.8-10.6) k/uL RBC (3.80-5.40) m/uL Hgb (11.4-16.0) gm/dL Hct (34.0-46.0) % MCV (80.0-100.0) fL MCHC (31.0-37.0) g/dL RDW (11.5-15.5) % Neutrophils # (1.3-7.7) k/uL Lymphocytes # (1.0-4.8) k/uL Macrocytosis APTT (22.0-30.0) sec ABG pH (7.35-7.45) ABG pCO2 (35-45) mmHg ABG pO2 (83-108) mmHg ABG O2 Saturation (94-97) % ABG Hematocrit (34.0-46.0) % Hemoglobin (11.4-16.0) gm/dL Sodium (137-145) mmol/L Potassium (3.5-5.1) mmol/L Carbon Dioxide (22-30) mmol/L BUN (7-17) mg/dL Creatinine (0.52-1.04) mg/dL Glucose (74-99) mg/dL POC Glucose (mg/dL) (70-110) mg/dL Calcium (8.4-10.2) mg/dL Troponin I 3.950 H* (0.000-0.034) ng/mL Total Protein (PEP) (6.2-8.2) g/dL Procalcitonin 0.14 H (0.02-0.09) ng/mL Urine Protein 1+ H (Negative) Urine Blood Small H (Negative) Urine RBC 7 H (0-5) /hpf Hyaline Casts 5 H (0-2) /lpf 03/31/22 03/31/22 03/31/22 Range/Units 14:57 15:10 15:10 WBC (3.8-10.6) k/uL RBC (3.80-5.40) m/uL Hgb (11.4-16.0) gm/dL Hct (34.0-46.0) % MCV (80.0-100.0) fL MCHC (31.0-37.0) g/dL RDW (11.5-15.5) % Neutrophils # (1.3-7.7) k/uL Lymphocytes # (1.0-4.8) k/uL Macrocytosis APTT 88.9 H (22.0-30.0) sec ABG pH (7.35-7.45) ABG pCO2 (35-45) mmHg ABG pO2 (83-108) mmHg ABG O2 Saturation (94-97) % ABG Hematocrit (34.0-46.0) % Hemoglobin (11.4-16.0) gm/dL Sodium (137-145) mmol/L Potassium (3.5-5.1) mmol/L Carbon Dioxide (22-30) mmol/L BUN (7-17) mg/dL Creatinine (0.52-1.04) mg/dL Glucose (74-99) mg/dL POC Glucose (mg/dL) 191 H (70-110) mg/dL Calcium (8.4-10.2) mg/dL Troponin I 7.180 H* (0.000-0.034) ng/mL Total Protein (PEP) (6.2-8.2) g/dL Procalcitonin (0.02-0.09) ng/mL Urine Protein (Negative) Urine Blood (Negative) Urine RBC (0-5) /hpf Hyaline Casts (0-2) /lpf 03/31/22 03/31/22 03/31/22 Range/Units 15:10 15:10 15:10 WBC 12.5 H (3.8-10.6) k/uL RBC 2.81 L (3.80-5.40) m/uL Hgb 9.2 L (11.4-16.0) gm/dL Hct 30.7 L (34.0-46.0) % MCV 109.3 H (80.0-100.0) fL MCHC 29.9 L (31.0-37.0) g/dL RDW 16.8 H (11.5-15.5) % Neutrophils # 11.4 H (1.3-7.7) k/uL Lymphocytes # 0.3 L (1.0-4.8) k/uL Macrocytosis Marked A APTT (22.0-30.0) sec ABG pH (7.35-7.45) ABG pCO2 (35-45) mmHg ABG pO2 (83-108) mmHg ABG O2 Saturation (94-97) % ABG Hematocrit (34.0-46.0) % Hemoglobin (11.4-16.0) gm/dL Sodium 132 L (137-145) mmol/L Potassium 6.0 H (3.5-5.1) mmol/L Carbon Dioxide (22-30) mmol/L BUN 77 H (7-17) mg/dL Creatinine 2.34 H (0.52-1.04) mg/dL Glucose 173 H (74-99) mg/dL POC Glucose (mg/dL) (70-110) mg/dL Calcium 8.1 L (8.4-10.2) mg/dL Troponin I (0.000-0.034) ng/mL Total Protein (PEP) 5.0 L (6.2-8.2) g/dL Procalcitonin (0.02-0.09) ng/mL Urine Protein (Negative) Urine Blood (Negative) Urine RBC (0-5) /hpf Hyaline Casts (0-2) /lpf 03/31/22 03/31/22 03/31/22 Range/Units 15:40 17:55 20:03 WBC (3.8-10.6) k/uL RBC (3.80-5.40) m/uL Hgb (11.4-16.0) gm/dL Hct (34.0-46.0) % MCV (80.0-100.0) fL MCHC (31.0-37.0) g/dL RDW (11.5-15.5) % Neutrophils # (1.3-7.7) k/uL Lymphocytes # (1.0-4.8) k/uL Macrocytosis APTT (22.0-30.0) sec ABG pH 7.29 L (7.35-7.45) ABG pCO2 47 H (35-45) mmHg ABG pO2 67 L (83-108) mmHg ABG O2 Saturation 92.0 L (94-97) % ABG Hematocrit 27 L (34.0-46.0) % Hemoglobin 8.8 L (11.4-16.0) gm/dL Sodium (137-145) mmol/L Potassium (3.5-5.1) mmol/L Carbon Dioxide (22-30) mmol/L BUN (7-17) mg/dL Creatinine (0.52-1.04) mg/dL Glucose (74-99) mg/dL POC Glucose (mg/dL) 211 H (70-110) mg/dL Calcium (8.4-10.2) mg/dL Troponin I 9.860 H* (0.000-0.034) ng/mL Total Protein (PEP) (6.2-8.2) g/dL Procalcitonin (0.02-0.09) ng/mL Urine Protein (Negative) Urine Blood (Negative) Urine RBC (0-5) /hpf Hyaline Casts (0-2) /lpf 03/31/22 04/01/22 04/01/22 Range/Units 20:20 05:53 07:10 WBC (3.8-10.6) k/uL RBC 2.53 L (3.80-5.40) m/uL Hgb 8.8 L (11.4-16.0) gm/dL Hct 28.1 L (34.0-46.0) % MCV 111.1 H (80.0-100.0) fL MCHC (31.0-37.0) g/dL RDW 16.8 H (11.5-15.5) % Neutrophils # 9.3 H (1.3-7.7) k/uL Lymphocytes # 0.3 L (1.0-4.8) k/uL Macrocytosis Marked A APTT 46.5 H (22.0-30.0) sec ABG pH (7.35-7.45) ABG pCO2 (35-45) mmHg ABG pO2 (83-108) mmHg ABG O2 Saturation (94-97) % ABG Hematocrit (34.0-46.0) % Hemoglobin (11.4-16.0) gm/dL Sodium (137-145) mmol/L Potassium (3.5-5.1) mmol/L Carbon Dioxide (22-30) mmol/L BUN (7-17) mg/dL Creatinine (0.52-1.04) mg/dL Glucose (74-99) mg/dL POC Glucose (mg/dL) 254 H (70-110) mg/dL Calcium (8.4-10.2) mg/dL Troponin I (0.000-0.034) ng/mL Total Protein (PEP) (6.2-8.2) g/dL Procalcitonin (0.02-0.09) ng/mL Urine Protein (Negative) Urine Blood (Negative) Urine RBC (0-5) /hpf Hyaline Casts (0-2) /lpf 04/01/22 04/01/22 Range/Units 07:10 08:38 WBC (3.8-10.6) k/uL RBC (3.80-5.40) m/uL Hgb (11.4-16.0) gm/dL Hct (34.0-46.0) % MCV (80.0-100.0) fL MCHC (31.0-37.0) g/dL RDW (11.5-15.5) % Neutrophils # (1.3-7.7) k/uL Lymphocytes # (1.0-4.8) k/uL Macrocytosis APTT (22.0-30.0) sec ABG pH (7.35-7.45) ABG pCO2 (35-45) mmHg ABG pO2 (83-108) mmHg ABG O2 Saturation (94-97) % ABG Hematocrit (34.0-46.0) % Hemoglobin (11.4-16.0) gm/dL Sodium 132 L (137-145) mmol/L Potassium 6.2 H* (3.5-5.1) mmol/L Carbon Dioxide 20 L (22-30) mmol/L BUN 91 H (7-17) mg/dL Creatinine 2.72 H (0.52-1.04) mg/dL Glucose 223 H (74-99) mg/dL POC Glucose (mg/dL) 240 H (70-110) mg/dL Calcium 7.5 L (8.4-10.2) mg/dL Troponin I (0.000-0.034) ng/mL Total Protein (PEP) (6.2-8.2) g/dL Procalcitonin (0.02-0.09) ng/mL Urine Protein (Negative) Urine Blood (Negative) Urine RBC (0-5) /hpf Hyaline Casts (0-2) /lpf Assessment and Plan Assessment: Shortness of breath, secondary to fluid overload/CHF. Rule out non-ST segment elevation myocardial infarction. Acute on chronic kidney disease. History of left breast cancer, diagnosed September 2021, completed chemotherapy. History of breast cancer on the right, status post lumpectomy and radiation, 2013. History of hypertension. History of diabetes mellitus and diabetic neuropathy. History of ongoing tobacco use. History of hypothyroidism. Questionable history of COPD. Plan: Plan dated 03/31/2022. The patient is currently doing better on BiPAP. She is seen in room 373. She denies any significant cough or phlegm production. No fever or chills. Nonetheless, a pro-calcitonin level will be checked. In addition, the patient was given antibiotics in the emergency department, and Lasix was added back. She was placed on prednisone 30 mg a day by the hospital service. Additional recommendations and suggestions are forthcoming. Plan dated 04/01/2022. The patient is currently being seen by nephrology. Apparently, they are contemplating the placement of a hemodialysis catheter. Currently, she is on BiPAP, and 100%. She is also receiving IV heparin. The troponin was quite high, suggesting non-ST segment elevation myocardial origin, and subsequent CHF. We will continue to follow. Pro-calcitonin is relatively low. N-terminal proBNP was quite high. Time with Patient: Less than 30
--- NOTE | 2022-04-01 10:53 | P.NPCON ---
History of Present Illness - Reason for Consult acute renal failure, chronic renal failure - History of Present Illness Reason for consultation: Acute kidney injury on chronic kidney disease History of present illness: Patient is a 72-year-old female seen in renal consultation for acute kidney injury on chronic kidney disease. Patient has chronic kidney disease stage IIIa. Baseline creatinine in the range of 1.3-1.5 secondary to nephrosclerosis. Patient was recently admitted at this facility for lower extremity rash which has improved with prednisone. Patient since to hospital with worsening misael rtness of breath and lower extremity edema. Patient is currently on BiPAP. She has received multiple doses of IV Lasix with no significant response in urine output. Patient has refused hemodialysis last night but is agreeable now. Blood pressure stable. Potassium level this morning was 6.2 which was medically treated. Patient does have long-standing history of diabetes. Denies use of nonsteroidals. No hematuria. Serologies last admission were negative. Vital signs are stable. General: Resting in bed. Noted to be in some respiratory distress. Able to answer questions. HEENT: On BiPaP. LUNGS: Breath sounds decreased. HEART: Rate and Rhythm are regular. ABDOMEN: Soft, no distention. EXTREMITITES: 2+ edema. Past Medical History Past Medical History: Cancer, Diabetes Mellitus, Hypertension, Renal Disease Additional Past Medical History / Comment(s): left breast CA dx September 2021,neuropathy,hx rt breast CA-dx 2013-radiation no chemo,Stg 3 Kidney Disease,sepsis 40 yrs ago, type 1 diabetic History of Any Multi-Drug Resistant Organisms: None Reported Past Surgical History: Breast Surgery, Orthopedic Surgery, Tubal Ligation Additional Past Surgical History / Comment(s): rt breast lumpectomy,ORIF rt lower leg Past Anesthesia/Blood Transfusion Reactions: Previous Problems w/ Anesthesia Additional Past Anesthesia/Blood Transfusion Reaction / Comment(s): hyperventilated coming out of anesthesia years ago-no problems with surgeries after that Past Psychological History: No Psychological Hx Reported Smoking Status: Current every day smoker Past Alcohol Use History: Daily Additional Past Alcohol Use History / Comment(s): started smoking at age 17,>1 1/2ppd Past Drug Use History: None Reported - Past Family History Mother Family Medical History: Cancer Father Family Medical History: Cancer Medications and Allergies Home Medications Medication Instructions Recorded Confirmed Type Amitriptyline HCl 50 mg PO HS 01/14/18 03/31/22 History Ascorbic Acid [Vitamin C] 500 mg PO DAILY 01/14/18 03/31/22 History Omeprazole 20 mg PO DAILY 09/19/19 03/31/22 History polyethylene glycoL 3350 [Clearlax] 17 gm PO HS 09/19/19 03/31/22 History Cholecalciferol [Vitamin D3 (25 25 mcg PO DAILY 10/21/21 03/31/22 History Mcg = 1000 Iu)] Glucagon Emergency Kit 1 mg SQ ONCE PRN 01/25/22 03/31/22 History Levothyroxine Sodium [Synthroid] 100 mcg PO DAILY 01/25/22 03/31/22 History HYDROcodone/APAP 7.5-325MG [[place] 1 tab PO Q6HR PRN 3 Days #12 tab 03/21/22 03/31/22 Rx 7.5-325] Insulin Aspart [NovoLOG Flexpen] See Protocol SQ AC-TID 03/23/22 03/31/22 History Insulin Glargine,Hum.rec.anlog 1 dose SQ HS 03/23/22 03/31/22 History [Lantus Solostar Pen] Levothyroxine Sodium [Synthroid] 88 mcg PO DAILY 03/23/22 03/31/22 History Psyllium Husk [Metamucil] 0.4 gm PO HS 03/23/22 03/31/22 History Metoprolol Succinate (ER) [Toprol 25 mg PO BID #60 tab 03/28/22 03/31/22 Rx XL] amLODIPine [Norvasc] 5 mg PO DAILY #30 tab 03/28/22 03/31/22 Rx predniSONE 30 mg PO DAILY #21 tab 03/28/22 03/31/22 Rx Albuterol Sulfate [Albuterol 2 puff INHALATION RT-QID PRN 03/31/22 03/31/22 History Sulfate Hfa] Fluticasone/Umeclidin/Vilanter 1 puff INHALATION RT-DAILY 03/31/22 03/31/22 History [Trelegy Ellipta 100-62.5-25] Allergies Allergy/AdvReac Type Severity Reaction Status Date / Time pregabalin [From Lyrica] Allergy Swelling Verified 03/31/22 09:54 terbinafine [From Lamisil] Allergy Itching Verified 03/31/22 09:54 amoxicillin AdvReac yeast Verified 03/31/22 09:54 infection cephalexin [From Keflex] AdvReac yeast Verified 03/31/22 09:54 infection Physical Exam Vitals: Vital Signs Temp Pulse Pulse Resp BP BP Pulse Ox 04/01/22 07:34 83 04/01/22 07:20 85 98 04/01/22 07:15 98.6 F 84 37 H 148/77 97 04/01/22 04:00 88 26 H 123/64 90 L 04/01/22 03:36 04/01/22 00:00 88 37 H 126/69 95 03/31/22 23:31 03/31/22 20:47 84 03/31/22 20:31 80 03/31/22 20:00 80 23 125/67 03/31/22 16:48 78 25 H 124/66 98 03/31/22 16:02 83 03/31/22 16:00 98 03/31/22 15:57 03/31/22 15:55 84 83 25 H 132/71 96 03/31/22 15:29 93 37 H 145/70 92 L 03/31/22 15:07 90 40 H 145/72 95 03/31/22 15:03 03/31/22 14:28 32 H 90 L 03/31/22 12:35 98.5 F 88 33 H 125/69 91 L 03/31/22 12:15 87 24 128/78 95 03/31/22 12:00 86 24 116/79 95 03/31/22 11:45 88 26 H 99/66 95 03/31/22 11:30 90 26 H 133/74 97 03/31/22 11:15 99 24 122/69 96 03/31/22 11:12 03/31/22 11:00 88 26 H 121/63 96 03/31/22 10:45 87 24 122/65 97 FiO2 04/01/22 07:34 04/01/22 07:20 100 04/01/22 07:15 100 04/01/22 04:00 100 04/01/22 03:36 100 04/01/22 00:00 100 03/31/22 23:31 100 03/31/22 20:47 03/31/22 20:31 90 03/31/22 20:00 03/31/22 16:48 90 09/15/22 16:02 03/31/22 16:00 03/31/22 15:57 03/31/22 15:55 03/31/22 15:29 03/31/22 15:07 03/31/22 15:03 03/31/22 14:28 03/31/22 12:35 03/31/22 12:15 03/31/22 12:00 03/31/22 11:45 03/31/22 11:30 03/31/22 11:15 03/31/22 11:12 03/31/22 11:00 03/31/22 10:45 Intake and Output 03/31/22 04/01/22 04/01/22 22:59 06:59 14:59 Intake Total 67.5 350 Output Total 400 350 Balance -332.5 0 Intake: Intake, IV Titration 67.5 350 Amount Aztreonam 1 gm In Sodium 100 Chloride 0.9% 50 ml @ 16. 667 mls/hr IVPB Q8HR [facility] Rx#:[id number] Aztreonam 2 gm In Sodium 250 Chloride 0.9% 100 ml @ 33 .3 mls/hr IVPB Q8HR [facility] Rx#:[id number] Heparin Sod,Pork in 0.45% 67.5 NaCl 25,000 unit In 0.45 % NaCl 1 250ml.bag @ 8. 585 UNITS/KG/HR 10 mls/hr IV .Q24H [facility] Rx#: [id number] Oral 0 Output: Urine 400 350 Other: Voiding Method Indwelling Catheter Indwelling Catheter Results - Lab Results Most recent lab results ABG pH 7.29 (7.35-7.45) L 03/31/22 15:40 ABG pCO2 47 mmHg (35-45) H 03/31/22 15:40 ABG pO2 67 mmHg (83-108) L 03/31/22 15:40 ABG HCO3 23 mmol/L (21-25) 03/31/22 15:40 ABG O2 Saturation 92.0 % (94-97) L 03/31/22 15:40 Calcium 7.5 mg/dL (8.4-10.2) L 04/01/22 07:10 Magnesium 2.2 mg/dL (1.6-2.3) 04/01/22 07:10 04/01/22 07:10 04/01/22 07:10 Assessment and Plan Plan: Assessment: 1. Acute kidney injury secondary to ATN secondary to cardiorenal syndrome. Creatinine was 2.07 on admission and is 2.72 today. Renal ultrasound from March 2022 showed no evidence of hydronephrosis. 2. Chronic kidney disease stage III with baseline creatinine in the range of 1.3-1.5 secondary to nephrosclerosis. Serologies from prior admission were negative. 3. Acute hypoxic respiratory failure. 4. Volume overload. 5. Acute on chronic diastolic CHF with moderate mitral regurgitation. 6. Hyperkalemia secondary to acute kidney injury and acidosis. 7. Anemia of chronic kidney disease. Rule out iron deficiency. 8. Diabetes mellitus. 9. Lower extremity rash. Improved. Prednisone. 10. Elevated troponins with concern for acute coronary syndrome. On heparin drip. Cardiology following. 11. History of breast cancer. 12. Metabolic acidosis secondary to acute kidney injury. Plan: Maintain IV Lasix. Hyperkalemia medically treated with IV insulin with D50, sodium bicarbonate as well as lokelma. Vascular surgery consulted for dialysis catheter placement. First treatment of hemodialysis today and second treatment tomorrow. Patient agreeable. Maintain Thibodeaux catheter. Strict is and os. Monitor for renal recovery. Follow-up repeat potassium level. Check iron studies. Thank you for the consultation. I will continue to follow the patient with you during her hospital stay.
[2022-04-01] MEDS ORDERED: ALPRAZolam 0.25 MG TAB PO STA (11:01)
[2022-04-01 12:03] LABS: Glucose,Whole Blood 260 mg/dL (70-110)
[2022-04-01 12:45] LABS: Potassium 5.6 mmol/L (3.5-5.1)
[2022-04-01 12:50] LABS: INR 0.9 (<1.2); Partial Thromboplastin Time 29.3 sec (22.0-30.0); Prothrombin Time 10.1 sec (9.0-12.0)
--- NOTE | 2022-04-01 12:52 | P.CRDCN ---
History of Present Illness History of present illness: HISTORY OF PRESENTING ILLNESS This is a pleasant 72-year-old female past medical history significant for hypertension, hypothyroidism, type 1 diabetes, left breast cancer in 09/2021 s/p chemotherapy and right breast cancer 2014 prior lumpectomy and radiation in 2013, chronic kidney disease, chronic nicotine dependence. She does not follow with a bdr. We have been asked to see in consultation for volume overload and elevated troponin. Patient presents to the ER with complaints of shortness of breath. She was recently admitted from 03/23-03/28 with acute kidney injury, concern for vasculitic rash. She was stabilized taken off diuretics and nephrotoxi agents and was discharged home on 03/28. She states on 03/29 she started to become more short of breath. She states it progressively got worse. She endorses lower extremity edema also worsened. EMS was called and patient was brought to the emergency department. She was placed on BiPAP and IV Lasix. She denies any chest pain, dictations, lightheadedness, dizziness, syncope. Near syncope. She does endorse a nonproductive cough. She denies any fever, chills, night sweats. She denies any prior history of CAD, CO, Stroke. She is a current smoker. DIAGNOSTICS * EKG reveals sinus tachycardia HR 106, ST depression in leads V5 and V6, prior EKG similar changes * Telemetry tracings indicate sinus rhythm in the 80s * Chest xray increased opacities bilaterally, congestive heart failure, cardiomegaly. Bilateral pleural effusions. * Echocardiogram 2018 revealed an EF 5560%, trace mitral regurgitation, trace tricuspid regurgitation * Echocardiogram revealed EF 55%, mild concentric LVH, unable to estimate RVSP. Mild right ventricular dilatation. * Laboratory reviewed, WBC 14.2, hemoglobin 9.4, platelets 241, d-dimer 6.3, sodium 132, potassium 5.3, BUN 68, serum creatinine 2.0, magnesium 2.0, troponin 0.7-->3.9, proBNP 13,800, Covid-19 negative, influenza negative * Current home cardiac medications include amlodipine 5 mg daily, metoprolol succinate 25 mg twice a day REVIEW OF SYSTEMS At the time of my exam: CONSTITUTIONAL: Denies fever or chills. CARDIOVASCULAR: Denies chest pain, shortness of breath, orthopnea, PND or palpitations. RESPIRATORY: Denies cough. GASTROINTESTINAL: Denies abdominal pain, diarrhea, constipation, nausea or vomiting. MUSCULOSKELETAL: Denies myalgias. NEUROLOGIC: Denies numbness, tingling, headacbe or weakness. ENDOCRINE: Denies fatigue, weight change, polydipsia or polyurina. GENITOURINARY: Denies burning, hematuria or urgency with micturation. HEMATOLOGIC: Denies history of anemia or bleeding. PHYSICAL EXAMINATION Blood pressure 138/70, heart rate 87, afebrile, oxygen saturations 96% on BIPAP CONSTITUTIONAL: No apparent distress. HEENT: Head is normocephalic. Pupils are equal, round. Sclerae anicteric. Mucous membranes of the mouth are moist. JVD noted CHEST EXAMINATION: Lungs crackles bilaterally to auscultation. No chest wall tenderness is noted on palpation or with deep breathing. HEART EXAMINATION: Regular rate and rhythm. S1, S2 heard. No murmurs, gallops or rub. ABDOMEN: Soft, nontender. Positive bowel sounds. EXTREMITIES: 2+ peripheral pulses, 3+bilateral lower extremity edema and no calf tenderness. NEUROLOGIC EXAMINATION: Patient is awake, alert and oriented x3. SKIN: Purpura rash bilateral lower and upper extremities ASSESSMENT Shortness of breath Acute hypoxic respiratory failure, possibly related to ACS vs pulmonary embolism, patient's presentation appears to be more concerning for NSTEMI NSTEMI Elevated D-Dimer Acute kidney injury Acute heart failure with preserved ejection fraction History of hypertension Hypothyroidism Type 1 diabetes Left breast cancer in 09/2021 s/p chemotherapy and right breast cancer 2013 prior lumpectomy and radiation in 2013 Chronic nicotine dependence PLAN Patient likely need cardiac catheterization Discussed with primary team, goals of care discussion to be done and if patient is agreeable recommend cardiac catheterization Continue IV Heparin, aspirin, statin, beta yanet, PRN nitro Continue IV Lasix Plan for patient to undergo dialysis catheter placement and initiation of dialysis Monitor I/Os, daily weights, renal function and electrolytes Patient will also likely need CTA chest if dialysis initiated to rule out PE Further recommendations based on clinical course Nurse practitioner note has been reviewed by physician. Signing provider agrees with the documented findings, assessment, and plan of care. Past Medical History Past Medical History: Cancer, Diabetes Mellitus, Hypertension, Renal Disease Additional Past Medical History / Comment(s): left breast CA dx September 2021,neuropathy,hx rt breast CA-dx 2013-radiation no chemo,Stg 3 Kidney Disease,sepsis 40 yrs ago, type 1 diabetic History of Any Multi-Drug Resistant Organisms: None Reported Past Surgical History: Breast Surgery, Orthopedic Surgery, Tubal Ligation Additional Past Surgical History / Comment(s): rt breast lumpectomy,ORIF rt lower leg Past Anesthesia/Blood Transfusion Reactions: Previous Problems w/ Anesthesia Additional Past Anesthesia/Blood Transfusion Reaction / Comment(s): hyperventilated coming out of anesthesia years ago-no problems with surgeries after that Past Psychological History: No Psychological Hx Reported Smoking Status: Current every day smoker Past Alcohol Use History: Daily Additional Past Alcohol Use History / Comment(s): started smoking at age 17,>1 1/2ppd Past Drug Use History: None Reported - Past Family History Mother Family Medical History: Cancer Father Family Medical History: Cancer Medications and Allergies Home Medications Medication Instructions Recorded Confirmed Type Amitriptyline HCl 50 mg PO HS 01/14/18 03/31/22 History Ascorbic Acid [Vitamin C] 500 mg PO DAILY 01/14/18 03/31/22 History Omeprazole 20 mg PO DAILY 09/19/19 03/31/22 History polyethylene glycoL 3350 [Clearlax] 17 gm PO HS 09/19/19 03/31/22 History Cholecalciferol [Vitamin D3 (25 25 mcg PO DAILY 10/21/21 03/31/22 History Mcg = 1000 Iu)] Glucagon Emergency Kit 1 mg SQ ONCE PRN 01/25/22 03/31/22 History Levothyroxine Sodium [Synthroid] 100 mcg PO DAILY 01/25/22 03/31/22 History HYDROcodone/APAP 7.5-325MG [[place] 1 tab PO Q6HR PRN 3 Days #12 tab 03/21/22 03/31/22 Rx 7.5-325] Insulin Aspart [NovoLOG Flexpen] See Protocol SQ AC-TID 03/23/22 03/31/22 History Insulin Glargine,Hum.rec.anlog 1 dose SQ HS 03/23/22 03/31/22 History [Lantus Solostar Pen] Levothyroxine Sodium [Synthroid] 88 mcg PO DAILY 03/23/22 03/31/22 History Psyllium Husk [Metamucil] 0.4 gm PO HS 03/23/22 03/31/22 History Metoprolol Succinate (ER) [Toprol 25 mg PO BID #60 tab 03/28/22 03/31/22 Rx XL] amLODIPine [Norvasc] 5 mg PO DAILY #30 tab 03/28/22 03/31/22 Rx predniSONE 30 mg PO DAILY #21 tab 03/28/22 03/31/22 Rx Albuterol Sulfate [Albuterol 2 puff INHALATION RT-QID PRN 03/31/22 03/31/22 History Sulfate Hfa] Fluticasone/Umeclidin/Vilanter 1 puff INHALATION RT-DAILY 03/31/22 03/31/22 History [[place] Ellipta 100-62.5-25] Allergies Allergy/AdvReac Type Severity Reaction Status Date / Time pregabalin [From Lyrica] Allergy Swelling Verified 03/31/22 09:54 terbinafine [From Lamisil] Allergy Itching Verified 03/31/22 09:54 amoxicillin AdvReac yeast Verified 03/31/22 09:54 infection cephalexin [From Keflex] AdvReac yeast Verified 03/31/22 09:54 infection Physical Exam Vitals: Vital Signs Temp Pulse Pulse Resp BP BP Pulse Ox 03/31/22 12:35 98.5 F 88 33 H 125/69 91 L 03/31/22 11:12 03/31/22 11:00 88 26 H 121/63 96 03/31/22 10:45 87 24 122/65 97 03/31/22 10:30 88 24 129/66 95 03/31/22 10:15 90 28 H 122/62 96 03/31/22 10:00 90 26 H 129/66 96 03/31/22 09:45 93 28 H 138/71 96 03/31/22 09:30 96 28 H 147/74 95 03/31/22 09:15 99 30 H 153/75 96 03/31/22 08:45 98.8 F 102 H 24 160/82 95 03/31/22 08:38 03/31/22 08:33 113 H 22 146/82 80 L FiO2 03/31/22 12:35 90 03/31/22 11:12 90 03/31/22 11:00 03/31/22 10:45 03/31/22 10:30 03/31/22 10:15 03/31/22 10:00 03/31/22 09:45 03/31/22 09:30 03/31/22 09:15 100 03/31/22 08:45 03/31/22 08:38 100 03/31/22 08:33 Intake and Output 03/30/22 03/31/22 03/31/22 22:59 06:59 14:59 Other: Weight 116.483 kg Results 04/01/22 07:10 04/01/22 12:05 Cardiac Enzymes 03/31/22 03/31/22 Range/Units 08:39 08:39 AST 30 (14-36) U/L Troponin I 0.704 H* (0.000-0.034) ng/mL Coagulation 03/31/22 Range/Units 08:39 PT 10.3 (9.0-12.0) sec APTT 20.2 L (22.0-30.0) sec CBC 03/31/22 Range/Units 08:39 WBC 14.2 H (3.8-10.6) k/uL RBC 2.86 L (3.80-5.40) m/uL Hgb 9.4 L (11.4-16.0) gm/dL Hct 30.3 L (34.0-46.0) % Plt Count 241 (150-450) k/uL Comprehensive Metabolic Panel 03/31/22 Range/Units 08:39 Sodium 132 L (137-145) mmol/L Potassium 5.3 H (3.5-5.1) mmol/L Chloride 102 (98-107) mmol/L Carbon Dioxide 23 (22-30) mmol/L BUN 68 H (7-17) mg/dL Creatinine 2.07 H (0.52-1.04) mg/dL Glucose 154 H (74-99) mg/dL Calcium 8.1 L (8.4-10.2) mg/dL AST 30 (14-36) U/L ALT 29 (4-34) U/L Alkaline Phosphatase 74 (38-126) U/L Total Protein 5.4 L (6.3-8.2) g/dL Albumin 3.1 L (3.5-5.0) g/dL Current Medications Generic Name Dose Route Start Last Admin Trade Name Freq PRN Reason Stop Dose Admin Hydrocodone Bitart/Acetaminophen 1 each 03/31/22 11:03 Hydrocodone/Apap 7.5-325mg 1 Each Tab PO Q6HR PRN Pain Albuterol Sulfate 2.5 mg 03/31/22 11:03 Albuterol Nebulized 2.5 Mg/3 Ml INHALATION RT-QID PRN Shortness Of Breath Albuterol/Ipratropium 3 ml 03/31/22 16:00 Ipratropium-Albuterol 3 Ml Neb INHALATION RT-QID NATALIIA Albuterol/Ipratropium 3 ml 03/31/22 12:54 Ipratropium-Albuterol 3 Ml Neb INHALATION RT-Q2H PRN Shortness Of Breath Or Wheezing Amitriptyline HCl 50 mg 03/31/22 21:00 Amitriptyline Hcl 50 Mg Tab PO HS NATALIIA Furosemide 40 mg 03/31/22 21:00 Furosemide 10 Mg/Ml 4 Ml Vial IV Q12HR [facility] Heparin Sodium (Porcine) 5,000 unit 03/31/22 16:00 Heparin Sodium,Porcine/Pf 5,000 Unit/0.5 Ml Syringe SQ Q8HR [facility] Aztreonam 1 gm/ Sodium 50 mls @ 16.667 mls/hr 03/31/22 16:00 Chloride IVPB 04/05/22 16:01 Q8HR [facility] Insulin Aspart 0 unit 03/31/22 12:30 Insulin Aspart (Novolog) 100 Unit/Ml Vial SQ ACHS [facility] Protocol Levothyroxine Sodium 88 mcg 04/01/22 06:30 Levothyroxine 88 [place] 0630 [facility] Levothyroxine Sodium 100 mcg 04/01/22 06:30 Levothyroxine 100 Mcg Tab PO 0630 [facility] Metoprolol Succinate 25 mg 03/31/22 21:00 Metoprolol Succinate (Er) 25 Mg Tab.Er.24h PO BID [facility] Miscellaneous Information 1 each 03/31/22 09:46 Pneumonia Protocol Utilized 1 Each Misc PO ONCE PRN Per Protocol Naloxone HCl 0.2 mg 03/31/22 10:22 Naloxone 0.4 Mg/Ml 1 Ml Vial IV Q2M PRN Opioid Reversal Prednisone 30 mg 04/01/22 09:00 Prednisone 10 Mg Tab PO DAILY NATALIIA Psyllium Hydrophilic Mucilloid 6 gm 03/31/22 21:00 Psyllium Husk 100% 6 Gm Packet PO HS [facility] Intake and Output 03/30/22 03/31/22 03/31/22 22:59 06:59 14:59 Other: Weight 116.483 kg Patient Weight 04/01/22 06:59 Weight 116.483 kg 03/31/22 08:39 03/31/22 08:39
[2022-04-01] MEDS ORDERED: HEPARIN SODIUM 1,000 UN/ML (10ML VL) ONE (13:05)
[2022-04-01] MEDS ORDERED: LIDOCAINE 1% INJ 10MG/ML (30 ML VIAL-PF) SQ ONE (13:25)
--- NOTE | 2022-04-01 13:48 | P.GSCN ---
History of Present Illness History of present illness: 72-year-old gentleman patient has history of stage III kidney disease was consulted for placement of the dialysis catheter patient has history of COPD patient h short of breath and on BiPAP patient is scheduled to have a dialysis catheter placement Medical history history of chronic renal failure, diabetes mellitus, hypertension, patient also has history of see of the breast had radiation in the past On examination patient is short of breath and BiPAP Chest has crackles bilateral second sound Present Abdomen soft nontender Vascular femorals are 1+ bilateral Plan is placement of dialysis catheter risk and complication discussed Past Medical History Past Medical History: Cancer, Diabetes Mellitus, Hypertension, Renal Disease Additional Past Medical History / Comment(s): left breast CA dx September 2021,neuropathy,hx rt breast CA-dx 2013-radiation no chemo,Stg 3 Kidney Disease,sepsis 40 yrs ago, type 1 diabetic History of Any Multi-Drug Resistant Organisms: None Reported Past Surgical History: Breast Surgery, Orthopedic Surgery, Tubal Ligation Additional Past Surgical History / Comment(s): rt breast lumpectomy,ORIF rt lower leg Past Anesthesia/Blood Transfusion Reactions: Previous Problems w/ Anesthesia Additional Past Anesthesia/Blood Transfusion Reaction / Comm: hyperventilated coming out of anesthesia years ago-no problems with surgeries after that Past Psychological History: No Psychological Hx Reported Smoking Status: Current every day smoker Past Alcohol Use History: Daily Additional Past Alcohol Use History / Comment(s): started smoking at age 17,>1 1/2ppd Past Drug Use History: None Reported - Past Family History Mother Family Medical History: Cancer Father Family Medical History: Cancer Medications and Allergies Home Medications Medication Instructions Recorded Confirmed Type Amitriptyline HCl 50 mg PO HS 01/14/18 03/31/22 History Ascorbic Acid [Vitamin C] 500 mg PO DAILY 01/14/18 03/31/22 History Omeprazole 20 mg PO DAILY 09/19/19 03/31/22 History polyethylene glycoL 3350 [Clearlax] 17 gm PO HS 09/19/19 03/31/22 History Cholecalciferol [Vitamin D3 (25 25 mcg PO DAILY 10/21/21 03/31/22 History Mcg = 1000 Iu)] Glucagon Emergency Kit 1 mg SQ ONCE PRN 01/25/22 03/31/22 History Levothyroxine Sodium [Synthroid] 100 mcg PO DAILY 01/25/22 03/31/22 History HYDROcodone/APAP 7.5-325MG [[place] 1 tab PO Q6HR PRN 3 Days #12 tab 03/21/22 03/31/22 Rx 7.5-325] Insulin Aspart [NovoLOG Flexpen] See Protocol SQ AC-TID 03/23/22 03/31/22 History Insulin Glargine,Hum.rec.anlog 1 dose SQ HS 03/23/22 03/31/22 History [Lantus Solostar Pen] Levothyroxine Sodium [Synthroid] 88 mcg PO DAILY 03/23/22 03/31/22 History Psyllium Husk [Metamucil] 0.4 gm PO HS 03/23/22 03/31/22 History Metoprolol Succinate (ER) [Toprol 25 mg PO BID #60 tab 03/28/22 03/31/22 Rx XL] amLODIPine [Norvasc] 5 mg PO DAILY #30 tab 03/28/22 03/31/22 Rx predniSONE 30 mg PO DAILY #21 tab 03/28/22 03/31/22 Rx Albuterol Sulfate [Albuterol 2 puff INHALATION RT-QID PRN 03/31/22 03/31/22 Hist ory Sulfate Hfa] Fluticasone/Umeclidin/Vilanter 1 puff INHALATION RT-DAILY 03/31/22 03/31/22 History [[place] Ellipta 100-62.5-25] Allergies Allergy/AdvReac Type Severity Reaction Status Date / Time pregabalin [From Lyrica] Allergy Swelling Verified 03/31/22 09:54 terbinafine [From Lamisil] Allergy Itching Verified 03/31/22 09:54 amoxicillin AdvReac yeast Verified 03/31/22 09:54 infection cephalexin [From Keflex] AdvReac yeast Verified 03/31/22 09:54 infection Surgical - Exam Vital Signs Pulse Resp BP Pulse Ox 113 H 22 146/82 80 L 03/31/22 08:33 03/31/22 08:33 03/31/22 08:33 03/31/22 08:33 Results - Labs 04/01/22 07:10 04/01/22 12:05 Abnormal Lab Results - Last 24 Hours (Table) 03/31/22 03/31/22 03/31/22 Range/Units 08:39 12:42 14:22 WBC (3.8-10.6) k/uL RBC (3.80-5.40) m/uL Hgb (11.4-16.0) gm/dL Hct (34.0-46.0) % MCV (80.0-100.0) fL MCHC (31.0-37.0) g/dL RDW (11.5-15.5) % Neutrophils # (1.3-7.7) k/uL Lymphocytes # (1.0-4.8) k/uL Macrocytosis APTT (22.0-30.0) sec ABG pH (7.35-7.45) ABG pCO2 (35-45) mmHg ABG pO2 (83-108) mmHg ABG O2 Saturation (94-97) % ABG Hematocrit (34.0-46.0) % Hemoglobin (11.4-16.0) gm/dL Sodium (137-145) mmol/L Potassium (3.5-5.1) mmol/L Carbon Dioxide (22-30) mmol/L BUN (7-17) mg/dL Creatinine (0.52-1.04) mg/dL Glucose (74-99) mg/dL POC Glucose (mg/dL) (70-110) mg/dL Calcium (8.4-10.2) mg/dL Troponin I 3.950 H* (0.000-0.034) ng/mL Total Protein (PEP) (6.2-8.2) g/dL Procalcitonin 0.14 H (0.02-0.09) ng/mL Urine Protein 1+ H (Negative) Urine Blood Small H (Negative) Urine RBC 7 H (0-5) /hpf Hyaline Casts 5 H (0-2) /lpf 03/31/22 03/31/22 03/31/22 Range/Units 14:57 15:10 15:10 WBC (3.8-10.6) k/uL RBC (3.80-5.40) m/uL Hgb (11.4-16.0) gm/dL Hct (34.0-46.0) % MCV (80.0-100.0) fL MCHC (31.0-37.0) g/dL RDW (11.5-15.5) % Neutrophils # (1.3-7.7) k/uL Lymphocytes # (1.0-4.8) k/uL Macrocytosis APTT 88.9 H (22.0-30.0) sec ABG pH (7.35-7.45) ABG pCO2 (35-45) mmHg ABG pO2 (83-108) mmHg ABG O2 Saturation (94-97) % ABG Hematocrit (34.0-46.0) % Hemoglobin (11.4-16.0) gm/dL Sodium (137-145) mmol/L Potassium (3.5-5.1) mmol/L Carbon Dioxide (22-30) mmol/L BUN (7-17) mg/dL Creatinine (0.52-1.04) mg/dL Glucose (74-99) mg/dL POC Glucose (mg/dL) 191 H (70-110) mg/dL Calcium (8.4-10.2) mg/dL Troponin I 7.180 H* (0.000-0.034) ng/mL Total Protein (PEP) (6.2-8.2) g/dL Procalcitonin (0.02-0.09) ng/mL Urine Protein (Negative) Urine Blood (Negative) Urine RBC (0-5) /hpf Hyaline Casts (0-2) /lpf 03/31/22 03/31/22 03/31/22 Range/Units 15:10 15:10 15:10 WBC 12.5 H (3.8-10.6) k/uL RBC 2.81 L (3.80-5.40) m/uL Hgb 9.2 L (11.4-16.0) gm/dL Hct 30.7 L (34.0-46.0) % MCV 109.3 H (80.0-100.0) fL MCHC 29.9 L (31.0-37.0) g/dL RDW 16.8 H (11.5-15.5) % Neutrophils # 11.4 H (1.3-7.7) k/uL Lymphocytes # 0.3 L (1.0-4.8) k/uL Macrocytosis Marked A APTT (22.0-30.0) sec ABG pH (7.35-7.45) ABG pCO2 (35-45) mmHg ABG pO2 (83-108) mmHg ABG O2 Saturation (94-97) % ABG Hematocrit (34.0-46.0) % Hemoglobin (11.4-16.0) gm/dL Sodium 132 L (137-145) mmol/L Potassium 6.0 H (3.5-5.1) mmol/L Carbon Dioxide (22-30) mmol/L BUN 77 H (7-17) mg/dL Creatinine 2.34 H (0.52-1.04) mg/dL Glucose 173 H (74-99) mg/dL POC Glucose (mg/dL) (70-110) mg/dL Calcium 8.1 L (8.4-10.2) mg/dL Troponin I (0.000-0.034) ng/mL Total Protein (PEP) 5.0 L (6.2-8.2) g/dL Procalcitonin (0.02-0.09) ng/mL Urine Protein (Negative) Urine Blood (Negative) Urine RBC (0-5) /hpf Hyaline Casts (0-2) /lpf 03/31/22 03/31/22 03/31/22 Range/Units 15:40 17:55 20:03 WBC (3.8-10.6) k/uL RBC (3.80-5.40) m/uL Hgb (11.4-16.0) gm/dL Hct (34.0-46.0) % MCV (80.0-100.0) fL MCHC (31.0-37.0) g/dL RDW (11.5-15.5) % Neutrophils # (1.3-7.7) k/uL Lymphocytes # (1.0-4.8) k/uL Macrocytosis APTT (22.0-30.0) sec ABG pH 7.29 L (7.35-7.45) ABG pCO2 47 H (35-45) mmHg ABG pO2 67 L (83-108) mmHg ABG O2 Saturation 92.0 L (94-97) % ABG Hematocrit 27 L (34.0-46.0) % Hemoglobin 8.8 L (11.4-16.0) gm/dL Sodium (137-145) mmol/L Potassium (3.5-5.1) mmol/L Carbon Dioxide (22-30) mmol/L BUN (7-17) mg/dL Creatinine (0.52-1.04) mg/dL Glucose (74-99) mg/dL POC Glucose (mg/dL) 211 H (70-110) mg/dL Calcium (8.4-10.2) mg/dL Troponin I 9.860 H* (0.000-0.034) ng/mL Total Protein (PEP) (6.2-8.2) g/dL Procalcitonin (0.02-0.09) ng/mL Urine Protein (Negative) Urine Blood (Negative) Urine RBC (0-5) /hpf Hyaline Casts (0-2) /lpf 03/31/22 04/01/22 04/01/22 Range/Units 20:20 05:53 07:10 WBC (3.8-10.6) k/uL RBC 2.53 L (3.80-5.40) m/uL Hgb 8.8 L (11.4-16.0) gm/dL Hct 28.1 L (34.0-46.0) % MCV 111.1 H (80.0-100.0) fL MCHC (31.0-37.0) g/dL RDW 16.8 H (11.5-15.5) % Neutrophils # 9.3 H (1.3-7.7) k/uL Lymphocytes # 0.3 L (1.0-4.8) k/uL Macrocytosis Marked A APTT 46.5 H (22.0-30.0) sec ABG pH (7.35-7.45) ABG pCO2 (35-45) mmHg ABG pO2 (83-108) mmHg ABG O2 Saturation (94-97) % ABG Hematocrit (34.0-46.0) % Hemoglobin (11.4-16.0) gm/dL Sodium (137-145) mmol/L Potassium (3.5-5.1) mmol/L Carbon Dioxide (22-30) mmol/L BUN (7-17) mg/dL Creatinine (0.52-1.04) mg/dL Glucose (74-99) mg/dL POC Glucose (mg/dL) 254 H (70-110) mg/dL Calcium (8.4-10.2) mg/dL Troponin I (0.000-0.034) ng/mL Total Protein (PEP) (6.2-8.2) g/dL Procalcitonin (0.02-0.09) ng/mL Urine Protein (Negative) Urine Blood (Negative) Urine RBC (0-5) /hpf Hyaline Casts (0-2) /lpf 04/01/22 04/01/22 04/01/22 Range/Units 07:10 08:38 11:51 WBC (3.8-10.6) k/uL RBC (3.80-5.40) m/uL Hgb (11.4-16.0) gm/dL Hct (34.0-46.0) % MCV (80.0-100.0) fL MCHC (31.0-37.0) g/dL RDW (11.5-15.5) % Neutrophils # (1.3-7.7) k/uL Lymphocytes # (1.0-4.8) k/uL Macrocytosis APTT (22.0-30.0) sec ABG pH (7.35-7.45) ABG pCO2 (35-45) mmHg ABG pO2 (83-108) mmHg ABG O2 Saturation (94-97) % ABG Hematocrit (34.0-46.0) % Hemoglobin (11.4-16.0) gm/dL Sodium 132 L (137-145) mmol/L Potassium 6.2 H* (3.5-5.1) mmol/L Carbon Dioxide 20 L (22-30) mmol/L BUN 91 H (7-17) mg/dL Creatinine 2.72 H (0.52-1.04) mg/dL Glucose 223 H (74-99) mg/dL POC Glucose (mg/dL) 240 H 260 H (70-110) mg/dL Calcium 7.5 L (8.4-10.2) mg/dL Troponin I (0.000-0.034) ng/mL Total Protein (PEP) (6.2-8.2) g/dL Procalcitonin (0.02-0.09) ng/mL Urine Protein (Negative) Urine Blood (Negative) Urine RBC (0-5) /hpf Hyaline Casts (0-2) /lpf 04/01/22 Range/Units 12:05 WBC (3.8-10.6) k/uL RBC (3.80-5.40) m/uL Hgb (11.4-16.0) gm/dL Hct (34.0-46.0) % MCV (80.0-100.0) fL MCHC (31.0-37.0) g/dL RDW (11.5-15.5) % Neutrophils # (1.3-7.7) k/uL Lymphocytes # (1.0-4.8) k/uL Macrocytosis APTT (22.0-30.0) sec ABG pH (7.35-7.45) ABG pCO2 (35-45) mmHg ABG pO2 (83-108) mmHg ABG O2 Saturation (94-97) % ABG Hematocrit (34.0-46.0) % Hemoglobin (11.4-16.0) gm/dL Sodium (137-145) mmol/L Potassium 5.6 H (3.5-5.1) mmol/L Carbon Dioxide (22-30) mmol/L BUN (7-17) mg/dL Creatinine (0.52-1.04) mg/dL Glucose (74-99) mg/dL POC Glucose (mg/dL) (70-110) mg/dL Calcium (8.4-10.2) mg/dL Troponin I (0.000-0.034) ng/mL Total Protein (PEP) (6.2-8.2) g/dL Procalcitonin (0.02-0.09) ng/mL Urine Protein (Negative) Urine Blood (Negative) Urine RBC (0-5) /hpf Hyaline Casts (0-2) /lpf Microbiology - Last 24 Hours (Table) 03/31/22 10:00 Blood Culture - Preliminary Blood No Growth after 24 hours 03/31/22 10:15 Blood Culture - Preliminary Blood No Growth after 24 hours Diabetes panel 03/31/22 04/01/22 04/01/22 Range/Units 15:10 07:10 12:05 Sodium 132 L 132 L (137-145) mmol/L Potassium 6.0 H 6.2 H* 5.6 H (3.5-5.1) mmol/L Chloride 102 103 (98-107) mmol/L Carbon Dioxide 22 20 L (22-30) mmol/L BUN 77 H 91 H (7-17) mg/dL Creatinine 2.34 H 2.72 H (0.52-1.04) mg/dL Glucose 173 H 223 H (74-99) mg/dL Calcium 8.1 L 7.5 L (8.4-10.2) mg/dL Calcium panel 03/31/22 04/01/22 Range/Units 15:10 07:10 Calcium 8.1 L 7.5 L (8.4-10.2) mg/dL Pituitary panel 03/31/22 04/01/22 04/01/22 Range/Units 15:10 07:10 12:05 Sodium 132 L 132 L (137-145) mmol/L Potassium 6.0 H 6.2 H* 5.6 H (3.5-5.1) mmol/L Chloride 102 103 (98-107) mmol/L Carbon Dioxide 22 20 L (22-30) mmol/L BUN 77 H 91 H (7-17) mg/dL Creatinine 2.34 H 2.72 H (0.52-1.04) mg/dL Glucose 173 H 223 H (74-99) mg/dL Calcium 8.1 L 7.5 L (8.4-10.2) mg/dL Adrenal panel 03/31/22 04/01/22 04/01/22 Range/Units 15:10 07:10 12:05 Sodium 132 L 132 L (137-145) mmol/L Potassium 6.0 H 6.2 H* 5.6 H (3.5-5.1) mmol/L Chloride 102 103 (98-107) mmol/L Carbon Dioxide 22 20 L (22-30) mmol/L BUN 77 H 91 H (7-17) mg/dL Creatinine 2.34 H 2.72 H (0.52-1.04) mg/dL Glucose 173 H 223 H (74-99) mg/dL Calcium 8.1 L 7.5 L (8.4-10.2) mg/dL
--- NOTE | 2022-04-01 13:52 | IR ---
EXAMINATION TYPE: IR cvc insert non tunneled DATE OF EXAM: 04/01/2022 COMPARISON: NONE HISTORY: Fluoroscopy time. Fluoroscopy was provided to the referring clinician.
[2022-04-01 13:59] LABS: Free Lambda Lt Chain Qnt, Seru 2.95 mg/dL (0.57-2.63)
[2022-04-01] MEDS: HEPARIN SOD,PORK IN 0.45% NACL 25,000 UNIT in 0.45% NACL 1 250ML.BAG IV SCH (14:38)
--- NOTE | 2022-04-01 15:13 | P.PN ---
Subjective Progress Note Date: 04/01/22 72-year-old pleasant female came in with complaints of shortness of breath found to be in heart failure patient has a extensive pulmonary edema with highly elevated BNP. Patient appears to have chronic diastolic dysfunction had a normal ejection fraction the past. Patient is presently on BiPAP patient has mild hypercapnia probably secondary to obesity patient is mostly hypoxic respiratory failure acute hypoxic respiratory failure doesn't use any oxygen at home. During her last hospitalization patient was treated for acute renal failure and at that time diuretics were discontinued and had acute renal failure was considered secondary to vasculitis because of which patient was discharged on steroids. Patient was comparing of some cough without any significant sputum production denied any dysuria doesn't have any fever does have mild leukocytosis. Patient does have history of breast cancer completed her chemotherapy recently never received any radiation therapy. Patient is mildly hyperkalemic with potassium of 5.3 and hyponatremic. 04/01/2022 Patient evaluated on step down unit on BiPAP, currently with 100% FiO2. Patient was an ateam yesterday for acute respiratory distress and received an additional 160 mg of IV push lasix for fluid overload. Her chest xray showed minimal improvement from prior. She also reported chest pain at that time which was relieved some with SL nitroglycerin and nitropaste as applied. She had EKG performed as well and reviewed by sound physician at bedside who felt there was no evidence for ST elevation. Troponins were trended showing 0.740, 3.950, 7.18 0, 9.860. She has produced minimal urine about 400 ml yesterday and 350 ml out overnight. Nephrology was consulted and recommending patient to undergo hemodialysis today. This was discussed with patient in extent and she is agreeing to dialysis and hoping to be able to breath better afterwards. Card iology has discussed possible catheterization and patient is agreeable to this also. Today her white count is 10.2, hgb 8.8, sodium 132, potassium peaked at 6.2, BUN 91, creatinine 2.72. Blood glucose in the 200s. Blood cultures are negative. Remains afebrile, heart rate 87, blood pressure 138/70, 96% on BiPAP. Review of Systems Constitutional: Denied any fatigue denied any fever. Cardio vascular: denied any chest pain, palpitations Gastrointestinal: denied any nausea, vomiting, diarrhea Pulmonary: Denied any shortness of breath cough Neurologic denied any new focal deficits All inpatient medications were reviewed and appropriate changes in these medications as dictated in the interval history and assessment and plan. PHYSICAL EXAMINATION: GENERAL: The patient is alert and oriented x3, mild respiratory distress. Well developed, well nourished. HEENT: Pupils are round and equally reacting to light. EOMI. No scleral icterus. No conjunctival pallor. Normocephalic, atraumatic. No pharyngeal erythema. No thyromegaly. CARDIOVASCULAR: S1 and S2 present. No murmurs, rubs, or gallops. PULMONARY: Coarse scattered rhonchi throughout ABDOMEN: Soft, nontender, nondistended, normoactive bowel sounds. No palpable organomegaly. MUSCULOSKELETAL: No joint swelling or deformity. EXTREMITIES: No cyanosis, clubbing. Lower extremity peripheral edema. NEUROLOGICAL: Gross neurological examination did not reveal any focal deficits. SKIN: No rashes. Assessment and Plan Assessment -Acute hypoxic respiratory failure secondary to acute heart failure with chronic diastolic dysfunction. 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 - continues on oral prednisone -Obesity with possible sleep apnea contributing to hypercapnia -Current smoker GI Prophylaxis DVT Prophylaxis No Code Plan Continue BiPAP oxygen support Plan for vascular access and patient will undergo dialysis today CTA once clinical condition improves Possible cardiac catheterization Continue with IV heparin, nitropaste Patient received sodium bicarbonate/insulin/dextrose for elevated potassium Repeat labs Continue martel catheter with strict intake and output Multiple consultations including pulmonary, cardiology, nephrology The impression and plan of care has been dictated by Akanksha Cespedes Nurse Practitioner as directed. Dr. Tran MD I have performed a history and physical examination and medical decision making of this patient, discussed the same with the dictator, and agree with the dictators assessment and plan as written, documented as a scribe. Based on total visit time, I have performed more than 50% of this visit. Objective - Vital Signs Vital signs: Vital Signs Temp 98.6 F 04/01/22 12:00 Pulse 87 04/01/22 12:00 Resp 30 H 04/01/22 12:00 BP 138/70 04/01/22 12:00 Pulse Ox 96 04/01/22 12:00 FiO2 100 04/01/22 12:00 Intake & Output 03/31/22 04/01/22 04/01/22 18:59 06:59 18:59 Intake Total 417.5 399.833 Output Total 400 350 25 Balance -400 67.5 374.833 Weight 116.483 kg Intake: IV 20 Invasive Line 1 20 Intake, IV Titration 417.5 139.833 Amount Aztreonam 1 gm In Sodium 100 Chloride 0.9% 50 ml @ 16. 667 mls/hr IVPB Q8HR [facility] Rx#:[id number] Aztreonam 2 gm In Sodium 250 Chloride 0.9% 100 ml @ 33 .3 mls/hr IVPB Q8HR [facility] Rx#:[id number] Heparin Sod,Pork in 0.45% 67.5 139.833 NaCl 25,000 unit In 0.45 % NaCl 1 250ml.bag @ 8. 585 UNITS/KG/HR 10 mls/hr IV .Q24H [facility] Rx#: [id number] Oral 0 240 Output: Urine 400 350 25 Uretheral ([place]) 25 Other: Voiding Method Indwelling Catheter Indwelling Catheter Indwelling Catheter - Labs CBC & Chem 7: 04/01/22 07:10 04/01/22 12:05 Labs: Abnormal Lab Results - Last 24 Hours (Table) 03/31/22 03/31/22 03/31/22 Range/Units 08:39 14:57 15:10 WBC (3.8-10.6) k/uL RBC (3.80-5.40) m/uL Hgb (11.4-16.0) gm/dL Hct (34.0-46.0) % MCV (80.0-100.0) fL MCHC (31.0-37.0) g/dL RDW (11.5-15.5) % Neutrophils # (1.3-7.7) k/uL Lymphocytes # (1.0-4.8) k/uL Macrocytosis APTT (22.0-30.0) sec ABG pH (7.35-7.45) ABG pCO2 (35-45) mmHg ABG pO2 (83-108) mmHg ABG O2 Saturation (94-97) % ABG Hematocrit (34.0-46.0) % Hemoglobin (11.4-16.0) gm/dL Sodium (137-145) mmol/L Potassium (3.5-5.1) mmol/L Carbon Dioxide (22-30) mmol/L BUN (7-17) mg/dL Creatinine (0.52-1.04) mg/dL Glucose (74-99) mg/dL POC Glucose (mg/dL) 191 H (70-110) mg/dL Calcium (8.4-10.2) mg/dL Troponin I 7.180 H* (0.000-0.034) ng/mL Total Protein (PEP) (6.2-8.2) g/dL Procalcitonin 0.14 H (0.02-0.09) ng/mL Free [place] LC, Quant (0.33-1.94) mg/dL Free [place] LC, Quant (0.57-2.63) mg/dL 03/31/22 03/31/22 03/31/22 Range/Units 15:10 15:10 15:10 WBC 12.5 H (3.8-10.6) k/uL RBC 2.81 L (3.80-5.40) m/uL Hgb 9.2 L (11.4-16.0) gm/dL Hct 30.7 L (34.0-46.0) % MCV 109.3 H (80.0-100.0) fL MCHC 29.9 L (31.0-37.0) g/dL RDW 16.8 H (11.5-15.5) % Neutrophils # 11.4 H (1.3-7.7) k/uL Lymphocytes # 0.3 L (1.0-4.8) k/uL Macrocytosis Marked A APTT 88.9 H (22.0-30.0) sec ABG pH (7.35-7.45) ABG pCO2 (35-45) mmHg ABG pO2 (83-108) mmHg ABG O2 Saturation (94-97) % ABG Hematocrit (34.0-46.0) % Hemoglobin (11.4-16.0) gm/dL Sodium 132 L (137-145) mmol/L Potassium 6.0 H (3.5-5.1) mmol/L Carbon Dioxide (22-30) mmol/L BUN 77 H (7-17) mg/dL Creatinine 2.34 H (0.52-1.04) mg/dL Glucose 173 H (74-99) mg/dL POC Glucose (mg/dL) (70-110) mg/dL Calcium 8.1 L (8.4-10.2) mg/dL Troponin I (0.000-0.034) ng/mL Total Protein (PEP) (6.2-8.2) g/dL Procalcitonin (0.02-0.09) ng/mL Free [place] LC, Quant (0.33-1.94) mg/dL Free [place] LC, Quant (0.57-2.63) mg/dL 03/31/22 03/31/22 03/31/22 Range/Units 15:10 15:40 17:55 WBC (3.8-10.6) k/uL RBC (3.80-5.40) m/uL Hgb (11.4-16.0) gm/dL Hct (34.0-46.0) % MCV (80.0-100.0) fL MCHC (31.0-37.0) g/dL RDW (11.5-15.5) % Neutrophils # (1.3-7.7) k/uL Lymphocytes # (1.0-4.8) k/uL Macrocytosis APTT (22.0-30.0) sec ABG pH 7.29 L (7.35-7.45) ABG pCO2 47 H (35-45) mmHg ABG pO2 67 L (83-108) mmHg ABG O2 Saturation 92.0 L (94-97) % ABG Hematocrit 27 L (34.0-46.0) % Hemoglobin 8.8 L (11.4-16.0) gm/dL Sodium (137-145) mmol/L Potassium (3.5-5.1) mmol/L Carbon Dioxide (22-30) mmol/L BUN (7-17) mg/dL Creatinine (0.52-1.04) mg/dL Glucose (74-99) mg/dL POC Glucose (mg/dL) (70-110) mg/dL Calcium (8.4-10.2) mg/dL Troponin I 9.860 H* (0.000-0.034) ng/mL Total Protein (PEP) 5.0 L (6.2-8.2) g/dL Procalcitonin (0.02-0.09) ng/mL Free [place] LC, Quant 6.40 H (0.33-1.94) mg/dL Free [place] LC, Quant 2.95 H (0.57-2.63) mg/dL 03/31/22 03/31/22 04/01/22 Range/Units 20:03 20:20 05:53 WBC (3.8-10.6) k/uL RBC (3.80-5.40) m/uL Hgb (11.4-16.0) gm/dL Hct (34.0-46.0) % MCV (80.0-100.0) fL MCHC (31.0-37.0) g/dL RDW (11.5-15.5) % Neutrophils # (1.3-7.7) k/uL Lymphocytes # (1.0-4.8) k/uL Macrocytosis APTT 46.5 H (22.0-30.0) sec ABG pH (7.35-7.45) ABG pCO2 (35-45) mmHg ABG pO2 (83-108) mmHg ABG O2 Saturation (94-97) % ABG Hematocrit (34.0-46.0) % Hemoglobin (11.4-16.0) gm/dL Sodium (137-145) mmol/L Potassium (3.5-5.1) mmol/L Carbon Dioxide (22-30) mmol/L BUN (7-17) mg/dL Creatinine (0.52-1.04) mg/dL Glucose (74-99) mg/dL POC Glucose (mg/dL) 211 H 254 H (70-110) mg/dL Calcium (8.4-10.2) mg/dL Troponin I (0.000-0.034) ng/mL Total Protein (PEP) (6.2-8.2) g/dL Procalcitonin (0.02-0.09) ng/mL Free [place] LC, Quant (0.33-1.94) mg/dL Free [place] LC, Quant (0.57-2.63) mg/dL 04/01/22 04/01/22 04/01/22 Range/Units 07:10 07:10 08:38 WBC (3.8-10.6) k/uL RBC 2.53 L (3.80-5.40) m/uL Hgb 8.8 L (11.4-16.0) gm/dL Hct 28.1 L (34.0-46.0) % MCV 111.1 H (80.0-100.0) fL MCHC (31.0-37.0) g/dL RDW 16.8 H (11.5-15.5) % Neutrophils # 9.3 H (1.3-7.7) k/uL Lymphocytes # 0.3 L (1.0-4.8) k/uL Macrocytosis Marked A APTT (22.0-30.0) sec ABG pH (7.35-7.45) ABG pCO2 (35-45) mmHg ABG pO2 (83-108) mmHg ABG O2 Saturation (94-97) % ABG Hematocrit (34.0-46.0) % Hemoglobin (11.4-16.0) gm/dL Sodium 132 L (137-145) mmol/L Potassium 6.2 H* (3.5-5.1) mmol/L Carbon Dioxide 20 L (22-30) mmol/L BUN 91 H (7-17) mg/dL Creatinine 2.72 H (0.52-1.04) mg/dL Glucose 223 H (74-99) mg/dL POC Glucose (mg/dL) 240 H (70-110) mg/dL Calcium 7.5 L (8.4-10.2) mg/dL Troponin I (0.000-0.034) ng/mL Total Protein (PEP) (6.2-8.2) g/dL Procalcitonin (0.02-0.09) ng/mL Free [place] LC, Quant (0.33-1.94) mg/dL Free [place] LC, Quant (0.57-2.63) mg/dL 04/01/22 04/01/22 Range/Units 11:51 12:05 WBC (3.8-10.6) k/uL RBC (3.80-5.40) m/uL Hgb (11.4-16.0) gm/dL Hct (34.0-46.0) % MCV (80.0-100.0) fL MCHC (31.0-37.0) g/dL RDW (11.5-15.5) % Neutrophils # (1.3-7.7) k/uL Lymphocytes # (1.0-4.8) k/uL Macrocytosis APTT (22.0-30.0) sec ABG pH (7.35-7.45) ABG pCO2 (35-45) mmHg ABG pO2 (83-108) mmHg ABG O2 Saturation (94-97) % ABG Hematocrit (34.0-46.0) % Hemoglobin (11.4-16.0) gm/dL Sodium (137-145) mmol/L Potassium 5.6 H (3.5-5.1) mmol/L Carbon Dioxide (22-30) mmol/L BUN (7-17) mg/dL Creatinine (0.52-1.04) mg/dL Glucose (74-99) mg/dL POC Glucose (mg/dL) 260 H (70-110) mg/dL Calcium (8.4-10.2) mg/dL Troponin I (0.000-0.034) ng/mL Total Protein (PEP) (6.2-8.2) g/dL Procalcitonin (0.02-0.09) ng/mL Free [place] LC, Quant (0.33-1.94) mg/dL Free [place] LC, Quant (0.57-2.63) mg/dL Microbiology - Last 24 Hours (Table) 03/31/22 10:00 Blood Culture - Preliminary Blood No Growth after 24 hours 03/31/22 10:15 Blood Culture - Preliminary Blood No Growth after 24 hours Assessment and Plan Time with Patient: Greater than 30
[2022-04-01] MEDS: DILTIAZEM 125 MG in SODIUM CHLORIDE 0.9% 100 ML IV SCH (16:48)
[2022-04-01 17:06] LABS: Glucose,Whole Blood 202 mg/dL (70-110)
[2022-04-01 19:17] LABS: Hepatitis B Surface AB- Quant 3.5 mIU/mL; Hepatitis B Surface Antibody Nonreactive (Nonreactive)
[2022-04-01 19:26] LABS: Hepatitis B Surface Antigen Nonreactive (Nonreactive)
[2022-04-01 19:58] LABS: Glucose,Whole Blood 243 mg/dL (70-110)
[2022-04-01 20:02] LABS: % Iron Saturation 5.8 (12.00-45.00)
[2022-04-01] MEDS: PSYLLIUM HUSK 100% 6 GM PACKET PO SCH (20:38)
[2022-04-01] MEDS: AMITRIPTYLINE HCL 50 MG TAB PO SCH (20:39)
[2022-04-02 06:05] LABS: Glucose,Whole Blood 267 mg/dL (70-110)
[2022-04-02] MEDS: LEVOTHYROXINE 100 MCG TAB PO SCH (06:16)
[2022-04-02] MEDS: LEVOTHYROXINE 88 MCG TAB PO SCH (06:16)
[2022-04-02] MEDS: INSULIN ASPART (NovoLOG) 100 UNIT/ML VIAL SQ SCH ×4 (06:16→20:27)
[2022-04-02] MEDS: NITROGLYCERIN OINT 1 INCH/GM PACKET TOPICAL SCH ×3 (06:16→18:05)
[2022-04-02 06:44] LABS: Calcium 7.8 mg/dL (8.4-10.2); Magnesium 2.2 mg/dL (1.6-2.3)
--- NOTE | 2022-04-02 06:45 | P.PN ---
Subjective Progress Note Date: 04/02/22 Principal diagnosis: Acute coronary syndrome This is 72-year-old female patient with history of breast cancer she was receiving chemotherapy as diabetes and hypertension and dyslipidemia on multiple comorbid conditions including chronic kidney disease was admitted to the [facility] with increasing shortness of breath and lower extremities edema she was diagnosed with heart failure. She was ruled in for acute coronary event. Also she was found to be in in stage disease required placement of hemodialysis catheter and dialysis yesterday. April [id number] The patient was seen today. Definitely she looks less congested after dialysis yesterday she is going to undergo another dialysis today. Last night she went into atrial fibrillation with RVR and currently she is on Cardizem IV at 5 mg per hour. I'm going to increase the dose of beta yanet and try to wean the p atient from Cardizem IV. Meanwhile she is on aspirin and high intensity statin and she is also on heparin IV. The echo revealed normal LV function with evidence off anteroseptal hypokinesia concerning for severe LAD disease. Discussed with the patient and the family yesterday the options including invasive versus conservative approach. The family and the patient would like to think about it at this point. Anyway she still in heart failure and I would wait on proceeding was coronary angiogram at this point. Objective - Vital Signs Vital signs: Vital Signs Temp 98.1 F 04/01/22 19:18 Pulse 124 H 04/02/22 04:00 Resp 23 04/02/22 04:00 BP 148/68 04/02/22 04:00 Pulse Ox 97 04/02/22 04:00 FiO2 100 04/02/22 04:00 Intake & Output 04/01/22 04/01/22 04/02/22 06:59 18:59 06:59 Intake Total 417.5 599.833 761.649 Output Total 350 2325 250 Balance 67.5 -1725.167 511.649 Intake: IV 120 100 Aztreonam 1 gm In Sodium 100 100 Chloride 0.9% 50 ml @ 16. 667 mls/hr IVPB Q8HR [facility] Rx#:[id number] Invasive Line 1 20 Intake, IV Titration 417.5 139.833 176.649 Amount Aztreonam 1 gm In Sodium 100 Chloride 0.9% 50 ml @ 16. 667 mls/hr IVPB Q8HR [facility] Rx#:[id number] Aztreonam 2 gm In Sodium 250 Chloride 0.9% 100 ml @ 33 .3 mls/hr IVPB Q8HR [facility] Rx#:[id number] Heparin Sod,Pork in 0.45% 67.5 139.833 176.649 NaCl 25,000 unit In 0.45 % NaCl 1 250ml.bag @ 8. 585 UNITS/KG/HR 10 mls/hr IV .Q24H [facility] Rx#: [id number] Oral 0 340 485 Output: Urine 350 325 250 Uretheral ([place]) 25 Hemodialysis 1999 Other: Voiding Method Indwelling Catheter Indwelling Catheter Indwelling Catheter - Constitutional General appearance: Present: no acute distress - Respiratory Respiratory: bilateral: diminished - Cardiovascular Rhythm: regular Heart sounds: normal: S1, S2 Abnormal Heart Sounds: Present: systolic murmur - Labs CBC & Chem 7: 04/01/22 07:10 04/01/22 12:05 Labs: Abnormal Lab Results - Last 24 Hours (Table) 03/31/22 04/01/22 04/01/22 Range/Units 15:10 07:10 07:10 RBC 2.53 L (3.80-5.40) m/uL Hgb 8.8 L (11.4-16.0) gm/dL Hct 28.1 L (34.0-46.0) % MCV 111.1 H (80.0-100.0) fL RDW 16.8 H (11.5-15.5) % Neutrophils # 9.3 H (1.3-7.7) k/uL Lymphocytes # 0.3 L (1.0-4.8) k/uL Macrocytosis Marked A APTT (22.0-30.0) sec Sodium 132 L (137-145) mmol/L Potassium 6.2 H* (3.5-5.1) mmol/L Carbon Dioxide 20 L (22-30) mmol/L BUN 91 H (7-17) mg/dL Creatinine 2.72 H (0.52-1.04) mg/dL Glucose 223 H (74-99) mg/dL POC Glucose (mg/dL) (70-110) mg/dL Calcium 7.5 L (8.4-10.2) mg/dL Iron (50-170) ug/dL % Saturation (12.00-45.00) Transferrin (204.0-354.0) mg/dL Ferritin (10.0-291.0) ng/mL Free [place] LC, Quant 6.40 H (0.33-1.94) mg/dL Free [place]ambda LC, Quant 2.95 H (0.57-2.63) mg/dL 04/01/22 04/01/22 04/01/22 Range/Units 08:38 11:51 12:05 RBC (3.80-5.40) m/uL Hgb (11.4-16.0) gm/dL Hct (34.0-46.0) % MCV (80.0-100.0) fL RDW (11.5-15.5) % Neutrophils # (1.3-7.7) k/uL Lymphocytes # (1.0-4.8) k/uL Macrocytosis APTT (22.0-30.0) sec Sodium (137-145) mmol/L Potassium 5.6 H (3.5-5.1) mmol/L Carbon Dioxide (22-30) mmol/L BUN (7-17) mg/dL Creatinine (0.52-1.04) mg/dL Glucose (74-99) mg/dL POC Glucose (mg/dL) 240 H 260 H (70-110) mg/dL Calcium (8.4-10.2) mg/dL Iron 13 L (50-170) ug/dL % Saturation 5.80 L (12.00-45.00) Transferrin 165.0 L (204.0-354.0) mg/dL Ferritin 639.0 H (10.0-291.0) ng/mL Free [place] LC, Quant (0.33-1.94) mg/dL Free [place] LC, Quant (0.57-2.63) mg/dL 04/01/22 04/01/22 04/01/22 Range/Units 16:37 19:57 21:12 RBC (3.80-5.40) m/uL Hgb (11.4-16.0) gm/dL Hct (34.0-46.0) % MCV (80.0-100.0) fL RDW (11.5-15.5) % Neutrophils # (1.3-7.7) k/uL Lymphocytes # (1.0-4.8) k/uL Macrocytosis APTT 39.5 H (22.0-30.0) sec Sodium (137-145) mmol/L Potassium (3.5-5.1) mmol/L Carbon Dioxide (22-30) mmol/L BUN (7-17) mg/dL Creatinine (0.52-1.04) mg/dL Glucose (74-99) mg/dL POC Glucose (mg/dL) 202 H 243 H (70-110) mg/dL Calcium (8.4-10.2) mg/dL Iron (50-170) ug/dL % Saturation (12.00-45.00) Transferrin (204.0-354.0) mg/dL Ferritin (10.0-291.0) ng/mL Free [place] LC, Quant (0.33-1.94) mg/dL Free [place] LC, Quant (0.57-2.63) mg/dL 04/02/22 04/02/22 Range/Units 05:37 06:04 RBC (3.80-5.40) m/uL Hgb (11.4-16.0) gm/dL Hct (34.0-46.0) % MCV (80.0-100.0) fL RDW (11.5-15.5) % Neutrophils # (1.3-7.7) k/uL Lymphocytes # (1.0-4.8) k/uL Macrocytosis APTT 54.7 H (22.0-30.0) sec Sodium (137-145) mmol/L Potassium (3.5-5.1) mmol/L Carbon Dioxide (22-30) mmol/L BUN (7-17) mg/dL Creatinine (0.52-1.04) mg/dL Glucose (74-99) mg/dL POC Glucose (mg/dL) 267 H (70-110) mg/dL Calcium (8.4-10.2) mg/dL Iron (50-170) ug/dL % Saturation (12.00-45.00) Transferrin (204.0-354.0) mg/dL Ferritin (10.0-291.0) ng/mL Free [place] LC, Quant (0.33-1.94) mg/dL Free [place] LC, Quant (0.57-2.63) mg/dL Microbiology - Last 24 Hours (Table) 03/31/22 10:00 Blood Culture - Preliminary Blood No Growth after 24 hours 03/31/22 10:15 Blood Culture - Preliminary Blood No Growth after 24 hours Assessment and Plan Assessment: Assessment #1 acute coronary syndrome #2 heart failure exacerbation secondary to heart failure with preserved ejection fraction #3 history of breast cancer #4 diabetes and hypertension and dyslipidemia #5 multiple comorbid conditions Plan #1 continue the heparin for additional 24 hours #2 right wean the patient Cardizem #3 the serosal beta yanet #4 continue aspirin and statin #5 follow-up with the patient
[2022-04-02] MEDS: IPRATROPIUM-ALBUTEROL 3 ML NEB INHALATION SCH ×4 (07:28→19:30)
--- NOTE | 2022-04-02 10:30 | P.PN ---
Subjective patient is seen in follow-up for acute kidney injury. Started on hemodialysis 04/01/2022. Currently on BiPAP. Tolerated 2 L ultrafiltration yesterday. Urine output about 300 mL overnight. Oral intake is poor. Vital signs are stable. General: resting in bed. Awake. HEENT: on BiPAP. LUNGS: Breath sounds decreased. HEART: Rate and Rhythm are regular. ABDOMEN: soft, no distention. EXTREMITITES: 2+ edema. Objective - Vital Signs Vital signs: Vital Signs Temp 98.1 F 04/01/22 19:18 Pulse 108 H 04/02/22 07:39 Resp 23 04/02/22 04:00 BP 148/68 04/02/22 04:00 Pulse Ox 97 04/02/22 04:00 FiO2 80 04/02/22 07:30 Intake & Output 04/01/22 04/02/22 04/02/22 18:59 06:59 18:59 Intake Total 599.833 761.649 Output Total 2325 250 Balance -1725.167 511.649 Intake: IV 120 100 Aztreonam 1 gm In Sodium 100 100 Chloride 0.9% 50 ml @ 16. 667 mls/hr IVPB Q8HR [facility] Rx#:[id number] Invasive Line 1 20 Intake, IV Titration 139.833 176.649 Amount Heparin Sod,Pork in 0.45% 139.833 176.649 NaCl 25,000 unit In 0.45 % NaCl 1 250ml.bag @ 8. 585 UNITS/KG/HR 10 mls/hr IV .Q24H [facility] Rx#: [id number] Oral 340 485 Output: Urine 325 250 Uretheral ([place]) 25 Hemodialysis 1999 Other: Voiding Method Indwelling Catheter Indwelling Catheter - Labs CBC & Chem 7: 04/01/22 07:10 04/02/22 05:37 Labs: Abnormal Lab Results - Last 24 Hours (Table) 03/31/22 04/01/22 04/01/22 Range/Units 15:10 11:51 12:05 APTT (22.0-30.0) sec Sodium (137-145) mmol/L Potassium 5.6 H (3.5-5.1) mmol/L BUN (7-17) mg/dL Creatinine (0.52-1.04) mg/dL Glucose (74-99) mg/dL POC Glucose (mg/dL) 260 H (70-110) mg/dL Calcium (8.4-10.2) mg/dL Iron 13 L (50-170) ug/dL % Saturation 5.80 L (12.00-45.00) Transferrin 165.0 L (204.0-354.0) mg/dL Ferritin 639.0 H (10.0-291.0) ng/mL Free [place] LC, Quant 6.40 H (0.33-1.94) mg/dL Free [place] LC, Quant 2.95 H (0.57-2.63) mg/dL 04/01/22 04/01/22 04/01/22 Range/Units 16:37 19:57 21:12 APTT 39.5 H (22.0-30.0) sec Sodium (137-145) mmol/L Potassium (3.5-5.1) mmol/L BUN (7-17) mg/dL Creatinine (0.52-1.04) mg/dL Glucose (74-99) mg/dL POC Glucose (mg/dL) 202 H 243 H (70-110) mg/dL Calcium (8.4-10.2) mg/dL Iron (50-170) ug/dL % Saturation (12.00-45.00) Transferrin (204.0-354.0) mg/dL Ferritin (10.0-291.0) ng/mL Free [place] LC, Quant (0.33-1.94) mg/dL Free [place] LC, Quant (0.57-2.63) mg/dL 04/02/22 04/02/22 04/02/22 Range/Units 05:37 05:37 06:04 APTT 54.7 H (22.0-30.0) sec Sodium 134 L (137-145) mmol/L Potassium (3.5-5.1) mmol/L BUN 83 H (7-17) mg/dL Creatinine 2.45 H (0.52-1.04) mg/dL Glucose 223 H (74-99) mg/dL POC Glucose (mg/dL) 267 H (70-110) mg/dL Calcium 7.8 L (8.4-10.2) mg/dL Iron (50-170) ug/dL % Saturation (12.00-45.00) Transferrin (204.0-354.0) mg/dL Ferritin (10.0-291.0) ng/mL Free [place] LC, Quant (0.33-1.94) mg/dL Free [place] LC, Quant (0.57-2.63) mg/dL Microbiology - Last 24 Hours (Table) 03/31/22 10:00 Blood Culture - Preliminary Blood No Growth after 24 hours 03/31/22 10:15 Blood Culture - Preliminary Blood No Growth after 24 hours Assessment and Plan Plan: Assessment: 1. Acute kidney injury secondary to ATN secondary to cardiorenal syndrome and hemodynamic instability. Creatinine was 2.07 on admission and up to 2.72 on 04/01/2022. Renal ultrasound from March 2022 showed no evidence of hydronephrosis. started on hemodialysis 04/01/2022. 2. Chronic kidney disease stage III with baseline creatinine in the range of 1.3-1.5 secondary to nephrosclerosis. Serologies from prior admission were negative. 3. Acute hypoxic respiratory failure. 4. Volume overload. 5. Acute on chronic diastolic CHF with moderate mitral regurgitation. 6. Hyperkalemia secondary to acute kidney injury and acidosis. improved postdialysis. 7. Anemia of chronic kidney disease. iron deficiency noted. 8. Diabetes mellitus. 9. Lower extremity rash. Improved. On prednisone. 10. Elevated troponins with concern for acute coronary syndrome. On heparin drip. Cardiology following. 11. History of breast cancer. 12. Metabolic acidosis secondary to acute kidney injury. improved postdialysis. 13. A. fib with RVR maintained on Cardizem drip. Plan: second treatment of hemodialysis today and third treatment tomorrow. Maintain IV Lasix. Maintain Thibodeaux catheter. Strict is and os. Monitor for renal recovery. add IV iron. Wean FiO2. check phosphorus level.
--- NOTE | 2022-04-02 11:44 | P.PN ---
Subjective Progress Note Date: 04/02/22 72-year-old pleasant female came in with complaints of shortness of breath found to be in heart failure patient has a extensive pulmonary edema with highly elevated BNP. Patient appears to have chronic diastolic dysfunction had a normal ejection fraction the past. Patient is presently on BiPAP patient has mild hypercapnia probably secondary to obesity patient is mostly hypoxic respiratory failure acute hypoxic respiratory failure doesn't use any oxygen at home. During her last hospitalization patient was treated for acute renal failure and at that time diuretics were discontinued and had acute renal failure was considered secondary to vasculitis because of which patient was discharged on steroids. Patient was comparing of some cough without any significant sputum production denied any dysuria doesn't have any fever does have mild leukocytosis. Patient does have history of breast cancer completed her chemotherapy recently never received any radiation therapy. Patient is mildly hyperkalemic with potassium of 5.3 and hyponatremic. 04/01/2022 Patient evaluated on step down unit on BiPAP, currently with 100% FiO2. Patient was an ateam yesterday for acute respiratory distress and received an additional 160 mg of IV push lasix for fluid overload. Her chest xray showed minimal improvement from prior. She also reported chest pain at that time which was relieved some with SL nitroglycerin and nitropaste as applied. She had EKG performed as well and reviewed by sound physician at bedside who felt there was no evidence for ST elevation. Troponins were trended showing 0.740, 3.950, 7.18 0, 9.860. She has produced minimal urine about 400 ml yesterday and 350 ml out overnight. Nephrology was consulted and recommending patient to undergo hemodialysis today. This was discussed with patient in extent and she is agreeing to dialysis and hoping to be able to breath better afterwards. Card iology has discussed possible catheterization and patient is agreeable to this also. Today her white count is 10.2, hgb 8.8, sodium 132, potassium peaked at 6.2, BUN 91, creatinine 2.72. Blood glucose in the 200s. Blood cultures are negative. Remains afebrile, heart rate 87, blood pressure 138/70, 96% on BiPAP. 04/02/2022 Patient is resting in bed, continues on bipap with FiO2 of 100%. She reports breathing better after dialysis yesterday, she will have dialysis again today. Creatinine has improved slightly to 2.45. She remains in good spirits. Sodium 134, potassium 5.0. She continues on IV heparin. She went into atrial fibrillation with rapid ventricular rate throughout the evening and was started on IV cardizem which is continued. She will also receive 3 days of IV ferrlecit. Cardiology, nephrology, pulmonary are following the patient closely. Review of Systems Constitutional: Denied any fatigue denied any fever. Has anxiety. Cardio vascular: denied any chest pain, palpitations Gastrointestinal: denied any nausea, vomiting, diarrhea Pulmonary: Reports shortness of breath Neurologic denied any new focal deficits All inpatient medications were reviewed and appropriate changes in these medications as dictated in the interval history and assessment and plan. PHYSICAL EXAMINATION: GENERAL: The patient is alert and oriented x3, mild respiratory distress and anxious when bipap is off for sips of water. Well developed, well nourished. HEENT: Pupils are round and equally reacting to light. EOMI. No scleral icterus. No conjunctival pallor. Normocephalic, atraumatic. No pharyngeal erythema. No thyromegaly. CARDIOVASCULAR: S1 and S2 present. No murmurs, rubs, or gallops. PULMONARY: Coarse scattered rhonchi throughout ABDOMEN: Soft, nontender, nondistended, normoactive bowel sounds. No palpable organomegaly. MUSCULOSKELETAL: No joint swelling or deformity. EXTREMITIES: No cyanosis, clubbing. Lower extremity peripheral edema. NEUROLOGICAL: Gross neurological examination did not reveal any focal deficits. SKIN: No rashes. Assessment and Plan Assessment -Acute hypoxic respiratory failure secondary to acute heart failure with chronic diastolic dysfunction. 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 - continues on oral prednisone -Obesity with possible sleep apnea contributing to hypercapnia -Current smoker GI Prophylaxis DVT Prophylaxis No Code Plan Continue BiPAP oxygen support Plan for hemodialysis today CTA once clinical condition improves Possible cardiac catheterization Continue with IV heparin, nitropaste Continue on IV cardizem gtt further recommendations from cardiology Repeat labs Continue martel catheter with strict intake and output Multiple consultations including pulmonary, cardiology, nephrology The impression and plan of care has been dictated by Akanksha eCspedes, Nurse Practitioner as directed. Dr. Tran MD I have performed a history and physical examination and medical decision making of this patient, discussed the same with the dictator, and agree with the dictators assessment and plan as written, documented as a scribe. Based on total visit time, I have performed more than 50% of this visit. Objective - Vital Signs Vital signs: Vital Signs Temp 98.1 F 04/01/22 19:18 Pulse 108 H 04/02/22 07:39 Resp 22 04/02/22 08:00 BP 142/64 04/02/22 08:00 Pulse Ox 92 L 04/02/22 08:00 FiO2 100 04/02/22 08:00 Intake & Output 04/01/22 04/02/22 04/02/22 18:59 06:59 18:59 Intake Total 599.833 761.649 100 Output Total 2325 250 100 Balance -1725.167 511.649 0 Intake: IV 120 100 100 Aztreonam 1 gm In Sodium 100 100 100 Chloride 0.9% 50 ml @ 16. 667 mls/hr IVPB Q8HR [facility] Rx#:[id number] Invasive Line 1 20 Intake, IV Titration 139.833 176.649 Amount Heparin Sod,Pork in 0.45% 139.833 176.649 NaCl 25,000 unit In 0.45 % NaCl 1 250ml.bag @ 8. 585 UNITS/KG/HR 10 mls/hr IV .Q24H [facility] Rx#: [id number] Oral 340 485 Output: Urine 325 250 100 Uretheral (Martel) 25 100 Hemodialysis 2000 Other: Voiding Method Indwelling Catheter Indwelling Catheter Indwelling Catheter # Bowel Movements 0 - Labs CBC & Chem 7: 04/01/22 07:10 04/02/22 05:37 Labs: Abnormal Lab Results - Last 24 Hours (Table) 03/31/22 04/01/22 04/01/22 Range/Units 15:10 11:51 12:05 APTT (22.0-30.0) sec Sodium (137-145) mmol/L Potassium 5.6 H (3.5-5.1) mmol/L BUN (7-17) mg/dL Creatinine (0.52-1.04) mg/dL Glucose (74-99) mg/dL POC Glucose (mg/dL) 260 H (70-110) mg/dL Calcium (8.4-10.2) mg/dL Iron 13 L (50-170) ug/dL % Saturation 5.80 L (12.00-45.00) Transferrin 165.0 L (204.0-354.0) mg/dL Ferritin 639.0 H (10.0-291.0) ng/mL Free Arlee LC, Quant 6.40 H (0.33-1.94) mg/dL Free Lambda LC, Quant 2.95 H (0.57-2.63) mg/dL 04/01/22 04/01/22 04/01/22 Range/Units 16:37 19:57 21:12 APTT 39.5 H (22.0-30.0) sec Sodium (137-145) mmol/L Potassium (3.5-5.1) mmol/L BUN (7-17) mg/dL Creatinine (0.52-1.04) mg/dL Glucose (74-99) mg/dL POC Glucose (mg/dL) 202 H 243 H (70-110) mg/dL Calcium (8.4-10.2) mg/dL Iron (50-170) ug/dL % Saturation (12.00-45.00) Transferrin (204.0-354.0) mg/dL Ferritin (10.0-291.0) ng/mL Free Arlee LC, Quant (0.33-1.94) mg/dL Free Lambda LC, Quant (0.57-2.63) mg/dL 04/02/22 04/02/22 04/02/22 Range/Units 05:37 05:37 06:04 APTT 54.7 H (22.0-30.0) sec Sodium 134 L (137-145) mmol/L Potassium (3.5-5.1) mmol/L BUN 83 H (7-17) mg/dL Creatinine 2.45 H (0.52-1.04) mg/dL Glucose 223 H (74-99) mg/dL POC Glucose (mg/dL) 267 H (70-110) mg/dL Calcium 7.8 L (8.4-10.2) mg/dL Iron (50-170) ug/dL % Saturation (12.00-45.00) Transferrin (204.0-354.0) mg/dL Ferritin (10.0-291.0) ng/mL Free Arlee LC, Quant (0.33-1.94) mg/dL Free Lambda LC, Quant (0.57-2.63) mg/dL Microbiology - Last 24 Hours (Table) 03/31/22 10:00 Blood Culture - Preliminary Blood No Growth after 24 hours 03/31/22 10:15 Blood Culture - Preliminary Blood No Growth after 24 hours Assessment and Plan Time with Patient: Less than 30
[2022-04-02] MEDS: DILTIAZEM 125 MG in SODIUM CHLORIDE 0.9% 100 ML IV SCH (12:00)
[2022-04-02 12:21] LABS: Glucose,Whole Blood 202 mg/dL (70-110)
[2022-04-02] MEDS: HEPARIN SOD,PORK IN 0.45% NACL 25,000 UNIT in 0.45% NACL 1 250ML.BAG IV SCH (12:23)
[2022-04-02] MEDS: SODIUM FERRIC GLUCONAT-SUCROSE 125 MG in SODIUM CHLORIDE 0.9% 100 ML IVPB SCH (12:23)
[2022-04-02] MEDS: AZTREONAM 1 GM in SODIUM CHLORIDE 0.9% 50 ML IVPB SCH ×2 (12:23→18:05)
--- NOTE | 2022-04-02 12:45 | P.PN ---
Subjective Progress Note Date: 04/02/22 Principal diagnosis: Respiratory failure. Pulmonary consult dated 03/31/2022. 72-year-old female with history of breast cancer, diabetes, hypertension, chronic kidney disease, and neuropathy, who presents to the emergency department on March 31, complaining of shortness of breath. She apparently denied having shortness of breath for 3 or 4 days prior to admission. She denies any fever or chills. She does cough, but does not produce any phlegm. No chest pain or chest discomfort. She does have some lower extremity edema. Recently, her diuretic was placed on hold. She was seen in the emergency room, and admitted with a diagnosis of fluid overload. The patient was placed on BiPAP. Her BiPAP settings are 12/5 and 90%. Currently, she's not receiving any IV flu ids. Blood gases show pO2 of 82, pCO2 48, and a pH is 7.28. Troponin was 0.704. BNP, was 13,800. Chest x-ray was consistent with CHF. White count 14.2, hemoglobin 9.4, hematocrit 30.3, platelet count 241,000. D-dimer was 6.39. Sodium 132, potassium 5.3, chlorides 102, CO2 23, BUN 68, and creatinine 2.07. Nasal swab for coronavirus was negative. Testing for influenza was also negative. Chest x-ray my opinion was consistent with cardiomegaly, diffuse bilateral infiltrates, with small bilateral effusions, i.e., CHF. Progress note dated 04/01/2022. 72-year-old female with a history of breast cancer, diabetes, hypertension, chronic kidney disease, and neuropathy. She came into the emergency room, March 31, complaining of shortness of breath. Chest x-ray was consistent with fluid overload/CHF. The patient is a DO NOT RESUSCITATE patient. I did give the nurse ordered yesterday for sedation and anti-anxiety medications as well as pain medications. Currently, she is on BiPAP with settings of 15/6 and 100%. She is on IV heparin. The nurse tells me there planning to put a hemodialysis catheter in her today. That seems a bit aggressive in my opinion. Lab data today includes a white count 10.2, hemoglobin 8.8, hematocrit 28.1, and a platelet count of 273,000. Sodium 132, potassium 6.2, chlorides 103, CO2 20, BUN 91, creatinine 2.72. Calcium is 7.5. A chest x-ray today in my opinion is consistent with fluid overload/CHF. Repeat troponin was 9.860. N-terminal proBNP was 13,800. Pro-calcitonin level is low at 0.14. Progress note dated 04/02/2022. 72-year-old female with history of breast cancer, diabetes mellitus, hypertension, chronic kidney disease, and neuropathy. The patient is undergoing hemodialysis today. She had hemodialysis yesterday, on April 01. 2 L was removed. She's getting saline at 10 mL an hour, and IV heparin via weightbase protocol. She's currently on BiPAP, with settings of 15/6 and 80%. Labs are reviewed. PTT is 54.7. Sodium 134, potassium 5, chlorides 100, CO2 24, anion gap 10, BUN 83, creatinine 2.45. Most recent chest x-ray on April 01 is reviewed. Clinically, the patient's doing about the same. Objective - Vital Signs Vital signs: Vital Signs Temp 98.1 F 04/01/22 19:18 Pulse 108 H 04/02/22 07:39 Resp 22 04/02/22 08:00 BP 142/64 04/02/22 08:00 Pulse Ox 92 L 04/02/22 08:00 FiO2 100 04/02/22 08:00 Intake & Output 04/01/22 04/02/22 04/02/22 18:59 06:59 18:59 Intake Total 599.833 761.649 100 Output Total 2325 250 100 Balance -1725.167 511.649 0 Intake: IV 120 100 100 Aztreonam 1 gm In Sodium 100 100 100 Chloride 0.9% 50 ml @ 16. 667 mls/hr IVPB Q8HR [facility] Rx#:[id number] Invasive Line 1 20 Intake, IV Titration 139.833 176.649 Amount Heparin Sod,Pork in 0.45% 139.833 176.649 NaCl 25,000 unit In 0.45 % NaCl 1 250ml.bag @ 8. 585 UNITS/KG/HR 10 mls/hr IV .Q24H [facility] Rx#: [id number] Oral 340 485 Output: Urine 325 250 100 Uretheral (Thibodeaux) 25 100 Hemodialysis 1999 Other: Voiding Method Indwelling Catheter Indwelling Catheter Indwelling Catheter # Bowel Movements 0 - Exam Moderate respiratory distress, currently on BiPAP, a little lethargic today. HEENT examination is grossly unremarkable. Neck supple. Full range of motion. No adenopathy thyromegaly or neck vein distention. Cardiovascular examination reveals regular rhythm rate. S1-S2 normal. No S3 or S4. No discernible murmur noted. Heart sounds are distant. Heart rate 108 bpm. Lungs reveal diffuse bilateral rhonchi, and basilar crackles. No wheezes. Breath sounds equal bilaterally. Saturations are 92 % on BiPAP. Abdomen soft bowel sounds are heard. No masses or tenderness. Extremities are intact. Lower extremity edema is noted. No cyanosis or clubbing. Skin reveals a lower extremity rash. Neurologic examination is brief but nonfocal. - Labs CBC & Chem 7: 04/01/22 07:10 04/02/22 05:37 Labs: Abnormal Lab Results - Last 24 Hours (Table) 03/31/22 04/01/22 04/01/22 Range/Units 15:10 12:05 16:37 APTT (22.0-30.0) sec Sodium (137-145) mmol/L Potassium 5.6 H (3.5-5.1) mmol/L BUN (7-17) mg/dL Creatinine (0.52-1.04) mg/dL Glucose (74-99) mg/dL POC Glucose (mg/dL) 202 H (70-110) mg/dL Calcium (8.4-10.2) mg/dL Iron 13 L (50-170) ug/dL % Saturation 5.80 L (12.00-45.00) Transferrin 165.0 L (204.0-354.0) mg/dL Ferritin 639.0 H (10.0-291.0) ng/mL Free Van LC, Quant 6.40 H (0.33-1.94) mg/dL Free Lambda LC, Quant 2.95 H (0.57-2.63) mg/dL 04/01/22 04/01/22 04/02/22 Range/Units 19:57 21:12 05:37 APTT 39.5 H (22.0-30.0) sec Sodium 134 L (137-145) mmol/L Potassium (3.5-5.1) mmol/L BUN 83 H (7-17) mg/dL Creatinine 2.45 H (0.52-1.04) mg/dL Glucose 223 H (74-99) mg/dL POC Glucose (mg/dL) 243 H (70-110) mg/dL Calcium 7.8 L (8.4-10.2) mg/dL Iron (50-170) ug/dL % Saturation (12.00-45.00) Transferrin (204.0-354.0) mg/dL Ferritin (10.0-291.0) ng/mL Free Van LC, Quant (0.33-1.94) mg/dL Free Lambda LC, Quant (0.57-2.63) mg/dL 04/02/22 04/02/22 04/02/22 Range/Units 05:37 06:04 12:00 APTT 54.7 H (22.0-30.0) sec Sodium (137-145) mmol/L Potassium (3.5-5.1) mmol/L BUN (7-17) mg/dL Creatinine (0.52-1.04) mg/dL Glucose (74-99) mg/dL POC Glucose (mg/dL) 267 H 202 H (70-110) mg/dL Calcium (8.4-10.2) mg/dL Iron (50-170) ug/dL % Saturation (12.00-45.00) Transferrin (204.0-354.0) mg/dL Ferritin (10.0-291.0) ng/mL Free Van LC, Quant (0.33-1.94) mg/dL Free Lambda LC, Quant (0.57-2.63) mg/dL Microbiology - Last 24 Hours (Table) 03/31/22 10:15 Blood Culture - Preliminary Blood No Growth after 48 hours 03/31/22 10:00 Blood Culture - Preliminary Blood No Growth after 48 hours Assessment and Plan Assessment: Shortness of breath, secondary to fluid overload/CHF. Rule out non-ST segment elevation myocardial infarction. Acute on chronic kidney disease, status post placement of a hemodialysis catheter, with initiation of hemodialysis on 04/01/2022. History of left breast cancer, diagnosed September 2021, completed chemotherapy. History of breast cancer on the right, status post lumpectomy and radiation, 2013. History of hypertension. History of diabetes mellitus and diabetic neuropathy. History of ongoing tobacco use. History of hypothyroidism. Questionable history of COPD. Plan: Plan dated 03/31/2022. The patient is currently doing better on BiPAP. She is seen in room 373. She denies any significant cough or phlegm production. No fever or chills. Nonetheless, a pro-calcitonin level will be checked. In addition, the patient was given antibiotics in the emergency department, and Lasix was added back. She was placed on prednisone 30 mg a day by the hospital service. Additional recommendations and suggestions are forthcoming. Plan dated 04/01/2022. The patient is currently being seen by nephrology. Apparently, they are contemplating the placement of a hemodialysis catheter. Currently, she is on BiPAP, and 100%. She is also receiving IV heparin. The troponin was quite high, suggesting non-ST segment elevation myocardial origin, and subsequent CHF. We will continue to follow. Pro-calcitonin is relatively low. N-terminal proBNP was quite high. Plan dated 04/02/2022. The patient remains on BiPAP. She is getting hemodialysis today. She is also on saline at 10 mL an hour, and IV heparin via weightbase protocol. BiPAP settings are 15/6 with an FiO2 of 80%. Dialysis yesterday achieved a fluid loss of 2 L. Labs, x-rays, and medications are all reviewed. We will continue to follow make recommendations along the way. The patient is a DO NOT RESUSCITATE patient. Prognosis is certainly guarded. Time with Patient: Less than 30
[2022-04-02 14:10] LABS: Albumin 2.71 g/dL (3.80-4.90); Gamma Globulin 0.69 g/dL (0.70-1.50)
[2022-04-02 16:46] LABS: Glucose,Whole Blood 203 mg/dL (70-110)
[2022-04-02] MEDS: ATORVASTATIN 80 MG TAB PO SCH (17:39)
[2022-04-02] MEDS: FUROSEMIDE 10 MG/ML 4 ML VIAL IV SCH ×2 (17:40→20:27)
[2022-04-02] MEDS: predniSONE 10 MG TAB PO SCH (17:40)
[2022-04-02] MEDS: ASPIRIN 81 MG PO SCH (17:40)
[2022-04-02] MEDS: METOPROLOL SUCCINATE (ER) 50 MG TAB.ER.24H PO SCH ×2 (17:40→20:28)
[2022-04-02] MEDS: LORazepam 1 MG/0.5 ML VIAL IV PRN (17:57)
[2022-04-02 20:27] LABS: Glucose,Whole Blood 223 mg/dL (70-110)
[2022-04-02] MEDS: AMITRIPTYLINE HCL 50 MG TAB PO SCH (20:27)
[2022-04-02] MEDS: PSYLLIUM HUSK 100% 6 GM PACKET PO SCH (20:28)
[2022-04-03] MEDS: AZTREONAM 1 GM in SODIUM CHLORIDE 0.9% 50 ML IVPB SCH ×4 (01:07→23:14)
[2022-04-03] MEDS: NITROGLYCERIN OINT 1 INCH/GM PACKET TOPICAL SCH ×5 (01:07→22:42)
[2022-04-03] MEDS: HEPARIN SOD,PORK IN 0.45% NACL 25,000 UNIT in 0.45% NACL 1 250ML.BAG IV SCH ×2 (03:07→20:39)
[2022-04-03 06:45] LABS: Glucose,Whole Blood 307 mg/dL (70-110)
[2022-04-03] MEDS: LEVOTHYROXINE 100 MCG TAB PO SCH (06:49)
[2022-04-03] MEDS: LEVOTHYROXINE 88 MCG TAB PO SCH (06:49)
[2022-04-03] MEDS: INSULIN ASPART (NovoLOG) 100 UNIT/ML VIAL SQ SCH ×4 (06:50→20:40)
--- NOTE | 2022-04-03 07:00 | P.PN ---
Subjective Progress Note Date: 04/03/22 Principal diagnosis: Acute coronary syndrome This is 72-year-old female patient with history of breast cancer she was receiving chemotherapy as diabetes and hypertension and dyslipidemia on multiple comorbid conditions including chronic kidney disease was admitted to the [facility] with increasing shortness of breath and lower extremities edema she was diagnosed with heart failure. She was ruled in for acute coronary event. Also she was found to be in in stage disease required placement of hemodialysis catheter and dialysis yesterday. April [id number] The patient was seen today. Definitely she looks less congested after dialysis yesterday she is going to undergo another dialysis today. Last night she went into atrial fibrillation with RVR and currently she is on Cardizem IV at 5 mg per hour. I'm going to increase the dose of beta yanet and try to wean the p atient from Cardizem IV. Meanwhile she is on aspirin and high intensity statin and she is also on heparin IV. The echo revealed normal LV function with evidence off anteroseptal hypokinesia concerning for severe LAD disease. Discussed with the patient and the family yesterday the options including invasive versus conservative approach. The family and the patient would like to think about it at this point. Anyway she still in heart failure and I would wait on proceeding was coronary angiogram at this point. April [id number] The patient was seen this morning. She still short of breath each continues to be on BiPAP. She continues to be in atrial fibrillation and she is on Cardizem IV. She is going to have dialysis today as well. No symptoms of chest pain or chest discomfort. On examination she stated have diminished breathing sounds bilaterally but the wheezing has improved. She stated have also mild bilateral lower extremities edema. There is possible that hospice would be consulted to see the patient later on today but the patient continues to be DO NOT RESUSCITATE at this point. Objective - Vital Signs Vital signs: Vital Signs Temp 97.9 F 04/02/22 20:00 Pulse 98 04/03/22 03:39 Resp 24 04/03/22 03:39 BP 117/66 04/03/22 03:39 Pulse Ox 93 L 04/03/22 03:39 FiO2 80 04/03/22 04:26 Intake & Output 04/02/22 04/02/22 04/03/22 06:59 18:59 06:59 Intake Total 317.169 9612.351 299.574 Output Total 835 595 7210 Balance 511.649 809.351 -1700.426 Intake: IV 100 410 Aztreonam 1 gm In Sodium 100 300 Chloride 0.9% 50 ml @ 16. 667 mls/hr IVPB Q8HR [facility] Rx#:[id number] Invasive Line 4 10 Sodium Ferric Gluconat- 100 Sucrose 125 mg In Sodium Chloride 0.9% 100 ml @ 100 mls/hr IVPB DAILY [facility] Rx#:[id number] Intake, IV Titration 176.649 169.351 181.574 Amount Diltiazem 125 mg In 96 Sodium Chloride 0.9% 100 ml @ 5 MG/HR 5 mls/hr IV .Q24H [facility] Rx#:[id number] Heparin Sod,Pork in 0.45% 176.649 73.351 181.574 NaCl 25,000 unit In 0.45 % NaCl 1 250ml.bag @ 8. 585 UNITS/KG/HR 10 mls/hr IV .Q24H [facility] Rx#: [id number] Oral 485 480 118 Output: Urine 250 250 Uretheral (Thibodeaux) 250 Hemodialysis 1999 Other: Voiding Method Indwelling Catheter Indwelling Catheter Indwelling Catheter # Bowel Movements 0 - Constitutional General appearance: Present: no acute distress - Respiratory Respiratory: bilateral: diminished - Cardiovascular Rhythm: regular Heart sounds: normal: S1, S2 Abnormal Heart Sounds: Present: systolic murmur - Labs CBC & Chem 7: 04/01/22 07:10 04/02/22 05:37 Labs: Abnormal Lab Results - Last 24 Hours (Table) 03/31/22 04/02/22 04/02/22 Range/Units 15:10 12:00 16:23 POC Glucose (mg/dL) 202 H 203 H (70-110) mg/dL Albumin (PEP) 2.71 L (3.80-4.90) g/dL Gamma Globulins 0.69 L (0.70-1.50) g/dL 04/02/22 04/03/22 Range/Units 20:26 06:44 POC Glucose (mg/dL) 223 H 307 H (70-110) mg/dL Albumin (PEP) (3.80-4.90) g/dL Gamma Globulins (0.70-1.50) g/dL Microbiology - Last 24 Hours (Table) 03/31/22 10:15 Blood Culture - Preliminary Blood No Growth after 48 hours 03/31/22 10:00 Blood Culture - Preliminary Blood No Growth after 48 hours Assessment and Plan Assessment: Assessment #1 acute coronary syndrome #2 heart failure exacerbation secondary to heart failure with preserved ejection fraction #3 history of breast cancer #4 diabetes and hypertension and dyslipidemia #5 end stage renal disease Plan #1 continue the current medical regimen #2 try to wean the patient from Cardizem IV #3 continue the current dose of beta yanet #4 follow-up with the patient
[2022-04-03 07:11] LABS: Calcium 8.3 mg/dL (8.4-10.2); Magnesium 2.2 mg/dL (1.6-2.3); Phosphorus 6.8 mg/dL (2.5-4.5); Potassium 5.1 mmol/L (3.5-5.1)
[2022-04-03] MEDS: IPRATROPIUM-ALBUTEROL 3 ML NEB INHALATION SCH ×4 (07:14→19:41)
--- NOTE | 2022-04-03 09:48 | P.PN ---
Subjective patient is seen in follow-up for acute kidney injury. Started on hemodialysis 04/01/2022. Currently on nonrebreather. Tolerated 2 L ultrafiltration yesterday. Urine output about 250 mL overnight. Oral intake is poor. Vital signs are stable. General: resting in bed. Awake. HEENT: on NRB. LUNGS: Breath sounds decreased. HEART: Rate and Rhythm are regular. ABDOMEN: soft, no distention. EXTREMITITES: 1+ edema. Objective - Vital Signs Vital signs: Vital Signs Temp 97.9 F 04/02/22 20:00 Pulse 104 H 04/03/22 07:27 Resp 24 04/03/22 03:39 BP 117/66 04/03/22 03:39 Pulse Ox 93 L 04/03/22 03:39 FiO2 80 04/03/22 07:14 Intake & Output 04/02/22 04/03/22 04/03/22 18:59 06:59 18:59 Intake Total 1059.351 299.574 Output Total 250 2000 Balance 809.351 -1700.426 Intake: IV 410 Aztreonam 1 gm In Sodium 300 Chloride 0.9% 50 ml @ 16. 667 mls/hr IVPB Q8HR [facility] Rx#:[id number] Invasive Line 4 10 Sodium Ferric Gluconat- 100 Sucrose 125 mg In Sodium Chloride 0.9% 100 ml @ 100 mls/hr IVPB DAILY [facility] Rx#:[id number] Intake, IV Titration 169.351 181.574 Amount Diltiazem 125 mg In 96 Sodium Chloride 0.9% 100 ml @ 5 MG/HR 5 mls/hr IV .Q24H [facility] Rx#:[id number] Heparin Sod,Pork in 0.45% 73.351 181.574 NaCl 25,000 unit In 0.45 % NaCl 1 250ml.bag @ 8. 585 UNITS/KG/HR 10 mls/hr IV .Q24H [facility] Rx#: [id number] Oral 480 118 Output: Urine 250 Uretheral (Thibodeaux) 250 Hemodialysis 2000 Other: Voiding Method Indwelling Catheter Indwelling Catheter # Bowel Movements 0 - Labs CBC & Chem 7: 04/01/22 07:10 04/03/22 06:21 Labs: Abnormal Lab Results - Last 24 Hours (Table) 09/15/22 09/17/22 09/17/22 Range/Units 15:10 12:00 16:23 Sodium (137-145) mmol/L Carbon Dioxide (22-30) mmol/L BUN (7-17) mg/dL Creatinine (0.52-1.04) mg/dL Glucose (74-99) mg/dL POC Glucose (mg/dL) 202 H 203 H (70-110) mg/dL Calcium (8.4-10.2) mg/dL Phosphorus (2.5-4.5) mg/dL Albumin (PEP) 2.71 L (3.80-4.90) g/dL Gamma Globulins 0.69 L (0.70-1.50) g/dL 04/02/22 04/03/22 04/03/22 Range/Units 20:26 06:21 06:44 Sodium 134 L (137-145) mmol/L Carbon Dioxide 21 L (22-30) mmol/L BUN 73 H (7-17) mg/dL Creatinine 2.37 H (0.52-1.04) mg/dL Glucose 252 H (74-99) mg/dL POC Glucose (mg/dL) 223 H 307 H (70-110) mg/dL Calcium 8.3 L (8.4-10.2) mg/dL Phosphorus 6.8 H (2.5-4.5) mg/dL Albumin (PEP) (3.80-4.90) g/dL Gamma Globulins (0.70-1.50) g/dL Microbiology - Last 24 Hours (Table) 03/31/22 10:15 Blood Culture - Preliminary Blood No Growth after 48 hours 03/31/22 10:00 Blood Culture - Preliminary Blood No Growth after 48 hours Assessment and Plan Plan: Assessment: 1. Acute kidney injury secondary to ATN secondary to cardiorenal syndrome and hemodynamic instability. Creatinine was 2.07 on admission and up to 2.72 on 04/01/2022. Renal ultrasound from March 2022 showed no evidence of hydronephrosis. started on hemodialysis 04/01/2022. 2. Chronic kidney disease stage III with baseline creatinine in the range of 1.3-1.5 secondary to nephrosclerosis. Serologies from prior admission were negative. 3. Acute hypoxic respiratory failure. 4. Volume overload. improving with ultrafiltration. 5. Acute on chronic diastolic CHF with moderate mitral regurgitation. 6. Hyperkalemia secondary to acute kidney injury and acidosis. improved postdialysis. 7. Anemia of chronic kidney disease. iron deficiency noted. 8. Diabetes mellitus. 9. Lower extremity rash. Improved. On prednisone. 10. Elevated troponins with concern for acute coronary syndrome. On heparin drip. Cardiology following. 11. History of breast cancer. 12. Metabolic acidosis secondary to acute kidney injury. bicarb level 21 today. 13. A. fib with RVR maintained on Cardizem drip. 14. Hyperphosphatemia secondary to acute kidney injury. Plan: third treatment of hemodialysis today and again tomorrow. Maintain IV Lasix. Maintain Thibodeaux catheter. Strict is and os. Monitor for renal recovery. maintain IV iron. Wean FiO2. Add PhosLo with meals.
[2022-04-03] MEDS ORDERED: SODIUM CHLORIDE 0.65% NASAL SPRAY 44 ML BTL NASAL PRN (10:08)
[2022-04-03] MEDS: METOPROLOL SUCCINATE (ER) 50 MG TAB.ER.24H PO SCH ×2 (10:11→20:38)
[2022-04-03] MEDS: LORazepam 1 MG/0.5 ML VIAL IV PRN ×2 (10:12→23:20)
[2022-04-03] MEDS: ASPIRIN 81 MG PO SCH (10:12)
[2022-04-03] MEDS: ATORVASTATIN 80 MG TAB PO SCH (10:12)
[2022-04-03] MEDS: FUROSEMIDE 10 MG/ML 4 ML VIAL IV SCH ×2 (10:12→20:38)
[2022-04-03] MEDS: predniSONE 10 MG TAB PO SCH (10:12)
[2022-04-03] MEDS: SODIUM FERRIC GLUCONAT-SUCROSE 125 MG in SODIUM CHLORIDE 0.9% 100 ML IVPB SCH (11:00)
--- NOTE | 2022-04-03 11:08 | P.PN ---
Subjective Progress Note Date: 04/03/22 Principal diagnosis: Respiratory failure. Pulmonary consult dated 03/31/2022. 72-year-old female with history of breast cancer, diabetes, hypertension, chronic kidney disease, and neuropathy, who presents to the emergency department on March 31, complaining of shortness of breath. She apparently denied having shortness of breath for 3 or 4 days prior to admission. She denies any fever or chills. She does cough, but does not produce any phlegm. No chest pain or chest discomfort. She does have some lower extremity edema. Recently, her diuretic was placed on hold. She was seen in the emergency room, and admitted with a diagnosis of fluid overload. The patient was placed on BiPAP. Her BiPAP settings are 12/5 and 90%. Currently, she's not receiving any IV flu ids. Blood gases show pO2 of 82, pCO2 48, and a pH is 7.28. Troponin was 0.704. BNP, was 13,800. Chest x-ray was consistent with CHF. White count 14.2, hemoglobin 9.4, hematocrit 30.3, platelet count 241,000. D-dimer was 6.39. Sodium 132, potassium 5.3, chlorides 102, CO2 23, BUN 68, and creatinine 2.07. Nasal swab for coronavirus was negative. Testing for influenza was also negative. Chest x-ray my opinion was consistent with cardiomegaly, diffuse bilateral infiltrates, with small bilateral effusions, i.e., CHF. Progress note dated 04/01/2022. 72-year-old female with a history of breast cancer, diabetes, hypertension, chronic kidney disease, and neuropathy. She came into the emergency room, March 31, complaining of shortness of breath. Chest x-ray was consistent with fluid overload/CHF. The patient is a DO NOT RESUSCITATE patient. I did give the nurse ordered yesterday for sedation and anti-anxiety medications as well as pain medications. Currently, she is on BiPAP with settings of 15/6 and 100%. She is on IV heparin. The nurse tells me there planning to put a hemodialysis catheter in her today. That seems a bit aggressive in my opinion. Lab data today includes a white count 10.2, hemoglobin 8.8, hematocrit 28.1, and a platelet count of 273,000. Sodium 132, potassium 6.2, chlorides 103, CO2 20, BUN 91, creatinine 2.72. Calcium is 7.5. A chest x-ray today in my opinion is consistent with fluid overload/CHF. Repeat troponin was 9.860. N-terminal proBNP was 13,800. Pro-calcitonin level is low at 0.14. Progress note dated 04/02/2022. 72-year-old female with history of breast cancer, diabetes mellitus, hypertension, chronic kidney disease, and neuropathy. The patient is undergoing hemodialysis today. She had hemodialysis yesterday, on April 01. 2 L was removed. She's getting saline at 10 mL an hour, and IV heparin via weightbase protocol. She's currently on BiPAP, with settings of 15/6 and 80%. Labs are reviewed. PTT is 54.7. Sodium 134, potassium 5, chlorides 100, CO2 24, anion gap 10, BUN 83, creatinine 2.45. Most recent chest x-ray on April 01 is reviewed. Clinically, the patient's doing about the same. Progress note dated 04/03/2022. 72-year-old female seen in room 373. She has a history of breast cancer, diabetes, hypertension, chronic kidney disease, and neuropathy. The patient is currently on a 15 L high flow nasal cannula, and a nonrebreather mask. She's also using BiPAP, with settings of 15/6 and 80%. She's getting saline at 10 mL an hour, IV heparin, and a Cardizem drip of 5 mg an hour. She had hemodialysis yesterday, and 2 L was removed. Her saturations are 92%. She does feel short of breath she tells me. Apparently hospice has been called in to see her and speak to her and her family. Labs today include a sodium 134, potassium 5.1, chlorides 99, CO2 21, anion gap 14, BUN 73, and creatinine 2.37. Objective - Vital Signs Vital signs: Vital Signs Temp 97.9 F 04/02/22 20:00 Pulse 88 04/03/22 10:56 Resp 24 04/03/22 03:39 BP 117/66 04/03/22 03:39 Pulse Ox 93 L 04/03/22 03:39 FiO2 80 04/03/22 10:47 Intake & Output 04/02/22 04/03/22 04/03/22 18:59 06:59 18:59 Intake Total 1059.351 299.574 Output Total 250 1999 Balance 809.351 -1700.426 Intake: IV 410 Aztreonam 1 gm In Sodium 300 Chloride 0.9% 50 ml @ 16. 667 mls/hr IVPB Q8HR [facility] Rx#:[id number] Invasive Line 4 10 Sodium Ferric Gluconat- 100 Sucrose 125 mg In Sodium Chloride 0.9% 100 ml @ 100 mls/hr IVPB DAILY [facility] Rx#:[id number] Intake, IV Titration 169.351 181.574 Amount Diltiazem 125 mg In 96 Sodium Chloride 0.9% 100 ml @ 5 MG/HR 5 mls/hr IV .Q24H [facility] Rx#:[id number] Heparin Sod,Pork in 0.45% 73.351 181.574 NaCl 25,000 unit In 0.45 % NaCl 1 250ml.bag @ 8. 585 UNITS/KG/HR 10 mls/hr IV .Q24H [facility] Rx#: [id number] Oral 480 118 Output: Urine 250 Uretheral (Thibodeaux) 250 Hemodialysis 2000 Other: Voiding Method Indwelling Catheter Indwelling Catheter # Bowel Movements 0 - Exam Moderate respiratory distress, currently on high flow nasal cannula, and a nonrebreather mask. Saturations are 90%. HEENT examination is grossly unremarkable. Neck supple. Full range of motion. No adenopathy thyromegaly or neck vein distention. Cardiovascular examination reveals regular rhythm rate. S1-S2 normal. No S3 or S4. No discernible murmur noted. Heart sounds are distant. Heart rate 90 bpm. Lungs reveal diffuse bilateral rhonchi, and basilar crackles. No wheezes. Breath sounds equal bilaterally. Saturations 90% on high flow nasal cannula and a nonrebreather mask. Abdomen soft bowel sounds are heard. No masses or tenderness. Extremities are intact. Lower extremity edema is noted. No cyanosis or clubbing. Skin reveals a lower extremity rash. Neurologic examination is brief but nonfocal. - Labs CBC & Chem 7: 04/01/22 07:10 04/03/22 06:21 Labs: Abnormal Lab Results - Last 24 Hours (Table) 03/31/22 04/02/22 04/02/22 Range/Units 15:10 12:00 16:23 Sodium (137-145) mmol/L Carbon Dioxide (22-30) mmol/L BUN (7-17) mg/dL Creatinine (0.52-1.04) mg/dL Glucose (74-99) mg/dL POC Glucose (mg/dL) 202 H 203 H (70-110) mg/dL Calcium (8.4-10.2) mg/dL Phosphorus (2.5-4.5) mg/dL Albumin (PEP) 2.71 L (3.80-4.90) g/dL Gamma Globulins 0.69 L (0.70-1.50) g/dL 04/02/22 04/03/22 04/03/22 Range/Units 20:26 06:21 06:44 Sodium 134 L (137-145) mmol/L Carbon Dioxide 21 L (22-30) mmol/L BUN 73 H (7-17) mg/dL Creatinine 2.37 H (0.52-1.04) mg/dL Glucose 252 H (74-99) mg/dL POC Glucose (mg/dL) 223 H 307 H (70-110) mg/dL Calcium 8.3 L (8.4-10.2) mg/dL Phosphorus 6.8 H (2.5-4.5) mg/dL Albumin (PEP) (3.80-4.90) g/dL Gamma Globulins (0.70-1.50) g/dL Microbiology - Last 24 Hours (Table) 03/31/22 10:15 Blood Culture - Preliminary Blood No Growth after 48 hours 03/31/22 10:00 Blood Culture - Preliminary Blood No Growth after 48 hours Assessment and Plan Assessment: Shortness of breath, secondary to fluid overload/CHF. Rule out non-ST segment elevation myocardial infarction. Acute on chronic kidney disease, status post placement of a hemodialysis catheter, with initiation of hemodialysis on 04/01/2022. History of left breast cancer, diagnosed September 2021, completed chemotherapy. History of breast cancer on the right, status post lumpectomy and radiation, 2013. History of hypertension. History of diabetes mellitus and diabetic neuropathy. History of ongoing tobacco use. History of hypothyroidism. Questionable history of COPD. Plan: Plan dated 03/31/2022. The patient is currently doing better on BiPAP. She is seen in room 373. She denies any significant cough or phlegm production. No fever or chills. Nonetheless, a pro-calcitonin level will be checked. In addition, the patient was given antibiotics in the emergency department, and Lasix was added back. She was placed on prednisone 30 mg a day by the hospital service. Additional recommendations and suggestions are forthcoming. Plan dated 04/01/2022. The patient is currently being seen by nephrology. Apparently, they are contemplating the placement of a hemodialysis catheter. Currently, she is on BiPAP, and 100%. She is also receiving IV heparin. The troponin was quite high, suggesting non-ST segment elevation myocardial origin, and subsequent CHF. We will continue to follow. Pro-calcitonin is relatively low. N-terminal proBNP was quite high. Plan dated 04/02/2022. The patient remains on BiPAP. She is getting hemodialysis today. She is also on saline at 10 mL an hour, and IV heparin via weightbase protocol. BiPAP settings are 15/6 with an FiO2 of 80%. Dialysis yesterday achieved a fluid loss of 2 L. Labs, x-rays, and medications are all reviewed. We will continue to follow make recommendations along the way. The patient is a DO NOT RESUSCITATE patient. Prognosis is certainly guarded. Plan dated 04/03/2022. The patient is currently on a nonrebreather mask and a high flow nasal cannula. Apparently the hospice team will speak to the patient and family tomorrow. No plans for hemodialysis today. We will continue to follow make recommendations along the way. The patient is currently on Cardizem drip at 5 mg an hour, and IV heparin. Labs, x-rays, and medications are reviewed. The patient is a DO NOT RESUSCITATE patient. Prognosis is certainly guarded. Time with Patient: Less than 30
[2022-04-03 11:44] LABS: Glucose,Whole Blood 282 mg/dL (70-110)
--- NOTE | 2022-04-03 12:48 | P.PN ---
Subjective Progress Note Date: 04/03/22 72-year-old pleasant female came in with complaints of shortness of breath found to be in heart failure patient has a extensive pulmonary edema with highly elevated BNP. Patient appears to have chronic diastolic dysfunction had a normal ejection fraction the past. Patient is presently on BiPAP patient has mild hypercapnia probably secondary to obesity patient is mostly hypoxic respiratory failure acute hypoxic respiratory failure doesn't use any oxygen at home. During her last hospitalization patient was treated for acute renal failure and at that time diuretics were discontinued and had acute renal failure was considered secondary to vasculitis because of which patient was discharged on steroids. Patient was comparing of some cough without any significant sputum production denied any dysuria doesn't have any fever does have mild leukocytosis. Patient does have history of breast cancer completed her chemotherapy recently never received any radiation therapy. Patient is mildly hyperkalemic with potassium of 5.3 and hyponatremic. 04/01/2022 Patient evaluated on step down unit on BiPAP, currently with 100% FiO2. Patient was an ateam yesterday for acute respiratory distress and received an additional 160 mg of IV push lasix for fluid overload. Her chest xray showed minimal improvement from prior. She also reported chest pain at that time which was relieved some with SL nitroglycerin and nitropaste as applied. She had EKG performed as well and reviewed by sound physician at bedside who felt there was no evidence for ST elevation. Troponins were trended showing 0.740, 3.950, 7.18 0, 9.860. She has produced minimal urine about 400 ml yesterday and 350 ml out overnight. Nephrology was consulted and recommending patient to undergo hemodialysis today. This was discussed with patient in extent and she is agreeing to dialysis and hoping to be able to breath better afterwards. Card iology has discussed possible catheterization and patient is agreeable to this also. Today her white count is 10.2, hgb 8.8, sodium 132, potassium peaked at 6.2, BUN 91, creatinine 2.72. Blood glucose in the 200s. Blood cultures are negative. Remains afebrile, heart rate 87, blood pressure 138/70, 96% on BiPAP. 04/02/2022 Patient is resting in bed, continues on bipap with FiO2 of 100%. She reports breathing better after dialysis yesterday, she will have dialysis again today. Creatinine has improved slightly to 2.45. She remains in good spirits. Sodium 134, potassium 5.0. She continues on IV heparin. She went into atrial fibrillation with rapid ventricular rate throughout the evening and was started on IV cardizem which is continued. She will also receive 3 days of IV ferrlecit. Cardiology, nephrology, pulmonary are following the patient closely. 04/03/2022 Patient is evaluated today in bed she is on 15L Hi flow cannula and also a 15 L non rebreather. Plan is to undergo hemodialysis today, she had 2L off yesterday. She continue with coarse scattered rhonchi throughout. She has not had a BM since admission, although she has not been able to tolerate much diet due to being mostly Bipap dependent. She continues with significant anxiety and will add xanax BID. She continues on IV ferrlecit, IV heparin, IV cardizem, and also IV aztreonam. For now patient wants to continue current treatment plan. Family and patient would also like to meet with hospice for an information session. Creatinine today 2.37. Heart rate in the low 100s, blood pressure 117/66. Review of Systems Constitutional: Denied any fatigue denied any fever. Has anxiety. Cardio vascular: denied any chest pain, palpitations Gastrointestinal: denied any nausea, vomiting, diarrhea, no BM Pulmonary: Reports shortness of breath Neurologic denied any new focal deficits All inpatient medications were reviewed and appropriate changes in these medications as dictated in the interval history and assessment and plan. PHYSICAL EXAMINATION: GENERAL: The patient is alert and oriented x3, mild respiratory distress and anxious when bipap is off for sips of water. Well developed, well nourished. HEENT: Pupils are round and equally reacting to light. EOMI. No scleral icterus. No conjunctival pallor. Normocephalic, atraumatic. No pharyngeal erythema. No thyromegaly. CARDIOVASCULAR: S1 and S2 present. No murmurs, rubs, or gallops. PULMONARY: Coarse scattered rhonchi throughout ABDOMEN: Soft, nontender, nondistended, normoactive bowel sounds. No palpable organomegaly. MUSCULOSKELETAL: No joint swelling or deformity. EXTREMITIES: No cyanosis, clubbing. Lower extremity peripheral edema. NEUROLOGICAL: Gross neurological examination did not reveal any focal deficits. SKIN: No rashes. Assessment and Plan Assessment -Acute hypoxic respiratory failure secondary to acute heart failure with chronic diastolic dysfunction. 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 - continues on oral prednisone -Obesity with possible sleep apnea contributing to hypercapnia -Current smoker GI Prophylaxis DVT Prophylaxis No Code Plan Continue oxygen support Plan for hemodialysis today CTA once patients clinical condition approves and can tolerate CT imaging Add xanax Possible cardiac catheterization pending cardiology recommendations Continue with IV heparin, nitropaste Continue on IV cardizem gtt Repeat labs Continue martel catheter with strict intake and output Multiple consultations including pulmonary, cardiology, nephrology The impression and plan of care has been dictated by Nurse Lesly Carpenter as directed. Dr. Tran MD I have performed a history and physical examination and medical decision making of this patient, discussed the same with the dictator, and agree with the dict ators assessment and plan as written, documented as a scribe. Based on total visit time, I have performed more than 50% of this visit. Objective - Vital Signs Vital signs: Vital Signs Temp 97.9 F 04/02/22 20:00 Pulse 88 04/03/22 10:56 Resp 24 04/03/22 03:39 BP 117/66 04/03/22 03:39 Pulse Ox 93 L 04/03/22 03:39 FiO2 80 04/03/22 10:47 Intake & Output 04/02/22 04/03/22 04/03/22 18:59 06:59 18:59 Intake Total 1059.351 299.574 Output Total 250 2000 200 Balance 809.351 -1700.426 -200 Intake: IV 410 Aztreonam 1 gm In Sodium 300 Chloride 0.9% 50 ml @ 16. 667 mls/hr IVPB Q8HR [facility] Rx#:[id number] Invasive Line 4 10 Sodium Ferric Gluconat- 100 Sucrose 125 mg In Sodium Chloride 0.9% 100 ml @ 100 mls/hr IVPB DAILY [facility] Rx#:[id number] Intake, IV Titration 169.351 181.574 Amount Diltiazem 125 mg In 96 Sodium Chloride 0.9% 100 ml @ 5 MG/HR 5 mls/hr IV .Q24H [facility] Rx#:[id number] Heparin Sod,Pork in 0.45% 73.351 181.574 NaCl 25,000 unit In 0.45 % NaCl 1 250ml.bag @ 8. 585 UNITS/KG/HR 10 mls/hr IV .Q24H [facility] Rx#: [id number] Oral 480 118 Output: Urine 250 200 Uretheral (Martel) 250 Hemodialysis 2000 Other: Voiding Method Indwelling Catheter Indwelling Catheter # Bowel Movements 0 - Labs CBC & Chem 7: 04/01/22 07:10 04/03/22 06:21 Labs: Abnormal Lab Results - Last 24 Hours (Table) 03/31/22 04/02/22 04/02/22 Range/Units 15:10 16:23 20:26 Sodium (137-145) mmol/L Carbon Dioxide (22-30) mmol/L BUN (7-17) mg/dL Creatinine (0.52-1.04) mg/dL Glucose (74-99) mg/dL POC Glucose (mg/dL) 203 H 223 H (70-110) mg/dL Calcium (8.4-10.2) mg/dL Phosphorus (2.5-4.5) mg/dL Albumin (PEP) 2.71 L (3.80-4.90) g/dL Gamma Globulins 0.69 L (0.70-1.50) g/dL 04/03/22 04/03/22 04/03/22 Range/Units 06:21 06:44 11:42 Sodium 134 L (137-145) mmol/L Carbon Dioxide 21 L (22-30) mmol/L BUN 73 H (7-17) mg/dL Creatinine 2.37 H (0.52-1.04) mg/dL Glucose 252 H (74-99) mg/dL POC Glucose (mg/dL) 307 H 282 H (70-110) mg/dL Calcium 8.3 L (8.4-10.2) mg/dL Phosphorus 6.8 H (2.5-4.5) mg/dL Albumin (PEP) (3.80-4.90) g/dL Gamma Globulins (0.70-1.50) g/dL Microbiology - Last 24 Hours (Table) 03/31/22 10:15 Blood Culture - Preliminary Blood No Growth after 72 hours 03/31/22 10:00 Blood Culture - Preliminary Blood No Growth after 72 hours Assessment and Plan Time with Patient: Less than 30
[2022-04-03] MEDS: CALCIUM ACETATE 667 MG TAB PO SCH (15:41)
[2022-04-03] MEDS: DILTIAZEM 125 MG in SODIUM CHLORIDE 0.9% 100 ML IV SCH (15:46)
[2022-04-03] MEDS ORDERED: MORPHINE SULFATE 2 MG/ML SYRINGE IVP STA (15:54)
[2022-04-03 16:28] LABS: Glucose,Whole Blood 244 mg/dL (70-110)
[2022-04-03 16:53] VITALS: TEMP 98.6
[2022-04-03] MEDS: PSYLLIUM HUSK 100% 6 GM PACKET PO SCH (20:24)
[2022-04-03] MEDS: AMITRIPTYLINE HCL 50 MG TAB PO SCH (20:38)
[2022-04-03] MEDS ORDERED: MORPHINE SULFATE 2 MG/ML SYRINGE IVP PRN (23:24)
[2022-04-04] MEDS ORDERED: FUROSEMIDE 10 MG/ML 4 ML VIAL IV STA (02:00)
[2022-04-04] MEDS: LORazepam 1 MG/0.5 ML VIAL IV PRN ×2 (05:50→10:15)
[2022-04-04] MEDS: NITROGLYCERIN OINT 1 INCH/GM PACKET TOPICAL SCH (05:52)
[2022-04-04] MEDS: LEVOTHYROXINE 88 MCG TAB PO SCH (05:52)
[2022-04-04] MEDS: INSULIN ASPART (NovoLOG) 100 UNIT/ML VIAL SQ SCH (05:53)
[2022-04-04] MEDS: CALCIUM ACETATE 667 MG TAB PO SCH (05:53)
[2022-04-04] MEDS: LEVOTHYROXINE 100 MCG TAB PO SCH (05:53)
[2022-04-04] MEDS: MORPHINE SULFATE 2 MG/ML SYRINGE IVP PRN ×2 (06:52→10:15)
[2022-04-04] MEDS: IPRATROPIUM-ALBUTEROL 3 ML NEB INHALATION SCH (08:13)
[2022-04-04 09:07] VITALS: BP 114/65; PULSE 84; RESP 25
[2022-04-04] MEDS: SODIUM FERRIC GLUCONAT-SUCROSE 125 MG in SODIUM CHLORIDE 0.9% 100 ML IVPB SCH (09:25)
[2022-04-04] MEDS: AZTREONAM 1 GM in SODIUM CHLORIDE 0.9% 50 ML IVPB SCH (09:26)
[2022-04-04] MEDS: ATORVASTATIN 80 MG TAB PO SCH (09:26)
[2022-04-04] MEDS: ASPIRIN 81 MG PO SCH (09:26)
[2022-04-04] MEDS: METOPROLOL SUCCINATE (ER) 50 MG TAB.ER.24H PO SCH (09:26)
[2022-04-04] MEDS: predniSONE 10 MG TAB PO SCH (09:26)
[2022-04-04] MEDS: FUROSEMIDE 10 MG/ML 4 ML VIAL IV SCH (09:26)
--- NOTE | 2022-04-04 11:24 | P.PN ---
Subjective Progress Note Date: 04/04/22 72-year-old female with history of breast cancer, diabetes, hypertension, chronic kidney disease, and neuropathy, who presents to the emergency department on March 31, complaining of shortness of breath. She apparently denied having shortness of breath for 3 or 4 days prior to admission. She denies any fever or chills. She does cough, but does not produce any phlegm. No chest pain or chest discomfort. She does have some lower extremity edema. Recently, her diuretic was placed on hold. She was seen in the emergency room, and admitted with a diagnosis of fluid overload. The patient was placed on BiPAP. Her BiPAP settings are 12/5 and 90%. Currently, she's not receiving any IV fluids. Blood gases show pO2 of 82, pCO2 48, and a pH is 7.28. Troponin was 0.704. BNP, was 13,800. Chest x-ray was consistent with CHF. White count 14.2, hemoglobin 9.4, hematocrit 30.3, platelet count 241,000. D-dimer was 6.39. Sodium 132, potassium 5.3, chlorides 102, CO2 23, BUN 68, and creatinine 2.07. Nasal swab for coronavirus was negative. Testing for influenza was also negative. Chest x-ray my opinion was consistent with cardiomegaly, diffuse bilateral infiltrates, with small bilateral effusions, i.e., CHF. Progress note dated 04/01/2022. 72-year-old female with a history of breast cancer, diabetes, hypertension, chronic kidney disease, and neuropathy. She came into the emergency room, March 31, complaining of shortness of breath. Chest x-ray was consistent with fluid overload/CHF. The patient is a DO NOT RESUSCITATE patient. I did give the nurse ordered yesterday for sedation and anti-anxiety medications as well as pain medications. Currently, she is on BiPAP with settings of 15/6 and 100%. She is on IV heparin. The nurse tells me there planning to put a he modialysis catheter in her today. That seems a bit aggressive in my opinion. Lab data today includes a white count 10.2, hemoglobin 8.8, hematocrit 28.1, and a platelet count of 273,000. Sodium 132, potassium 6.2, chlorides 103, CO2 20, BUN 91, creatinine 2.72. Calcium is 7.5. A chest x-ray today in my opinion is consistent with fluid overload/CHF. Repeat troponin was 9.860. N-terminal proB RN FIRST ASSIST was 13,800. Pro-calcitonin level is low at 0.14. Progress note dated 04/02/2022. 72-year-old female with history of breast cancer, diabetes mellitus, hypertension, chronic kidney disease, and neuropathy. The patient is undergoing hemodialysis today. She had hemodialysis yesterday, on April 01. 2 L was removed. She's getting saline at 10 mL an hour, and IV heparin via weightbase protocol. She's currently on BiPAP, with settings of 15/6 and 80%. Labs are reviewed. PTT is 54.7. Sodium 134, potassium 5, chlorides 100, CO2 24, anion gap 10, BUN 83, creatinine 2.45. Most recent chest x-ray on April 01 is reviewed. Clinically, the patient's doing about the same. Progress note dated 04/03/2022. 72-year-old female seen in room 373. She has a history of breast cancer, diab etes, hypertension, chronic kidney disease, and neuropathy. The patient is currently on a 15 L high flow nasal cannula, and a nonrebreather mask. She's also using BiPAP, with settings of 15/6 and 80%. She's getting saline at 10 mL an hour, IV heparin, and a Cardizem drip of 5 mg an hour. She had hemodialysis yesterday, and 2 L was removed. Her saturations are 92%. She does feel short of breath she tells me. Apparently hospice has been called in to see her and speak to her and her family. Labs today include a sodium 134, potassium 5.1, chlorides 99, CO2 21, anion gap 14, BUN 73, and creatinine 2.37. on 04/04/2022, the patient is doing very poorly. She underwent hemodialysis yesterday and the total of 2 L of fluid was removed hemodialysis. Nevertheless, overnight the patient became more short of breath and hypoxic and earlier this morning the patient was transitioned to a BiPAP and erythematous arrival, the patient was on a BiPAP pressure of 14/6 cm of water with an FiO2 of 100%. The patient was having labored breathing. She made wishes that she doesn't want continue anymore and she contacted the primary care team and the patient's CODE STATUS has been switched to DO NOT RESUSCITATE and she wanted to proceed with end-of-life care. Family is at the bedside. Morphine drip has been initiated on this patient and this will be started within next few minutes. The patient is still arousable. I did some BiPAP changes in her adopted BiPAP pressure to 10/5 cm of water which made it slightly more comfortable. Noted the patient is known to have chronic kidney disease. She has hypertension and diabetes mellitus as comorbid conditions and the patient is also known to have history of breast cancer. In terms of her blood work, no recent blood work from today, nevertheless, the BMs at 73 and the creatinine was 2.37 from yesterday and his sodium level was at 134. The patient also had a white cell count of 10.30 hemoglobin 8.8. Objective - Vital Signs Vital signs: Vital Signs Temp 98.6 F 04/03/22 16:00 Pulse 84 04/04/22 09:06 Resp 25 H 04/04/22 09:06 BP 114/65 04/04/22 09:06 Pulse Ox 95 04/04/22 09:06 FiO2 100 04/04/22 09:06 Intake & Output 04/03/22 04/04/22 04/04/22 18:59 06:59 18:59 Intake Total 430 226.081 Output Total 2700 Balance -2270 226.081 Intake: IV 320 10 Aztreonam 1 gm In Sodium 200 Chloride 0.9% 50 ml @ 16. 667 mls/hr IVPB Q8HR [facility] Rx#:[id number] Invasive Line 5 20 10 Sodium Ferric Gluconat- 100 Sucrose 125 mg In Sodium Chloride 0.9% 100 ml @ 100 mls/hr IVPB DAILY [facility] Rx#:[id number] Intake, IV Titration 110 216.081 Amount Diltiazem 125 mg In 110 Sodium Chloride 0.9% 100 ml @ 5 MG/HR 5 mls/hr IV .Q24H [facility] Rx#:[id number] Heparin Sod,Pork in 0.45% 216.081 NaCl 25,000 unit In 0.45 % NaCl 1 250ml.bag @ 8. 585 UNITS/KG/HR 10 mls/hr IV .Q24H [facility] Rx#: [id number] Output: Urine 200 Hemodialysis 2500 Other: Voiding Method Indwelling Catheter Indwelling Catheter Indwelling Catheter - Exam Moderate respiratory distress, currently on high flow nasal cannula, and a she is a full face mask with a BiPAP at a pressure of 10/5 cm of water.. Saturations are 90%. HEENT examination is grossly unremarkable. Neck supple. Full range of motion. No adenopathy thyromegaly or neck vein distention. Cardiovascular examination reveals regular rhythm rate. S1-S2 normal. No S3 or S4. No discernible murmur noted. Heart sounds are distant. Heart rate 90 bpm. Lungs reveal diffuse bilateral rhonchi, and basilar crackles. No wheezes. Breath sounds equal bilaterally. Breathing is labored and the patient's creatinine the mid and lower lung garber bilaterally Abdomen soft bowel sounds are heard. No masses or tenderness. Extremities are intact. Lower extremity edema is noted. No cyanosis or clubbing. The patient has chronic skin excoriation lower extremity bilaterally Skin reveals a lower extremity rash. Neurologic examination is brief but nonfocal. The patient is arousable. Her breathing is somewhat labored. She is still moving all 4 extremities. She is profoundly weak and having difficulty with mobility and even speech. - Labs CBC & Chem 7: 04/01/22 07:10 04/03/22 06:21 Labs: Abnormal Lab Results - Last 24 Hours (Table) 04/03/22 04/03/22 04/03/22 Range/Units 11:42 15:55 16:26 APTT 43.8 H (22.0-30.0) sec POC Glucose (mg/dL) 282 H 244 H (70-110) mg/dL Microbiology - Last 24 Hours (Table) 03/31/22 10:15 Blood Culture - Preliminary Blood No Growth after 72 hours 03/31/22 10:00 Blood Culture - Preliminary Blood No Growth after 72 hours Assessment and Plan Plan: Shortness of breath, secondary to fluid overload/CHF. Rule out non-ST segment elevation myocardial infarction. Acute on chronic kidney disease, status post placement of a hemodialysis catheter, with initiation of hemodialysis on 04/01/2022. History of left breast cancer, diagnosed September 2021, completed chemotherapy. History of breast cancer on the right, status post lumpectomy and radiation, 2013. History of hypertension. History of diabetes mellitus and diabetic neuropathy. History of ongoing tobacco use. History of hypothyroidism. Questionable history of COPD. Plan: Progressive hypoxic respiratory failure in the setting of an acute NSTEMI, chronic kidney disease, fluid overload and decompensated acute hypoxic respiratory failure. The patient underwent hemodialysis yesterday and this morning the patient was moved to a BiPAP and upon family's wishes and the patient was his, end-of-life care she was being offered to this patient. The patient is currently on a morphine drip and family is at the bedside. I reviewed the records. 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 I made some ventilator adjustments to make this patient slightly more comfortable in terms of her breathing. Prognosis obviously poor and the patient is extremely debilitated and the patient is proceeding with end-of-life care measures. Rest of medication will be discontinued and the patient will be started on a morphine drip. is at the bedside. I will sign off the case.
--- NOTE | 2022-04-04 12:39 | P.PN ---
Subjective Patient has decided to proceed with hospice care. She is comfortable awake alert oriented 3 Family is present at bedside. Objective - Vital Signs Vital signs: Vital Signs Temp 98.6 F 04/03/22 16:00 Pulse 84 04/04/22 09:06 Resp 25 H 04/04/22 09:06 BP 114/65 04/04/22 09:06 Pulse Ox 95 04/04/22 09:06 FiO2 100 04/04/22 09:06 Intake & Output 04/03/22 04/04/22 04/04/22 18:59 06:59 18:59 Intake Total 430 226.081 Output Total 2700 Balance -2270 226.081 Intake: IV 320 10 Aztreonam 1 gm In Sodium 200 Chloride 0.9% 50 ml @ 16. 667 mls/hr IVPB Q8HR [facility] Rx#:[id number] Invasive Line 5 20 10 Sodium Ferric Gluconat- 100 Sucrose 125 mg In Sodium Chloride 0.9% 100 ml @ 100 mls/hr IVPB DAILY [facility] Rx#:[id number] Intake, IV Titration 110 216.081 Amount Diltiazem 125 mg In 110 Sodium Chloride 0.9% 100 ml @ 5 MG/HR 5 mls/hr IV .Q24H [facility] Rx#:[id number] Heparin Sod,Pork in 0.45% 216.081 NaCl 25,000 unit In 0.45 % NaCl 1 250ml.bag @ 8. 585 UNITS/KG/HR 10 mls/hr IV .Q24H [facility] Rx#: [id number] Output: Urine 200 Hemodialysis 2500 Other: Voiding Method Indwelling Catheter Indwelling Catheter Indwelling Catheter - Exam Awake, comfortable not in any acute distress Alert oriented 3 Examination shows patient is mildly hyperkalemic with 1+ edema bilateral lower extremities. 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 Heart and lungs not examined. - Labs CBC & Chem 7: 04/01/22 07:10 04/03/22 06:21 Labs: Abnormal Lab Results - Last 24 Hours (Table) 04/03/22 04/03/22 Range/Units 15:55 16:26 APTT 43.8 H (22.0-30.0) sec POC Glucose (mg/dL) 244 H (70-110) mg/dL Microbiology - Last 24 Hours (Table) 03/31/22 10:00 Blood Culture - Preliminary Blood No Growth after 96 hours 03/31/22 10:15 Blood Culture - Preliminary Blood No Growth after 96 hours Assessment and Plan Assessment: 1. Acute kidney injury secondary to ATN secondary to cardiorenal syndrome and hemodynamic instability. Creatinine was 2.07 on admission and up to 2.72 on 04/01/2022. Renal ultrasound from March 2022 showed no evidence of hydronephrosis. started on hemodialysis 04/01/2022. 2. Chronic kidney disease stage III with baseline creatinine in the range of 1.3-1.5 secondary to nephrosclerosis. Serologies from prior admission were negative. 3. Acute hypoxic respiratory failure. 4. Volume overload. improving with ultrafiltration. 5. Acute on chronic diastolic CHF with moderate mitral regurgitation. 6. Hyperkalemia secondary to acute kidney injury and acidosis. improved postdialysis. 7. Anemia of chronic kidney disease. iron deficiency noted. 8. Diabetes mellitus. 9. Lower extremity rash. Improved. On prednisone. 10. Elevated troponins with concern for acute coronary syndrome. On heparin drip. Cardiology following. 11. History of breast cancer. 12. Metabolic acidosis secondary to acute kidney injury. bicarb level 21 today. 13. A. fib with RVR maintained on Cardizem drip. 14. Hyperphosphatemia secondary to acute kidney injury. Plan: We will sign off
--- NOTE | 2022-04-04 15:21 | P.DS ---
Providers Date of admission: 03/31/22 10:45 Attending physician: Kaye Mayfield Consults: 03/31/22 09:49 Consult Physician Routine Consulting Provider: Senthil Clarke Consult Reason/Comments: hypoxic respiratory failure, bipap Do you want consulting provider notified?: Yes Consult Physician Routine Consulting Provider: [facility] Consult Reason/Comments: volume overload, elevated troponin likely 2/2 hypoxia Do you want consulting provider notified?: Yes 03/31/22 15:13 Consult Physician Urgent Consulting Provider: Camilo Sinclair Consult Reason/Comments: calixto Do you want consulting provider notified?: Yes 04/01/22 08:20 Consult Physician Urgent Consulting Provider: Olayinka Pederson Consult Reason/Comments: temporary dialysis catheter placement Do you want consulting provider notified?: Yes Primary care physician: Jeny Vega Hospital Course: Diagnosis -Acute hypoxic respiratory failure secondary to acute heart failure with chronic diastolic dysfunction. 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 She will be started on morphine gtt today and bipap will be weaned off. Family is at the bedside. Hospital Course 03/31/2022 72-year-old pleasant female came in with complaints of shortness of breath found to be in heart failure patient has a extensive pulmonary edema with highly eleva rinku BNP. Patient appears to have chronic diastolic dysfunction had a normal ejection fraction the past. Patient is presently on BiPAP patient has mild hypercapnia probably secondary to obesity patient is mostly hypoxic respiratory failure acute hypoxic respiratory failure doesn't use any oxygen at home. During her last hospitalization patient was treated for acute renal failure and at that time diuretics were discontinued and had acute renal failure was considered secondary to vasculitis because of which patient was discharged on steroids. Patient was comparing of some cough without any significant sputum production denied any dysuria doesn't have any fever does have mild leukocytosis. Patient does have history of breast cancer completed her chemotherapy recently never received any radiation therapy. Patient is mildly hyperkalemic with potassium of 5.3 and hyponatremic. 04/01/2022 Patient evaluated on step down unit on BiPAP, currently with 100% FiO2. Patient was an ateam yesterday for acute respiratory distress and received an additional 160 mg of IV push lasix for fluid overload. Her chest xray showed minimal improvement from prior. She also reported chest pain at that time which was relieved some with SL nitroglycerin and nitropaste as applied. She had EKG performed as well and reviewed by sound physician at bedside who felt there was no evidence for ST elevation. Troponins were trended showing 0.740, 3.950, 7.180, 9.860. She has produced minimal urine about 400 ml yesterday and 350 ml out overnight. Nephrology was consulted and recommending patient to undergo hem odialysis today. This was discussed with patient in extent and she is agreeing to dialysis and hoping to be able to breath better afterwards. Cardiology has discussed possible catheterization and patient is agreeable to this also. Today her white count is 10.2, hgb 8.8, sodium 132, potassium peaked at 6.2, BUN 91, creatinine 2.72. Blood glucose in the 200s. Blood cultures are negative. Remains afebrile, heart rate 87, blood pressure 138/70, 96% on BiPAP. 04/02/2022 Patient is resting in bed, continues on bipap with FiO2 of 100%. She reports breathing better after dialysis yesterday, she will have dialysis again today. Creatinine has improved slightly to 2.45. She remains in good spirits. Sodium 134, potassium 5.0. She continues on IV heparin. She went into atrial fibrillation with rapid ventricular rate throughout the evening and was started on IV cardizem which is continued. She will also receive 3 days of IV ferrlecit. Cardiology, nephrology, pulmonary are following the patient closely. 04/03/2022 Patient is evaluated today in bed she is on 15L Hi flow cannula and also a 15 L non rebreather. Plan is to undergo hemodialysis today, she had 2L off yesterday. She continue with coarse scattered rhonchi throughout. She has not had a BM since admission, although she has not been able to tolerate much diet due to being mostly Bipap dependent. She continues with significant anxiety and will add xanax BID. She continues on IV ferrlecit, IV heparin, IV cardizem, and also IV aztreonam. For now patient wants to continue current treatment plan. Family and patient would also like to meet with hospice for an information session. Creatinine today 2.37. Heart rate in the low 100s, blood pressure 117/66. 04/04/2022 Patient overnight required doses of IV ativan and morphine due to increasing respiratory discomfort and also anxiety. She attempted to stay on the 15 L hi flow and 100% non re breather however she was unable to tolerate and was placed back on Bipap with 50% fio2. Continues with significant labored breathing and coarse scattered rhonci throughout. Patient underwent dialysis yesterday. She has expressed a desire to proceed with hospice care and family is at the bedside with patient. She remains alert although fatigued. No lab work from today to review, Blood cultures have remained negative. Patient will proceed with hospice care today. Echocardiogram shows left ventricular hypertrophy with EF of 50% and very subtle anteroseptal hypokinesis. The impression and plan of care has been dictated by Akanksha Cespedes, Nurse Practitioner as directed. Dr. Tran MD I have performed a history and physical examination and medical decision making of this patient, discussed the same with the dictator, and agree with the dictators assessment and plan as written, documented as a scribe. Based on total visit time, I have performed more than 50% of this visit. Patient Condition at Discharge: Serious Plan - Discharge Summary Discharge Rx Participant: No New Discharge Prescriptions: No Action Amitriptyline HCl 50 mg PO HS Ascorbic Acid [Vitamin C] 500 mg PO DAILY polyethylene glycoL 3350 [Clearlax] 17 gm PO HS Omeprazole 20 mg PO DAILY HYDROcodone/APAP 7.5-325MG [[place] 7.5-325] 1 tab PO Q6HR PRN 3 Days #12 tab PRN Reason: Pain Psyllium Husk [Metamucil] 0.4 gm PO HS amLODIPine [Norvasc] 5 mg PO DAILY #30 tab predniSONE 30 mg PO DAILY #21 tab Metoprolol Succinate (ER) [Toprol XL] 25 mg PO BID #60 tab Fluticasone/Umeclidin/Vilanter [Trelegy Ellipta 100-62.5-25] 1 puff INHALATION RT-DAILY Cholecalciferol [Vitamin D3 (25 Mcg = 1000 Iu)] 25 mcg PO DAILY Glucagon Emergency Kit 1 mg SQ ONCE PRN PRN Reason: LOW BLOOD SUGAR Levothyroxine Sodium [Synthroid] 100 mcg PO DAILY Levothyroxine Sodium [Synthroid] 88 mcg PO DAILY Insulin Glargine,Hum.rec.anlog [Lantus Solostar Pen] 1 dose SQ HS Insulin Aspart [NovoLOG Flexpen] See Protocol SQ AC-TID Albuterol Sulfate [Albuterol Sulfate Hfa] 2 puff INHALATION RT-QID PRN PRN Reason: Shortness Of Breath Discharge Medication List Amitriptyline HCl 50 mg PO HS 01/14/18 [History] Ascorbic Acid [Vitamin C] 500 mg PO DAILY 01/14/18 [History] Omeprazole 20 mg PO DAILY 09/19/19 [History] polyethylene glycoL 3350 [Clearlax] 17 gm PO HS 09/19/19 [History] Cholecalciferol [Vitamin D3 (25 Mcg = 1000 Iu)] 25 mcg PO DAILY 10/21/21 [History] Glucagon Emergency Kit 1 mg SQ ONCE PRN 01/25/22 [History] Levothyroxine Sodium [Synthroid] 100 mcg PO DAILY 01/25/22 [History] HYDROcodone/APAP 7.5-325MG [[place] 7.5-325] 1 tab PO Q6HR PRN 3 Days #12 tab 03/21/22 [Rx] Insulin Aspart [NovoLOG Flexpen] See Protocol SQ AC-TID 03/23/22 [History] Insulin Glargine,Hum.rec.anlog [Lantus Solostar Pen] 1 dose SQ HS 03/23/22 [History] Levothyroxine Sodium [Synthroid] 88 mcg PO DAILY 03/23/22 [History] Psyllium Husk [Metamucil] 0.4 gm PO HS 03/23/22 [History] Metoprolol Succinate (ER) [Toprol XL] 25 mg PO BID #60 tab 03/28/22 [Rx] amLODIPine [Norvasc] 5 mg PO DAILY #30 tab 03/28/22 [Rx] predniSONE 30 mg PO DAILY #21 tab 03/28/22 [Rx] Albuterol Sulfate [Albuterol Sulfate Hfa] 2 puff INHALATION RT-QID PRN 03/31/22 [History] Fluticasone/Umeclidin/Vilanter [Trelegy Ellipta 100-62.5-25] 1 puff INHALATION RT-DAILY 03/31/22 [History] Follow up Appointment(s)/Referral(s): Jeny Vega DO [Primary Care Provider] - 1-2 days Discharge Disposition: DC/[facility] IP HOSP W/[facility] IP READ
== END 2022-04-04 10:45 | disposition hospice, inpatient (51) | DRG 280 ==
LOC: EC 08:32 → 3SCARD 10:45
PROVIDERS: ADMIT Internal Medicine; ATTEND Internal Medicine
PROC: 5A09457 Assistance with Respiratory Ventilation, 24-96 Consecutive Hours, Continuous Positive Airway Pressure (ICD-10-PCS; 2022-03-31)
PROC: 5A1D70Z Performance of Urinary Filtration, Intermittent, Less than 6 Hours Per Day (ICD-10-PCS; principal; 2022-04-01 13:45)
PROC: 06HY33Z Insertion of Infusion Device into Lower Vein, Percutaneous Approach (ICD-10-PCS; 2022-04-01 13:45)
DX: I13.2 Hypertensive heart and chronic kidney disease with heart failure and with stage 5 chronic kidney disease, or end stage renal disease (principal); I21.4 Non-ST elevation (NSTEMI) myocardial infarction; I50.33 Acute on chronic diastolic (congestive) heart failure; J96.01 Acute respiratory failure with hypoxia; N17.0 Acute kidney failure with tubular necrosis; N18.6 End stage renal disease; E87.2 Acidosis; E87.1 Hypo-osmolality and hyponatremia; Z20.822 Contact with and (suspected) exposure to COVID-19; D63.1 Anemia in chronic kidney disease; E11.22 Type 2 diabetes mellitus with diabetic chronic kidney disease; E66.9 Obesity, unspecified; E03.9 Hypothyroidism, unspecified; E83.39 Other disorders of phosphorus metabolism; E78.5 Hyperlipidemia, unspecified; R21 Rash and other nonspecific skin eruption; I34.0 Nonrheumatic mitral (valve) insufficiency; F17.210 Nicotine dependence, cigarettes, uncomplicated; J44.9 Chronic obstructive pulmonary disease, unspecified; E11.40 Type 2 diabetes mellitus with diabetic neuropathy, unspecified; Z66 Do not resuscitate; F41.9 Anxiety disorder, unspecified; E87.5 Hyperkalemia; I77.6 Arteritis, unspecified; G47.30 Sleep apnea, unspecified; E11.649 Type 2 diabetes mellitus with hypoglycemia without coma; I48.91 Unspecified atrial fibrillation; Z51.5 Encounter for palliative care; Z85.3 Personal history of malignant neoplasm of breast; Z68.37 Body mass index [BMI] 37.0-37.9, adult; Z79.890 Hormone replacement therapy; Z79.4 Long term (current) use of insulin; Z79.899 Other long term (current) drug therapy; Z88.1 Allergy status to other antibiotic agents; Z88.0 Allergy status to penicillin; Z88.8 Allergy status to other drugs, medicaments and biological substances; Z79.82 Long term (current) use of aspirin; Z79.52 Long term (current) use of systemic steroids; Z92.21 Personal history of antineoplastic chemotherapy; Z92.3 Personal history of irradiation
CPT/HCPCS: 36415; 36556; 36600; 71045; 76937; 77001; 80048; 80053; 81001; 82728; 82805; 83540; 83550; 83605; 83735; 83880; 83883; 84100; 84132; 84145; 84165; 84484; 85025; 85379; 85610; 85730; 86334; 86335; 86704; 86706; 87040; 87340; 87502; 87635; 90935; 93005; 93306; 94640; 94660; 96365; 96366; 96375; 96376; 99291

== ENCOUNTER 2022-04-04 10:04 | Inpatient (IN) | payer MEDICAID ==
[2022-04-04] MEDS ORDERED: ONDANSETRON 4 MG/2 ML VIAL IVP PRN (10:15)
[2022-04-04] MEDS ORDERED: ACETAMINOPHEN SUPPOSITORY 650 MG SUPP RECTAL PRN (10:15)
[2022-04-04] MEDS ORDERED: LORazepam 2 MG/ML INJ IV PRN (10:15)
[2022-04-04] MEDS ORDERED: MORPHINE SULFATE 2 MG/ML SYRINGE IV PRN (10:15)
[2022-04-04] MEDS ORDERED: SCOPOLAMINE 1 MG/72 HR PATCH TRANSDERM PRN (10:15)
[2022-04-04] MEDS ORDERED: GLYCOPYRROLATE 0.2 MG/ML 2 ML VIAL IVP PRN (10:15)
[2022-04-04] MEDS ORDERED: LORazepam 1 MG/0.5 ML VIAL IV PRN (10:20)
[2022-04-04] MEDS ORDERED: MORPHINE SULFATE (100 MG/2 ML) 100 MG in SODIUM CHLORIDE 0.9% 100 ML IV SCH (11:00)
--- NOTE | 2022-04-04 15:14 | P.HPIM ---
History of Present Illness H&P Date: 04/04/22 This is a 72-year-old female who presents to the hospital with complaints of shortness of breath was found to be in acute heart failure with extensive pulmonary edema with elevated BNP. Patient was requiring 100% BiPAP oxygen support and was unable to be weaned. She presents with acute hypoxic resp iratory failure and was not using home oxygen prior to. Other medical conditions include chronic kidney disease, diabetes, hypertension. Patient was recently admitted to this hospital stay with acute renal failure is considered secondary to vasculitis and she was discharged on steroids although serologies were negative. Patient had her diuretics stopped on discharge due to the acute renal failure with repeat labs. Patient was recently diagnosed with left breast cancer and underwent lumpectomy with chemotherapy which per notes that was good prognosis. She does have history of right breast cancer as well. This admission, Patient was complaining of cough without any significant sputum production she did have some mild leukocytosis. Patient also had troponin elevation. Cardiology and nephrology were consulted. Patient was started on hemodialysis as she did not respond to IV lasix and continued with elevated creatinine despite hemodialysis treatments patient was unable to tolerate coming off bipap with marginal oxygen saturations with FiO2 of 100%. Patient is extremely weak with labored breathing and has been unable to tolerate much oral intake as well. Cardiology had discussed possible cardiac catheterization pending clinical course, felt likely patient had acute non ST elevation TX. Patient also had elevated D-Dimer unable to rule pulmonary embolism and patient has felt she would not tolerate CT scan and this was placed on hold she was anticoagulated with IV heparin. Patient and family wished to meet with hospice for information session and patient states she is tired and feels ready to pass. Hospice was consulted and patient had wanted to go home on hospice. Family came in from out of town to see patient. After discussion based on patient and family wishes, end of life care is offered and formal hospice consultation in place. Patient has decided for inpatient hospice. She will be started on morphine infusion for comfort and bipap will be titrated off. REVIEW OF SYSTEMS: CONSTITUTIONAL: Reports fatigue. Generalized extreme weakness. Anxious. HEENT: No recent visual problems or hearing problems. Denied any sore throat. CARDIOVASCULAR: No chest pain, orthopnea, PND, no palpitations, no syncope. PULMONARY: Reports shortness of breath. GASTROINTESTINAL: No diarrhea, no nausea, no vomiting, no abdominal pain. NEUROLOGICAL: No headaches, no weakness, no numbness. HEMATOLOGICAL: Denies any bleeding or petechiae. GENITOURINARY: Denies any burning micturition, frequency, or urgency. MUSCULOSKELETAL/RHEUMATOLOGICAL: Denies any joint pain, swelling, or any muscle pain. ENDOCRINE: Denies any polyuria or polydipsia. The rest of the 14-point review of systems is negative. PHYSICAL EXAMINATION: GENERAL: The patient is alert and oriented x3, Having some labored breathing on BiPAP. Well developed, well nourished. HEENT: Pupils are round and equally reacting to light. EOMI. No scleral icterus. No conjunctival pallor. Normocephalic, atraumatic. No pharyngeal erythema. No thyromegaly. CARDIOVASCULAR: S1 and S2 present. No murmurs, rubs, or gallops. PULMONARY: Coarse scattered rhonchi throughout. ABDOMEN: Soft, nontender, nondistended, normoactive bowel sounds. No palpable organomegaly. MUSCULOSKELETAL: Oeripheral edema. EXTREMITIES: No cyanosis, clubbing, or pedal edema. NEUROLOGICAL: Gross neurological examination did not reveal any focal deficits. SKIN: No rashes. Patient has chronic skin changes and also healing excoriation/rash to inner thighs. Assessment and plan Assessment -Acute hypoxic respiratory failure secondary to acute heart failure with chronic diastolic dysfunction. 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 Patient has expressed that she is ready and wishes for end of life care. Family is at the bedside. Patient was evaluated by nephrology and pulmonary services today. The impression and plan of care has been dictated by Akanksha Cespedes Nurse Practitioner as directed. Dr. Tran MD I have performed a history and physical examination and medical decision making of this patient, discussed the same with the dictator, and agree with the dictators assessment and plan as written, documented as a scribe. Based on total visit time, I have performed more than 50% of this visit. Past Medical History Past Medical History: Cancer, Diabetes Mellitus, Hypertension, Renal Disease Additional Past Medical History / Comment(s): left breast CA dx September 2021,neuropathy,hx rt breast CA-dx 2013-radiation no chemo,Stg 3 Kidney Disease,sepsis 40 yrs ago, type 1 diabetic History of Any Multi-Drug Resistant Organisms: None Reported Past Surgical History: Breast Surgery, Orthopedic Surgery, Tubal Ligation Additional Past Surgical History / Comment(s): rt breast lumpectomy,ORIF rt lower leg Past Anesthesia/Blood Transfusion Reactions: Previous Problems w/ Anesthesia Additional Past Anesthesia/Blood Transfusion Reaction / Comment(s): hyperventilated coming out of anesthesia years ago-no problems with surgeries after that Past Psychological History: No Psychological Hx Reported Smoking Status: Current every day smoker Past Alcohol Use History: Daily Additional Past Alcohol Use History / Comment(s): started smoking at age 17,>1 1/2ppd Past Drug Use History: None Reported - Past Family History Mother Family Medical History: Cancer Father Family Medical History: Cancer Medications and Allergies Home Medications Medication Instructions Recorded Confirmed Type Amitriptyline HCl 50 mg PO HS 01/14/18 03/31/22 History Ascorbic Acid [Vitamin C] 500 mg PO DAILY 01/14/18 03/31/22 History Omeprazole 20 mg PO DAILY 09/19/19 03/31/22 History polyethylene glycoL 3350 [Clearlax] 17 gm PO HS 09/19/19 03/31/22 History Cholecalciferol [Vitamin D3 (25 25 mcg PO DAILY 10/21/21 03/31/22 History Mcg = 1000 Iu)] Glucagon Emergency Kit 1 mg SQ ONCE PRN 01/25/22 03/31/22 History Levothyroxine Sodium [Synthroid] 100 mcg PO DAILY 01/25/22 03/31/22 History HYDROcodone/APAP 7.5-325MG [Tony 1 tab PO Q6HR PRN 3 Days #12 tab 03/21/22 03/31/22 Rx 7.5-325] Insulin Aspart [NovoLOG Flexpen] See Protocol SQ AC-TID 03/23/22 03/31/22 History Insulin Glargine,Hum.rec.anlog 1 dose SQ HS 03/23/22 03/31/22 History [Lantus Solostar Pen] Levothyroxine Sodium [Synthroid] 88 mcg PO DAILY 03/23/22 03/31/22 History Psyllium Husk [Metamucil] 0.4 gm PO HS 03/23/22 03/31/22 History Metoprolol Succinate (ER) [Toprol 25 mg PO BID #60 tab 03/28/22 03/31/22 Rx XL] amLODIPine [Norvasc] 5 mg PO DAILY #30 tab 03/28/22 03/31/22 Rx predniSONE 30 mg PO DAILY #21 tab 03/28/22 03/31/22 Rx Albuterol Sulfate [Albuterol 2 puff INHALATION RT-QID PRN 03/31/22 03/31/22 History Sulfate Hfa] Fluticasone/Umeclidin/Vilanter 1 puff INHALATION RT-DAILY 03/31/22 03/31/22 History [Trelegy Ellipta 100-62.5-25] Allergies Allergy/AdvReac Type Severity Reaction Status Date / Time pregabalin [From Lyrica] Allergy Swelling Verified 03/31/22 09:54 terbinafine [From Lamisil] Allergy Itching Verified 03/31/22 09:54 amoxicillin AdvReac yeast Verified 03/31/22 09:54 infection cephalexin [From Keflex] AdvReac yeast Verified 03/31/22 09:54 infection Physical Exam Vitals: Vital Signs Pulse Resp 04/04/22 12:12 18 04/04/22 11:34 102 H 26 H Intake and Output 04/03/22 04/04/22 04/04/22 22:59 06:59 14:59 Intake Total 0.459 Balance 0.459 Intake: Intake, IV Titration 0.459 Amount Morphine Sulfate (100 mg/ 0.459 2 ml) 100 mg In Sodium Chloride 0.9% 100 ml @ 1 MG/HR 1.02 mls/hr IV . Q24H [facility] Rx#:[id number] Other: Weight 116.5 kg Assessment and Plan Time with Patient: Greater than 30
[2022-04-04 16:09] VITALS: PULSE 120; RESP 12
--- NOTE | 2022-04-04 21:53 | P.DS ---
Providers Date of admission: 04/04/22 10:50 Attending physician: Kaye Mayfeild Primary care physician: Jeny Vega Hospital Course: Diagnosis -Acute hypoxic respiratory failure secondary to acute heart failure with chronic diastolic dysfunction. 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 Preliminary cause of Acute Non ST elevated myocardial infarction. Hospital Course This is a 72 year old female who presents with acute hypoxic respiratory failure requiring bipap at 100% FiO2, patient was found to be in significant volume overload and was initally treated with IV lasix. Patient had chest pain and troponins were trended suggesting an acute non st elevated [place] and patient was started on IV heparin. Patient does have history of breast cancer and had recently finished chemotherapy in February of 2022. She was also recently admitted for possible vasculitis and discharged on oral prednisone, during that hospital stay patient had presented with acute kidney injury and diuretics were held on discharge. She was evaluated this admission by cardiology, nephrology, and pulmonary services. Patient was started on hemodialysis and continued with fluid overload, respiratory distress and decompensated hypoxic respiratory failure. Patient expressed desire for end of life care and hospice was consulted. Code status is a do not resuscitate. Patient was opened with inpatient hospice services and patient was started on morphine gtt for comfort and bipap was weaned off and oxygen support titrated down. Patient at 1640 with and family at beside. The impression and plan of care has been dictated by Akanksha Cespedes, Nurse Practitioner as directed. Dr. Tran MD I have performed a history and physical examination and medical decision making of this patient, discussed the same with the dictator, and agree with the dictators assessment and plan as written, documented as a scribe. Based on total visit time, I have performed more than 50% of this visit. Plan - Discharge Summary New Discharge Prescriptions: No Action Amitriptyline HCl 50 mg PO HS Ascorbic Acid [Vitamin C] 500 mg PO DAILY polyethylene glycoL 3350 [Clearlax] 17 gm PO HS Omeprazole 20 mg PO DAILY HYDROcodone/APAP 7.5-325MG [[place] 7.5-325] 1 tab PO Q6HR PRN 3 Days #12 tab PRN Reason: Pain Psyllium Husk [Metamucil] 0.4 gm PO HS amLODIPine [Norvasc] 5 mg PO DAILY #30 tab predniSONE 30 mg PO DAILY #21 tab Metoprolol Succinate (ER) [Toprol XL] 25 mg PO BID #60 tab Fluticasone/Umeclidin/Vilanter [Trelegy Ellipta 100-62.5-25] 1 puff INHALATION RT-DAILY Cholecalciferol [Vitamin D3 (25 Mcg = 1000 Iu)] 25 mcg PO DAILY Glucagon Emergency Kit 1 mg SQ ONCE PRN PRN Reason: LOW BLOOD SUGAR Levothyroxine Sodium [Synthroid] 100 mcg PO DAILY Levothyroxine Sodium [Synthroid] 88 mcg PO DAILY Insulin Glargine,Hum.rec.anlog [Lantus Solostar Pen] 1 dose SQ HS Insulin Aspart [NovoLOG Flexpen] See Protocol SQ AC-TID Albuterol Sulfate [Albuterol Sulfate Hfa] 2 puff INHALATION RT-QID PRN PRN Reason: Shortness Of Breath Discharge Medication List Amitriptyline HCl 50 mg PO HS 01/14/18 [History] Ascorbic Acid [Vitamin C] 500 mg PO DAILY 01/14/18 [History] Omeprazole 20 mg PO DAILY 09/19/19 [History] polyethylene glycoL 3350 [Clearlax] 17 gm PO HS 09/19/19 [History] Cholecalciferol [Vitamin D3 (25 Mcg = 1000 Iu)] 25 mcg PO DAILY 10/21/21 [History] Glucagon Emergency Kit 1 mg SQ ONCE PRN 01/25/22 [History] Levothyroxine Sodium [Synthroid] 100 mcg PO DAILY 01/25/22 [History] HYDROcodone/APAP 7.5-325MG [[place] 7.5-325] 1 tab PO Q6HR PRN 3 Days #12 tab 03/21/22 [Rx] Insulin Aspart [NovoLOG Flexpen] See Protocol SQ AC-TID 03/23/22 [History] Insulin Glargine,Hum.rec.anlog [Lantus Solostar Pen] 1 dose SQ HS 03/23/22 [History] Levothyroxine Sodium [Synthroid] 88 mcg PO DAILY 03/23/22 [History] Psyllium Husk [Metamucil] 0.4 gm PO HS 03/23/22 [History] Metoprolol Succinate (ER) [Toprol XL] 25 mg PO BID #60 tab 03/28/22 [Rx] amLODIPine [Norvasc] 5 mg PO DAILY #30 tab 03/28/22 [Rx] predniSONE 30 mg PO DAILY #21 tab 03/28/22 [Rx] Albuterol Sulfate [Albuterol Sulfate Hfa] 2 puff INHALATION RT-QID PRN 03/31/22 [History] Fluticasone/Umeclidin/Vilanter [Trelegy Ellipta 100-62.5-25] 1 puff INHALATION RT-DAILY 03/31/22 [History] Discharge Disposition: - Preliminary Cause of Preliminary Cause of : Acute Non ST Elevated Myocardial Infarction
== END 2022-04-04 16:40 | disposition expired | DRG 951 ==
LOC: 3SCARD 10:50
PROVIDERS: ADMIT Internal Medicine; ATTEND Internal Medicine
DX: Z51.5 Encounter for palliative care (principal); I21.4 Non-ST elevation (NSTEMI) myocardial infarction; N17.0 Acute kidney failure with tubular necrosis; I50.33 Acute on chronic diastolic (congestive) heart failure; E87.1 Hypo-osmolality and hyponatremia; I13.0 Hypertensive heart and chronic kidney disease with heart failure and stage 1 through stage 4 chronic kidney disease, or unspecified chronic kidney disease; N18.30 Chronic kidney disease, stage 3 unspecified; Z68.37 Body mass index [BMI] 37.0-37.9, adult; Z66 Do not resuscitate; E11.42 Type 2 diabetes mellitus with diabetic polyneuropathy; C50.912 Malignant neoplasm of unspecified site of left female breast; D63.8 Anemia in other chronic diseases classified elsewhere; E11.22 Type 2 diabetes mellitus with diabetic chronic kidney disease; E66.9 Obesity, unspecified; F17.210 Nicotine dependence, cigarettes, uncomplicated; I48.91 Unspecified atrial fibrillation; I77.6 Arteritis, unspecified; Z79.890 Hormone replacement therapy; Z79.899 Other long term (current) drug therapy; Z85.3 Personal history of malignant neoplasm of breast; Z92.21 Personal history of antineoplastic chemotherapy; Z88.1 Allergy status to other antibiotic agents; Z88.8 Allergy status to other drugs, medicaments and biological substances